=== PATIENT | female | born 1975 | race Caucasian/White ===

== ENCOUNTER 2020-11-28 21:12 | Emergency (ER) | payer OTHER, SELFPAY ==
[2020-11-28] VITALS (15 sets, daily range): BP systolic 123–143; BP diastolic 71–78; PULSE 60–75; RESP 18; TEMP 36.5; O2SAT 100
--- NOTE | 2020-11-28 21:23 | W.ED.GENAD ---
Discharge Plan Disposition Patient Disposition: [facility] Condition: Stable Discharge Details Clinical Impression: Headache, Blurred vision Primary Care Provider: Elvi Marie ED Provider: Radha Gibbons Home Meds and New Rx's Prescriptions: No Action levothyroxine [Synthroid] 137 MCG tablet 100 mcg PO DAILY RF: 0 epinephrine 0.3 MG/SYR auto-injector 0.3 mg IJ PRN PRN (Reason: Allergy Symptoms) Qty: 1 RF: 0 Medical Decision Making Patient is a pleasant 45-year-old female presenting today with chief complaint of headache. She reports that she received a [employer] Covid vaccination 8 days ago. States immediately after receiving this she began dry cough, body ache and general malaise. Reports nausea but no vomiting. No weight loss. However, today she began noticing a headache. She reports that she does often get headaches but that this is different than her typical headache as it is a defined unilateral along the right side. States that her right eye is also blurry. She denies any visual field loss. She does not notice any weakness. No shortness of breath or difficulty breathing. Patient is status post hysterectomy. She is not a smoker. She is not on any estrogen supplementation On exam, patient appears nontoxic. Neurologic exam is without abnormality or focal. Her lungs are clear, normal cardiac exam. No lower extremity swelling or posterior calf tenderness. Abdominal exam is benign Past medical history significant for thyroid cancer. Vital signs are stable. Visual acuity completed by nursing staff. 20/50 right side, 20/20 left, 20/20 with both eyes Differential at this time includes URI, reaction to vaccine, migraine versus. However, I am also concerned for potential cerebral venous thrombosis based on the recent data coming out about the [employer] vaccine. Discussed concern with the patient. 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 She does describe a true anaphylactic reaction when she last had this with a CT scan with contrast. Patient I did discuss pretreatment of this with steroids and Benadryl. However, patient declines any medications. She reports she often has reactions and does not want to take any medications while here. She is aware of my concerns. Plan to move forward with a noncontrast CT and discuss concerns with neurology. I do not see any evidence to suggest septicemia, dissection, [employer] infection. Patient declines any medications for symptomatic management. Chart review here reveals that patient had a mild reaction after receiving CT contrast in 2014. At that time patient had mild reaction to IV contrast consisting of mild chest pressure and flushing. Patient received 25 mg Benadryl and symptoms resolved. However, patient does receive imaging at outside facilities. Reviewed [facility] record and patient has anaphylaxis to gadolinium-containing media, anaphylaxis to iodinated contrast media. Much of the imaging has been pushed from other hospitals and unable to see their previous reports. Need to assume the patient did have true anaphylaxis at this time. Labs reviewed. No thrombocytopenia. Platelet count 319. Coags normal. ESR slightly elevated at 30. CRP is normal at 0.26. Labs otherwise without significant Consulted with Dr. Lam with neurology at [facility]. He advised that plt normal this is less likely. He advise MRI/MRV that can be completed without contrast. Contrast would be more appropriate but this is not possible. They are unable to preform the MRI tonight. If worsening symptoms could image tonight. Dr. Felton with the ED. He advised that they would need to touch base with imaging to see if the MR could be completed tonight. However, they accept patient in transfer to their ED for further evaluation and imaging with concern for cerebral venous thrombosis. Imaging reviewed by radiology: FINDINGS: Brain: Unremarkable. No intracranial hemorrhage. Unremarkable white matter. No mass effect. Cerebral ventricles: No ventriculomegaly. Bones/joints: Unremarkable. Paranasal sinuses: Visualized sinuses are unremarkable. No fluid levels. Mastoid air cells: Visualized mastoid air cells are well aerated. Soft tissues: Air in the soft tissues of the right face and right lateral forehead of uncertain origin. Free air at the base of the skull near the right side of C1 vertebral body. 1. Air in the soft tissues of the right face, right forehead, and base of the right skull near the C1 articulation. 2. No acute intracranial abnormality FINDINGS: Lungs: Unremarkable. No consolidation. Pleural spaces: Unremarkable. No pleural effusion. No pneumothorax. Heart/Mediastinum: Unremarkable. No cardiomegaly. Bones/joints: Unremarkable for patient's age. IMPRESSION: No acute cardiopulmonary findings. HPI General Mode of arrival: ambulatory. Date/Time Provider Initiated Documentation: 11/28/20 21:12. Limitations to Documentation: no limitations. Information obtained by: patient, RN notes reviewed and old records reviewed. History of Present Illness 45 year old F presents to the emergency department with the chief complaint of right sided BARRERA, nausea, dry cough, described as severe and similar to prior episodes (has hx of BARRERA), with intensity rated at 8. Quality is described as aching, and is localized to the head. Patient reports no radiation. Patient started experiencing this hour(s) and it has been constant (progressively worsened). No relieving factors improve symptom(s), No exacerbating factors reported . Patient notes cough, headaches and nausea/vomiting (nausea, no vomiting); denies confusion, chest pain, fever/chills, loss of appetite, rash, shortness of breath, syncope and weakness. Patient did receive the following treatments prior to arrival, none Related Data Home Medications Medication Instructions Recorded Confirmed levothyroxine [Synthroid] 100 mcg PO DAILY 04/09/13 11/28/20 epinephrine 0.3 mg IJ PRN PRN #1 kit 03/27/15 11/28/20 Previous Rx's Medication Instructions Recorded epinephrine 0.3 mg IJ PRN PRN #1 kit 03/27/15 Allergies Allergy/AdvReac Type Severity Reaction Status Date / Time Penicillins Allergy Severe Anaphylaxsi Unverified 11/28/20 21:24 s Sulfa (Sulfonamide Allergy Severe Anaphylaxsi Unverified 11/28/20 21:24 Antibiotics) s venom-honey bee Allergy Severe Anaphylaxsi Unverified 11/28/20 21:24 [bee venom (honey bee)] s citalopram Allergy Mild Hives Unverified 11/28/20 21:24 ofloxacin [From Floxin] Allergy Mild Skin Rash Unverified 11/28/20 21:24 azithromycin [From Zithromax] AdvReac Severe Anaphylaxsi Unverified 11/28/20 21:24 s Iodinated Contrast Media AdvReac Severe Anaphylaxsi Unverified 11/28/20 21:24 [Iodinated Contrast Media - s IV Dye] ketorolac tromethamine AdvReac Severe Anaphylaxsi Unverified 11/28/20 21:24 [From Toradol] s iodine AdvReac Intermediate Anaphylaxsi Unverified 11/28/20 21:24 s lorazepam [From Ativan] AdvReac Intermediate Dizziness/L Unverified 11/28/20 21:24 ightheade horse flies Allergy Severe Anaphylaxsi Uncoded 11/28/20 21:24 s General Stated Complaint: Headache CLARI: 3 Review of Systems Constitutional Constitutional: Reports as per HPI, Denies chills, Denies fever(s), Denies frequent falls, Reports headache(s) and Denies weakness Eyes Eyes: Reports as per HPI, Denies blurry vision, Reports change in vision and Reports photophobia ENT Ears, Nose, Mouth, and Throat: Denies vertigo, Reports headache(s) and Denies neck pain Cardiovascular Cardiovascular: Reports as per HPI, Denies chest pain, Denies lightheadedness, Denies radiating jaw, neck or arm pain, Denies dyspnea and Denies dyspnea on exertion Respiratory Respiratory: Reports as per HPI, Denies chest congestion, Reports cough, Denies hemoptysis, Denies dyspnea, Denies dyspnea on exertion, Denies stridor and Denies wheezing Gastrointestinal Gastrointestinal: Reports as per HPI, Denies abdominal pain, Denies change in bowel habits, Reports nausea and Denies vomiting Musculoskeletal Musculoskeletal: Reports as per HPI, Denies back pain, Reports myalgias, Denies muscle cramps, Denies neck pain and Denies numbness Integumentary/Breasts Skin/Breast: Reports as per HPI and Denies rash Neurologic Neurologic: Reports as per HPI, Denies abnormal movements, Denies abnormal speech, Denies behavioral changes, Denies confusion, Denies vertigo, Denies frequent falls, Reports headache(s), Denies localized weakness, Denies numbness, Denies sensory deficit and Denies weakness Psychiatric Psychiatric: Denies behavioral changes and Denies confusion Allergic/Immunologic Allergic/Immunologic: Denies wheezing [facility] Social History Smoking/Tobacco Use Status: Never Smoking risk assessment performed?: Yes Alcohol Intake: never Drug use: Never Do you feel safe at home: Yes Do you feel safe in your relationship?: Yes Exam Const General: cooperative, healthy appearing, comfortable, no acute distress, well developed, well groomed and anxious Nutritional Appearance: average body habitus and well nourished Orientation: alert, awake and oriented x3 HENMT Head: normal to inspection, no palpable skull fracture, normocephalic and atraumatic Ears: hearing grossly normal bilaterally, external ears normal and TM's normal bilaterally General nose exam: external nose normal Mouth: oral mucosae normal and moist mucous membranes Throat: posterior oropharynx normal Eyes General: appearance normal, both eyes and all related structures Visual Leggett: normal visual leggett by confrontation Alignment and Position: alignment normal Periorbital: periorbital findings normal Eyelids: eyelids normal Sclera: sclerae normal Cornea: corneas normal Pupils: PERRL EOM: EOM intact bilaterally Neck Neck: normal visual inspection, full ROM, no lymphadenopathy and no meningeal signs Resp Effort & Inspection: normal respiratory effort, able to speak in complete sentences and no respiratory distress Auscultation: clear to auscultation bilaterally, no rales, no rhonchi and no wheezes Cardio Rate: regular rate Rhythm: regular rhythm Heart Sounds: S1 normal and S2 normal GI Inspection: normal to inspection and non-distended Palpation: soft, no hepatosplenomegaly, not firm, no guarding, not rigid and nontender Percussion: normal to percussion Auscultation: normal bowel sounds Back/Spine/Pelvis Cervical Spine: normal cervical lordosis and cervical ROM normal Skin General skin exam: no rashes or lesions noted Neuro General: patient alert, patient awake and patient oriented x3 Cranial Nerves: CN's II-XI intact bilaterally Cognition: normal cognition Speech: speech normal Gait: normal gait Motor: muscle tone normal throughout, strength 5/5 throughout, no pronator drift, no movement abnormalities noted and no fasciculations Sensory Exam: no sensory deficits noted Coordination: bleevw-wc-uvol test normal, ghxd-rw-qmsg test normal, Romberg test normal, Does not sway with eyes open and rapid alternating movement UE normal Extrem General: normal to inspection, capillary refill normal, no pedal edema and no calf tenderness Psych Appearance: grossly normal and well kempt Mental Status: mental status grossly normal Speech and Movement: speech and movement normal Course Vital Signs Vital signs: Vital Signs Temperature 36.5 C 11/28/20 21:16 Pulse 75 11/28/20 21:16 Respiratory Rate 18 11/28/20 21:16 Blood Pressure 143/77 H 11/28/20 21:16 Pulse Oximetry 100 11/28/20 21:16 Temperature 36.5 C 11/28/20 21:16 Temperature Source Skin 11/28/20 21:16 Pulse 75 11/28/20 21:16 Respiratory Rate 18 04/16/21 21:16 Respiratory Effort Non-Labored 11/28/20 21:22 Blood Pressure 143/77 H 11/28/20 21:16 Blood Pressure Position Sitting 11/28/20 21:16 Pulse Oximetry 100 11/28/20 21:16 Oxygen Delivery Method Room Air 11/28/20 21:16 Oxygen Flow Rate 0 11/28/20 21:16 Pain Level 8 11/28/20 21:16
--- NOTE | 2020-11-28 21:30 | DI.CT_ITS ---
EXAM: CT HEAD WO CLINICAL HISTORY: right sided BARRERA with blurred vision. TECHNIQUE: Imaging Protocol: Axial computed tomography images with coronal and sagittal reformatted images were created and reviewed COMPARISON: No exams were available for comparison FINDINGS: Note is made of multiple foci of soft tissue gas in the cervical facial region, please correlate clin ically. The ventricular system is normal in appearance. No evidence of acute intracranial hemorrhage, mass effect, or midline shift. The orbital structures are unremarkable. The temporal bone structures appear intact. Calvarium: Normal. Visualized Paranasal sinuses/Mastoids: Clear. IMPRESSION: Normal cranial CT. Incidental multiple foci of soft tissue gas, facial and cervical, please correlat e clinically. RADIATION DOSE DELIVERED: 664.42mGy.cm Total DLP 664.42mGy.cm Total DLP DATA REPOSITORY: All CT scans at this facility are submitted to the National Radiology Data Registry (NRDR) Dose Index Registry (DIR) with the [employer] ([employer]). RADIATION OPTIMIZATION: All CT scans at this facility use at least one of these dose optimization te chniques: automated exposure control; mA and/or kV adjustment per patient size (includes targeted exa ms where dose is matched to clinical indication); or iterative reconstruction.
[2020-11-28] MEDS: Normal Saline 1,000 ML 1000 ML IV (22:08)
[2020-11-28 22:12] LABS: Abs Immature Grans 0.04 10^3/uL (0.0-0.06); Absolute Basophil Count 0.06 10^3/uL (0.0-0.2); Absolute Lymphocyte Count 3.87 10^3/uL (1.2-3.4); Absolute Monocyte Count 0.62 10^3/uL (0.1-0.8); Basophils % 0.5; Eosinophils % 2.3; HCT 36.9 % (36.0-46.0); HGB 12.3 g/dL (11.2-15.7); Immature Grans % 0.4; Lymphocytes % 34.9; MCH 30.4 pg (27.0-33.0); MCHC 33.3 % (32.0-36.0); MCV 91.1 fL (80-95); MPV 9.7 fL (8.0-11.0); Monocytes % 5.6; Neutrophils % 56.3; Nucleated RBC 0 %; Platelet Count 319 10^3/uL (130-400); RBC 4.05 10^6/uL (3.93-5.22); RDW 12.7 % (11.7-14.6); RDW-SD 42.2 fL; WBC 11.08 10^3/uL (4.4-10.8)
[2020-11-28 22:13] LABS: Absolute Eosinophil Count 0.25 10^3/uL (0.0-0.7); Absolute Neutrophil Count 6.24 10^3/uL (1.2-6.7)
[2020-11-28 22:15] LABS: ESR 30 mm//hr (0-20)
[2020-11-28 22:22] LABS: C-Reactive Protein 0.26 mg/dL (0.0-0.3)
--- NOTE | 2020-11-28 22:26 | DI.RAD_ITS ---
EXAM: XR CHEST 2V PA LATERAL CLINICAL HISTORY: dry cough TECHNIQUE: 2D digital imaging was performed. COMPARISON: CR CHEST 2 VIEWS PA,LAT from 07/10/2017 FINDINGS: The heart is not enlarged. The lungs are clear and well expanded. No pleural effusion seen. Mediastin al contours appear intact. IMPRESSION: Normal chest. RADIATION DOSE DELIVERED: Total DLP
[2020-11-28 22:35] LABS: PTT Activated 24.6 sec (21.0-27.5)
[2020-11-28 22:36] LABS: ALT 19 U/L (14-59); AST 14 U/L (15-37); Albumin 4.2 g/dL (3.4-5.0); Alkaline Phosphatase 88 U/L (46-116); Anion Gap 10.1 mmol/L (3-11); BUN 15 mg/dL (7-18); Bilirubin, Total 0.2 mg/dL (0.2-1.0); CO2 26.9 mmol/L (21.0-32.0); CREATININE 0.9 mg/dL (0.55-1.02); Calcium 9.4 mg/dL (8.5-10.1); Chloride 104 mmol/L (98-107); Glucose 100 mg/dL (74-106); Sodium 141 mmol/L (136-145); Total Protein 8.3 g/dL (6.4-8.2)
--- NOTE | 2020-11-28 22:51 | DI.VRAD_ITS ---
PROCEDURE INFORMATION: Exam: XR Chest Exam date and time: 11/28/2020 10:24 PM Age: 45 years old Clinical indication: Patient HX: Dry cough TECHNIQUE: Imaging protocol: XR of the chest. Views: 2 views. COMPARISON: CR CHEST 2 VIEWS PA,LAT 10/07/2017 18:24 FINDINGS: Lungs: Unremarkable. No consolidation. Pleural spaces: Unremarkable. No pleural effusion. No pneumothorax. Heart/Mediastinum: Unremarkable. No cardiomegaly. Bones/joints: Unremarkable for patient's age. IMPRESSION: No acute cardiopulmonary findings. Dictated and Authenticated by: Luz Bennett MD. Ordering:BENJI Garcia MD
--- NOTE | 2020-11-28 22:51 | DI.VRAD_ITS ---
Addendum created by Luz Bennett MD on 11/28/2020 10:53:45 PM EDT: The findings were verbally communicated via telephone conference with Dr. Rubio at 10:53 PM EDT on 11/28/2020. The findings were acknowledged and understood. Initial report created on 11/28/2020 10:50:57 PM EDT: PROCEDURE INFORMATION: Exam: CT Head Without Contrast Exam date and time: 11/28/2020 10:19 PM Age: 45 years old Clinical indication: Pain; Headache not specified; Patient HX: Received j\T\j 8 days ago TECHNIQUE: Imaging protocol: Computed tomography of the head without contrast. Radiation optimization: All CT scans at this facility use at least one of these dose optimization techniques: automated exposure control; mA and/or kV adjustment per patient size (includes targeted exams where dose is matched to clinical indication); or iterative reconstruction. COMPARISON: No relevant prior studies available. FINDINGS: Brain: Unremarkable. No intracranial hemorrhage. Unremarkable white matter. No mass effect. Cerebral ventricles: No ventriculomegaly. Bones/joints: Unremarkable. Paranasal sinuses: Visualized sinuses are unremarkable. No fluid levels. Mastoid air cells: Visualized mastoid air cells are well aerated. Soft tissues: Air in the soft tissues of the right face and right lateral forehead of uncertain origin. Free air at the base of the skull near the right side of C1 vertebral body. IMPRESSION: 1. Air in the soft tissues of the right face, right forehead, and base of the right skull near the C1 articulation. 2. No acute intracranial abnormality. Dictated and Authenticated by: Luz Bennett MD. Ordering:BENJI Garcia MD
[2020-11-28 22:56] LABS: Prothrombin Time 9.9 sec (9.3-11.0)
[2020-11-29] VITALS (12 sets, daily range): BP systolic 115–136; BP diastolic 68–77; PULSE 64–75; O2SAT 98–100
== END 2020-11-29 01:30 | disposition short-term general hospital (02) ==
PROVIDERS: Emergency Provider Physician Assistant; PCP Family Medicine
DX: R51.9 Headache, unspecified (principal); H53.8 Other visual disturbances
CPT/HCPCS: 80053; 85652; 96360; 99285; 70450; 71046; 85025; 85610; 85730; 86140; 99284

== ENCOUNTER 2020-12-10 17:44 | Outpatient (REF) | payer OTHER, SELFPAY ==
[2020-12-10 14:22] LABS: HCT 40.1 % (36.0-46.0); HGB 13.1 g/dL (11.2-15.7); MCHC 32.7 % (32.0-36.0); MCV 91.8 fL (80-95); MPV 10.7 fL (8.0-11.0); Platelet Count 341 10^3/uL (130-400); RBC 4.37 10^6/uL (3.93-5.22); RDW 12.7 % (11.7-14.6); RDW-SD 42.9 fL; WBC 6.81 10^3/uL (4.4-10.8)
[2020-12-10 14:59] LABS: ALT 18 U/L (14-59); AST 12 U/L (15-37); Alkaline Phosphatase 94 U/L (46-116); Anion Gap 7.9 mmol/L (3-11); BUN 17 mg/dL (7-18); Bilirubin, Total 0.3 mg/dL (0.2-1.0); CO2 28.1 mmol/L (21.0-32.0); Calcium 9.5 mg/dL (8.5-10.1); Chloride 103 mmol/L (98-107); Estimated GFR 59.43 (mL/min/1.73m2); FREE T4 1.18 ng/dL (0.76-1.46); Glucose 86 mg/dL (74-106); Potassium 4.4 mmol/L (3.5-5.1); Sodium 139 mmol/L (136-145); TSH 0.65 uIU/mL (0.36-3.74); Total Protein 7.6 g/dL (6.4-8.2)
[2020-12-10 21:26] LABS: T3, Total 133 ng/dL (97-169)
== END 2020-12-10 17:45 | disposition home or self-care (01) ==
LOC: NCHCN 17:44
PROVIDERS: PCP Family Medicine; Visit Provider Family Medicine
DX: E03.9 Hypothyroidism, unspecified (principal); R53.83 Other fatigue
CPT/HCPCS: 80053; 85027; 84432; 84439; 84443; 84480; 86800

== ENCOUNTER 2020-12-11 21:07 | Emergency (ER) | payer OTHER, SELFPAY ==
[2020-12-11 21:15] VITALS: BP 116/78; PULSE 72; RESP 18; TEMP 36.5; O2SAT 98
[2020-12-11 21:21] VITALS: RESP 18
--- NOTE | 2020-12-11 21:45 | RT.EKG_ITS ---
APPROVED REPORT Exam: Resting ECG Patient Location: E HR:68 bpm ECG Measurements Heart Rate 68 AXIS IL 158 P 68 QRSd 86 QRS 67 QT 410 T 56 QTc 437 Conclusion Sinus rhythm...normal P axis, V-rate 60- 99
[2020-12-11 22:03] LABS: Abs Immature Grans 0.03 10^3/uL (0.0-0.06); Absolute Basophil Count 0.06 10^3/uL (0.0-0.2); Absolute Eosinophil Count 0.18 10^3/uL (0.0-0.7); Absolute Monocyte Count 0.45 10^3/uL (0.1-0.8); Absolute Neutrophil Count 5.72 10^3/uL (1.2-6.7); Basophils % 0.6; Eosinophils % 1.9; HCT 35.3 % (36.0-46.0); HGB 11.6 g/dL (11.2-15.7); Immature Grans % 0.3; Lymphocytes % 32.5; MCH 29.8 pg (27.0-33.0); MCHC 32.9 % (32.0-36.0); MCV 90.7 fL (80-95); MPV 10.2 fL (8.0-11.0); Monocytes % 4.7; Nucleated RBC 0 %; Platelet Count 320 10^3/uL (130-400); RBC 3.89 10^6/uL (3.93-5.22); RDW 12.7 % (11.7-14.6); RDW-SD 41.6 fL; WBC 9.54 10^3/uL (4.4-10.8)
[2020-12-11 22:18] LABS: ALT 20 U/L (14-59); AST 13 U/L (15-37); Albumin 3.7 g/dL (3.4-5.0); Alkaline Phosphatase 83 U/L (46-116); Anion Gap 11.6 mmol/L (3-11); BUN 14 mg/dL (7-18); Bilirubin, Total 0.2 mg/dL (0.2-1.0); CO2 25.4 mmol/L (21.0-32.0); CREATININE 0.9 mg/dL (0.55-1.02); Calcium 9.2 mg/dL (8.5-10.1); Chloride 104 mmol/L (98-107); Glucose 114 mg/dL (74-106); Magnesium 1.8 mg/dL (1.8-2.4); PTT Activated 24.5 sec (21.0-27.5); Potassium 3.6 mmol/L (3.5-5.1); Prothrombin Time 9.9 sec (9.3-11.0); Sodium 141 mmol/L (136-145); Total Protein 7.5 g/dL (6.4-8.2)
--- NOTE | 2020-12-11 22:20 | DI.RAD_ITS ---
Exam(s) XR CHEST 2V PA LATERAL EXAM: XR CHEST 2V PA LATERAL CLINICAL HISTORY: near syncope TECHNIQUE: 2D digital imaging was performed. COMPARISON: CR,XR XR CHEST 2V PA LATERAL from 11/28/2020 FINDINGS: MEDIASTINUM: Normal. HEART: Normal. PULMONARY VASCULATURE: Normal. LUNGS: Clear. PLEURAL SPACE: No pleural effusion or pneumothorax. BONE:Within normal limits for the patient's age. OTHER FINDINGS:Normal. IMPRESSION: No acute pulmonary findings. DATA REPOSITORY: RADIATION DOSE DELIVERED:
[2020-12-11 22:21] LABS: Troponin I < 0.05 ng/mL (<0.06)
[2020-12-11] MEDS: Normal Saline 250 ML IV (22:26)
--- NOTE | 2020-12-11 22:39 | DI.VRAD_ITS ---
PROCEDURE INFORMATION: Exam: XR Chest Exam date and time: 12/11/2020 10:20 PM Age: 45 years old Clinical indication: Other: Near syncope TECHNIQUE: Imaging protocol: XR of the chest. Views: 2 views. COMPARISON: CR XR CHEST 2V PA LATERAL 11/28/2020 10:21 PM FINDINGS: Lungs: Unremarkable. No consolidation. Pleural spaces: Unremarkable. No pleural effusion. No pneumothorax. Heart/Mediastinum: Unremarkable. No cardiomegaly. Bones/joints: Unremarkable. IMPRESSION: No acute findings. Dictated and Authenticated by: Zachary Lenz MD. Ordering:EMILY Lee MD
--- NOTE | 2020-12-11 23:03 | ED.GENADUL_ITS ---
Discharge Plan Disposition Patient Disposition: HOME Condition: Stable Discharge Details Clinical Impression: Chest pain, Near syncope Primary Care Provider: Leonora Syed ED Provider: Jesus Delvalle Home Meds and New Rx's Prescriptions: Continued levothyroxine [Synthroid] 137 MCG tablet 100 mcg PO DAILY RF: 0 epinephrine 0.3 MG/SYR auto-injector 0.3 mg IJ PRN PRN (Reason: Allergy Symptoms) Qty: 1 RF: 0 Discharge Instructions Instructions: Chest Pain (ED), Near Syncope (ED) Additional Instructions: Work-up here in the ER does not reveal any obvious emergent process. Please watch for new or worsening symptoms and return to the ER for any concerns. Otherwise I would like you to contact your primary care provider tomorrow to discuss outpatient reevaluation and your ongoing symptoms Medical Decision Making This is a 45-year-old female who presents today specifically because she had a sensation of near syncope but overall has been feeling ill since her [employer] vaccine on 11-19-20 she was seen in our ER on the and subsequently transferred to [facility] where she had a negative MRV and a neurology consultation. I was able to review this record. Given her near syncopal episode this evening I will perform a cardiac evaluation, discussed with her a repeat troponin and EKG in 3 hours. She is agreeable to this work-up. She does appear anxious but she appears well, nontoxic and neurologically intact. She declines any aspirin. She states that she would rather not have any medications she can avoid it. Later she was requesting IV fluid although she tells me that she has been eating and drinking well, no concern for dehydration. Patient given 1 L IV fluid Patient remains neurologically intact. She is resting comfortably. Discussed her initial work-up which has been benign. She is specifically asking that we obtain a D-dimer. D-dimer is obtained. Patient had a single episode of diarrhea, is anxious and tearful. She reports mild nausea. She declines any Zofran. Upon reevaluation patient is using her phone without difficulty. She is no longer anxious or tearful. She is hopeful that her fully vaccinated father will be able to come visit her in the ER while she is awaiting the repeat troponin and EKG. We discussed her normal D-dimer test. At time of signout to Dr. Ibanez, awaiting repeat troponin and EKG at 0035 Medical Records Medical records reviewed: Yes I reviewed the patient's medical records. Imaging Data Radiologic Study: Attestation: I personally reviewed and interpreted this imaging study as follows: Imaging: X-Ray Radiologist's impression: Chest x-ray negative per radiology Lab Data Lab results reviewed: Yes I reviewed the patient's lab results. Labs: Laboratory Tests Range/Units 12/11/20 12/11/20 12/11/20 21:35 21:35 21:35 WBC (4.4-10.8) 10^3/uL 9.54 RBC (3.93-5.22) 10^6/uL 3.89 L Hgb (11.2-15.7) g/dL 11.6 Hct (36.0-46.0) % 35.3 L MCV (80-95) fL 90.7 MCH (27.0-33.0) pg 29.8 MCHC (32.0-36.0) % 32.9 RDW (11.7-14.6) % 12.7 Plt Count (130-400) 10^3/uL 320 MPV (8.0-11.0) fL 10.2 Immature Gran % 0.3 Neutrophils % 60.0 Lymphocytes % 32.5 Monocytes % 4.7 Eosinophils % 1.9 Basophils % 0.6 Nucleated RBC % % 0 Absolute Neutrophils (1.2-6.7) 10^3/uL 5.72 Absolute Lymphocytes (1.2-3.4) 10^3/uL 3.10 Absolute Monocytes (0.1-0.8) 10^3/uL 0.45 Absolute Eosinophils (0.0-0.7) 10^3/uL 0.18 Absolute Basophils (0.0-0.2) 10^3/uL 0.06 PT (9.3-11.0) sec 9.9 INR (0.9-1.1) 1.0 APTT (21.0-27.5) sec 24.5 Sodium (136-145) mmol/L 141 Potassium (3.5-5.1) mmol/L 3.6 Chloride (98-107) mmol/L 104 Carbon Dioxide (21.0-32.0) mmol/L 25.4 Anion Gap (3-11) mmol/L 11.6 H BUN (7-18) mg/dL 14 Creatinine (0.55-1.02) mg/dL 0.9 Estimated GFR/1.73 m2 (mL/min/1.73m2) >= 60.00 Glucose (74-106) mg/dL 114 H Calcium (8.5-10.1) mg/dL 9.2 Magnesium (1.8-2.4) mg/dL 1.8 Total Bilirubin (0.2-1.0) mg/dL 0.2 AST (15-37) U/L 13 L ALT (14-59) U/L 20 Alkaline Phosphatase (46-116) U/L 83 Troponin I (<0.06) ng/mL < 0.05 Total Protein (6.4-8.2) g/dL 7.5 Albumin (3.4-5.0) g/dL 3.7 ECG Data Attestation: I personally reviewed and interpreted this ECG (s) as follows: Interpretation: Please see official report by Dr. Fernandez. Sinus rhythm, ventricular of 68. No STEMI HPI General Mode of arrival: EMS . Date/Time Provider Initiated Documentation: 12/11/20 21:09 . Limitations to Documentation: no limitations . Information obtained by: patient and EMS . HPI Narrative: This is a 45-year-old female who reports past medical history of thyroid cancer, thyroidectomy, who takes levothyroxine. She received the Covid vaccine [employer] on 11-19-20. Subsequently she was seen in our ER on 11-28 for headache, concern for cerebral venous thrombosis, had a Noncon CT of her head here in the ER given her contrast allergy after she developed a headache and blurry vision. She was subsequently transferred to [facility] in the ER, had a neurology evaluation, MRV which was negative and subsequently discharged home. Patient states that after discharge overall she felt like she was going in the right direction however over the past 4 days has had intermittent chest squeezing, nothing makes it worse or better, does not radiate anywhere. Patient reports that her headache and blurry vision has not gone away completely since it began on the . She was seen by her primary care provider yesterday and had what she describes as reassuring blood work. She states today around 8 PM she was bending over to pick something up and had the chest squeezing sensation, had a head oliveros feeling like she could pass out, and bilateral leg weakness. She did not pass out. She denies recent illness or trauma. Patient reports that all of the symptoms are brand-new ever since the [employer] vaccine. She denies neck pain, fever, chest pain, shortness of breath. She does admit to a mild dry cough after getting the vaccine. Reports occasional abdominal pain, nausea but no vomiting. Reports occasional diarrhea, denies dysuria, numbness or weakness. Related Data Home Medications Medication Instructions Recorded Confirmed levothyroxine [Synthroid] 100 mcg PO DAILY 04/09/13 11/28/20 epinephrine 0.3 mg IJ PRN PRN #1 kit 03/27/15 11/28/20 Previous Rx's Medication Instructions Recorded epinephrine 0.3 mg IJ PRN PRN #1 kit 03/27/15 Allergies Allergy/AdvReac Type Severity Reaction Status Date / Time Penicillins Allergy Severe Anaphylaxsi Unverified 11/28/20 21:24 s Sulfa (Sulfonamide Allergy Severe Anaphylaxsi Unverified 11/28/20 21:24 Antibiotics) s venom-honey bee Allergy Severe Anaphylaxsi Unverified 11/28/20 21:24 [bee venom (honey bee)] s citalopram Allergy Mild Hives Unverified 11/28/20 21:24 ofloxacin [From Floxin] Allergy Mild Skin Rash Unverified 11/28/20 21:24 azithromycin [From Zithromax] AdvReac Severe Anaphylaxsi Unverified 11/28/20 21:24 s Iodinated Contrast Media AdvReac Severe Anaphylaxsi Unverified 11/28/20 21:24 [Iodinated Contrast Media - s IV Dye] ketorolac tromethamine AdvReac Severe Anaphylaxsi Unverified 11/28/20 21:24 [From Toradol] s iodine AdvReac Intermediate Anaphylaxsi Unverified 11/28/20 21:24 s lorazepam [From Ativan] AdvReac Intermediate Dizziness/L Unverified 11/28/20 21:24 ightheade horse flies Allergy Severe Anaphylaxsi Uncoded 11/28/20 21:24 s General Stated Complaint: Dizzy/Sync CLARI: 3 Review of Systems Constitutional Constitutional: Denies fatigue, Denies fever(s), Reports headache(s) and Denies weakness Eyes Eyes: Reports blurry vision ENT Ears, Nose, Mouth, and Throat: Reports headache(s) and Denies neck pain Cardiovascular Cardiovascular: Reports chest pain and Denies dyspnea Respiratory Respiratory: Reports cough and Denies dyspnea Gastrointestinal Gastrointestinal: Reports abdominal pain, Reports nausea and Denies vomiting Genitourinary Genitourinary: Denies dysuria Musculoskeletal Musculoskeletal: Denies back pain, Denies neck pain, Denies numbness and Denies tingling Integumentary/Breasts Skin/Breast: Denies rash Neurologic Neurologic: Reports headache(s), Denies numbness, Denies tingling and Denies weakness Endocrine Endocrine: Denies fatigue Hematologic/Lymphatic Hematologic/Lymphatic: Denies easy bleeding and Denies easy bruising [facility] Social History Smoking/Tobacco Use Status: Never Smoking risk assessment performed?: Yes Alcohol Intake: never Drug use: Never Do you feel safe at home: Yes Do you feel safe in your relationship?: Yes Exam Const General: cooperative, healthy appearing, comfortable, no acute distress and anxious Orientation: alert, awake and oriented x3 HENMT Head: normal to inspection, normocephalic and atraumatic General nose exam: external nose normal Face and sinus: normal facial exam Mouth: moist mucous membranes Eyes General: appearance normal, both eyes and all related structures Periorbital: periorbital findings normal Eyelids: eyelids normal Conjunctivae: conjunctivae normal Sclera: sclerae normal Cornea: corneas normal Neck Neck: normal visual inspection, full ROM, no lymphadenopathy, no meningeal signs, trachea midline, supple and nontender Resp Effort & Inspection: normal respiratory effort and able to speak in complete sentences Auscultation: clear to auscultation bilaterally Cardio Rate: regular rate Rhythm: regular rhythm GI Palpation: soft, not firm, no guarding and nontender Auscultation: normal bowel sounds Back/Spine/Pelvis Back: No back tenderness Skin General skin exam: no rashes or lesions noted Neuro General: patient alert, patient awake, patient oriented x3, moves all extremities and no focal motor deficits Cranial Nerves: CN's II-XI intact bilaterally Cognition: normal cognition Speech: speech normal Gait: normal gait Motor: muscle tone normal throughout, strength 5/5 throughout, no movement abnormalities noted and no fasciculations Sensory Exam: no sensory deficits noted Coordination: Does not sway with eyes open Extrem General: normal to inspection, full ROM, capillary refill normal, no pedal edema, no calf tenderness and normal gait Psych Appearance: grossly normal Mental Status: mental status grossly normal Course Vital Signs Vital signs: Vital Signs Temperature 36.5 C 12/11/20 21:15 Pulse 72 12/11/20 21:15 Respiratory Rate 18 12/11/20 21:15 Blood Pressure 116/78 12/11/20 21:15 Pulse Oximetry 98 12/11/20 21:15 Temperature 36.5 C 12/11/20 21:15 Temperature Source Temporal Artery Scan 12/11/20 21:15 Pulse 72 12/11/20 21:15 Respiratory Rate 18 12/11/20 21:21 Respiratory Effort Non-Labored 12/11/20 21:21 Respiratory Depth Normal 12/11/20 21:21 Respiratory Pattern Normal 12/11/20 21:21 Blood Pressure 116/78 12/11/20 21:15 Blood Pressure Position Supine 12/11/20 21:15 Pulse Oximetry 98 12/11/20 21:15 Oxygen Delivery Method Room Air 12/11/20 21:15 Oxygen Flow Rate 0 12/11/20 21:15 Pain Level 0 12/11/20 21:15 Lab/Test Results Lab/Test Results: Laboratory Tests Range/Units 12/11/20 12/11/20 12/11/20 21:35 21:35 21:35 WBC (4.4-10.8) 10^3/uL 9.54 RBC (3.93-5.22) 10^6/uL 3.89 L Hgb (11.2-15.7) g/dL 11.6 Hct (36.0-46.0) % 35.3 L MCV (80-95) fL 90.7 MCH (27.0-33.0) pg 29.8 MCHC (32.0-36.0) % 32.9 RDW (11.7-14.6) % 12.7 Plt Count (130-400) 10^3/uL 320 MPV (8.0-11.0) fL 10.2 Immature Gran % 0.3 Neutrophils % 60.0 Lymphocytes % 32.5 Monocytes % 4.7 Eosinophils % 1.9 Basophils % 0.6 Nucleated RBC % % 0 Absolute Neutrophils (1.2-6.7) 10^3/uL 5.72 Absolute Lymphocytes (1.2-3.4) 10^3/uL 3.10 Absolute Monocytes (0.1-0.8) 10^3/uL 0.45 Absolute Eosinophils (0.0-0.7) 10^3/uL 0.18 Absolute Basophils (0.0-0.2) 10^3/uL 0.06 PT (9.3-11.0) sec 9.9 INR (0.9-1.1) 1.0 APTT (21.0-27.5) sec 24.5 Sodium (136-145) mmol/L 141 Potassium (3.5-5.1) mmol/L 3.6 Chloride (98-107) mmol/L 104 Carbon Dioxide (21.0-32.0) mmol/L 25.4 Anion Gap (3-11) mmol/L 11.6 H BUN (7-18) mg/dL 14 Creatinine (0.55-1.02) mg/dL 0.9 Estimated GFR/1.73 m2 (mL/min/1.73m2) >= 60.00 Glucose (74-106) mg/dL 114 H Calcium (8.5-10.1) mg/dL 9.2 Magnesium (1.8-2.4) mg/dL 1.8 Total Bilirubin (0.2-1.0) mg/dL 0.2 AST (15-37) U/L 13 L ALT (14-59) U/L 20 Alkaline Phosphatase (46-116) U/L 83 Troponin I (<0.06) ng/mL < 0.05 Total Protein (6.4-8.2) g/dL 7.5 Albumin (3.4-5.0) g/dL 3.7
[2020-12-11 23:32] LABS: D-Dimer 416 ng/mlFEU (<500)
--- NOTE | 2020-12-12 00:45 | RT.EKG_ITS ---
APPROVED REPORT Exam: Resting ECG Patient Location: E HR:72 bpm ECG Measurements Heart Rate 72 AXIS DC 159 P 64 QRSd 84 QRS 64 QT 403 T 54 QTc 441 Conclusion Sinus rhythm...normal P axis, V-rate 60- 99 Consider anterior infarct...Q >30mS in V2-V5 -- no infarct There are no significant changes compared to prior EKG performed on 12/11/2020 at 22:07. Normal Electrocardiogram
[2020-12-12 01:28] LABS: Troponin I < 0.05 ng/mL (<0.06)
[2020-12-12 02:00] VITALS: BP 135/92; PULSE 76; RESP 16; O2SAT 96
== END 2020-12-12 01:59 | disposition home or self-care (01) ==
PROVIDERS: Emergency Provider Physician Assistant; PCP Family Medicine
DX: R55 Syncope and collapse (principal); R07.89 Other chest pain; R11.0 Nausea
CPT/HCPCS: 36415; 80053; 93005; 96360; 99284; 71046; 83735; 84484; 85025; 85379; 85610; 85730; 93010

== ENCOUNTER 2020-12-15 04:01 | Emergency (ER) | payer OTHER, SELFPAY ==
[2020-12-15] VITALS (91 sets, daily range): BP systolic 105–133; BP diastolic 62–97; PULSE 56–89; RESP 9–22; TEMP 36.5; O2SAT 94–100
--- NOTE | 2020-12-15 04:00 | RT.EKG_ITS ---
APPROVED REPORT Exam: Resting ECG Patient Location: E HR:63 bpm ECG Measurements Heart Rate 63 AXIS LA 166 P 69 QRSd 85 QRS 58 QT 420 T 52 QTc 431 Conclusion Sinus rhythm...normal P axis, V-rate 60- 99
--- NOTE | 2020-12-15 04:15 | DI.RAD_ITS ---
Exam(s) XR CHEST 2V PA LATERAL EXAM: XR CHEST 2V PA LATERAL CLINICAL HISTORY: L chest pain TECHNIQUE: 2D digital imaging was performed. COMPARISON: CR,XR XR CHEST 2V PA LATERAL from 12/11/2020 FINDINGS: MEDIASTINUM: Normal. HEART: Normal. PULMONARY VASCULATURE: Normal. LUNGS: Clear. PLEURAL SPACE: No pleural effusion or pneumothorax. BONE:Within normal limits for the patient's age. OTHER FINDINGS:Normal. IMPRESSION: No acute pulmonary findings. DATA REPOSITORY: RADIATION DOSE DELIVERED:
--- NOTE | 2020-12-15 04:29 | ED.GENADUL_ITS ---
Discharge Plan Disposition Patient Disposition: HOME Condition: Stable Discharge Details Clinical Impression: Atypical chest pain Primary Care Provider: Leonora Syed ED Provider: Chrissy Fernandez Home Meds and New Rx's Prescriptions: Continued levothyroxine [Synthroid] 137 MCG tablet 100 mcg PO DAILY RF: 0 epinephrine 0.3 MG/SYR auto-injector 0.3 mg IJ PRN PRN (Reason: Allergy Symptoms) Qty: 1 RF: 0 No Action levothyroxine 88 mcg capsule 88 mcg PO DAILY RF: 0 Discharge Instructions Instructions: Chest Pain (ED) Additional Instructions: Please wear Holter monitor and return to respiratory therapy as discussed with them. Please follow-up with neurology and cardiology as ordered by [facility]. Please return immediately to the emergency department if you develop any new or worsening symptoms, if your condition does not improve as expected, or if you become otherwise concerned. It is extremely important that you call soon as possible to make an appointment to be seen in follow-up for this visit by your primary care doctor, and also that you undergo a stress test as we discussed. Your stress test has been scheduled for this , 12/18/2020, at 9 AM. Referrals: Leonora Syed [Primary Care Provider] - Discharge Data Discharge Date/Time-TO BE ENTERED AT DEPARTURE: 12/15/20 09:50 Medical Decision Making <Deo Mondragon MD - Last Filed: 12/15/20 07:20> This is a 45-year-old female who presents approximately 4 in the morning complaining of intermittent episodes of electric-like left chest pain that radiates to her left arm over the past 4 days. She states it lasts approximately 1 minute and dissipates on its own. She attributes some of the symptoms to beginning after receiving the [employer] single dose COVID-19 vaccine in early November. She developed a headache for which she was evaluated at [facility] including an MRV that was negative. She was also recently seen in the emergency department where she had a negative D-dimer and negative troponin. She was seen this past Tuesday in outpatient clinic at which point she states she was trialed on an anxiolytic medicine and referred to both cardiology and neurology. This morning she states she had intermittent episodes of left anterior chest pain rating to left arm that kept her awake and for which she now seeks evaluation. She arrives to the ER with unremarkable vital signs, initial EKG that is without evidence of ischemic changes. She is placed on a clinical research monitor, IV access obtained, referred for chest x-ray and repeat laboratories. Patient's chest x-ray is unremarkable, CBC within normal limits, chemistries reassuring with a troponin that is negative. Patient observed on the clinical research monitor without significant event. Repeat troponin obtained and pending. I will order her an outpatient Holter monitor. Case will be signed out to Dr. Fernandez pending the patient's repeat troponin. If negative anticipate she will discharge to home and follow-up with neurology and cardiology as planned by her primary care physician. <Chrissy Fernandez MD - Last Filed: 12/22/20 08:43> Raquel Valencia is a 45 y.o woman who presented to emergency department with chest pain, please see Dr. Mondragon's note for H&P. Patient signed out to me with repeat troponin pending. Repeat troponin resulted as negative. Patient reports feeling well and ready to go, no current pain. Patient is low risk by HEART score, okay for outpatient follow-up. Exam/history/diagnostic results not consistent with acute coronary syndrome, pulmonary embolism, acute aortic pathology, other acute emergent medical condition. Outpatient stress test ordered by me. Holter monitor placed by respiratory therapy. I had a lengthy discussion with Patient regarding return to emergency department precautions, home care, and importance of outpatient follow-up. Pt verbalizes understanding of the plan and is amenable. Patient discharged to home with clear plan for outpatient follow-up with neurology, cardiology, and her PCP. All questions were answered. Disposition decision was made weighing the risks and benefits of hospitalization versus outpatient treatment, the risk for further decompensation, and the patient's wishes. Medical Records Medical records reviewed: Yes I reviewed the patient's medical records. Lab Data Lab results reviewed: Yes I reviewed the patient's lab results. Labs: Laboratory Tests Range/Units 12/15/20 12/15/20 12/15/20 04:40 04:40 07:09 WBC (4.4-10.8) 10^3/uL 8.91 RBC (3.93-5.22) 10^6/uL 4.00 Hgb (11.2-15.7) g/dL 11.9 Hct (36.0-46.0) % 36.5 MCV (80-95) fL 91.3 MCH (27.0-33.0) pg 29.8 MCHC (32.0-36.0) % 32.6 RDW (11.7-14.6) % 12.7 Plt Count (130-400) 10^3/uL 303 MPV (8.0-11.0) fL 9.4 Immature Gran % 0.4 Neutrophils % 56.9 Lymphocytes % 34.3 Monocytes % 5.7 Eosinophils % 2.0 Basophils % 0.7 Nucleated RBC % % 0 Absolute Neutrophils (1.2-6.7) 10^3/uL 5.06 Absolute Lymphocytes (1.2-3.4) 10^3/uL 3.06 Absolute Monocytes (0.1-0.8) 10^3/uL 0.51 Absolute Eosinophils (0.0-0.7) 10^3/uL 0.18 Absolute Basophils (0.0-0.2) 10^3/uL 0.06 Sodium (136-145) mmol/L 142 Potassium (3.5-5.1) mmol/L 3.7 Chloride (98-107) mmol/L 106 Carbon Dioxide (21.0-32.0) mmol/L 25.5 Anion Gap (3-11) mmol/L 10.5 BUN (7-18) mg/dL 14 Creatinine (0.55-1.02) mg/dL 1.0 Estimated GFR/1.73 m2 (mL/min/1.73m2) 59.43 Glucose (74-106) mg/dL 87 Calcium (8.5-10.1) mg/dL 8.9 Magnesium (1.8-2.4) mg/dL 1.8 Total Bilirubin (0.2-1.0) mg/dL 0.3 AST (15-37) U/L 11 L ALT (14-59) U/L 16 Alkaline Phosphatase (46-116) U/L 74 Troponin I (<0.06) ng/mL < 0.05 < 0.05 Total Protein (6.4-8.2) g/dL 7.3 Albumin (3.4-5.0) g/dL 3.6 SARS-CoV-2 (PCR) (Negative) Nasopharyn COVID-19 PCR Ref Test Perform Site Range/Units 12/15/20 09:47 WBC (4.4-10.8) 10^3/uL RBC (3.93-5.22) 10^6/uL Hgb (11.2-15.7) g/dL Hct (36.0-46.0) % MCV (80-95) fL MCH (27.0-33.0) pg MCHC (32.0-36.0) % RDW (11.7-14.6) % Plt Count (130-400) 10^3/uL MPV (8.0-11.0) fL Immature Gran % Neutrophils % Lymphocytes % Monocytes % Eosinophils % Basophils % Nucleated RBC % % Absolute Neutrophils (1.2-6.7) 10^3/uL Absolute Lymphocytes (1.2-3.4) 10^3/uL Absolute Monocytes (0.1-0.8) 10^3/uL Absolute Eosinophils (0.0-0.7) 10^3/uL Absolute Basophils (0.0-0.2) 10^3/uL Sodium (136-145) mmol/L Potassium (3.5-5.1) mmol/L Chloride (98-107) mmol/L Carbon Dioxide (21.0-32.0) mmol/L Anion Gap (3-11) mmol/L BUN (7-18) mg/dL Creatinine (0.55-1.02) mg/dL Estimated GFR/1.73 m2 (mL/min/1.73m2) Glucose (74-106) mg/dL Calcium (8.5-10.1) mg/dL Magnesium (1.8-2.4) mg/dL Total Bilirubin (0.2-1.0) mg/dL AST (15-37) U/L ALT (14-59) U/L Alkaline Phosphatase (46-116) U/L Troponin I (<0.06) ng/mL Total Protein (6.4-8.2) g/dL Albumin (3.4-5.0) g/dL SARS-CoV-2 (PCR) (Negative) Negative Nasopharyn COVID-19 PCR Not Applicable Ref Test Perform Site [id number] lab HPI <Deo Mondragon MD - Last Filed: 12/15/20 07:20> General Mode of arrival: ambulatory . Date/Time Provider Initiated Documentation: 12/15/20 04:02 . Limitations to Documentation: no limitations . Information obtained by: patient . History of Present Illness 45 year old F presents to the emergency department with the chief complaint of Left chest pain intermittently for 4 days, described as moderate, Quality is described as other (Electric), and is localized to the chest and left. Patient extremity. Patient started experiencing this day(s) and it has been intermittent. No relieving factors improve symptom(s), No exacerbating factors reported . Patient notes denies cough, fever/chills, loss of appetite and nausea/vomiting. Patient did receive the following treatments prior to arrival, none Related Data Home Medications Medication Instructions Recorded Confirmed levothyroxine [Synthroid] 100 mcg PO DAILY 04/09/13 12/15/20 epinephrine 0.3 mg IJ PRN PRN #1 kit 03/27/15 12/15/20 levothyroxine 88 mcg capsule 88 mcg PO DAILY 12/17/20 Previous Rx's Medication Instructions Recorded epinephrine 0.3 mg IJ PRN PRN #1 kit 03/27/15 Allergies Allergy/AdvReac Type Severity Reaction Status Date / Time Penicillins Allergy Severe Anaphylaxsi Unverified 12/15/20 04:23 s Sulfa (Sulfonamide Allergy Severe Anaphylaxsi Unverified 12/15/20 04:23 Antibiotics) s venom-honey bee Allergy Severe Anaphylaxsi Unverified 12/15/20 04:23 [bee venom (honey bee)] s citalopram Allergy Mild Hives Unverified 12/15/20 04:23 ofloxacin [From Floxin] Allergy Mild Skin Rash Unverified 12/15/20 04:23 naproxen [From Aleve] Allergy Verified 12/17/20 16:09 azithromycin [From Zithromax] AdvReac Severe Anaphylaxsi Unverified 12/15/20 04:23 s Iodinated Contrast Media AdvReac Severe Anaphylaxsi Unverified 12/15/20 04:23 [Iodinated Contrast Media - s IV Dye] ketorolac tromethamine AdvReac Severe Anaphylaxsi Unverified 12/15/20 04:23 [From Toradol] s iodine AdvReac Intermediate Anaphylaxsi Unverified 12/15/20 04:23 s lorazepam [From Ativan] AdvReac Intermediate Dizziness/L Unverified 12/15/20 04:23 ightheade horse flies Allergy Severe Anaphylaxsi Uncoded 11/28/20 21:24 s General Stated Complaint: Chest Pain CLARI: 2 Review of Systems <Deo Mondragon MD - Last Filed: 12/15/20 07:20> Narrative: 6 systems reviewed and otherwise negative PFSH <Deo Mondragon MD - Last Filed: 12/15/20 07:20> Medical History (Updated 12/17/20 @ 16:12 by Rubi Wing RN) Anxiety Fatigue Fatigue Hypothyroidism Social History Smoking/Tobacco Use Status: Never Smoking risk assessment performed?: Yes Alcohol Intake: never Drug use: Never Substance use type: does not use Do you feel safe at home: Yes Do you feel safe in your relationship?: Yes Additional Social history: Has had both her COVID Vaccines since November Exam <Deo Mondragon MD - Last Filed: 12/15/20 07:20> Narrative Exam Narrative: GEN: awake, alert, oriented 3. Pleasant, well groomed, interactive. HEAD: Normocephalic, atraumatic ENT: Mucous membranes moist, External ear exam unremarkable EYES: PERRL, EOMI NECK: Full ROM, no JOEL, no menigismus CHEST/RESP: Nontender, clear to auscultation bilateral, no wheeze/rhonchi/rales CARDIOVASCULAR: RRR, no murmur, rub taylor. 2+ Rad pulse bilateral ABDOMEN: Soft, nontender, no mass. +Bowel sounds EXT: Full ROM, no edema, no rash Neuro: Grossly normal neurologic exam, conversant, interactive. Psych: Speech fluent, thoughts congruent, affect normal Course <Deo Mondragon MD - Last Filed: 12/15/20 07:20> Vital Signs Vital signs: Vital Signs Temperature 36.5 C 12/15/20 04:05 Pulse 72 12/15/20 04:05 Respiratory Rate 16 12/15/20 04:05 Blood Pressure 127/87 12/15/20 04:05 Temperature 36.5 C 12/15/20 04:05 Temperature Source Skin 12/15/20 04:05 Pulse 64 12/15/20 04:20 Pulse 78 12/15/20 04:21 Respiratory Rate 14 12/15/20 04:21 Respiratory Effort Non-Labored 05/03/21 04:19 Respiratory Depth Normal 12/15/20 04:19 Respiratory Pattern Normal 12/15/20 04:19 Blood Pressure 131/81 12/15/20 04:20 Blood Pressure Mean 92 12/15/20 04:20 Blood Pressure Position Supine 12/15/20 04:05 Pulse Oximetry 98 12/15/20 04:21 Oxygen Delivery Method Room Air 12/15/20 04:05 Oxygen Flow Rate 0 12/15/20 04:05 Sign Out <Deo Mondragon MD - Last Filed: 12/15/20 07:20> Sign Out Data: Sign Out Comment: pending repeat troponin Last updated by Deo Mondragon MD at 12/15/20 07:24
[2020-12-15 04:43] LABS: Abs Immature Grans 0.04 10^3/uL (0.0-0.06); Absolute Basophil Count 0.06 10^3/uL (0.0-0.2); Absolute Eosinophil Count 0.18 10^3/uL (0.0-0.7); Absolute Lymphocyte Count 3.06 10^3/uL (1.2-3.4); Absolute Monocyte Count 0.51 10^3/uL (0.1-0.8); Absolute Neutrophil Count 5.06 10^3/uL (1.2-6.7); Basophils % 0.7; HCT 36.5 % (36.0-46.0); HGB 11.9 g/dL (11.2-15.7); Immature Grans % 0.4; Lymphocytes % 34.3; MCH 29.8 pg (27.0-33.0); MCHC 32.6 % (32.0-36.0); MCV 91.3 fL (80-95); MPV 9.4 fL (8.0-11.0); Monocytes % 5.7; Neutrophils % 56.9; Nucleated RBC 0 %; Platelet Count 303 10^3/uL (130-400); RDW 12.7 % (11.7-14.6); RDW-SD 42.4 fL; WBC 8.91 10^3/uL (4.4-10.8)
[2020-12-15 05:03] LABS: ALT 16 U/L (14-59); AST 11 U/L (15-37); Albumin 3.6 g/dL (3.4-5.0); Alkaline Phosphatase 74 U/L (46-116); Anion Gap 10.5 mmol/L (3-11); BUN 14 mg/dL (7-18); Bilirubin, Total 0.3 mg/dL (0.2-1.0); CO2 25.5 mmol/L (21.0-32.0); Calcium 8.9 mg/dL (8.5-10.1); Chloride 106 mmol/L (98-107); Estimated GFR 59.43 (mL/min/1.73m2); Glucose 87 mg/dL (74-106); Magnesium 1.8 mg/dL (1.8-2.4); Potassium 3.7 mmol/L (3.5-5.1); Sodium 142 mmol/L (136-145); Total Protein 7.3 g/dL (6.4-8.2)
[2020-12-15 05:04] LABS: Troponin I < 0.05 ng/mL (<0.06)
--- NOTE | 2020-12-15 05:44 | DI.VRAD_ITS ---
PROCEDURE INFORMATION: Exam: XR Chest Exam date and time: 12/15/2020 4:29 AM Age: 45 years old Clinical indication: Left-sided chest pain; Patient HX: Left sided chest pain since 12/11 TECHNIQUE: Imaging protocol: XR of the chest. Views: 2 views. COMPARISON: CR XR CHEST 2V PA LATERAL 12/11/2020 11:33 PM FINDINGS: Lungs: Unremarkable. No consolidation. Pleural spaces: Unremarkable. No pleural effusion. No pneumothorax. Heart/Mediastinum: Unremarkable. No cardiomegaly. Bones/joints: Unremarkable. IMPRESSION: No acute findings. Dictated and Authenticated by: Drew Marmolejo MD. Ordering:TEETEE Desouza MD
--- NOTE | 2020-12-15 07:00 | RT.EKG_ITS ---
APPROVED REPORT Exam: Resting ECG Patient Location: E HR:65 bpm ECG Measurements Heart Rate 65 AXIS AK 161 P -6 QRSd 85 QRS 48 QT 435 T 32 QTc 454 Conclusion Sinus rhythm...normal P axis, V-rate 60- 99
--- NOTE | 2020-12-15 07:15 | HOLTER_ITS ---
APPROVED REPORT This 48-hour Holter monitor was performed for chest pain and palpitations Rhythm throughout was sinus. Average heart rate was 71, minimum was 55, maximum 135 1 isolated PVC was seen A total of 5 atrial premature beat were noted There was no atrial fibrillation, no high-grade AV block, no pauses greater than 3 seconds
[2020-12-15 07:36] LABS: Troponin I < 0.05 ng/mL (<0.06)
[2020-12-16 11:17] LABS: COVID-19 RT-PCR UVMMC Result Negative (Negative)
--- NOTE | 2020-12-17 17:42 | NUR.NOTE ---
spoke to pt-advised that her covid test was negative.Nursing Note:
== END 2020-12-15 09:50 | disposition home or self-care (01) ==
PROVIDERS: Emergency Medicine; Emergency Provider Student in an Organized Health Care Education/Training Program; PCP Family Medicine
DX: R07.89 Other chest pain (principal); Z03.818 Encounter for observation for suspected exposure to other biological agents ruled out
CPT/HCPCS: 36415; 80053; 93005; 99285; U0003; 71046; 83735; 84484; 85025; 93010; 93225; 99284

== ENCOUNTER 2020-12-18 01:33 | Outpatient (CLI) | payer OTHER, SELFPAY ==
--- NOTE | 2020-12-18 09:00 | ETT_ITS ---
APPROVED REPORT Exam: Exercise Treadmill Patient Location: Out-Patient Room/Bed: Stress Nurse: Tara Ruby RN Ordering Provider:JOSE PARTIDA, Contact Number: [phone] BMI: 24.95 Baseline Rhythm: Sinus Rhythm Indications: ATYPICAL CHEST PAIN. Medical History Medical History: Hyperlipidemia Cardiac Medications: None Allergies: Penicillins, Sulfonamide antibiotics, Venom-honey bee, Citalopram, Ofloxacin, Azithromycin , Iodinated Contrast Media, Ketorolac tromethamine, Iodine, Lorazepam, Horse flies Cardiac Risk Factors: Hyperlipidemia Previous Cardiac Procedures: None Pretest Chest Pain Characteristics: No chest pain Exercise History: Sedentary Physical Disabilities: None Lung Sounds: Clear to auscultation Heart Sounds: Regular Stress Test Details Test: Exercise stress testing was performed using a Harlan protocol. Rest Stress HR Resting HR Supine: 78 bpm Max Heart Rate (APMHR): 173 bpm Resting HR Standin bpm Target HR (85% APMHR): 147 bpm Max HR Achieved: 171 bpm % of APMHR: 98 Recovery HR: 98 bpm HR response to stress: Normal HR response to stress BP Resting BP Supine: 118/82 mmHg Resting BP Standin/76 mmHg Max BP: 152/76 mmHg Recovery BP: 128/82 mmHg BP response to stress: Normal blood pressure response to stress. ECG Resting ECG: Sinus Rhythm Ectopy: None Stress ECG: Sinus Tachycardia ST Change: No significant ST segment changes noted Arrhythmia: rare PAC Recovery ECG: Sinus Rhythm Recovery ST Change: No significant ST segment changes noted, Recovery Arrhythmia: None Clinical Reason for Termination: Fatigue Stress Symptoms: General Fatigue Exercise duration: 12 min05 sec Highest Stage Reached: Stage 5: 5.0 mph at 18% grade. Exercise capacity: 13.53 METs Jacobson Treadmill Score: 11 Rate Pressure Product: [id number] Stress ECG Conclusion 1. The resting electrocardiogram was normal 2. The patient exercised on the Harlan protocol and completed a workload of 13.53 METS, limited by fat igue 3. Normal heart rate and blood pressure response to exercise. The patient achieved 98% of predicted heart rate for age 4. There was no electrocardiographic evidence of myocardial ischemia with exercise 5. There were no significant dysrhythmias Jacobson Treadmill Score is 11 which is Low risk. Stress Test Summary STAGE Time (mins) Speed (mph) Grade (%) HR BP SYMPTOMS METS Supine 78 118/82 Standing 79 120/76 1 3 1.7 10 103 122/82 4.6 2 6 2.5 12 115 136/78 7 3 9 3.4 14 140 152/76 10.2 4 12 4.2 16 171 12.9 1 min recovery 148 150/80 Dizziness, resolved with lying down 3 min recovery 109 142/80 6 min recovery 98 128/82
== END 2020-12-18 01:53 ==
PROVIDERS: PCP Family Medicine; Visit Provider Student in an Organized Health Care Education/Training Program
DX: R07.89 Other chest pain (principal); E78.5 Hyperlipidemia, unspecified
CPT/HCPCS: 93017; 93226

== ENCOUNTER 2021-01-02 19:01 | Emergency (ER) | payer OTHER, SELFPAY ==
--- NOTE | 2021-01-02 19:00 | RT.EKG_ITS ---
APPROVED REPORT Exam: Resting ECG Reason for Exam: chest pain Patient Location: E HR:69 bpm ECG Measurements Heart Rate 69 AXIS NV 148 P 44 QRSd 83 QRS 62 QT 393 T 17 QTc 422 Conclusion Sinus rhythm...normal P axis, V-rate 60- 99
[2021-01-02 19:06] VITALS: BP 144/96; PULSE 84; RESP 14; TEMP 37.2; O2SAT 97
[2021-01-02 19:13] VITALS: RESP 27
--- NOTE | 2021-01-02 19:30 | W.ED.GENAD ---
Discharge Plan Disposition Patient Disposition: HOME Condition: Stable Discharge Details Clinical Impression: Chest pain, Anxiety Primary Care Provider: Leonora Syed ED Provider: Belkis Santos Home Meds and New Rx's Prescriptions: No Action levothyroxine 88 mcg capsule 88 mcg PO DAILY RF: 0 levothyroxine [Synthroid] 137 MCG tablet 100 mcg PO DAILY RF: 0 epinephrine 0.3 MG/SYR auto-injector 0.3 mg IJ PRN PRN (Reason: Allergy Symptoms) Qty: 1 RF: 0 Discharge Instructions Instructions: Chest Pain (ED), Anxiety (ED) Additional Instructions: Follow up with primary care provider in 3-5 days. Return to ED sooner if any worsening or concerns. Increase oral fluids. Please take Tylenol or Ibuprofen with food every 4-6 hours as needed for pain and swelling. at this time the cardiac work-up has been within normal limits. CT chest abdomen pelvis results discussed. Please follow-up with your primary care provider regarding the calcified nodule in your left lower lobe. I do not think at this time that this has anything to do with the pain that you are having. Return to the ED for any change in the nature of your pain, if you have any pressure, nausea, sweatiness if the pain radiates into your jaw or your arm. Referrals: Leonora Syed [Primary Care Provider] - Discharge Data Discharge Date/Time-TO BE ENTERED AT DEPARTURE: 01/02/21 22:31 Medical Decision Making 45-year-old female presents to the ER with chief complaint of midsternal chest pain which radiates into the right side of her back which began approximately 1 to 2 hours prior to arrival. She reports over the last 1 to 2weeks is having increased nausea diarrhea which began watery decreased appetite and just overall feeling poorly. She was seen here on December 15 for chest pain was sent home with a negative work-up and a Holter monitor. She also had a exercise stress test on December 18 which was within normal limits. She was seen yesterday at [facility] with some right-sided neck pain and headache which seems to has resolved since then. She denies any fever chills. Denies any problems urinating or burning with urination. Denies any anterior abdominal pain. Spoke with patient extensively regarding need for considering chest CT to rule out PE and/or aortic aneurysm. Other differential diagnosis includes cholecystitis or gallstones which would be causing her pain nausea and diarrhea also included in my differential is anxiety. Discussed at length the premedication procedure and policy for CT patient this time is deciding not to forego with the IV contrast or premedication. I did discuss at length that I cannot rule out a pulmonary embolism patient verbalizes understanding. I also did discuss using oral contrast for the abdominal CT which patient would like to forego as well. EKG is within normal limits. At this time I do not feel that this is cardiac related in nature due to the recent cardiac work-up and normal stress test. IV attempt by staff nurse anesthetist and myself unsuccessful x3. Patient is requesting as to not attempt IV start again. 2001: Patient refusing IV at this time. Is agreeable to allow lab to draw her blood. FINDINGS: Lungs: No pulmonary consolidation or mass. Within the posterior left lower lobe there is 0.9 cm subpleural nodule with central calcification, most consistent with calcifying granuloma given calcified left infrahilar lymph node. Pleural spaces: Unremarkable. No pneumothorax. No pleural effusion. Heart: No cardiomegaly. No pericardial effusion. Aorta: No aortic aneurysm. Lymph nodes: Calcified left infrahilar lymph node compatible with old granulomatous disease. No pathologically enlarged mediastinal or hilar lymph nodes. Bones/joints: Unremarkable. No acute fracture. Soft tissues: Unremarkable. IMPRESSION: 1. No acute CT finding of the thorax. 2. Subpleural 0.9 cm posterior left lower lobe nodule with central calcification. Favor calcifying granuloma. FINDINGS: Liver: Unremarkable. No mass. Gallbladder and bile ducts: Unremarkable. No calcified stones. No ductal dilation. No pericholecystic fat stranding. Pancreas: Unremarkable. No ductal dilation. Spleen: Unremarkable. No splenomegaly. Adrenal glands: Normal. No mass. Kidneys and ureters: Unremarkable. No hydronephrosis. No renal calcifications. Ureters are normal in course and caliber. Stomach and bowel: Unremarkable. No obstruction. No mucosal thickening or focal mesenteric stranding. Appendix: Within normal limits. Intraperitoneal space: There is trace free fluid within the dependent pelvis, favor physiologic. No significant fluid collection within the abdomen. No free air. Vasculature: Within normal limits. No abdominal aortic aneurysm. Lymph nodes: No pathologically enlarged lymph nodes. Urinary bladder: Unremarkable as visualized. Reproductive: Uterus is absent. Bones/joints: Unremarkable. No acute fracture. Soft tissues: Trace/small fat containing umbilical/periumbilical hernia. IMPRESSION: No acute CT finding of the abdomen or pelvis. Discussed at length with patient her CT result and risks and benefits. Discussed lab results including negative D-dimer which is reassuring that patient is at low risk for a possible PE. However without IV contrast we cannot definitively rule this out. Patient continues to be chest pain-free during stay. Discussed strict return instructions and instructed to follow-up with PCP in 3 to 5 days. Patient verbalized understanding. Patient remained hemodynamically stable throughout stay, this text was generated using [email or web address] system, please disregard any oddities of phrase or misspellings. HPI General Mode of arrival: ambulatory. Date/Time Provider Initiated Documentation: 01/02/21 19:03. Limitations to Documentation: no limitations. Information obtained by: patient. HPI Narrative: 45-year-old female presents to the ER with chief complaint of midsternal chest pain which radiates into the right side of her back which began approximately 1 to 2 hours prior to arrival. She reports over the last 1 to 2weeks is having increased nausea diarrhea which began watery decreased appetite and just overall feeling poorly. She was seen here on December 15 for chest pain was sent home with a negative work-up and a Holter monitor. She also had a exercise stress test on December 18 which was within normal limits. She was seen yesterday at [facility] with some right-sided neck pain and headache which seems to has resolved since then. She denies any fever chills. Denies any problems urinating or burning with urination. Denies any anterior abdominal pain. Related Data Home Medications Medication Instructions Recorded Confirmed levothyroxine [Synthroid] 100 mcg PO DAILY 04/09/13 01/01/21 epinephrine 0.3 mg IJ PRN PRN #1 kit 03/27/15 01/01/21 levothyroxine 88 mcg capsule 88 mcg PO DAILY 12/17/20 01/01/21 Previous Rx's Medication Instructions Recorded epinephrine 0.3 mg IJ PRN PRN #1 kit 03/27/15 Allergies Allergy/AdvReac Type Severity Reaction Status Date / Time Penicillins Allergy Severe Anaphylaxsi Verified 01/01/21 19:14 s Sulfa (Sulfonamide Allergy Severe Anaphylaxsi Verified 01/01/21 19:14 Antibiotics) s venom-honey bee Allergy Severe Anaphylaxsi Verified 01/01/21 19:14 [bee venom (honey bee)] s citalopram Allergy Mild Hives Verified 01/01/21 19:14 ofloxacin [From Floxin] Allergy Mild Skin Rash Verified 01/01/21 19:14 naproxen [From Aleve] Allergy Verified 01/01/21 19:14 azithromycin [From Zithromax] AdvReac Severe Anaphylaxsi Verified 01/01/21 19:14 s Iodinated Contrast Media AdvReac Severe Anaphylaxsi Verified 01/01/21 19:14 [Iodinated Contrast Media - s IV Dye] ketorolac tromethamine AdvReac Severe Anaphylaxsi Verified 01/01/21 19:14 [From Toradol] s iodine AdvReac Intermediate Anaphylaxsi Verified 01/01/21 19:14 s lorazepam [From Ativan] AdvReac Intermediate Dizziness/L Verified 01/01/21 19:14 ightheade horse flies Allergy Severe Anaphylaxsi Uncoded 01/01/21 19:14 s General Stated Complaint: Chest Pain CLARI: 2 Review of Systems Narrative: Constitutional: Negative for weight loss, alert and oriented, well groomed, normal body habitus, appears anxious. HEENT: Denies trauma, headaches, blurry vision, nasal discharge, sore throat, trouble swallowing. Chest: Denies , palpitations, irregular rhythm, reports sharp shooting chest pain that radiates into her back none currently. Respiratory: Denies Shortness of breath, cough, hemoptysis. GI: Denies abdominal pain, vomiting, constipation. Positive nausea and diarrhea. : Denies dysuria, hematuria, flank pain, rectal bleeding. Neuro: Denies weakness, syncope, or facial numbness. Hematologic: Denies easy bruising, intolerance to heat or cold, hair loss. [facility] Medical History (Updated 01/02/21 @ 22:13 by Belkis Santos) Anxiety Fatigue Fatigue Hypothyroidism Social History Smoking/Tobacco Use Status: Never Smoking risk assessment performed?: Yes Alcohol Intake: never Drug use: Never Substance use type: does not use Do you feel safe at home: Yes Do you feel safe in your relationship?: Yes Additional Social history: Has had both her COVID Vaccines since Mariann 8,2021 Exam Narrative Exam Narrative: Constitutional: Alert and oriented x3. Appears stated age. Normal body habitus. Appears anxious Head: Normocephalic, no trauma. Eyes: Pupils PERRLA, Red reflex noted, EOM's intact. Eyelids symmetrical without lesions, discharge, or swelling. ENT: Bilateral TM's WNL, External ear normal to inspection. Chest: RRR, Normal S1, S2, distal pulses intact. Chest is nontender to palpation nonreproducible. Resp: Lungs clear to auscultation bilaterally, no wheezes, rales, or rhonchi. Musculoskeletal: Normal gait, 5/5 strength to all four extremities. Skin: No suspicious rashes or lesions. Capillary refill less than 2 sec. Neurologic: Cranial nerves II-XII intact. Alert and oriented x 3. DTR's intact. Hematologic/Lymphatic: No ecchymosis, no lymphadenopathy. Course Vital Signs Vital signs: Vital Signs Temperature 37.2 C 01/02/21 19:06 Pulse 84 01/02/21 19:06 Respiratory Rate 14 01/02/21 19:06 Blood Pressure 144/96 H 01/02/21 19:06 Pulse Oximetry 97 01/02/21 19:06 Temperature 37.2 C 01/02/21 19:06 Temperature Source Temporal Artery Scan 01/02/21 19:06 Pulse 84 01/02/21 19:06 Respiratory Rate 27 H 01/02/21 19:13 Respiratory Effort 01/02/21 19:13 Blood Pressure 144/96 H 01/02/21 19:06 Blood Pressure Position Supine 01/02/21 19:06 Pulse Oximetry 97 01/02/21 19:06 Oxygen Delivery Method Room Air 01/02/21 19:06 Oxygen Flow Rate 0 01/02/21 19:06
--- NOTE | 2021-01-02 20:18 | DI.CT_ITS ---
Exam(s) CT CHEST/ABD/PEL WO EXAM: CT CHEST/ABD/PEL WO TECHNIQUE: CT examination of the chest, abdomen, and pelvis was performed without contrast administr ation. COMPARISON: CT ABD PELVIS WO CONTRAST from 05/07/2016 FINDINGS: There is no evidence of a thoracic vascular injury by noncontrast criteria.. The lungs are clear. N o pneumothorax or pleural effusion. No mediastinal hematoma. No adenopathy in the chest. Tracheobronc hial tree appears intact. The liver, spleen, and pancreas appear normal. Gallbladder and bile ducts are normal. Adrenals and kidneys are unremarkable. No evidence of urinary tract injury or obstruction. Abdominal aorta is of normal diameter.. No abdominal or pelvic adenopathy. No significant abdominal wall hernia or hematoma. No evidence of bowel obstruction or other pathology. Appendix is normal. N o evidence of diverticulitis. Space Controller structures not well visualized, question prior hysterectomy. No free fluid identified in the pel vis. No significant bony abnormality seen. IMPRESSION: No evidence of acute injury of the chest, abdomen, or pelvis. RADIATION DOSE DELIVERED: 902.57mGy.cm Total DLP 902.57mGy.cm Total DLP 902.57mGy.cm Total DLP DATA REPOSITORY: All CT scans at this facility are submitted to the National Radiology Data Registry (NRDR) Dose Index Registry (DIR) with the [employer] (A[employer]). RADIATION OPTIMIZATION: All CT scans at this facility use at least one of these dose optimization te chniques: automated exposure control; mA and/or kV adjustment per patient size (includes targeted exa ms where dose is matched to clinical indication); or iterative reconstruction.
[2021-01-02 20:55] LABS: Abs Immature Grans 0.02 10^3/uL (0.0-0.06); Absolute Basophil Count 0.08 10^3/uL (0.0-0.2); Absolute Eosinophil Count 0.12 10^3/uL (0.0-0.7); Absolute Lymphocyte Count 2.83 10^3/uL (1.2-3.4); Absolute Monocyte Count 0.54 10^3/uL (0.1-0.8); Absolute Neutrophil Count 5.66 10^3/uL (1.2-6.7); Basophils % 0.9; Eosinophils % 1.3; HCT 36.8 % (36.0-46.0); HGB 12.5 g/dL (11.2-15.7); Immature Grans % 0.2; Lymphocytes % 30.6; MCH 29.8 pg (27.0-33.0); MCV 87.8 fL (80-95); MPV 9.6 fL (8.0-11.0); Monocytes % 5.8; Neutrophils % 61.2; Nucleated RBC 0 %; Platelet Count 345 10^3/uL (130-400); RBC 4.19 10^6/uL (3.93-5.22); RDW 12.4 % (11.7-14.6); RDW-SD 39.9 fL; WBC 9.25 10^3/uL (4.4-10.8)
--- NOTE | 2021-01-02 21:09 | DI.VRAD_ITS ---
PROCEDURE INFORMATION: Exam: CT Chest Without Contrast; Diagnostic Exam date and time: 01/02/2021 7:53 PM Age: 45 years old Clinical indication: Abdominal pain; Colic; On breathing; Patient HX: Chest pain, nausea, diarhea. ; Additional info: Allergy to iv contrast TECHNIQUE: Imaging protocol: Diagnostic computed tomography of the chest without contrast. COMPARISON: CR XR CHEST 2V PA LATERAL 12/15/2020 6:27 AM FINDINGS: Lungs: No pulmonary consolidation or mass. Within the posterior left lower lobe there is 0.9 cm subpleural nodule with central calcification, most consistent with calcifying granuloma given calcified left infrahilar lymph node. Pleural spaces: Unremarkable. No pneumothorax. No pleural effusion. Heart: No cardiomegaly. No pericardial effusion. Aorta: No aortic aneurysm. Lymph nodes: Calcified left infrahilar lymph node compatible with old granulomatous disease. No pathologically enlarged mediastinal or hilar lymph nodes. Bones/joints: Unremarkable. No acute fracture. Soft tissues: Unremarkable. IMPRESSION: 1. No acute CT finding of the thorax. 2. Subpleural 0.9 cm posterior left lower lobe nodule with central calcification. Favor calcifying granuloma. PROCEDURE INFORMATION: Exam: CT Abdomen And Pelvis Without Contrast Exam date and time: 01/02/2021 7:53 PM Age: 45 years old Clinical indication: Abdominal pain; Colic; On breathing; Patient HX: Chest pain, nausea, diarhea. ; Additional info: Allergy to iv contrast TECHNIQUE: Imaging protocol: Computed tomography of the abdomen and pelvis without contrast. Radiation optimization: All CT scans at this facility use at least one of these dose optimization techniques: automated exposure control; mA and/or kV adjustment per patient size (includes targeted exams where dose is matched to clinical indication); or iterative reconstruction. COMPARISON: CR XR CHEST 2V PA LATERAL 12/15/2020 6:27 AM FINDINGS: Liver: Unremarkable. No mass. Gallbladder and bile ducts: Unremarkable. No calcified stones. No ductal dilation. No pericholecystic fat stranding. Pancreas: Unremarkable. No ductal dilation. Spleen: Unremarkable. No splenomegaly. Adrenal glands: Normal. No mass. Kidneys and ureters: Unremarkable. No hydronephrosis. No renal calcifications. Ureters are normal in course and caliber. Stomach and bowel: Unremarkable. No obstruction. No mucosal thickening or focal mesenteric stranding. Appendix: Within normal limits. Intraperitoneal space: There is trace free fluid within the dependent pelvis, favor physiologic. No significant fluid collection within the abdomen. No free air. Vasculature: Within normal limits. No abdominal aortic aneurysm. Lymph nodes: No pathologically enlarged lymph nodes. Urinary bladder: Unremarkable as visualized. Reproductive: Uterus is absent. Bones/joints: Unremarkable. No acute fracture. Soft tissues: Trace/small fat containing umbilical/periumbilical hernia. IMPRESSION: No acute CT finding of the abdomen or pelvis. Dictated and Authenticated by: Jonathan Nieto MD. Ordering:STEF Tamayo MD
[2021-01-02 21:10] LABS: ALT 17 U/L (14-59); AST 12 U/L (15-37); Albumin 4.5 g/dL (3.4-5.0); Alkaline Phosphatase 83 U/L (46-116); Anion Gap 11.6 mmol/L (3-11); BUN 10 mg/dL (7-18); Bilirubin, Total 0.4 mg/dL (0.2-1.0); CO2 23.4 mmol/L (21.0-32.0); CREATININE 0.9 mg/dL (0.55-1.02); Calcium 9.5 mg/dL (8.5-10.1); Chloride 104 mmol/L (98-107); Glucose 100 mg/dL (74-106); Magnesium 2.1 mg/dL (1.8-2.4); Potassium 3.7 mmol/L (3.5-5.1); Sodium 139 mmol/L (136-145); Total Protein 8.4 g/dL (6.4-8.2)
[2021-01-02 21:12] LABS: Troponin I < 0.05 ng/mL (<0.06)
[2021-01-02 21:26] LABS: D-Dimer 325 ng/mlFEU (<500)
[2021-01-02 22:24] VITALS: BP 144/96; PULSE 84; RESP 27; TEMP 37.2; O2SAT 97
--- NOTE | 2021-01-03 00:46 | NUR.NOTE ---
Nursing Note:Pt c/o chest pain in the L side of chest with radiation down to R back. EKG obtained. Upon IV attempt, pt did not tolerate insertion x2. Discussed CT scan and oral contrast. Pt declined the oral contrast, CT w/o contrast completed. Nurse offered to attempt IV access once again to obtain labs, also given pt option to do a straight stick. Pt agreed to straight stick to be performed by lab. Pt declined medication for nausea and medication to aid with IV access.
== END 2021-01-02 22:31 | disposition home or self-care (01) ==
PROVIDERS: Emergency Provider Registered Nurse Emergency; PCP Family Medicine
DX: R07.9 Chest pain, unspecified (principal); F41.9 Anxiety disorder, unspecified
CPT/HCPCS: 71250; 80053; 93005; 99284; 74176; 83735; 84484; 85025; 85379; 93010; 99283

== ENCOUNTER 2021-01-13 08:43 | Emergency (ER) | payer OTHER, SELFPAY ==
[2021-01-13] VITALS (27 sets, daily range): BP systolic 122–128; BP diastolic 68–78; PULSE 61–89; RESP 12–23; TEMP 36.6–36.7; O2SAT 98–100
--- NOTE | 2021-01-13 08:30 | RT.EKG_ITS ---
APPROVED REPORT Exam: Resting ECG Reason for Exam: chest pain Patient Location: E HR:69 bpm ECG Measurements Heart Rate 69 AXIS ID 121 P 37 QRSd 84 QRS 69 QT 404 T 53 QTc 434 Conclusion Sinus rhythm...normal P axis, V-rate 60- 99
--- NOTE | 2021-01-13 08:55 | W.ED.GENAD ---
Discharge Plan Disposition Patient Disposition: HOME Condition: Stable Discharge Details Clinical Impression: Atypical chest pain, Breast lump on left side at 3 o'clock position Primary Care Provider: Leonora Syed ED Provider: Belkis Santos Home Meds and New Rx's Prescriptions: No Action levothyroxine 88 mcg capsule 88 mcg PO DAILY RF: 0 levothyroxine [Synthroid] 137 MCG tablet 100 mcg PO DAILY RF: 0 epinephrine 0.3 MG/SYR auto-injector 0.3 mg IJ PRN PRN (Reason: Allergy Symptoms) Qty: 1 RF: 0 Discharge Instructions Instructions: Chest Pain (ED) Additional Instructions: Follow up with primary care provider in 3-5 days. Return to ED sooner if any worsening or concerns. Increase oral fluids. Please take Tylenol or Ibuprofen with food every 4-6 hours as needed for pain and swelling. Follow-up with PCP regarding possible breast lump on the left side. To schedule mammogram. Referrals: Leonora Syed [Primary Care Provider] - Discharge Data Discharge Date/Time-TO BE ENTERED AT DEPARTURE: 01/13/21 13:17 Medical Decision Making <Belkis Santos - Last Filed: 01/13/21 13:23> 45-year-old female presents to the ER with chief complaint of left sided chest pressure and pain which woke her up out of sleep approximately 2 AM. She has none upon arrival. Associated with nausea no vomiting no diarrhea. She has had 2 recent cardiac work-up in the last month which have all begun negative. She is concerned because she had a Adeel & Adeel vaccine and now has some optic neuritis scheduled for an MRI of her brain and eye on January 21. She is refusing medications or IV start upon initial presentation. She denies any shortness of breath she does have a mild cough no runny nose no fever no chills. She is denying any abdominal pain. EKG was reviewed by Sánchez Fernandez DO ER attending, no ST elevation, please see his official report old EKG was available for review. Patient has had multiple cardiac work-ups in the last couple months. Including a recent stress test as an outpatient and a Holter monitor. Patient reports that she has seen her primary care provider since last ER visit approximate 11 days ago. She is scheduled for an MRI and neurology follow-up for her headaches and visual disturbances. Informed by staff development coordinator rn patient is refusing IV, does agree to blood draw. Patient refusing any medications. Does agree to chest x-ray. Initial work-up was within normal limits, negative serial troponins, CBC largely within normal limits, CMP within normal limits TSH also within normal limits. Chest x-ray is read as no cardiopulmonary abnormality. Refer to patient primary care provider for further evaluation and work-up. Patient verbalizes understanding <Sánchez Fernandez MD - Last Filed: 01/13/21 15:29> 1015 -- Patient seen, examined, and discussed with KALPANA Santos. EKG nondiagnostic. Initial troponin negative. Plan for delta troponin. D-dimer pending. --delta trop neg. ddimer neg. patient reassessed and has remained stable. I agree with treatment plan as discussed/documented. HPI <Belkis Santos - Last Filed: 01/13/21 13:23> General Mode of arrival: ambulatory. Date/Time Provider Initiated Documentation: 01/13/21 08:48. Limitations to Documentation: no limitations. Information obtained by: patient. HPI Narrative: 45-year-old female presents to the ER with chief complaint of left sided chest pressure and pain which woke her up out of sleep approximately 2 AM. She has none upon arrival. Associated with nausea no vomiting no diarrhea. She has had 2 recent cardiac work-up in the last month which have all begun negative. She is concerned because she had a Adeel & Adeel vaccine and now has some optic neuritis scheduled for an MRI of her brain and eye on January 21. She is refusing medications or IV start upon initial presentation. She denies any shortness of breath she does have a mild cough no runny nose no fever no chills. She is denying any abdominal pain. Related Data Home Medications Medication Instructions Recorded Confirmed levothyroxine [Synthroid] 100 mcg PO DAILY 04/09/13 01/13/21 epinephrine 0.3 mg IJ PRN PRN #1 kit 03/27/15 01/13/21 levothyroxine 88 mcg capsule 88 mcg PO DAILY 12/17/20 01/13/21 Previous Rx's Medication Instructions Recorded epinephrine 0.3 mg IJ PRN PRN #1 kit 03/27/15 Allergies Allergy/AdvReac Type Severity Reaction Status Date / Time Penicillins Allergy Severe Anaphylaxsi Verified 01/13/21 08:49 s Sulfa (Sulfonamide Allergy Severe Anaphylaxsi Verified 01/13/21 08:49 Antibiotics) s venom-honey bee Allergy Severe Anaphylaxsi Verified 01/13/21 08:49 [bee venom (honey bee)] s citalopram Allergy Mild Hives Verified 01/13/21 08:49 ofloxacin [From Floxin] Allergy Mild Skin Rash Verified 01/13/21 08:49 naproxen [From Aleve] Allergy Verified 01/13/21 08:49 azithromycin [From Zithromax] AdvReac Severe Anaphylaxsi Verified 01/13/21 08:49 s Iodinated Contrast Media AdvReac Severe Anaphylaxsi Verified 01/13/21 08:49 [Iodinated Contrast Media - s IV Dye] ketorolac tromethamine AdvReac Severe Anaphylaxsi Verified 01/13/21 08:49 [From Toradol] s iodine AdvReac Intermediate Anaphylaxsi Verified 01/13/21 08:49 s lorazepam [From Ativan] AdvReac Intermediate Dizziness/L Verified 01/13/21 08:49 ightheade horse flies Allergy Severe Anaphylaxsi Uncoded 01/13/21 08:49 s General Stated Complaint: Chest Pain CLARI: 2 Review of Systems <Belkis Santos - Last Filed: 01/13/21 13:23> Narrative: Constitutional: Negative for weight loss, alert and oriented, well groomed, normal body habitus, appears anxious HEENT: Denies trauma, nasal discharge, sore throat, trouble swallowing. Positive headache, visual disturbances which has been ongoing for the last couple months. Chest: Denies left-sided chest pressure, burning, palpitations, irregular rhythm, hypertension. Respiratory: Denies Shortness of breath,, hemoptysis. GI: Denies abdominal pain, vomiting, diarrhea, constipation. Positive nausea. : Denies dysuria, hematuria, flank pain, rectal bleeding. Neuro: Denies dizziness, weakness, syncope, headache or facial numbness. Hematologic: Denies easy bruising, intolerance to heat or cold, hair loss. PFSH <Belkis Santos - Last Filed: 01/13/21 13:23> Medical History Anxiety Fatigue Fatigue Hypothyroidism Social History Smoking/Tobacco Use Status: Never Smoking risk assessment performed?: Yes Alcohol Intake: never Drug use: Never Substance use type: does not use Do you feel safe at home: Yes Do you feel safe in your relationship?: Yes Exam <Belkis Santos - Last Filed: 01/13/21 13:23> Narrative Exam Narrative: Constitutional: Alert and oriented x3. Appears stated age. Normal body habitus. Appears anxious, slightly diaphoretic during blood draw. Head: Normocephalic, no trauma. Eyes: Pupils PERRLA, Red reflex noted, EOM's intact. Eyelids symmetrical without lesions, discharge, or swelling. ENT: Bilateral TM's WNL, External ear normal to inspection, no mastoid TTP, swelling, or erythema, Nasal turbinates WNL, no nasal discharge. Normal dentition, Posterior pharynx WNL, no exudate. Chest: RRR, Normal S1, S2, distal pulses intact. Resp: Lungs clear to auscultation bilaterally, no wheezes, rales, or rhonchi. Musculoskeletal: Normal gait, 5/5 strength to all four extremities. Skin: No suspicious rashes or lesions. Capillary refill less than 2 sec. Neurologic: Cranial nerves II-XII intact. Alert and oriented x 3. DTR's intact. Hematologic/Lymphatic: No ecchymosis, no lymphadenopathy. Course <Belkis Santos - Last Filed: 01/13/21 13:23> Vital Signs Vital signs: Vital Signs Temperature 36.6 C 01/13/21 08:47 Pulse 78 01/13/21 08:47 Respiratory Rate 18 01/13/21 08:47 Blood Pressure 123/78 01/13/21 08:47 Pulse Oximetry 100 01/13/21 08:47 Temperature 36.6 C 01/13/21 08:47 Temperature Source Skin 01/13/21 08:47 Pulse 67 01/13/21 08:50 Pulse 84 01/13/21 08:50 Respiratory Rate 19 01/13/21 08:50 Respiratory Effort Non-Labored 01/13/21 08:51 Blood Pressure 123/78 01/13/21 08:50 Blood Pressure Mean 90 01/13/21 08:50 Blood Pressure Position Sitting 01/13/21 08:47 Pulse Oximetry 100 01/13/21 08:50 Oxygen Delivery Method Room Air 01/13/21 08:47 Oxygen Flow Rate 0 01/13/21 08:47 Pain Level 8 01/13/21 08:47
--- NOTE | 2021-01-13 09:00 | DI.RAD_ITS ---
Exam(s) XR CHEST 2V PA LATERAL EXAM: XR CHEST 2V PA LATERAL CLINICAL HISTORY: Left sided chest pain TECHNIQUE: 2D digital imaging was performed. COMPARISON: CR,XR XR CHEST 2V PA LATERAL from 12/15/2020 FINDINGS: The heart is not enlarged. The lungs are clear and well expanded. No pleural effusion seen. Mediastin al contours appear intact. IMPRESSION: Normal chest. RADIATION DOSE DELIVERED: Total DLP
[2021-01-13 09:26] LABS: Abs Immature Grans 0.01 10^3/uL (0.0-0.06); Absolute Basophil Count 0.06 10^3/uL (0.0-0.2); Absolute Eosinophil Count 0.12 10^3/uL (0.0-0.7); Absolute Lymphocyte Count 2.19 10^3/uL (1.2-3.4); Absolute Monocyte Count 0.44 10^3/uL (0.1-0.8); Basophils % 0.9; Eosinophils % 1.8; HCT 39.2 % (36.0-46.0); HGB 13.4 g/dL (11.2-15.7); Immature Grans % 0.1; Lymphocytes % 32.1; MCH 29.9 pg (27.0-33.0); MCHC 34.2 % (32.0-36.0); MCV 87.5 fL (80-95); MPV 10.5 fL (8.0-11.0); Monocytes % 6.5; Neutrophils % 58.6; Nucleated RBC 0 %; Platelet Count 294 10^3/uL (130-400); RBC 4.48 10^6/uL (3.93-5.22); RDW 12.6 % (11.7-14.6); RDW-SD 40.7 fL; WBC 6.82 10^3/uL (4.4-10.8)
[2021-01-13 09:46] LABS: ALT 18 U/L (14-59); AST 12 U/L (15-37); Albumin 4.5 g/dL (3.4-5.0); Alkaline Phosphatase 85 U/L (46-116); Anion Gap 11.2 mmol/L (3-11); BUN 10 mg/dL (7-18); Bilirubin, Total 0.5 mg/dL (0.2-1.0); CO2 24.8 mmol/L (21.0-32.0); CREATININE 0.9 mg/dL (0.55-1.02); Calcium 9.8 mg/dL (8.5-10.1); Chloride 104 mmol/L (98-107); Glucose 100 mg/dL (74-106); Magnesium 2.2 mg/dL (1.8-2.4); Potassium 4.1 mmol/L (3.5-5.1); Sodium 140 mmol/L (136-145); TSH (W/Ref FT4) 1.73 uIU/mL (0.36-3.74); Total Protein 8.4 g/dL (6.4-8.2)
[2021-01-13 09:52] LABS: Troponin I < 0.05 ng/mL (<0.06)
[2021-01-13 10:37] LABS: D-Dimer 372 ng/mlFEU (<500)
--- NOTE | 2021-01-13 12:00 | RT.EKG_ITS ---
APPROVED REPORT Exam: Resting ECG Reason for Exam: chest pain Patient Location: E HR:69 bpm ECG Measurements Heart Rate 69 AXIS ME 125 P 54 QRSd 84 QRS 61 QT 414 T 51 QTc 443 Conclusion Sinus rhythm...normal P axis, V-rate 60- 99
[2021-01-13 12:37] LABS: Troponin I < 0.05 ng/mL (<0.06)
== END 2021-01-13 13:17 | disposition home or self-care (01) ==
PROVIDERS: Emergency Provider Registered Nurse Emergency; PCP Family Medicine
DX: R07.89 Other chest pain (principal); N63.25 Unspecified lump in the left breast, overlapping quadrants; E03.9 Hypothyroidism, unspecified
CPT/HCPCS: 36415; 80053; 93005; 99284; 71046; 83735; 84443; 84484; 85025; 85379; 93010; 99283

== ENCOUNTER 2021-01-13 21:37 | Emergency (ER) | payer OTHER, SELFPAY ==
--- NOTE | 2021-01-13 21:30 | RT.EKG_ITS ---
APPROVED REPORT Exam: Resting ECG Reason for Exam: chest pain Patient Location: E HR:68 bpm ECG Measurements Heart Rate 68 AXIS TX 130 P 50 QRSd 90 QRS 67 QT 421 T 45 QTc 448 Conclusion Sinus rhythm...normal P axis, V-rate 60- 99
[2021-01-13 21:39] VITALS: BP 173/90; PULSE 70; RESP 19; TEMP 36.6; O2SAT 100
[2021-01-13 21:50] VITALS: RESP 18
--- NOTE | 2021-01-13 21:51 | W.ED.GENAD ---
Discharge Plan Disposition Patient Disposition: HOME Condition: Stable Discharge Details Clinical Impression: Weakness Primary Care Provider: Leonora Syed ED Provider: Jesus Delvalle Home Meds and New Rx's Prescriptions: Continued levothyroxine 88 mcg capsule 88 mcg PO QTUTHSA RF: 0 levothyroxine [Synthroid] 137 MCG tablet 100 mcg PO QMWFSU RF: 0 epinephrine 0.3 MG/SYR auto-injector 0.3 mg IJ PRN PRN (Reason: Allergy Symptoms) Qty: 1 RF: 0 Discharge Instructions Instructions: Weakness (ED) Additional Instructions: At this time IV access, laboratory values, imaging, medications have all been declined. Unfortunately I am unable to further evaluate your current situation because you do not want anything else done here in the ER. As we discussed, please watch for new or worsening symptoms and return to the ER for any concerns. I would like you to have your outpatient MRI on January 21 as already scheduled. Please contact your primary care provider tomorrow to discuss your ongoing symptoms and importance for outpatient reevaluation. Discharge Data Discharge Date/Time-TO BE ENTERED AT DEPARTURE: 01/13/21 23:03 Medical Decision Making 45-year-old female presenting to the ER now for generalized weakness and feeling lethargic. She has multiple other chronic complaints but she is not here for those things now. She does report chronic nausea but does not want Zofran. Clinically she is awake, alert, oriented x3, there is no focal neurologic deficit, is moving all extremities, cranial nerves are intact, she is able to ambulate slowly but steadily. She is minimally hypertensive but her vital signs are otherwise unremarkable, afebrile, O2 sats 100% on room air, pulse of 70. I was able to have a very transparent conversation of both with the patient and her exam room and with her significant other in the waiting room. They are both very frustrated that she continues to be symptomatic, the MRI has not taken place yet, and they simply do not know what to do next. I explained to them both that I do not have the capability of obtaining a stat MRI at my facility after hours and we do not have 07/03 in-house neurology coverage. They state that they actually went to [facility] on Tuesday evening because they knew that both neurology was in-house and MRI was an option however they did not have the MRI, it was recommended that they still do this as an outpatient. Patient is currently declining IV access, straight blood draw, any medications or images. She is now requesting discharge. She does understand that she has been offered a medical screening examination, no obvious emergent process is identified, and then I would like to pursue further evaluation of her symptoms now. She states that she already had a work-up earlier today and it showed nothing, she would like an MRI and I cannot meet those expectations at this time. Patient was visualized ambulating slowly but steadily here in the ER. She was discharged into the care of her significant other. Medical Records Medical records reviewed: Yes I reviewed the patient's medical records. ECG Data Attestation: I personally reviewed and interpreted this ECG (s) as follows: Interpretation: Please see official report by Dr. Mondragon. Sinus rhythm, ventricular to 68. No STEMI. HPI General Mode of arrival: EMS. Date/Time Provider Initiated Documentation: 01/13/21 21:50. Limitations to Documentation: no limitations. Information obtained by: patient and EMS. HPI Narrative: This is a 45-year-old female who has a past medical history that includes anxiety, thyroid CA resulting in hypothyroidism. She reports that she was relatively healthy until she received the [employer] Covid vaccine, since that time she has had multiple symptoms including work-up in multiple ERs and is scheduled for an MRI at [facility] next week. Patient states that she was here in the ER earlier today for evaluation of acute on chronic chest pain that feels different than her baseline. Work-up was completed and she was subsequently discharged. Patient reports that around 7 PM she felt lethargic and had generalized weakness. Denies any focal weakness. She denies any new or different chest pain at this time. EMS called and they report the patient was able to ambulate to the ambulance. Patient denies recent illness or trauma. She has multiple chronic symptoms such as headaches, feeling like she may pass out, visual changes, and a sensation like her throat is swollen, chronic chest pain, nausea. She states that she has been worked up for all of these things, does not want to be on any medication because she is very sensitive to them, but came in this evening because of her weakness and feeling lethargic. She states that because she was here earlier today she does not want to have an IV placed, for that matter does not want to have any straight sticks or blood work performed. She does not want any imaging nor does she want any medications. I explained to the patient that she is having new what she describes as lethargy and weakness and I believe the work-up is appropriate, she declines. She states that she is simply tired feeling the way she feels, wants to be evaluated by neurology and wants to have her MRI faster. Unfortunately we do not have 07/03 in-house neurology here at our facility and we do not have the capabilities of obtaining a stat MRI after hours. Related Data Home Medications Medication Instructions Recorded Confirmed levothyroxine [Synthroid] 100 mcg PO QMWFSU 04/09/13 01/14/21 epinephrine 0.3 mg IJ PRN PRN #1 kit 03/27/15 01/14/21 levothyroxine 88 mcg capsule 88 mcg PO QTUTHSA 12/17/20 01/14/21 Previous Rx's Medication Instructions Recorded epinephrine 0.3 mg IJ PRN PRN #1 kit 03/27/15 Allergies Allergy/AdvReac Type Severity Reaction Status Date / Time Penicillins Allergy Severe Anaphylaxsi Verified 01/14/21 14:47 s Sulfa (Sulfonamide Allergy Severe Anaphylaxsi Verified 01/14/21 14:47 Antibiotics) s venom-honey bee Allergy Severe Anaphylaxsi Verified 01/14/21 14:47 [bee venom (honey bee)] s citalopram Allergy Mild Hives Verified 01/14/21 14:47 ofloxacin [From Floxin] Allergy Mild Skin Rash Verified 01/14/21 14:47 naproxen [From Aleve] Allergy Verified 01/14/21 14:47 azithromycin [From Zithromax] AdvReac Severe Anaphylaxsi Verified 01/14/21 14:47 s Iodinated Contrast Media AdvReac Severe Anaphylaxsi Verified 01/14/21 14:47 [Iodinated Contrast Media - s IV Dye] ketorolac tromethamine AdvReac Severe Anaphylaxsi Verified 01/14/21 14:47 [From Toradol] s iodine AdvReac Intermediate Anaphylaxsi Verified 01/14/21 14:47 s lorazepam [From Ativan] AdvReac Intermediate Dizziness/L Verified 01/14/21 14:47 ightheade horse flies Allergy Severe Anaphylaxsi Uncoded 01/14/21 14:47 s General Stated Complaint: GenMedical CLARI: 3 Review of Systems Constitutional Constitutional: Reports fatigue, Denies fever(s) and Reports headache(s) Eyes Eyes: Reports blurry vision ENT Ears, Nose, Mouth, and Throat: Reports headache(s) and Denies neck pain Cardiovascular Cardiovascular: Reports chest pain and Denies dyspnea Respiratory Respiratory: Denies cough and Denies dyspnea Gastrointestinal Gastrointestinal: Denies abdominal pain, Reports nausea and Denies vomiting Genitourinary Genitourinary: Denies dysuria Musculoskeletal Musculoskeletal: Denies neck pain, Denies numbness and Reports tingling Integumentary/Breasts Skin/Breast: Denies rash Neurologic Neurologic: Reports headache(s), Denies numbness, Reports tingling and Reports weakness (Generalized) Psychiatric Psychiatric: Reports anxiety Endocrine Endocrine: Reports fatigue PFSH Medical History Anxiety Fatigue Hypothyroidism Secondary to thyroidectomy due to cancer Thyroid cancer Papillary Surgical History H/O hand surgery History of hysterectomy History of thyroidectomy Social History Smoking/Tobacco Use Status: Never Smoking risk assessment performed?: Yes Alcohol Intake: never Drug use: Never Substance use type: does not use Do you feel safe at home: Yes Do you feel safe in your relationship?: Yes Exam Const General: cooperative, healthy appearing, comfortable and anxious Orientation: alert, awake and oriented x3 HENMT Head: normal to inspection, normocephalic and atraumatic Face and sinus: normal facial exam Mouth: moist mucous membranes Throat: posterior oropharynx normal Eyes General: appearance normal, both eyes and all related structures Alignment and Position: alignment normal Periorbital: periorbital findings normal Eyelids: eyelids normal Conjunctivae: conjunctivae normal Sclera: sclerae normal Cornea: corneas normal Pupils: PERRL EOM: EOM intact bilaterally Direct ophthalmoscopy: normal light reflex Neck Neck: normal visual inspection, full ROM, no meningeal signs, trachea midline, supple and nontender Resp Effort & Inspection: normal respiratory effort and able to speak in complete sentences Auscultation: clear to auscultation bilaterally Cardio Rate: regular rate Rhythm: regular rhythm GI Palpation: soft and nontender Back/Spine/Pelvis Back: No back tenderness Skin General skin exam: no rashes or lesions noted Neuro General: patient alert, patient awake, patient oriented x3, moves all extremities and no focal motor deficits Cranial Nerves: CN's II-XI intact bilaterally Cognition: normal cognition Speech: speech normal Gait: other (Patient able to ambulate slowly but steadily.) Motor: muscle tone normal throughout, no movement abnormalities noted and no fasciculations Sensory Exam: no sensory deficits noted Extrem General: normal to inspection, full ROM and capillary refill normal Psych Appearance: grossly normal Mental Status: mental status grossly normal Course Vital Signs Vital signs: Vital Signs Temperature 36.6 C 01/13/21 21:39 Pulse 70 01/13/21 21:39 Respiratory Rate 19 01/13/21 21:39 Blood Pressure 173/90 H 01/13/21 21:39 Pulse Oximetry 100 01/13/21 21:39 Temperature 36.6 C 01/13/21 21:39 Temperature Source Skin 01/13/21 21:39 Pulse 70 01/13/21 21:39 Respiratory Rate 19 01/13/21 21:39 Respiratory Effort Non-Labored 01/13/21 21:47 Blood Pressure 173/90 H 01/13/21 21:39 Blood Pressure Position Supine 01/13/21 21:39 Pulse Oximetry 100 01/13/21 21:39 Oxygen Delivery Method Room Air 01/13/21 21:39 Oxygen Flow Rate 0 01/13/21 21:39 Pain Level 0 01/13/21 21:39 Comment 01/13/21 21:39
--- NOTE | 2021-01-13 22:00 | NUR.NOTE ---
Nursing Note: Pt refuses IV during initial assessment.
== END 2021-01-13 23:03 | disposition home or self-care (01) ==
PROVIDERS: Emergency Provider Physician Assistant; PCP Family Medicine
DX: R53.1 Weakness (principal); R53.83 Other fatigue; Z53.29 Procedure and treatment not carried out because of patient's decision for other reasons
CPT/HCPCS: 93005; 99283; 93010

== ENCOUNTER 2021-01-14 14:26 | Inpatient (IN) | payer OTHER, SELFPAY ==
[2021-01-14] VITALS (59 sets, daily range): BP systolic 114–160; BP diastolic 69–94; PULSE 60–81; RESP 10–20; TEMP 36.8–37.2; O2SAT 97–100
--- NOTE | 2021-01-14 15:03 | W.ED.GENAD ---
Discharge Plan Disposition Patient Disposition: [facility] INPATIENT Condition: Stable Discharge Details Clinical Impression: Bilateral arm weakness, Bilateral leg weakness, Difficulty with speech Admit Date/Time: 01/14/21 20:15 Admit Provider: Jesus Carrillo Attending Provider: Jesus Carrillo Primary Care Provider: Leonora Syed ED Provider: Gillian Reilly Discharge Data Discharge Date/Time-TO BE ENTERED AT DEPARTURE: 01/14/21 22:01 Medical Decision Making 45-year-old female with a history of thyroid cancer treated with thyroidectomy resulting in hypothyroidism, anxiety and hysterectomy presents for difficulty moving her arms and legs and talking since last night. She needed assistance out of the car into the wheelchair on arrival to the ED. She was able to get out of bed and walk with some assistance morning. This is patient's seventh visit to the emergency department in the last 6 weeks. She has also had 2 visits to [facility] ED and 2 visits to [facility] ED for these various complaints. She has also been seen by [facility] neurology as well as [facility]. Her vitals are within normal limits. Patient appears tearful at times and asks me to stop questioning as she feels that she is going to pass out and cannot talk. During these episodes, vitals remained within normal limits. She is able to lift her arms and legs but with 3/5 muscle strength in her legs and 4/5 muscle strength in her arms with a tremor in her left upper extremity. Cranial nerves generally appear intact. Screening labs obtained on arrival. We will add an ESR and CRP. Discussed with MRI and able to obtain an MRI brain after 4:00. Will give a bolus IV fluids and IV Tylenol. TSH and free T4 checked yesterday and within normal limits. 1800 --labs and imaging reviewed. Normal white blood cell count at 8. ESR minimally elevated at 28. Normal coagulation studies. CRP normal at 0.15. MRI brain notes IMPRESSION: 1. No acute infarct or intracerebral bleed. 2. A few small patchy foci of periventricular leukomalacia are present in both cerebral hemispheres, consistent most likely with chronic underlying small vessel ischemic disease. In view of the relatively young age of this patient I would recommend correlation for either underlying hypertensive disease-related microangiopathy or diabetes. If the patient has no history of these diseases, the differential diagnoses would include deep white matter injury, prior trauma, migraine-related deep white matter disease, demyelinating disease (including MS and ADEM), inflammatory infectious conditions such as Lyme disease and vasculitis (connective tissue disease or drug use-related). MRA neck notes IMPRESSION: 1. No large vessel occlusion in the arteries of the brain. 2. There is a tiny, less than 3 mm short segment of apparent high-grade, greater than 70% diameter stenosis of the proximal to mid-basilar artery. This could however be an MR artifact, caused by the bilateral anterior inferior cerebellar artery takeoffs/origins, seen on image 19 of series [id number]. An artifact may be more likely because the cranial segment of the basilar artery above this signal abnormality appears completely normal. MRA head negative. MRI cervical spine IMPRESSION: 1. No major acute abnormality identified in the cervical spine. 2. Mild chronic degenerative disc desiccation is present in the intervertebral discs of C5/C6 and C6/C7. 3. Mild left-sided bony neuroforaminal stenosis is present at C6/C7, secondary to uncal joint and posterior facet joint arthropathy. Recommend clinical correlation for a left C7 radiculopathy. She has no clinical signs of Left C7 radiculopathy on exam. Imaging reviewed with [facility] neurology -- states that diagnosis of MS cannot be made based on these findings and recommend an outpatient LP for oligoclonal bands and will follow up with patient for reevaluation. If compared to bands in serum, a diagnosis of MS would see more bands in the CSF. Recommend follow-up with neurology outpatient. Question possibility of conversion disorder? Patient required assistance getting to the commode and she does not feel comfortable going home. Will admit for PT and lumbar puncture to rule out oligoclonal bands. Case discussed with hospitalist who accepts patient for admission. Medical Records Medical records reviewed: Yes I reviewed the patient's medical records. Imaging Data Radiologic Study: Radiologist's impression: MR Head Without Contrast Exam date and time: 01/14/2021 5:09 PM Age: 45 years old Clinical indication: Other: Difficulty walking and talking, neck pain TECHNIQUE: Imaging protocol: MR of the head without contrast. COMPARISON: CT HEAD WO 11/28/2020 10:22 PM FINDINGS: Brain: No acute infarct or intracerebral bleed. A few small patchy foci of periventricular leukomalacia are present in both cerebral hemispheres, consistent most likely with chronic underlying small vessel ischemic disease. In view of the relatively young age of this patient I would recommend correlation for either underlying hypertensive disease-related microangiopathy or diabetes. If the patient has no history of these diseases, the differential diagnoses would include deep white matter injury, prior trauma, migraine-related deep white matter disease, demyelinating disease (including MS and ADEM), inflammatory infectious conditions such as Lyme disease and vasculitis (connective tissue disease or drug use-related). The position, size and shape of the cerebellar tonsils are normal. The vestibulocochlear complexes bilaterally are normal. Normal base of skull vasculature flow voids. The mesial temporal lobes and hippocampal regions are normal. Cerebral ventricles: Normal. No ventriculomegaly. Bones/joints: Unremarkable. Paranasal sinuses: Normal as visualized. No acute sinusitis. Mastoid air cells: Normal as visualized. No mastoid effusion. Orbital cavity: Unremarkable. Soft tissues: Unremarkable. IMPRESSION: 1. No acute infarct or intracerebral bleed. 2. A few small patchy foci of periventricular leukomalacia are present in both cerebral hemispheres, consistent most likely with chronic underlying small vessel ischemic disease. In view of the relatively young age of this patient I would recommend correlation for either underlying hypertensive disease-related microangiopathy or diabetes. If the patient has no history of these diseases, the differential diagnoses would include deep white matter injury, prior trauma, migraine-related deep white matter disease, demyelinating disease (including MS and ADEM), inflammatory infectious conditions such as Lyme disease and vasculitis (connective tissue disease or drug use-related). MRA Neck Without Contrast Exam date and time: 01/14/2021 4:51 PM Age: 45 years old Clinical indication: Other: Difficulty walking and talking, neck pain TECHNIQUE: Imaging protocol: Magnetic resonance angiography of the neck without contrast. COMPARISON: No relevant prior studies available. FINDINGS: Right common carotid artery: No stenosis. No dissection or occlusion. Right internal carotid artery: No stenosis of the extracranial segment. No dissection or occlusion. Right external carotid artery: No stenosis. No dissection or occlusion of the origin. Right vertebral artery: No stenosis. No dissection or occlusion. Left common carotid artery: No stenosis. No dissection or occlusion. Left internal carotid artery: No stenosis of the extracranial segment. No dissection or occlusion. Left external carotid artery: No stenosis. No dissection or occlusion of the origin. Left vertebral artery: No stenosis. No dissection or occlusion. IMPRESSION: No stenosis or occlusion in the carotid and vertebral arteries of the neck. MRA Head Without Contrast; Arteriography Exam date and time: 01/14/2021 5:23 PM Age: 45 years old Clinical indication: Other: Difficulty walking and talking, neck pain TECHNIQUE: Imaging protocol: Magnetic resonance angiography head without contrast. Exam focused on the arteries. COMPARISON: MR BRAIN WO 01/14/2021 4:48 PM FINDINGS: ANTERIOR CIRCULATION: Right internal carotid artery: Intracranial segment is patent with no significant stenosis. No aneurysm. Right middle cerebral artery: No occlusion or significant stenosis. No aneurysm. Right anterior cerebral artery: No occlusion or significant stenosis. No aneurysm. Left internal carotid artery: Intracranial segment is patent with no significant stenosis. No aneurysm. Left middle cerebral artery: No occlusion or significant stenosis. No aneurysm. Left anterior cerebral artery: No occlusion or significant stenosis. No aneurysm. POSTERIOR CIRCULATION: Right vertebral artery: No occlusion or significant stenosis. No aneurysm. Left vertebral artery: No occlusion or significant stenosis. No aneurysm. Basilar artery: No significant aneurysm in the artery. There is a tiny, less than 3 mm short segment of apparent high-grade greater than 70% diameter stenosis of the proximal to mid-basilar artery. This could be an MR artifact caused by the bilateral anterior inferior cerebellar artery takeoffs/origins, seen on image 19 of series [id number]. Right posterior cerebral artery: No occlusion or significant stenosis. No aneurysm. Left posterior cerebral artery: No occlusion or significant stenosis. No aneurysm. IMPRESSION: 1. No large vessel occlusion in the arteries of the brain. 2. There is a tiny, less than 3 mm short segment of apparent high-grade, greater than 70% diameter stenosis of the proximal to mid-basilar artery. This could however be an MR artifact, caused by the bilateral anterior inferior cerebellar artery takeoffs/origins, seen on image 19 of series [id number]. An artifact may be more likely because the cranial segment of the basilar artery above this signal abnormality appears completely normal. MR Cervical Spine Without Contrast Exam date and time: 01/14/2021 5:30 PM Age: 45 years old Clinical indication: Other: Difficulty walking and talking, neck pain TECHNIQUE: Imaging protocol: Multiplanar magnetic resonance images of the cervical spine without contrast. COMPARISON: MR ANGIO NECK WO 01/14/2021 4:34 PM FINDINGS: Vertebrae: Unremarkable. No acute fractures seen in the cervical spine. The cervical spine alignment is normal. Spinal cord: Normal signal. No cord compression. C2-C3: No significant disc disease. No significant spinal stenosis. C3-C4: No significant disc disease. No significant spinal stenosis. C4-C5: No significant disc disease. No significant spinal stenosis. C5-C6: Mild chronic degenerative disc desiccation with loss of normal T2 and STIR signal in the disc. No significant spinal stenosis. C6-C7: Mild chronic degenerative disc desiccation. No significant spinal stenosis. Mild left-sided bony neuroforaminal stenosis secondary to uncal joint and posterior facet joint arthropathy. C7-T1: No significant disc disease. No significant spinal stenosis. Soft tissues: Unremarkable prevertebral and posterior paraspinal soft tissues. Vertebral arteries: The expected flow voids in the vertebral arteries are present. IMPRESSION: 1. No major acute abnormality identified in the cervical spine. 2. Mild chronic degenerative disc desiccation is present in the intervertebral discs of C5/C6 and C6/C7. 3. Mild left-sided bony neuroforaminal stenosis is present at C6/C7, secondary to uncal joint and posterior facet joint arthropathy. Recommend clinical correlation for a left C7 radiculopathy. Lab Data Lab results reviewed: Yes I reviewed the patient's lab results. HPI General Mode of arrival: wheelchair. Date/Time Provider Initiated Documentation: 01/14/21 14:27. Limitations to Documentation: no limitations. Information obtained by: patient. HPI Narrative: Patient is a 45-year-old female with a history of thyroid cancer treated with thyroidectomy resulting in hypothyroidism, anxiety and hysterectomy presents for generalized weakness with difficulty walking since last night. Patient has been seen in the ER here 7 times in the past 6 weeks. She states all of her various symptoms started in mid November 8 days after the [employer] Covid vaccine. She states her first symptoms were right eye blurry vision and headache. She states the headache has improved at times but the right eye blurry vision is constant. She states since then she has had intermittent chest pain, tingling initially in her upper body mall her entire body, and episodes of passing out with bending over. She states she has had multiple cardiac work-ups including a stress test and Holter monitor which were negative. She has also seen neurology Dr. Rodriguez at [facility] and diagnosed with possible optic neuritis and possible vestibular neuritis and referred for MRI brain which is ordered for January 21. She states she was referred for physical therapy for her issues with balance since the symptoms started which she last had yesterday and was advised by the physical therapist that she needs urgent evaluation because she cannot do any of the movements. Patient followed up at [facility] today for these complaints and was advised to come to the ER as she was noted to be floppy . Patient states since last night she has not been able to walk. She states she did last walk yesterday morning. Upon further questioning, she was able to get herself out of bed this morning and into a chair. She states she feels she is having difficulty talking. She denies any chest pain at present. She denies any known fever. Related Data Home Medications Medication Instructions Recorded Confirmed levothyroxine [Synthroid] 100 mcg PO [id number] 04/09/13 01/14/21 epinephrine 0.3 mg IJ PRN PRN #1 kit 03/27/15 01/14/21 levothyroxine 88 mcg capsule 88 mcg PO QTUTHSA 12/17/20 01/14/21 Previous Rx's Medication Instructions Recorded epinephrine 0.3 mg IJ PRN PRN #1 kit 03/27/15 Allergies Allergy/AdvReac Type Severity Reaction Status Date / Time Gadolinium-Containing Allergy Severe Anaphylaxis Verified 01/15/21 09:02 Contrast Medi PER DM 2011 Penicillins Allergy Severe Anaphylaxsi Verified 01/14/21 14:47 s Sulfa (Sulfonamide Allergy Severe Anaphylaxsi Verified 01/14/21 14:47 Antibiotics) s venom-honey bee Allergy Severe Anaphylaxsi Verified 01/14/21 14:47 [bee venom (honey bee)] s citalopram Allergy Mild Hives Verified 01/14/21 14:47 ofloxacin [From Floxin] Allergy Mild Skin Rash Verified 01/14/21 14:47 naproxen [From Aleve] Allergy Verified 01/14/21 14:47 azithromycin [From Zithromax] AdvReac Severe Anaphylaxsi Verified 01/14/21 14:47 s Iodinated Contrast Media AdvReac Severe Anaphylaxsi Verified 01/14/21 14:47 [Iodinated Contrast Media - s IV Dye] ketorolac tromethamine AdvReac Severe Anaphylaxsi Verified 01/14/21 14:47 [From Toradol] s iodine AdvReac Intermediate Anaphylaxsi Verified 01/14/21 14:47 s lorazepam [From Ativan] AdvReac Intermediate Dizziness/L Verified 01/14/21 14:47 ightheade horse flies Allergy Severe Anaphylaxsi Uncoded 01/14/21 14:47 s General Stated Complaint: GenMedical CLARI: 2 Review of Systems All systems reviewed & are unremarkable except as noted in HPI and below Constitutional Constitutional: Reports as per HPI, Denies chills, Denies fever(s), Reports headache(s) and Reports weakness Eyes Eyes: Denies blurry vision and Reports loss of vision (chronic loss of vision R eye x 1 month) ENT Ears, Nose, Mouth, and Throat: Denies dizziness, Reports headache(s), Reports disequilibrium, Denies sore throat and Denies throat swelling Cardiovascular Cardiovascular: Denies chest pain and Denies dyspnea Respiratory Respiratory: Denies cough and Denies dyspnea Gastrointestinal Gastrointestinal: Denies abdominal pain, Denies diarrhea and Denies vomiting Genitourinary Genitourinary: Denies hematuria and Denies dysuria Musculoskeletal Musculoskeletal: Denies back pain and Denies numbness Integumentary/Breasts Skin/Breast: Denies lesions and Denies rash Neurologic Neurologic: Denies dizziness, Reports headache(s), Denies localized weakness, Reports loss of vision (chronic loss of vision R eye x 1 month), Denies numbness, Reports disequilibrium and Reports weakness Allergic/Immunologic Allergic/Immunologic: Denies throat swelling PFSH Medical History Anxiety Fatigue Hypothyroidism Secondary to thyroidectomy due to cancer Thyroid cancer Papillary Surgical History H/O hand surgery History of hysterectomy History of thyroidectomy Social History (Updated 01/15/21 @ 10:31 by Jesus Carrillo) Smoking/Tobacco Use Status: Never Smoking risk assessment performed?: Yes Alcohol Intake: never Drug use: Never Substance use type: does not use Household members: spouse and children Number of Children: 2 What is your relationship status?: living with partner Panel score (0-1 are the most socially isolated patients): 1 Do you feel safe at home: Yes Do you feel safe in your relationship?: Yes History History 3 Para 2 Hx # Term Pregnancies 2 Multiple births Hx # Pregnancies 1 Ectopic pregnancies AB induced Hx Number of Living Children 2 AB spontaneous 1 Exam Const General: cooperative, healthy appearing and no acute distress [facility] Head: normal to inspection Face and sinus: normal facial exam Eyes General: appearance normal, both eyes and all related structures Pupils: PERRL EOM: EOM intact bilaterally Neck Neck: normal visual inspection and No submandibular swelling Lymphatic: no lymphadenopathy noted Chest Chest: normal inspection of the chest and no tenderness Resp Effort & Inspection: normal respiratory effort and able to speak in complete sentences Auscultation: clear to auscultation bilaterally Cardio Rate: regular rate Rhythm: regular rhythm GI Inspection: normal to inspection Palpation: soft, not firm, not rigid and nontender Auscultation: normal bowel sounds Skin General skin exam: no rashes or lesions noted Neuro General: patient alert, patient awake, patient oriented x3, moves all extremities and no meningeal signs Cranial Nerves: CN's II-XI intact bilaterally Cognition: normal cognition Speech: speech normal Motor: muscle tone normal throughout Sensory Exam: no sensory deficits noted Other: Able to plantar and dorsiflex but with 3/5 muscle strength. Handgrip strength 4/5 bilaterally. Able to lift both arms but with tremor to left upper extremity. Extrem General: normal to inspection, full ROM, capillary refill normal, no calf tenderness bilaterally and no edema Psych Appearance: grossly normal Mental Status: mental status grossly normal Speech and Movement: speech and movement normal Affect: normal affect Course Vital Signs Vital signs: Vital Signs Temperature 99.0 F 01/14/21 14:41 Pulse 79 01/14/21 14:41 Respiratory Rate 17 01/14/21 14:41 Blood Pressure 156/87 H 01/14/21 14:41 Pulse Oximetry 98 01/14/21 14:41 Temperature 99.0 F 01/14/21 14:41 Temperature Source Temporal Artery Scan 01/14/21 14:41 Pulse 79 01/14/21 14:41 Respiratory Rate 17 01/14/21 14:41 Respiratory Effort Non-Labored 01/14/21 14:47 Blood Pressure 156/87 H 01/14/21 14:41 Blood Pressure Position Supine 01/14/21 14:41 Pulse Oximetry 98 01/14/21 14:41 Oxygen Delivery Method Room Air 01/14/21 14:41 Oxygen Flow Rate 0 01/14/21 14:41 Pain Level 8 01/14/21 14:41
[2021-01-14 15:05] LABS: Abs Immature Grans 0.02 10^3/uL (0.0-0.06); Absolute Basophil Count 0.05 10^3/uL (0.0-0.2); Absolute Eosinophil Count 0.04 10^3/uL (0.0-0.7); Absolute Lymphocyte Count 1.92 10^3/uL (1.2-3.4); Absolute Monocyte Count 0.43 10^3/uL (0.1-0.8); Absolute Neutrophil Count 5.75 10^3/uL (1.2-6.7); Basophils % 0.6; Eosinophils % 0.5; HCT 39.7 % (36.0-46.0); HGB 13.5 g/dL (11.2-15.7); Immature Grans % 0.2; Lymphocytes % 23.4; MCH 29.9 pg (27.0-33.0); MPV 9.9 fL (8.0-11.0); Monocytes % 5.2; Neutrophils % 70.1; Nucleated RBC 0 %; Platelet Count 372 10^3/uL (130-400); RBC 4.51 10^6/uL (3.93-5.22); RDW 12.4 % (11.7-14.6); RDW-SD 40.1 fL; WBC 8.21 10^3/uL (4.4-10.8)
--- NOTE | 2021-01-14 15:15 | DI.MRI_ITS ---
Exam(s) MR ANGIO NECK WO EXAM: MR ANGIO NECK WO CLINICAL HISTORY: diff talking, walking, R eye blurry vision. TECHNIQUE: Multiplanar multisequence MRA of the Neck was performed. COMPARISON: No exams were available for comparison FINDINGS: Common Carotid: Right: No dissection, occlusion or significant stenosis. Left: No dissection, occlusion or significant stenosis. External Carotid: Right: No evidence of occlusion or significant stenosis. Left: No evidence of occlusion or significant stenosis. Internal Carotid: Right: No dissection, occlusion or significant stenosis. Left: No dissection, occlusion or significant stenosis. Vertebral Artery: Right: No dissection, occlusion or significant stenosis. Left: No dissection, occlusion or significant stenosis. The visualized paraspinal soft tissues are unremarkable. IMPRESSION: No evidence of dissection, occlusion or significant stenosis. DATA REPOSITORY:
[2021-01-14 15:19] LABS: ALT 18 U/L (14-59); AST 11 U/L (15-37); Albumin 4.7 g/dL (3.4-5.0); Alkaline Phosphatase 87 U/L (46-116); Anion Gap 12.1 mmol/L (3-11); BUN 9 mg/dL (7-18); Bilirubin, Total 0.4 mg/dL (0.2-1.0); CO2 25.9 mmol/L (21.0-32.0); CREATININE 0.9 mg/dL (0.55-1.02); Calcium 10.2 mg/dL (8.5-10.1); Chloride 102 mmol/L (98-107); Glucose 126 mg/dL (74-106); Potassium 3.7 mmol/L (3.5-5.1); Sodium 140 mmol/L (136-145); Total Protein 8.8 g/dL (6.4-8.2)
[2021-01-14] MEDS: Normal Saline Flush 10 ML SYR IVP (15:27)
--- NOTE | 2021-01-14 15:29 | DI.MRI_ITS ---
Exam(s) MR ANGIO BRAIN WO CLINICAL HISTORY: diff talking, walking, R eye blurry vision. TECHNIQUE: Multiplanar multisequence MRA of the brain was performed. COMPARISON: None. FINDINGS: Carotid Arteries: No aneurysm, occlusion or significant stenosis. Anterior Cerebral Arteries: Right: No aneurysm, occlusion or significant stenosis. Left: No aneurysm, occlusion or significant stenosis. Middle Cerebral Arteries: Right: No aneurysm, occlusion or significant stenosis. Left: No aneurysm, occlusion or significant stenosis. Posterior Cerebral Arteries: Right: No aneurysm, occlusion or significant stenosis. Left: No aneurysm, occlusion or significant stenosis. Vertebral Arteries: Right: No aneurysm, occlusion or significant stenosis. Left: No aneurysm, occlusion or significant stenosis. Basilar Artery: No aneurysm or occlusion. There is a short segment (less than 3 mm) of narrowing gr eater than 70 percent in the proximal to mid basilar artery. This may be artifact as the basilar art harley proximally and distally are unremarkable. IMPRESSION: 1. No large vessel occlusion in the arteries of the brain. 2. Tiny less than 3 mm short segment of apparent high-grade (70 percent diameter) stenosis in the pro ximal to mid basilar artery. This could be MR artifact caused by the origins of the anterior inferio r cerebellar arteries as the basilar artery proximal and distal to this segment are normal. DATA REPOSITORY:
--- NOTE | 2021-01-14 15:29 | DI.MRI_ITS ---
Exam(s) MR BRAIN WO EXAM: MR BRAIN WO CLINICAL HISTORY: diff talking, walking, R eye blurry vision TECHNIQUE: Multiplanar multisequence MRI of the brain was performed. COMPARISON: No exams were available for comparison FINDINGS: VENTRICLES AND EXTRA AXIAL SPACES: Normal in size and morphology for the patient's age. MIDLINE SHIFT: None. CEREBRAL PARENCHYMA: There are few small foci of hyperintense signal in the white matter on the T2 an d FLAIR images. No space-occupying lesion identified. No evidence of an acute infarct. HEMORRHAGE: None. BRAINSTEM/CEREBELLUM: Normal. CALVARIUM: Normal. VISUALIZED PARANASAL SINUSES/MASTOIDS:Clear. MCGRATH OF ZEPEDA: Normal flow void. PITUITARY GLAND: Unremarkable. OTHER FINDINGS: None. IMPRESSION: A few small scattered foci of hyperintense signal in the white matter on the FLAIR and T2 weighted im ages. Differential considerations include chronic small vessel ischemic disease, hypertensive relate d microangiopathy or diabetes, demyelinating process including MS, infectious or inflammatory conditi ons, vasculitis, prior trauma or migraine related white matter disease. DATA REPOSITORY:
[2021-01-14 15:55] LABS: ESR 28 mm/hr (0-20)
[2021-01-14 15:58] LABS: PTT Activated 23.5 sec (21.0-27.5); Prothrombin Time 10.4 sec (9.3-11.0)
--- NOTE | 2021-01-14 16:15 | DI.MRI_ITS ---
Exam(s) MR CERVICAL SPINE WO EXAM: MR CERVICAL SPINE WO CLINICAL HISTORY: neck pain, tingling in chest, difficulty moving TECHNIQUE: Multiplanar multisequence MRI of the cervical spine was performed without intravenous con trast. COMPARISON: No exams were available for comparison FINDINGS: BONES: Vertebral body heights are maintained. Intervertebral disc spaces are normal. Alignment is nor mal. Bone marrow signal intensity is within normal limits. CERVICAL CORD: Craniovertebral junction is unremarkable. The cervical cord is normal size and signal intensity. SOFT TISSUES: Unremarkable. C2-3: No disc herniation or bulge is identified. No significant central spinal canal or neural forami nal stenosis. C3-4: No disc herniation or bulge is identified. No significant central spinal canal or neural forami nal stenosis C4-5: No disc herniation or bulge is identified. No significant central spinal canal or neural forami nal stenosis C5-6: Mild degenerative disc desiccation. No disc herniation or bulge is identified. No significant central spinal canal or neural foraminal stenosis C6-7: Mild hypertrophic changes are seen of the left uncovertebral joint. There is also mild left fa cet joint arthropathy. These all contribute to cause mild narrowing of the left neural foramen. No significant central spinal canal stenosis. There is disc desiccation present. C7-T1: No disc herniation or bulge is identified. No significant central spinal canal or neural eddie inal stenosis IMPRESSION: 1. No abnormal signal in the spinal cord. 2. Degenerative changes on the left at C6-C7 causing mild left neural foraminal stenosis. 3. Degenerative disc disease at C5-6 and C6-C7. DATA REPOSITORY:
[2021-01-14 16:20] LABS: C-Reactive Protein 0.15 mg/dL (0.0-0.3)
--- NOTE | 2021-01-14 17:14 | DI.VRAD_ITS ---
PROCEDURE INFORMATION: Exam: MRA Neck Without Contrast Exam date and time: 01/14/2021 4:51 PM Age: 45 years old Clinical indication: Other: Difficulty walking and talking, neck pain TECHNIQUE: Imaging protocol: Magnetic resonance angiography of the neck without contrast. COMPARISON: No relevant prior studies available. FINDINGS: Right common carotid artery: No stenosis. No dissection or occlusion. Right internal carotid artery: No stenosis of the extracranial segment. No dissection or occlusion. Right external carotid artery: No stenosis. No dissection or occlusion of the origin. Right vertebral artery: No stenosis. No dissection or occlusion. Left common carotid artery: No stenosis. No dissection or occlusion. Left internal carotid artery: No stenosis of the extracranial segment. No dissection or occlusion. Left external carotid artery: No stenosis. No dissection or occlusion of the origin. Left vertebral artery: No stenosis. No dissection or occlusion. IMPRESSION: No stenosis or occlusion in the carotid and vertebral arteries of the neck. REFERENCE: NASCET CRITERIA. The degree of internal carotid artery stenosis is based on NASCET criteria. Normal is no stenosis. Mild is less than 50% stenosis. Moderate is 50-69% stenosis. Severe is 70% to 99% stenosis. Total occlusion is no detectable patent lumen. Dictated and Authenticated by: Naren Pierre MD. Ordering:SHANNON French MD
--- NOTE | 2021-01-14 17:25 | DI.VRAD_ITS ---
PROCEDURE INFORMATION: Exam: MR Head Without Contrast Exam date and time: 01/14/2021 5:09 PM Age: 45 years old Clinical indication: Other: Difficulty walking and talking, neck pain TECHNIQUE: Imaging protocol: MR of the head without contrast. COMPARISON: CT HEAD WO 11/28/2020 10:22 PM FINDINGS: Brain: No acute infarct or intracerebral bleed. A few small patchy foci of periventricular leukomalacia are present in both cerebral hemispheres, consistent most likely with chronic underlying small vessel ischemic disease. In view of the relatively young age of this patient I would recommend correlation for either underlying hypertensive disease-related microangiopathy or diabetes. If the patient has no history of these diseases, the differential diagnoses would include deep white matter injury, prior trauma, migraine-related deep white matter disease, demyelinating disease (including MS and ADEM), inflammatory infectious conditions such as Lyme disease and vasculitis (connective tissue disease or drug use-related). The position, size and shape of the cerebellar tonsils are normal. The vestibulocochlear complexes bilaterally are normal. Normal base of skull vasculature flow voids. The mesial temporal lobes and hippocampal regions are normal. Cerebral ventricles: Normal. No ventriculomegaly. Bones/joints: Unremarkable. Paranasal sinuses: Normal as visualized. No acute sinusitis. Mastoid air cells: Normal as visualized. No mastoid effusion. Orbital cavity: Unremarkable. Soft tissues: Unremarkable. IMPRESSION: 1. No acute infarct or intracerebral bleed. 2. A few small patchy foci of periventricular leukomalacia are present in both cerebral hemispheres, consistent most likely with chronic underlying small vessel ischemic disease. In view of the relatively young age of this patient I would recommend correlation for either underlying hypertensive disease-related microangiopathy or diabetes. If the patient has no history of these diseases, the differential diagnoses would include deep white matter injury, prior trauma, migraine-related deep white matter disease, demyelinating disease (including MS and ADEM), inflammatory infectious conditions such as Lyme disease and vasculitis (connective tissue disease or drug use-related). Dictated and Authenticated by: Naren Pierre MD. Ordering:SHANNON French MD
--- NOTE | 2021-01-14 17:41 | DI.VRAD_ITS ---
PROCEDURE INFORMATION: Exam: MRA Head Without Contrast; Arteriography Exam date and time: 01/14/2021 5:23 PM Age: 45 years old Clinical indication: Other: Difficulty walking and talking, neck pain TECHNIQUE: Imaging protocol: Magnetic resonance angiography head without contrast. Exam focused on the arteries. COMPARISON: MR BRAIN WO 01/14/2021 4:48 PM FINDINGS: ANTERIOR CIRCULATION: Right internal carotid artery: Intracranial segment is patent with no significant stenosis. No aneurysm. Right middle cerebral artery: No occlusion or significant stenosis. No aneurysm. Right anterior cerebral artery: No occlusion or significant stenosis. No aneurysm. Left internal carotid artery: Intracranial segment is patent with no significant stenosis. No aneurysm. Left middle cerebral artery: No occlusion or significant stenosis. No aneurysm. Left anterior cerebral artery: No occlusion or significant stenosis. No aneurysm. POSTERIOR CIRCULATION: Right vertebral artery: No occlusion or significant stenosis. No aneurysm. Left vertebral artery: No occlusion or significant stenosis. No aneurysm. Basilar artery: No significant aneurysm in the artery. There is a tiny, less than 3 mm short segment of apparent high-grade greater than 70% diameter stenosis of the proximal to mid-basilar artery. This could be an MR artifact caused by the bilateral anterior inferior cerebellar artery takeoffs/origins, seen on image 19 of series [id number]. Right posterior cerebral artery: No occlusion or significant stenosis. No aneurysm. Left posterior cerebral artery: No occlusion or significant stenosis. No aneurysm. IMPRESSION: 1. No large vessel occlusion in the arteries of the brain. 2. There is a tiny, less than 3 mm short segment of apparent high-grade, greater than 70% diameter stenosis of the proximal to mid-basilar artery. This could however be an MR artifact, caused by the bilateral anterior inferior cerebellar artery takeoffs/origins, seen on image 19 of series [id number]. An artifact may be more likely because the cranial segment of the basilar artery above this signal abnormality appears completely normal. Dictated and Authenticated by: Naren Pierre MD. Ordering:SHANNON French MD
--- NOTE | 2021-01-14 18:13 | DI.VRAD_ITS ---
PROCEDURE INFORMATION: Exam: MR Cervical Spine Without Contrast Exam date and time: 01/14/2021 5:30 PM Age: 45 years old Clinical indication: Other: Difficulty walking and talking, neck pain TECHNIQUE: Imaging protocol: Multiplanar magnetic resonance images of the cervical spine without contrast. COMPARISON: MR ANGIO NECK WO 01/14/2021 4:34 PM FINDINGS: Vertebrae: Unremarkable. No acute fractures seen in the cervical spine. The cervical spine alignment is normal. Spinal cord: Normal signal. No cord compression. C2-C3: No significant disc disease. No significant spinal stenosis. C3-C4: No significant disc disease. No significant spinal stenosis. C4-C5: No significant disc disease. No significant spinal stenosis. C5-C6: Mild chronic degenerative disc desiccation with loss of normal T2 and STIR signal in the disc. No significant spinal stenosis. C6-C7: Mild chronic degenerative disc desiccation. No significant spinal stenosis. Mild left-sided bony neuroforaminal stenosis secondary to uncal joint and posterior facet joint arthropathy. C7-T1: No significant disc disease. No significant spinal stenosis. Soft tissues: Unremarkable prevertebral and posterior paraspinal soft tissues. Vertebral arteries: The expected flow voids in the vertebral arteries are present. IMPRESSION: 1. No major acute abnormality identified in the cervical spine. 2. Mild chronic degenerative disc desiccation is present in the intervertebral discs of C5/C6 and C6/C7. 3. Mild left-sided bony neuroforaminal stenosis is present at C6/C7, secondary to uncal joint and posterior facet joint arthropathy. Recommend clinical correlation for a left C7 radiculopathy. Dictated and Authenticated by: Naren Pierre MD. Ordering:SHANNON French MD
[2021-01-14] MEDS: Normal Saline 1,000 ML 1000 ML IV (18:15)
[2021-01-14] MEDS: ACETAMINOPHEN 1,000 MG/100 ML BTL 400 MG IVPB (18:15)
[2021-01-14 21:05] LABS: Source Nasal/Nares
[2021-01-14 22:35] LABS: COVID-19 PCR Negative (Negative)
--- NOTE | 2021-01-15 00:29 | HPE_ITS ---
Date of service: 01/15/21 Time of Service: 00:29 Assessment and Plan Assessment and plan (1) Weakness: Status: Acute Assessment and plan: subjective complaints of bilateral arm and leg weakness and difficulty walking. not exhibiting overt weakness w/ manual muscle testing however with her complaints of right eye blurred vision and optometry concerns for optic neuritis and recurrent complaints of chest tightness and her sensory complaints and now complaints of urinary hesitancy and abnormal Mri of brain, the concern is for possible M.S. Because she has allergy to gadolinium, and enhanced MRI could not be done, it has been recommended that she have an LP looking for oligoclonal bands. (2) Blurred vision: Status: Acute Assessment and plan: suspected optic neuritis however, I did not see any pallor or vascular changes. Patient is scheduled for neuro-opthalmology next week. (3) Urinary hesitancy: Status: Acute Assessment and plan: check urinary bladder retention w/ post void residuals. History of Present Illness History of Present Illness Chief Complaint: referred by [facility] d/t inability to walk, bilat. leg weakness Narrative: 45 yr old white female w/ PMH of thyroid cancer (papillary s/p thyroidectomy in 2008 w/ subsequent ablative iodine followed by endocrine at [facility], Dr. Martha Charles),who presents to [facility] from [facility]. Patient relates her current symptoms as going back to November 20 when she had the [employer] Covid-19 vaccine and subsequently developed acute flu like symptoms including myalgias and headaches and 8 days later she presented to [facility] w/ complaints of monocular right eye blurred vision and severe headache. 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 She had neurology follow up w/ Dr. Tez Mills on 01/05. He notes that the patient saw her order runner ([facility]) who suspected optic neuritis and referred her to Dr. Elizalde at [facility]. Dr. Mills's impression from her visit on 01/05 is that her dizziness and black out symptoms are cervicogenic and/or vestibular in nature and he recommended amitriptyline and flexeril and neuro-opthalmology follow up. Since her ER visit to [facility] on 11/28 she has had further symptoms of chest tightness, dizziness, near syncope which has resulted in multiple ER visits both here and at [facility] and [facility] and led to cardiac workup including holter monitor and GXT stress testing (all which have been completed here at [facility] and were normal). She was sent from [facility] after seen for follow up and concern was raised because she complained of inabilty to walk d/t leg weakness. Dr. Reilly proceeded w/ workup including routine labs, and MRI of head and MRA of head and MRI of neck (all without contrast d/t patient's reported anaphylaxis reaction to gadolinium on prior MRI's). MRI of brain demonstrated no acute CVA but a few small patchy bilateral periventricular foci of leukomalacia. Her MRA of neck showed no stenosis, and MRA of brain demonstrated 3 mm segment of apparent high grade stenosis of 70% in the proximal to mid basilar artery but this was felt to be artifact caused by takeoff of her anterior inferior crebellar arteries because the cranial segment of the basilar artery above that level was completely normal. She is now admitted for further workup to rule out M.S. or other demyelinating disorder. Based on Dr. Relily's conversation w/ [facility] neurology an LP to evaluate for oligoclonal bands was recommended given her reported gadolinium contrast allergy. Review of Systems Genitourinary Genitourinary: Reports urinary hesitancy (she feels that she can not tell when she needs to void) Neurologic Neurologic: Reports as per [facility] Medical History Anxiety Fatigue Hypothyroidism Secondary to thyroidectomy due to cancer Thyroid cancer Papillary Surgical History H/O hand surgery History of hysterectomy History of thyroidectomy Social History (Updated 01/15/21 @ 10:31 by Jesus Carrillo) Smoking/Tobacco Use Status: Never Smoking risk assessment performed?: Yes Alcohol Intake: never Drug use: Never Substance use type: does not use Household members: spouse and children Number of Children: 2 What is your relationship status?: living with partner Panel score (0-1 are the most socially isolated patients): 1 Do you feel safe at home: Yes Do you feel safe in your relationship?: Yes History History 3 Para 2 Hx # Term Pregnancies 2 Multiple births Hx # Pregnancies 1 Ectopic pregnancies AB induced Hx Number of Living Children 2 AB spontaneous 1 Meds Allergies and Home Medications Allergies Allergy/AdvReac Type Severity Reaction Status Date / Time Gadolinium-Containing Allergy Severe Anaphylaxis Verified 01/15/21 09:02 Contrast Medi PER [facility] 2011 Penicillins Allergy Severe Anaphylaxsi Verified 01/14/21 14:47 s Sulfa (Sulfonamide Allergy Severe Anaphylaxsi Verified 01/14/21 14:47 Antibiotics) s venom-honey bee Allergy Severe Anaphylaxsi Verified 01/14/21 14:47 [bee venom (honey bee)] s citalopram Allergy Mild Hives Verified 01/14/21 14:47 ofloxacin [From Floxin] Allergy Mild Skin Rash Verified 01/14/21 14:47 naproxen [From Aleve] Allergy Verified 01/14/21 14:47 azithromycin [From Zithromax] AdvReac Severe Anaphylaxsi Verified 01/14/21 14:47 s Iodinated Contrast Media AdvReac Severe Anaphylaxsi Verified 01/14/21 14:47 [Iodinated Contrast Media - s IV Dye] ketorolac tromethamine AdvReac Severe Anaphylaxsi Verified 01/14/21 14:47 [From Toradol] s iodine AdvReac Intermediate Anaphylaxsi Verified 01/14/21 14:47 s lorazepam [From Ativan] AdvReac Intermediate Dizziness/L Verified 01/14/21 14:47 ightheade horse flies Allergy Severe Anaphylaxsi Uncoded 01/14/21 14:47 s Home Medications Medication Instructions Recorded Confirmed Type levothyroxine [Synthroid] 100 mcg PO [id number] 04/09/13 01/14/21 History epinephrine 0.3 mg IJ PRN PRN #1 kit 03/27/15 01/14/21 Rx levothyroxine 88 mcg capsule 88 mcg PO QTUTHSA 12/17/20 01/14/21 History Exam Narrative Exam Narrative: Middle age white female tearful but alert and oriented HEENT: PERRLA/EOMI, fundi unremarkable, gross VF w/ some blurred vision in right eye but able to read large to medium print, no facial asymmetry, normal facial mimetic muscle use, sensation intact to light touch and noxious stimulation over her face Neck supple, normal carotid pulses, no bruits, no adenopathy; no palpable thyroid Lungs clear Heart: RRR, no murmur Abdomen: soft, nontender Neuro: VF, facial exam as noted above; motor: RUE 4/5 able to give me resistance to abduction/adduction and flexion and extension; some voluntary give away weakness; LUE normal strength and ROM. LLE normal ROM and strength; RLE normal abduction/adduction at hips, normal flexion/extension at knee, some weakness w/ dorsiflexion and extension at foot/ankle but suspect effort related; absent Babinskin bilaterally; sensory exam grossly normal to noxious stimulation over face and arms and legs but diminished sensation to light touch over right side of face and right arm Results Labs Result diagrams: 01/14/21 14:40 01/14/21 14:40 Labs: Laboratory Results - last 24 hr 01/14/21 01/14/21 01/14/21 14:40 14:40 14:40 WBC 8.21 RBC 4.51 Hgb 13.5 Hct 39.7 MCV 88.0 MCH 29.9 MCHC 34.0 RDW 12.4 Plt Count 372 MPV 9.9 Immature Gran % 0.2 Neutrophils % 70.1 Lymphocytes % 23.4 Monocytes % 5.2 Eosinophils % 0.5 Basophils % 0.6 Nucleated RBC % 0 Absolute Neutrophils 5.75 Absolute Lymphocytes 1.92 Absolute Monocytes 0.43 Absolute Eosinophils 0.04 Absolute Basophils 0.05 ESR PT INR APTT Sodium 140 Potassium 3.7 Chloride 102 Carbon Dioxide 25.9 Anion Gap 12.1 H BUN 9 Creatinine 0.9 Estimated GFR/1.73 m2 >= 60.00 Glucose 126 H Calcium 10.2 H Total Bilirubin 0.4 AST 11 L ALT 18 Alkaline Phosphatase 87 C-Reactive Protein 0.15 Total Protein 8.8 H Albumin 4.7 COVID-19 Source SARS-CoV-2 (PCR) 01/14/21 01/14/21 01/14/21 14:40 14:40 21:00 WBC RBC Hgb Hct MCV MCH MCHC RDW Plt Count MPV Immature Gran % Neutrophils % Lymphocytes % Monocytes % Eosinophils % Basophils % Nucleated RBC % Absolute Neutrophils Absolute Lymphocytes Absolute Monocytes Absolute Eosinophils Absolute Basophils ESR 28 H PT 10.4 INR 1.0 APTT 23.5 Sodium Potassium Chloride Carbon Dioxide Anion Gap BUN Creatinine Estimated GFR/1.73 m2 Glucose Calcium Total Bilirubin AST ALT Alkaline Phosphatase C-Reactive Protein Total Protein Albumin COVID-19 Source Nasal/nares SARS-CoV-2 (PCR) Negative Last Vital Signs Temp 36.8 C 01/14/21 23:40 Pulse 69 01/14/21 23:40 Resp 18 01/14/21 23:40 BP 148/74 H 01/14/21 23:40 Pulse Ox 97 01/14/21 23:40 COVID-19 Screening Have you, or household traveled for leisure in last 14 days?: No Had IN PERSON contact w/suspected or confirmed C-19 person: No
[2021-01-15] MEDS: Acetaminophen 325 MG TAB PO ×3 (00:30→20:06)
[2021-01-15] MEDS: Normal Saline Flush 10 ML SYR IVP ×2 (00:30→20:07)
[2021-01-15 01:01] VITALS: O2SAT 98
[2021-01-15] MEDS: Levothyroxine 88 MCG TAB PO (05:32)
[2021-01-15 07:41] LABS: Vitamin B12 306 pg/mL (193-986)
--- NOTE | 2021-01-15 08:00 | DI.MRI_ITS ---
Exam(s) MR LUMBAR SPINE WO EXAM: MR LUMBAR SPINE WO CLINICAL HISTORY: general weakness, blurred vision; r/o M.S.. TECHNIQUE: Multiplanar multisequence MRI of the Lumbar spine was performed. COMPARISON: No exams were available for comparison FINDINGS: Bones: The last intervertebral disc space is designated the L5/S1 level for the numbering purpose of this examination. The vertebral body heights are well maintained. Alignment is satisfactory. Mild d egenerative endplate signal changes are seen at L3-L4 and L4-L5. Cord: The conus tip ends at the L1 level. It is of normal size and signal intensity. T12-L1: No disc herniations or bulges are present. No central spinal canal or neural foraminal stenos is. L1-2: No disc herniations or bulges are present. No central spinal canal or neural foraminal stenosis . L2-3: No disc herniations or bulges are present. No central spinal canal or neural foraminal stenosis . L3-4: No disc herniations or bulges are present. No central spinal canal or neural foraminal stenosis . L4-5: There is a mild diffuse disc bulge. No central spinal canal or neural foraminal stenosis.Degen erative changes of the facets are present. L5-S1: No disc herniations or bulges are present. No central spinal canal or neural foraminal stenosi s.Degenerative changes of the facets are present. Soft tissues: The visualized SI joints and sacrum are well maintained. The paraspinal soft tissues ar e unremarkable. IMPRESSION: 1. Multilevel degenerative changes in the lumbar spine. No focal disc herniation central spinal dwayne l or neural foraminal stenosis. 2. Normal signal in the spinal cord. DATA REPOSITORY:
--- NOTE | 2021-01-15 08:00 | DI.MRI_ITS ---
Exam(s) MR THORACIC SPINE WO EXAM: MR THORACIC SPINE WO CLINICAL HISTORY: weakness r/o MS. TECHNIQUE: Multiplanar multisequence MRI of the Thoracic spine was performed. COMPARISON: No exams were available for comparison FINDINGS: Bones: The vertebral body heights are well maintained. Alignment is satisfactory. The signal characte ristics are unremarkable. Cord: The thoracic cord is normal size and signal intensity. No intrinsic cord lesion is present. Discs: No disc herniation or bulge is present. No central spinal canal or neural foraminal stenosis. Soft tissues: Normal. IMPRESSION: 1. Normal MRI examination of the thoracic spine. 2. No spinal cord lesions. DATA REPOSITORY:
[2021-01-15 08:15] VITALS: BP 124/80; PULSE 67; RESP 18; TEMP 37.3; O2SAT 99
--- NOTE | 2021-01-15 09:26 | PT.INIE ---
Date of service: 01/15/21 Time of Service: 09:26 PT Notes Visit Reasons: General Weakness Physical Therapy Inpatient Initial Evaluation Date: 01/15/2021 Referring Doctor: Jesus Fuller MD PT Orders: PT CONSULT: Safety consult for DC Precautions: Fall. Standard. Activity as tolerated. Patient Profile/Admitting Diagnosis: Patricia is a 45-year-old female who presented to the ED with difficulty moving arms and legs, difficulty talking, and tremors in the left UE that started the previous night. Previously the patient has had multiple ED visits at different hospitals related to same symptoms. Patient working diagnoses include weakness, blurred vision, and urinary hesitancy. Lumbar puncture scheduled later today to rule out oligoclonal bands per hospitalist. PMHX: Medical History Anxiety Fatigue Hypothyroidism Secondary to thyroidectomy due to cancer Thyroid cancer Papillary Surgical History H/O hand surgery History of hysterectomy History of thyroidectomy Social History/Home Situation: Lives with significant other in a private home with 2 steps but without rails. 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 Equipment Owned/DME: None Subjective: Agreeable to PT consult. States that she has not worked for the past 7 weeks due to persistent issues that she has had as above. Was teary-eyed after manual muscle testing of upper extremities stating that she is tired and she is hurting all over at 8/10. Nurse Harriett was updated about patient complaint and administered Tylenol that pacified patient and allowed her to participate with mobility assessment. Reports pressure on the right side of her head and neck. Verbalized tingling and burning in her head, trunk and upper extremities. Expressed that she has been constantly dizzy at rest and with movement for the past 7 weeks. Objective: General Observation: Appears timid and anxious. Minimal eye contact. Mental Status: Alert and oriented as to person, place, time, and purpose. Able to pay attention and to resond to questions but has limited focus. Pain: 8/10 in B UE/LE after manula muscle testing Vital Signs: WNL for HR and oxygen saturation throughout ROM: Manual muscle testing was challenging as I did not feel patient volitionally participate in going against my manual resistance despite repetition of instructions given to her. I felt her muscles contract but for some reason she intentionally releases the tension abruptly due perhaps to her complaint of increased tingling/burning sensation or to her anxiety level, or both. Right Upper Extremity: Shoulder Flexion allows up to 160 degrees. Shoulder abduction allows up to 140 degrees. Elbow flexion WFL. Forearm pronation/supination WFL. Wrist flexion WFL. Opening and closing of hand slow and shaky but WFL. Left Upper Extremity: Shoulder Flexion WFL. Shoulder abduction WFL. Elbow flexion WFL. Forearm pronation/supination WFL. Wrist flexion WFL. Opening and closing of hand WFL. Right Lower Extremity: Hip flexion allows about 20 degrees above 90 while seated on chair. Hip abduction allows about 20 degrees, gravity eliminated, while seated on chair. Knee flexion 30 degrees to 90 degrees. Knee extension -30 degrees. Ankle dorsiflexion/eversion to neutral only. Ankle plantarflexion/inversion about 20 degrees from neutral. Left Lower Extremity: Hip flexion allows about 20 degrees above 90 while seated on chair. Hip abduction allows about 20 degrees, gravity eliminated, while seated on chair. Knee flexion 30 degrees to 90 degrees. Knee extension -30 degrees. Ankle dorsiflexion/eversion to neutral only. Ankle plantarflexion/inversion about 20 degrees from neutral. Strength: Right Upper Extremity: Shoulder flexors 3-/5. Shoulder abductors 3-/5. Elbow flexors 3-/5. Elbow extensors 3-/5. Reinforcing Steel Worker weak but functional. Left Upper Extremity: Shoulder flexors 4-/5. Shoulder abductors 4-/5. Elbow flexors 4-/5. Elbow extensors 4-/5. Reinforcing Steel Worker strong. Right Lower Extremity: Hip flexors 3-/5. Hip abductors 2-/5. Knee flexors 3-/5. Knee extensors 3-/5. Ankle dorsiflexors/evertors 3-/5. Ankle plantarflexors/invertors 4-/5. Left Lower Extremity: Hip flexors 3-/5. Hip abductors 2-/5. Knee flexors 3-/5. Knee extensors 3-/5. Ankle dorsiflexors/evertors 3-/5. Ankle plantarflexors/invertors 4-/5. Bed Mobility/Transfers: Sit to stand moderate assist Stand to sit minimal assist Bed to chair moderate assist of 2 Gait: Distance of 2 steps requiring moderate assist to maximal verbal cueing for safety and walker management. Patient demonstrated body tremors, increased shaking, and wobbling of bilateral lower extremities. Patient reported increased tingling and burning through her trunk and arms and increased pain in her head at 8/10. Deferred further ambulation assessment due to increase symptom provocation and risk for falls. Balance: Static Sitting: Good Dynamic Sitting: Fair Static Standing: Poor Dynamic Standing: Poor Special Tests: Mobility Limitations Standardized Measure [facility] AM-PAC 6 clicks Basic Mobility Inpatient Short Form: Raw Score: 11 CMS Score: 73% deficit Informed Consent/Education: Patient was instructed in purpose of PT consult and plan of care. Agreeable to proceed with established PT POC to achieve personal goals. Assessment: Participation level today was limited by subjective complaints of increased pain as well as tingling and burning sensation throughout her head, upper extremities, and trunk. I am unable to actually gauge severity of weakness and functional limitations at this time due to lack of full participation compounded by her level of anxiety and her dizziness. I am recommending assistance of 2 people at all times for all transfer task performance to ensure safety using the front wheeled walker. Ambulation with physical therapy staff only. Patricia demonstrates functional mobility decline requiring the assistance of 2 people for all mobility task performance, impairment in balance, decreased activity tolerance, sensory changes in head arms and trunk affecting mobility performance, and increased risk for falls. Will continue to assess mobility changes. Patient presents with clinical signs and symptoms consistent with current/admitting diagnoses that have resulted to mobility limitations, gait instability, generalized weakness, and impairment of motor control as demonstrated by the following impairment level findings: 1. Decreased strength to B UE/LE major muscle groups 2. Impaired sitting/standing balance 3. Impaired activity tolerance 4. Limitation of joint range of motion in BUE/LE 5. Dizziness 6. Anxiety Impairments are contributing to the following functional limitations: 1. Dependent bed mobility skills 2. Increased dependence with transfers 3. Inability to safely ambulate without assistive device and physical assistance 4. Increase completion time for mobility ADL performance 5. Increased fall risk 6. Inability to negotiate steps alone safely 7. Inability to return to prior living environment at this time Patient is assessed as a 87810 moderate complexity based on the following: History: 45-year-old female with past medical history as indicated above Examination: Demonstrable impairment in strength, balance, and mobility level with underlying impairments and functional limitations as exhibited above as well as deficit score of 73% utilizing the [facility] Mobility Inpatient Short Form Presentation: Evolving Decision Makin moderate complexity Goals: Goals X1 week 1. Supine-Sit independent 2. Sit-Supine independent 3. Sit-Stand contact-guard assist 4. Stand-Sit contact-guard assist 5. Bed-Chair contact-guard assist 6. Chair-Bed contact-guard assist 7. Contact-guard assist gait on level surface with use of front wheeled walker for at least 300 feet without report of pain nor dyspnea 8. Contact-guard assist stair negotiation while holding onto B rails for at least 3 steps without report of pain nor dyspnea 9. Independent with home exercise program 10. Fair static and dynamic standing balance/tolerance Plan of Care/Treatment Plan: 1-2x/day, 7 days/week x 1 week. Plan of care has been reviewed with the ELECTRONIC TYPESETTING MACHINE OPERATOR providing the service under Physical Therapy direction. Initiate Physical Therapy intervention for pain management as needed, strengthening, bed mobility, transfers, gait, stairs, balance training, and use of assistive device. DISCHARGE RECOMMENDATIONS: Patient will benefit from group home facility placement for continued skilled physical therapy services in order to progress mobility level, strength, and balance in preparation for a safe discharge to home. TREATMENT CODE/TIME: 9716 2 x 20 minutes, 9753 0 x 19 minutes beginning at 9:26 AM. Thank you for the opportunity to participate in the care of this patient. Kirsten Amezcua PT, DPT, CLT [facility] [place], [place]
--- NOTE | 2021-01-15 10:53 | INITIAL_ITS ---
- If Service Date Differs Date of service: 01/15/21 Time of Service: 10:53 Care Management Initial Assess REASON FOR HOSPITALIZATION:: Weakness PAST MEDICAL HISTORY/PAST SURGICAL HISTORY:: Medical History . Anxiety. Fatigue. Hypothyroidism. Secondary to thyroidectomy due to cancer. Thyroid cancer. Papillary. Surgical History . H/O hand surgery. History of hysterectomy. History of thyroidectomy PREVIOUS FUNCTIONAL STATUS/SOCIAL/FAMILY SUPPORTS:: Raquel lives on a farm in [place], [place] with her Salvador and their 5 year old daughter. 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 She was very active and independent prior to the onset of her current symptoms and receives no community services. CURRENT FUNCTIONAL STATUS:: Raquel was sitting up in a chair quietly weeping when CM met with her. She shared that she is upset by what she perceives to be a change in the plan of care as well as some disturbing findings on her MRI. She verbalized that she has had anaphylactic reactions to medication in the past and is now reluctant to add new medications to her regimen. She is complaining of pain and a headache but will not take any medication for it at this time. Raquel acknowledged that she may have misunderstood one of the providers who spoke with her today and asked if CM could be with her for future visits with providers. CM agreed to do so if available. ADVANCE DIRECTIVES:: none on file and is not interested Has patient been provided with info about the portal/API?: Yes Did the patient sign up for the portal?: Yes (previously) CODE STATUS:: Full Code INSURANCE COVERAGE / FINANCIAL ISSUES:: [facility] CURRENT HOME/COMMUNITY SERVICES/EQUIPMENT:: none PRIMARY CARE PHYSICIAN:: Leonora Syed POTENTIAL DISCHARGE NEEDS:: Follow up with PCP, Neurology and plan of care PATIENT/FAMILY EDUCATION NEEDS:: Review of discharge instructions, medications, follow up plan, Ask Me Three TRANSPORTATION:: via private vehicle with family PLAN:: Raquel will likely be discharged home, possibly with new home health services, depending on the course of her illness. She will transport with family and follow up with her community providers. CM will continue to support patient and family and assess for discharge planning needs.
[2021-01-15 11:13] LABS: Lyme Ab w Rflx to Lyme Confirm Negative (Negative)
--- NOTE | 2021-01-15 12:34 | NCONE_ITS ---
Date of service: 01/15/21 Time of Service: 12:35 Assessment and Plan Assessment and plan (1) Blurred vision: Status: Acute (2) Headache: Status: Acute (3) Weakness: Status: Acute (4) Anxiety: Status: Chronic Assessment and plan: Ms. Valencia is a 45 year-old, right-handed woman who presents with the following: #1. Right eye blurred and double vision with question of demyelinating disease. She was given diagnosis of possible optic neuritis by local optometry. Her symptoms are atypical and findings on their exam were minimal. She will consult with ophthalmology at [facility] next week. MRI brain today read by radiology as possibly demyelinating. Per my review, patient MRI appears normal and would be atypical of demyelination. However, given prior diagnosis by optometry, demyelination cannot be excluded. We discussed reasoning and rationale behind LP to look for inflammation which would support diagnosis of demyelination. She declines LP at this time. Of interest, she consulted with neurologist Dr. Cavanaugh at [facility] in March 2020 and underwent brain MRI there for ?MS. I have requested those images for comparison. The report indicated a normal study. #2. ? basilar stenosis on MRA head. Real vs artifact? Patient declines contrasted studies (MR and CT) due to prior allergic reactions and declines medication treatment for her allergy (prednisone, Benadryl). Thus, stuck in a difficult position. She is not symptomatic of this finding and I don't think this is finding is contributing to any of her other symptoms. She does not have vascular risk factors and no significant atherosclerosis in any of her other arteries. Thus, I am inclined to think this is flow artifact. However, given risks it would be reasonable to start coated aspirin 81mg daily (she notes LE swelling with naproxen; notes gastric burning with ibuprofen) which may also be helpful for her headaches. #3. Chronic daily headache x 6 weeks. I recommend aspirin 81mg daily as above for ppx and treatment. She has declined previous medication recommendations. Magnesium 400mg HS would be next option in addition to ASA if no response to ASA. #4. Tremor, weakness, pain, speech changes, paraesthesias. Her tremor is clearly a functional tremor. I suspect the weakness is too. This raises the possibility that some if not all of her other symptoms are functional as well, however, needs further testing as above. 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 We discussed that this can improve with PT and OT, which I am recommending. We also discussed getting treatment of her anxiety which has become a significant problem in the last few months. She should consider counseling +/- psychiatry. I don't know what her buy-in is in this. It seems low right now. She is still vested in a non-functional etiology complicated by her inability to undergo complete testing to rule out all non-functional etiologies...Additionally, I think her inability to complete testing is and will inhibit/prevent her ability to recover from her functional symptoms. She needs to continue to follow with neurology, either here or at [facility] which is already scheduled. Please call with any further questions/concerns. History of Present Illness History of Present Illness Chief Complaint: weakness, pain, headaches, blurred vision Narrative: Handedness: right. HPI: Ms. Valencia is a 45 year-old woman with prior thyroid cancer now on thyroid supplement, HENNA not on CPAP, and anxiety. Ms. Valencia was admitted with 1 day history of generalized weakness, left arm tremors, and slowed/slurred speech. She has a complicated recent history with many many [facility] ER and urgent Care visits in the last 2 months s/p J&J vaccine on 11/19/20. See timeline below. She has also apparently been seen at [facility] ER and [facility] x2 each, however, I have not been able to review those records. Of interest, she apparently met with [facility] neurologist Dr. Cavanaugh in March for various symptoms for which she underwent brain MRI for concern for MS. Ms. Valencia does not recall her symptoms at that time. Per report, it was normal exam. Ms. Valencia recalls she was told she had white spots on her brain after a remote MRI at [facility]. She was also recently diagnosed with HENNA and recommended CPAP by the [facility]. She has a CPAP at home but has not been using it. Of note, she has had allergic reactions to both CT and MR contrast. She has repeatedly declined prednisone/benadryl treatment in order to obtain contrasted studies. She notes remote history of depression and anxiety for which an SSRI was Rx'd to which she notes a severe allergic reaction. She notes allergies to most anything that she has tried including OTC agents and thus is reluctant to try any new medications. She notes worsening anxiety recently which she attributes to her various medical problems. She notes baseline right hemicranial headaches occurring ~1x/month without associated symptoms. Attributes these to stress/tension. She treats these with sleep. She notes a constant low grade pressure in her head since her J&J vaccine. She also notes intermitttent numbness and tingling occurring all over her body. She notes intermittent burning inside her mouth, on her lips, her chest and elsewhere. She attended outpatient PT x 2 last week and notes all PT activity caused her significant pain and worsening paraesthesias all over. She is reluctant to participate further in PT. Timeline: -11/28/20 [facility] ER: presents with different headache along with new R monocular alternating blurred and double vision. Plt 319, ESR 30, CRP 0.26. CTH normal. Transferred to [facility] where she underwent MRV brain which showed no CVT. Seen briefly by neurology. -12/11/20 [facility] ER: Presented with 4 days chest squeezing along with ongoing BARRERA and R blurred vision. Also had bent/leaned over then felt head oliveros, like she was going to pass out, bilateral leg weakness. No LESLIE. Appeared anxious in ER. Normal CBC, CMP, trop, EKG, D-dimer. -12/15/20 [facility] ER: Presented with 4 days of electric left chest pain radiating into the arm, lasting 1 minute at a time. Recently Rx'd anxiety medication by PCP, but she did not start. CBC, CMP, CXR, EKG, and troponin all normal. D/c with Holter [id number] with no significant findings. Normal cardiat stress test on 12/18/20. -12/30/20 [facility] eye care: seen by optometry for R monocular blurred vision. No APD. ?possible right temporal pallor. No significant color desaturation. Denied any eye pain at that time and at any time. ?optic neuritis. Referred to [facility] ophthalmology for further evaluation. OCT not performed. -01/01/21 Urgent Care: presented with 1 day of R neck and ear pressure radiating to her scapula. Also noting intermittent bilateral UE numbness and tingling. Rec'd continue outpatient follow-up. -01/02/21 [facility] ER: presented with chest pain radiating to her right back x 1-2 hours. Also notes 1-2 weeks of nausea, diarrhea, and reduced appetite. EKG ok. CT C/A/P w/o with no acute findings. D-dimer ok. Pain resolved in ER. -01/05/21 Consult with [facility] Neurologist Dr. Goodwin: Rec'd MRI brain and orbits regarding symptoms. Also rec'd amitriptyline and Flexeril. She did not try either. Became tearful noting that the pharmacist told her there is an interaction between levothyroxine and amitriptyline. I have never heard of an interaction/contraindication with these... -01/07/21 Urgent Care: Burning pain in right neck and throat along with throat tightness, difficulty swallowing. Normal exam. -01/08/21 ???: per [facility] Eye care notes, she called stating she had right eye pain. Told to go to the ER. Unclear if she did. Was not seen at [facility] or [facility] on this date. -01/11/21 [facility] ER: Presents with bilateral UE numbness/tingling along with right neck fullness and difficulty swallowing. CT neck was normal. -01/13/21 [facility] ER: awoke from sleep ~2am with left chest pressure. CBC, CMP, TSH, trop, and CXR all ok. -01/13/21 [facility] ER: presents after hours with generalized weakness and lethargy. Left when told no MRI availability after hours. -01/14/21 [facility] ER: presents with generalized weakness since night prior along with new speech changes - slow and slurred - and new left arm tremors. Noted to be an xious and tearful. Extensive MRI imaging performed as below including MRI brain, MRI c-spine, MRA head/neck. [facility] Neuro rec'd outpatient LP. Patient admitted due to difficulty walking and for LP. Summary of studies performed including current work-up: -CTH w/o (11/28/20 at [facility]): no acute or chronic findings. -MRV brain (11/28/20 at [facility]): no CVT. -Holter x48 hours (December 2020 at [facility]): no significant arrhythmias. -Stress test (12/18/20 at [facility]): normal. -CT C/A/P w/o (01/02/21 at [facility]): no acute processes. -MRI brain w/o (01/14/21 at [facility]): no acute findings. 2-3 scattered small white matter lesions. Non-specific. Atypical for MS in my opinion. Overall normal in my opinion. I reviewed these images personally and this is my personal interpretation. -MRA head/neck w/o (01/14/21 at [facility]): single slice suggesting ?focal basilar a stenosis with no other areas of significant stenosis. ?artifact. I reviewed these images personally and this is my personal interpretation. -MRI c-spine w/o (01/14/21 at [facility]): no cord signal changes. No significant central or NF narrowing. I reviewed these images personally and this is my personal interpretation. -MRI t-spine (01/15/21 at [facility]): unremarkable. I reviewed these images personally and this is my personal interpretation. -MRI l-spine (01/15/21 at [facility]): no significant central or NF narrowing. I rev iewed these images personally and this is my personal interpretation. Consults Requesting physician: Jesus Carrillo [facility] Medical History Anxiety Fatigue Hypothyroidism Secondary to thyroidectomy due to cancer Thyroid cancer Papillary Surgical History H/O hand surgery History of hysterectomy History of thyroidectomy Social History (Updated 01/15/21 @ 10:31 by Jesus Carrillo) Smoking/Tobacco Use Status: Never Smoking risk assessment performed?: Yes Alcohol Intake: never Drug use: Never Substance use type: does not use Household members: spouse and children Number of Children: 2 What is your relationship status?: living with partner Panel score (0-1 are the most socially isolated patients): 1 Do you feel safe at home: Yes Do you feel safe in your relationship?: Yes History History 3 Para 2 Hx # Term Pregnancies 2 Multiple births Hx # Pregnancies 1 Ectopic pregnancies AB induced Hx Number of Living Children 2 AB spontaneous 1 Visit Medication and Allergies Active Medications Generic Name Dose Route Start Last Admin Trade Name Freq PRN Reason Stop Dose Admin Acetaminophen 0 mg 01/14/21 22:06 01/15/21 09:43 Acetaminophen 325 Mg Tab PO 650 mg Q4H PRN PRN Administration Cyanocobalamin 1,000 mcg 01/16/21 08:30 Cyanocobalamin 500 Mcg Tab PO DAILY [facility] Diazepam 5 mg 01/15/21 08:00 Diazepam 5 Mg Tab PO ONCE 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 Dimethicone/Zinc Oxide 0 gm 01/14/21 22:06 Lv Protect Cream 142 Gm Tube TP PRN PRN Docusate Sodium 100 mg 01/14/21 22:06 Docusate Sodium 100 Mg Cap PO TID PRN PRN Sodium Chloride 500 mls @ 0 mls/hr 01/14/21 14:47 Saline 500ml Bag IV PRN PRN As Directed IV Miscellaneous Supplies 1 each 01/14/21 15:00 Iv Access IV DIRECTED [facility] Levothyroxine Sodium 88 mcg 01/15/21 06:00 01/15/21 05:32 Levothyroxine 88 Mcg Tab PO 88 mcg [id number]@0600 LUCI Administration Levothyroxine Sodium 100 mcg 01/16/21 06:00 Levothyroxine 137 Mcg Tab PO [email or web address]@0600 [facility] Magnesium Hydroxide 30 ml 01/14/21 22:06 Milk Of Magnesia 30 Ml Cup PO DAILY PRN PRN Polyethylene Glycol 17 gm 01/14/21 22:06 Polyethylene Glycol 3350 17 Gm Packet PO DAILY PRN PRN Constipation Sodium Chloride 0 ml 01/14/21 14:47 01/15/21 00:30 Normal Saline Flush 10 Ml Syr IVP 10 ml PRN PRN Administration Allergies Gadolinium-Containing Contrast Medi Allergy (Severe, Verified 01/15/21 09:02) Anaphylaxis PER DM 2011 Penicillins Allergy (Severe, Verified 01/14/21 14:47) Anaphylaxsis Sulfa (Sulfonamide Antibiotics) Allergy (Severe, Verified 01/14/21 14:47) Anaphylaxsis venom-honey bee [bee venom (honey bee)] Allergy (Severe, Verified 01/14/21 14: 47) Anaphylaxsis citalopram Allergy (Mild, Verified 01/14/21 14:47) Hives ofloxacin [From Floxin] Allergy (Mild, Verified 01/14/21 14:47) Skin Rash naproxen [From Aleve] Allergy (Verified 01/14/21 14:47) azithromycin [From Zithromax] Adverse Reaction (Severe, Verified 01/14/21 14:47) Anaphylaxsis Iodinated Contrast Media [Iodinated Contrast Media - IV Dye] Adverse Reaction (Severe, Verified 01/14/21 14:47) Anaphylaxsis ketorolac tromethamine [From Toradol] Adverse Reaction (Severe, Verified 01/14/21 14:47) Anaphylaxsis iodine Adverse Reaction (Intermediate, Verified 01/14/21 14:47) Anaphylaxsis lorazepam [From Ativan] Adverse Reaction (Intermediate, Verified 01/14/21 14:47) Dizziness/Lightheade horse flies Allergy (Severe, Uncoded 01/14/21 14:47) Anaphylaxsis Exam Narrative Exam Narrative: Physical Exam: Gen: Patient of apparent stated age, tearful and crying at times; anxious at times Head and face: no facial or cranial abnormalities Neck: Supple, no meningismus, no occipital tenderness CV: + S1, S2, RRR, no murmur Resp: CTA B/L Abd: soft, nontender, nondistended Ext: No edema. No clubbing or cyanosis. No bony deformity. Neuro Exam: Language: fluency, naming, repetition, and comprehension intact; Mental Status: AAOx3, current events intact, fund of knowledge intact; Speech: no dysarthria Cranial nerves: Funduscopy: not performed CN II: visual leggett intact CN III, IV, : extraocular movements intact, no nystagmus, pupils symmetric and reactive to light; no APD CN V: face sensation intact to LT and PP CN VII: no facial asymmetry noted CN VIII: hearing intact bilaterally CN IX, X: palate rises symmetrically CN XI: trapezius/SCM 5/5 bilaterally CN XII: protrudes tongue symmetrically Sensory: intact to LT, PP, vibration, and joint position in all extremities - initially noted that she couldn't feel any sensation at all, but then was able to Motor: bulk and tone intact. Fine motor movements intact bilaterally. No pronator drift. Give way weakness with all testing, complicated by poor effort. +Hoovers. Very functional wild flapping LUE tremor, intermittent and dist ractable. No resting or postural tremor. Reflexes: 2+ at the biceps, triceps, brachioradialis, patella, and achilles tendons bilaterally; toes down going bilaterally; Coordination: FTN intact bilaterally Gait: unable to assess at present Results Last Vital Signs Temp 37.3 C 01/15/21 08:15 Pulse 67 01/15/21 08:15 Resp 18 01/15/21 08:15 BP 124/80 01/15/21 08:15 Pulse Ox 99 01/15/21 08:15 Labs Result diagrams: 01/14/21 14:40 01/14/21 14:40 Labs: Laboratory Results - last 24 hr 01/14/21 01/14/21 01/14/21 14:40 14:40 14:40 WBC 8.21 RBC 4.51 Hgb 13.5 Hct 39.7 MCV 88.0 MCH 29.9 MCHC 34.0 RDW 12.4 Plt Count 372 MPV 9.9 Immature Gran % 0.2 Neutrophils % 70.1 Lymphocytes % 23.4 Monocytes % 5.2 Eosinophils % 0.5 Basophils % 0.6 Nucleated RBC % 0 Absolute Neutrophils 5.75 Absolute Lymphocytes 1.92 Absolute Monocytes 0.43 Absolute Eosinophils 0.04 Absolute Basophils 0.05 ESR PT INR APTT Sodium 140 Potassium 3.7 Chloride 102 Carbon Dioxide 25.9 Anion Gap 12.1 H BUN 9 Creatinine 0.9 Estimated GFR/1.73 m2 >= 60.00 Glucose 126 H Calcium 10.2 H Total Bilirubin 0.4 AST 11 L ALT 18 Alkaline Phosphatase 87 C-Reactive Protein Total Protein 8.8 H Albumin 4.7 Vitamin B12 Lyme Disease Antibody Negative COVID-19 Source SARS-CoV-2 (PCR) 01/14/21 01/14/21 01/14/21 14:40 14:40 14:40 WBC RBC Hgb Hct MCV MCH MCHC RDW Plt Count MPV Immature Gran % Neutrophils % Lymphocytes % Monocytes % Eosinophils % Basophils % Nucleated RBC % Absolute Neutrophils Absolute Lymphocytes Absolute Monocytes Absolute Eosinophils Absolute Basophils ESR 28 H PT 10.4 INR 1.0 APTT 23.5 Sodium Potassium Chloride Carbon Dioxide Anion Gap BUN Creatinine Estimated GFR/1.73 m2 Glucose Calcium Total Bilirubin AST ALT Alkaline Phosphatase C-Reactive Protein 0.15 Total Protein Albumin Vitamin B12 Lyme Disease Antibody COVID-19 Source SARS-CoV-2 (PCR) 01/14/21 01/15/21 21:00 06:23 WBC RBC Hgb Hct MCV MCH MCHC RDW Plt Count MPV Immature Gran % Neutrophils % Lymphocytes % Monocytes % Eosinophils % Basophils % Nucleated RBC % Absolute Neutrophils Absolute Lymphocytes Absolute Monocytes Absolute Eosinophils Absolute Basophils ESR PT INR APTT Sodium Potassium Chloride Carbon Dioxide Anion Gap BUN Creatinine Estimated GFR/1.73 m2 Glucose Calcium Total Bilirubin AST ALT Alkaline Phosphatase C-Reactive Protein Total Protein Albumin Vitamin B12 306 Lyme Disease Antibody COVID-19 Source Nasal/nares SARS-CoV-2 (PCR) Negative
[2021-01-15 15:01] VITALS: BP 136/89; PULSE 70; RESP 18; TEMP 36.6; O2SAT 99
--- NOTE | 2021-01-15 16:47 | PT.INTREAT ---
Date of service: 01/15/21 Time of Service: 16:00 PT Notes Visit Reasons: Generalized Weakness Inpatient Physical Therapy Treatment Note [facility] Date: 01/15/2021 PRECAUTIONS: Fall, activity as tolerated SUBJECTIVE: Raquel is pleasant and agreeable to participating in PT. She states that she has continuous pain in the right side of her neck, she also indicates that she is having pain R arm at IV site, which is making it difficult to move her R arm. OBJECTIVE: Patient is observed guarding R UE with [id number] transfer and while seated at EOB, in the chair, and initiating grasping the FWW for gait training. PAIN: Patient c/o R-sided neck pain, with R-sided cranial pressure increasing with [id number] transfer and gait training. She also c/o B UE pins and needles with all UE exercises. BED MOBILITY/TRANSFERS Sit-supine: SBA with HOB at 50 degrees Sit-stand: CGA x2 Stand-sit: Min A x2 GAIT Assistive Device: FWW Weight bearing: Full Assist: CGA x2 - Max x2 Distance: 6' + 5' Deviation: Rolling of the L ankle, patient was observed holding herself up by B UE on FWW without feet touching the floor. THEREX: Patient was instructed in ankle pump, LAQ, and hip flexion exercises, during which she demonstrates difficultly that is inconsistent with her complaints. ASSESSMENT: Patient appears weak, globally, although demonstrates inconsistencies with verbal complaints of R>L sided weakness, and R UE pain and weakness. She demonstrates a dragging of bilateral feet with gait training, requiring Max A x2 to get back to the chair, although she was able to hold herself up with B UE on FWW. PLAN: Continue with global strengthening and gait training, as tolerated. TREATMENT CODE/TIME: 30 minutes; 06238, [id number] (16:00)
--- NOTE | 2021-01-15 17:06 | W.PM.PROGNOT ---
Date of Service Date of service: 01/15/21 Time of Service: 17:06 Subjective Subjective Interval history since last seen: The patient declined LP today. She has anaphylaxis to aileen. Minus this, it's hard to know whether she has an underlying demyelinating problem. When I came to speak with her she was able to hold herself up with her arms when using a walker but was letting physical therapy stevan her to the chair - her feet were not touching the floor. Per PT, patient's description of symptoms is not c/w her actual movement patterns - specifically, the patient reports R-sided weakness but is dragging her left foot. The patient is tearful when I ask her why she refused her LP. She stated she didn't think that's what the plan was. I explained to her otherwise. She will think about it tonight and decide tomorrow. Objective Last Vital Signs Temp 36.6 C 01/15/21 15:01 Pulse 70 01/15/21 15:01 Resp 18 01/15/21 15:01 BP 136/89 01/15/21 15:01 Pulse Ox 99 01/15/21 15:01 Laboratory Results - last 24 hr 01/14/21 01/14/21 01/15/21 14:40 21:00 06:23 Vitamin B12 306 Lyme Disease Antibody Negative COVID-19 Source Nasal/nares SARS-CoV-2 (PCR) Negative
[2021-01-15 20:01] VITALS: BP 147/85; PULSE 68; RESP 18; TEMP 36.9; O2SAT 98
[2021-01-16] VITALS (7 sets, daily range): BP systolic 131–138; BP diastolic 83–88; PULSE 63–91; RESP 16–19; TEMP 35.7–37.3; O2SAT 97–100
--- NOTE | 2021-01-16 07:50 | OTIE_ITS ---
Occupational Therapy Notes Inpatient Occupational Therapy Evaluation Date: 01/16/21 Referring Doctor:Misty Gonzalez MD OT Orders: Non Urgent Precautions: Fall, standard, full PATIENT PROFILE/ADMITTING DIAGNOSIS: Pt is a 45 year old female who was admitted through the ED for the following dx of weakness, anxiety, fatigue, headache, chest pain, blurred vision, near syncope, atypical chest pain. Past Medical History: Medical History Anxiety Fatigue Hypothyroidism Secondary to thyroidectomy due to cancer Thyroid cancer Papillary Surgical History H/O hand surgery History of hysterectomy History of thyroidectomy Social History/Home Situation: Pt lives with her spouse and 5 year old son in [place], she reports that she is (I) All ADL/IADLs and notes that she has a tub shower with no issues noted prior to admission. Equipment owned/DME: None SUBJECTIVE: Pt as sitting in bed when OT arrived and was agreeable to OT session. Pt reports that her symptoms are from her J&J covid vaccination and started after she received her vaccination. She notes that she has never had this happen to her before and this is all new to her. OBJECTIVE: General Observation: Pleasant and agreeable, emotional at times Mental Status: A&Ox3 Pain: no c/o pain ROM: RUE AROM WFL L UE AROM WFL STRENGTH: *Strength measurements are not accurate or consistent with findings from examination. Pt dropped (B) UE before OT made contact with them to test strength and not providing a valid strength measurement. OT will continue to assess. FUNCTIONAL MOBILITY/ADLS: Transfers Pt was able to re-position herself (I) without (A) BATHING sitting in bed with max (A) Set up/clean up Bathing UE (I) with ideal use of her (B) UE no issues or fatigue noted Bathing LE (I) except (B) feet DRESSING sitting in bed Dressing UE Min (A) Dressing LE Max (A) GROOMING Mod (A) With brushing hair TOILETING NT EATING able to (I) bring cup to mouth and drink her coffee without issues utilizing the (L) UE and (R) UE for support BALANCE: NT SPECIAL TESTS: Daily Activity Limitations Standardized Measure [facility] AM -PAC ?6 clicks? Daily Activity Inpatient Short Form: Raw score: 18 INFORMED CONSENT/EDUCATION: Pt instructed in purpose of OT Consult and plan of care. ASSESSMENT: Patient is a 45-year-old female referred to occupational therapy services with diagnosis of weakness, anxiety, fatigue, headache, chest pain, blurred vision, near syncope, atypical chest pain. Patient presents with clinical signs and symptoms consistent with dx, as demonstrated by the following impairment level findings/ functional limitations: Decreased functional activity tolerance, decreased standing ADLs due to balance deficits, possible psychological decline, inability to perform LE dressing and bathing. Patient is assessed as a Moderate 52994 complexity based on the following: History: see above Examination: see functional limitations as noted above Presentation: evolving Decision Making: Moderate complexity GOALS Goals x1 week 1. Transfers (I) 2. Dressing sitting in chair (I) 3. Bathing standing at sink (I) 4. Toileting on toilet (I) 5. Eating (I) PLAN OF CARE/TREATMENT PLAN: 1x/day, 5 days/ week x 1week Initiate Occupational Therapy Services for bathing, dressing, grooming, toileting, eating, transfer training. DISCHARGE RECOMMENDATIONS Based on pts current level of function, OT feels that if pt does not show improvements in her functional activity tolerance and ability to perform her standing ADLS that pt would benefit from SNF vs. Home. TREATMENT TIME/MINUTES/CODES 00180, [id number], 25 minutes [facility]
--- NOTE | 2021-01-16 08:13 | PDOC.CMPRO ---
- If Service Date Differs Date of service: 01/16/21 Time of Service: 08:13 Care Management Progress Note S/O: Raquel was sitting up in a chair when CM came to see her. Dr. Gonzalez was in attendance and was able to answer Patricia's questions and help her to understand some of the test results that she has been given. Patricia had asked to postpone the decision to have an LP yesterday, but agreed to have the procedure today. Raquel has been told that Multiple Sclerosis is in the differential diagnoses for the constellation of symptoms she has been experiencing. She had been concerned and anxious that she might have a basilar artery occlusion which could lead to a stroke, but Dr. Gonzalez reassure her that this is highly unlikely. This appeared to make Patricia less anxious. Dr. Gonzalez also learned that Raquel has been seeing a therapist and has an appointment with a psychiatrist in a couple of weeks. CM discussed the possibility of going to rehab before returning home. While not excited about the prospect, Raquel agreed that it might be helpful, even necessary. CM provided her with a list of [place] facilities and will discuss again on Tuesday. A: Raquel is a 45 year old woman admitted on 01/14/21 with generalized weakness P:Raquel will likely be discharged to a assisted facility before returning home. Transportation will be determined by disposition. She will transport with family and follow up with her community providers. CM will continue to support patient and family and assess for discharge planning needs.
[2021-01-16] MEDS: Cyanocobalamin 500 MCG TAB 1000 MCG PO (09:51)
[2021-01-16] MEDS: Aspirin E.C. 81 MG TABEC PO (09:51)
[2021-01-16 10:14] LABS: HIV-1/2 Ag & Ab Screen Negative (Negative)
--- NOTE | 2021-01-16 10:35 | PTTR_ITS ---
Date of service: 01/16/21 Time of Service: 10:35 PT Notes Visit Reasons: Generalized Weakness Inpatient Physical Therapy Treatment Note [facility] Date: 01/16/2021 PRECAUTIONS: Activity as tolerated. High risk for falls. SUBJECTIVE: Finally agreed to having lumbar puncture done for today. Complained of discomfort in the right neck area and requested for PT to assess and address pain. Complained of increased tingling and pain in the right shoulder and right upper neck with soft tissue manipulation of upper trapezius. Deferred further manual therapy by this PT. Reported fatigue with ambulation activity requiring intermittent rests. 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 She indicates that she graduated valedictorian of her high school class and got accepted to the [employer] in [place] where she alos had her master's Degree. 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 She has goats, sheeps, and lost of chickens that she and her partner tske care of. She was thankful for ROSEMARIE Felix for being so nice. She expresses that it helps to have nice people helping out when one's world seems to fall apart. OBJECTIVE: Raquel initially appeared less stressed this morning and had several instances of giving out smiles when she was asked about her educational background and work experiences. IV access remains intact in the R UE. Continuous pulse oximetry on R index finger. Intentional tremor observed with transfers and ambulation activities. PAIN: Continues to complain of R-side neck pain and head pain BED MOBILITY/TRANSFERS Sit-stand: Minimal assist Stand-sit: Contact-guard assist GAIT Assistive Device: FWW Weight bearing: Full Assist: Contact-guard assist x2 Distance: 8 steps +6 steps + 6 steps +12 steps Deviation: Increase body tremors with activity. Patient is unable to fully extend at the hip and knees with each mid stance and tends to drag foot forward. Weakness of bilateral quads causes patient to hyperextend trunk bends each limb. THEREX: Initiated standing level exercises consisting of heel raises x 10 and mini squats x10 with increase tremors towards the end of activity. Also tolerated 3 push-ups before she complained of fatigue. ASSESSMENT: Lumbar puncture test results to rule out multiple sclerosis pending. Caution against working patient to the point of fatigue. Ensure that she is pre-medicated for pain. Demonstrated increased number of steps and distance covered with ambulation today. Activity tolerance seems to be improving. Continues to require training and education with correct and safe gait pattern, B UE/LE strengthening, balance retraining, and functional mobility retraining. Patient will benefit from having to work with consistent caregiver in order to facilitate poor and trusting relationship to achieve goals. PLAN: Continue with PT POC as initially established. Coordinate with nurse for pre-medication for pain. Requires assistance of a second person for ambulation training. TREATMENT CODE/TIME: 56949 x 25 minutes, 78847 x 15 minutes beginning at 10:35 AM.
--- NOTE | 2021-01-16 14:02 | PGE_ITS ---
Date of Service Date of service: 01/16/21 Time of Service: 14:02 Assessment and Plan Assessment and plan (1) Weakness: Status: Acute Assessment and plan: subjective and, per PT, the patient's deficits do not match the symptoms she describes. However, the possible findiing of optic neuritis in addition to reports of various neurologic symptoms are concerning for a demyelinating illness. The patient is now in agreement with an LP which is happening shortly. Dr Fontaine did introduce the idea of a functional disorder. For now, continue workign with PT with plans for SNF at time of discharge. (2) Blurred vision: Status: Acute Assessment and plan: Optic neuritis diagnosed by optometry. At this time, I still have not seen those records, but this does make MS higher on differential. For LP. Consider steroids. (3) Urinary hesitancy: Status: Acute Assessment and plan: Bladder scan of 0 cc this am. Lumbar spine MRI negative for cord impingement or anything to explain symptoms. UA negative. Consider neurogenic component due to dysautonomia. Continue to monitor bladder scans. (4) Difficulty with speech: Status: Acute Assessment and plan: Speech tx consulted. (5) Anxiety: Status: Chronic Assessment and plan: The patient states her [facility] neurologist told her not to start any SSRIs at this time. In addition to this, the patient describes what sounds like an anaphylactic reaction to citalopram. She should follow up with outpatient psychiatry as scheduled and continue to work with her therapist. (6) DVT prophylaxis: Status: Acute Assessment and plan: Will start chemical DVT ppx when ok with anesthesia (if patient permits) (7) Discharge planning issues: Status: Acute Assessment and plan: Full code Admit to inpatient status. will need SNF on d/c. Subjective Subjective Interval history since last seen: Ms Valencia did a little bit better today with PT as far as walking, but is still felt to benefit from being discharged to SNF. She has thought about the LP and is now agreeable to having it. She continues to endorse R-sided weakness and burning in her R arm. She has a presure in her posterior neck wrapping around the neck into upper chest, making it feel like she has a hard time swallowing. She states her voice does not sound her normal today. We discussed that her swallowing issues have been present since at least 2019, and she agreed that this is not new, but it is worse now. She is very concerned she might be having a basilar stroke. I discussed with her how I spoke with the radiologist (Dr Aviles) who felt that that appearance of the basilar artery on the MRA was due to a branch of a blood vessel starting there and that she did not have a basilar stroke. We also discussed that no non- contrast MRI can rule out MS and that getting an LP would be very helpful. She agrees. She endorses a lot of anxiety and states she has two therapists and a referral to a psychiatrist, whom she is seeing in mid-January. She had a session with her therapist on the phone yesterday. She states she has an anaphylactic reaction to citalopram (she states she was swollen all over). Nursing notes that the patient developed chest pain when her father walked in also complaining of dizziness. Reports eyelid twitching on the R. We discussed how that's usually due to eye strain or stress. She was anxious. Exam Narrative Exam Narrative: General: Anxious middle-aged female who has fluent speech which changed several times with me in the room into what appears to be stuttering or overpronunciation, A&Ox3, able to move all 4 extremities HEENT: EOMI, MMM. Neck w/o TTP but subjective numbness reported when I palpate the neck. Heart: RRR, no m/r/g Lungs: CTAB Abdomen: soft, nontender, nondistended Extremities: no edema, 2+ pedal pulses, able to move BLE's against gravity while sitting in a chair Objective Last Vital Signs Temp 35.7 C L 01/16/21 07:20 Pulse 64 01/16/21 07:20 Resp 18 01/16/21 07:20 BP 132/84 01/16/21 07:20 Pulse Ox 98 01/16/21 07:20 Laboratory Results - last 24 hr 01/15/21 01/15/21 01/15/21 06:23 10:54 10:55 Albumin Cancelled CSF Albumin Cancelled CSF IgG Cancelled CSF IgG/Albumin Cancelled CSF IgG Index Cancelled Ser Oligoclonal Bands Cancelled CSF Oligoclonal Bands Cancelled Oligoclonal Band Interp Cancelled CSF VDRL Cancelled CSF West Nile RNA Cancelled IgG Cancelled IgG Synthesis Rate Cancelled West Nile Virus Source Cancelled HIV 1&2 Ag/Ab, 4th Gen Negative
--- NOTE | 2021-01-16 14:54 | W.ANESPROC ---
Lumbar Puncture Procedure performed by: Dorita Coronado Informed consent given: Yes Time out checklist: patient, procedure, site marked/identified, positioning of patient, supplies available, allergies confirmed and team agrees on procedure Time out staff in room: Yes Time out procedure done: Yes Time out date: 01/16/21 Time out time: 14:30 Position: sitting Preparation: betadine Anesthesia: 1% lidocaine Sedation: No Needle size: other (25 ga) Needle length: 3.5 Interspace: L3-4 Number of attempts: 2 Opening pressure: No Fluid collected: Yes Amount collected (mLs): 4 Appearance: clear Laboratory evaluation: culture and sensitivity, protein and glucose, cell count and other Patient tolerated procedure: other (Patient had x1 vagal episode x20 seconds, spontaneously resolved w/o complications. Hospitalist informed. ) Complications: No
[2021-01-16] MEDS: Acetaminophen 325 MG TAB PO ×2 (15:05→20:13)
--- NOTE | 2021-01-16 15:42 | CHAPLAIN ---
Raquel was sitting in her chair when I stopped in. She was quiet, and timid, responded to questions briefly and did not seem interested in further conversation. I will try again another time.
[2021-01-16 15:58] LABS: Clarity Clear; RBC 1 /mm3 (0-5); Tube # 4; WBC 2 /uL (0-5); Xanthochromia Absent
[2021-01-16 16:15] LABS: Glucose (CSF) 66 mg/dL (40-70); Total Protein (CSF) 28 mg/dL (15-45)
--- NOTE | 2021-01-16 16:29 | PHACLINREV_ITS ---
Pharmacy Admission Review - Admission Clinical Review (Last Reviewed 01/15/21 @ 10:29 by Jesus Carrillo) Discharge planning issues (Acute) DVT prophylaxis (Acute) Difficulty with speech (Acute) Urinary hesitancy (Acute) Bilateral arm weakness (Acute) Bilateral leg weakness (Acute) Difficulty with speech (Acute) Weakness (Acute) Headache (Acute) Blurred vision (Acute) Gadolinium-Containing Contrast Medi Allergy (Severe, Verified 01/15/21 09:02) Anaphylaxis PER [facility] 2011 Penicillins Allergy (Severe, Verified 01/14/21 14:47) Anaphylaxsis Sulfa (Sulfonamide Antibiotics) Allergy (Severe, Verified 01/14/21 14:47) Anaphylaxsis venom-honey bee [bee venom (honey bee)] Allergy (Severe, Verified 01/14/21 14:47) Anaphylaxsis citalopram Allergy (Mild, Verified 01/14/21 14:47) Hives ofloxacin [From Floxin] Allergy (Mild, Verified 01/14/21 14:47) Skin Rash naproxen [From Aleve] Allergy (Verified 01/14/21 14:47) azithromycin [From Zithromax] Adverse Reaction (Severe, Verified 01/14/21 14:47) Anaphylaxsis Iodinated Contrast Media [Iodinated Contrast Media - IV Dye] Adverse Reaction (Severe, Verified 01/14/21 14:47) Anaphylaxsis ketorolac tromethamine [From Toradol] Adverse Reaction (Severe, Verified 01/14/21 14:47) Anaphylaxsis iodine Adverse Reaction (Intermediate, Verified 01/14/21 14:47) Anaphylaxsis lorazepam [From Ativan] Adverse Reaction (Intermediate, Verified 01/14/21 14:47) Dizziness/Lightheade horse flies Allergy (Severe, Uncoded 01/14/21 14:47) Anaphylaxsis Resuscitation Status Full Code Height 5 ft 5.5 in Weight 66 kg - Renal Dosing Renal Dosing: BUN 9 mg/dL (7-18) 01/14/21 14:40 Creatinine 0.9 mg/dL (0.55-1.02) 01/14/21 14:40 Medications needing adjustments: Reviewed (Crcl ~69.53 mL/min current meds okay) - Anticoagulation Anticoagulation: Hgb 13.5 g/dL (11.2-15.7) 01/14/21 14:40 Hct 39.7 % (36.0-46.0) 01/14/21 14:40 Plt Count 372 10^3/uL (130-400) 01/14/21 14:40 INR 1.0 (0.9-1.1) 01/14/21 14:40 Creatinine 0.9 mg/dL (0.55-1.02) 01/14/21 14:40 DVT Prohphylaxis: N/A (pt had LP today, SCDs ordered) - Opiate Usage Evaluate Pain Scale/Pains Meds: N/A - Relevant Labs ESR 28 mm/hr (0-20) H 01/14/21 14:40 Sodium 140 mmol/L (136-145) 01/14/21 14:40 Potassium 3.7 mmol/L (3.5-5.1) 01/14/21 14:40 Chloride 102 mmol/L (98-107) 01/14/21 14:40 C-Reactive Protein 0.15 mg/dL (0.0-0.3) 01/14/21 14:40 Electrolytes, C-Reactive P, ESR: Reviewed - DM Control DM Control: Glucose 126 mg/dL (74-106) H 01/14/21 14:40 Insulin Dosing: N/A - Heart Failure/MT EF%, GRACIA's, B-Blockers, Diuretics: N/A - BP Control BP Control: Blood Pressure 131/83 Blood Pressure 132/84 If elevated: Reviewed (BP within normal limits today, was elevated earlier this admission) - Qtc Review If Elevated: N/A - IV to PO Switch IV Medications: Reviewed - Home Meds Home Med List reviewed: Reviewed (Some meds on external meds history but not ho ri med list. Some of these rx's were for short term and have likely finished, others looks like the patient did not try (such as amitriptyline and fluoxetine per [facility] consult).) - Current meds Current Medication Order Review: Intervened (one of the levothyroxine ordered was entered as 100 mcg using a 137 mcg tab. I changed the dosage form to a 100 mcg tab.) - Comments Comments/Follow Ups: Watch BP, labs and for med chagnes (possible anticoagulation for DVT prophylaxis).
--- NOTE | 2021-01-16 18:40 | NUR.NOTE ---
1430: This RN stood with patient during lumbar puncture procedure. Pt appeared to have a brief syncopal episode lasting less than 20 seconds while anesthesia staff were performing the procedure. This episode was also witnessed by Chuy Beatty CRNA, Dr Gonzalez was updated. Pt has been placed on telemetry monitoring.
[2021-01-16 19:24] LABS: Anaplasma phagocytophilum Negative (Negative); B. miyamotoi PCR Negative (Negative); Babesia divergens/MO-1 Negative (Negative); Babesia duncani Negative (Negative); Babesia microti Negative (Negative); Ehrlichia chaffeensis Negative (Negative); Ehrlichia ewingii/canis Negative (Negative); Ehrlichia muris eauclairensis Negative (Negative)
[2021-01-17] VITALS (10 sets, daily range): BP systolic 113–143; BP diastolic 75–85; PULSE 58–79; RESP 16–20; TEMP 35.7–36.7; O2SAT 97–99
[2021-01-17] MEDS: Levothyroxine 88 MCG TAB PO (06:39)
[2021-01-17] MEDS: Aspirin E.C. 81 MG TABEC PO (08:27)
[2021-01-17] MEDS: Cyanocobalamin 500 MCG TAB 1000 MCG PO (08:27)
--- NOTE | 2021-01-17 09:13 | PDOC.CMPRO ---
Care Management Progress Note S/O: Raquel has been told that Multiple Sclerosis is in the differential diagnoses for the constellation of symptoms she has been experiencing; LP completed yesterday. Raquel has been seeing a therapist and has an appointment with a psychiatrist in a couple of weeks. CM discussed the possibility of going to rehab before returning home. While not excited about the prospect, Raquel agreed that it might be helpful, even necessary. CM provided her with a list of [place] facilities and will revisit discussion. A: Raquel is a 45 year old woman admitted on 01/14/21 with generalized weakness P: Raquel will likely be discharged to a care home facility before returning home. Transportation will be determined by disposition. CM will continue to support patient and family and assess for discharge planning needs.
--- NOTE | 2021-01-17 12:11 | PT.INTREAT ---
PT Notes Visit Reasons: Generalized Weakness Inpatient Physical Therapy Treatment Note [facility] Date: 01/17/21 SUBJECTIVE: Raquel reports that her low back is very sore this am from her lumbar puncture. She is sitting in recliner with ice pack on her back. OBJECTIVE: [] PAIN: low back BED MOBILITY/TRANSFERS Sit-stand: CGA Stand-sit: CGA GAIT Assistive Device: FWW Weight bearing: full Assist: CGA Distance: marched in place x 2 min THEREX: performed seated and standing LE strength and stabilization ex, as well as incorporating balance work see flowsheet. Required cues and occasional assistance with LAQ ASSESSMENT: tolerated session fairly well. C/o increased LBP with prolonged standing, improved with sitting. Required cues and occasional assistance with LAQ and eccentric lowering PLAN: will continue to progress her functional mobility. Ambulate tomorrow TREATMENT CODE/TIME: 25 min [id number], [id number].
[2021-01-17] MEDS: Acetaminophen 325 MG TAB PO (12:42)
--- NOTE | 2021-01-17 17:16 | PGE_ITS ---
Date of Service Date of service: 01/17/21 Time of Service: 17:16 Assessment and Plan Assessment and plan (1) Weakness: Start date: 01/17/21 Start time: 17:33 Status: Acute Assessment and plan: subjective and, per PT, the patient's deficits do not match the symptoms she describes. However, the possible findiing of optic neuritis in addition to reports of various neurologic symptoms are concerning for a demyelinating illness, yet MRI does not reveal this per neurology. The patient is now in agreement with an LP which is happening shortly. Dr Fontaine did introduce the idea of a functional disorder. For now, continue working with PT with plans for SNF at time of discharge. Neuro exam normal (2) Blurred vision: Start date: 01/17/21 Start time: 17:34 Status: Acute Assessment and plan: Optic neuritis diagnosed by optometry.Seen by Dr. Connor [place] [facility] [place] recommended MRI Brain w/wo unfortunately this could not be done with, also amitriptyline, patient refusing to take, flexeril and 2 mth follow up. MRI done without: A few small scattered foci of hyperintense signal in the white matter on the FLAIR and T2 weighted images. Differential considerations include chronic small vessel ischemic disease, hypertensive related microangiopathy or diabetes, demyelinating process including MS, infectious or inflammatory conditions, vasculitis, prior trauma or migraine related white matter disease. LP pending, Atypical migraine also high on differential (3) Difficulty with speech: Start date: 01/17/21 Start time: 17:42 Status: Acute Assessment and plan: Speech tx consulted. (4) Anxiety: Start date: 01/17/21 Start time: 17:42 Status: Chronic Assessment and plan: The patient states her [facility] [place] neurologist told her not to start any SSRIs at this time. In addition to this, the patient describes what sounds like an anaphylactic reaction to citalopram. She should follow up with outpatient psychiatry as scheduled and continue to work with her therapist. (5) DVT prophylaxis: Start date: 01/17/21 Start time: 17:42 Status: Acute Assessment and plan: Will start chemical DVT ppx when ok with anesthesia (if patient permits) (6) Discharge planning issues: Start date: 01/17/21 Start time: 17:43 Status: Acute Assessment and plan: Full code Admit to inpatient status. will need SNF on d/c. discussed with Dr. Carrillo Subjective Subjective Patient reports: other Interval history since last seen: c/o pressure to left neck, ear, eye, lower back, multiple complaints. She does have some fluid behind her ear drum. When doing neuro exam purposeful drift down, but able to move all extremities freely when rubbing neck and pushing down for pain. No weakness except when being assessed. She is agreeable to try zyrtec and flexiril for muscle pain. She states pain to right neck. When assessing her neck pain is trapezus to mastoid, muscular in nature. While in conversation she changed what type of pain she was having 3 times from muscle to nerve to pressure, and asked if everything comes back normal then what would I do for my nerve pain. She was reassured that would be an outpatient visit for a rheumatology workup for fibromyalgia. Exam Narrative Exam Narrative: General: Anxious middle-aged female who has fluent speech which changed several times with me in the room into what appears to be stuttering or overpronunciation, A&Ox3, able to move all 4 extremities, but when assessing she drifted her right arm down. HEENT: EOMI, MMM. Neck with pain on the right side she could pinpoint the area but when I tried to pinpoint it I could not pinpoint the area she was having pain and then she stated it would radiate up her neck and down her jaw. She was very irregular in her symptoms with my palpation Heart: RRR, no m/r/g Lungs: CTAB Abdomen: soft, nontender, nondistended Extremities: no edema, 2+ pedal pulses, able to move BLE's against gravity while sitting in a chair, all DTR's equal and intact Objective Last Vital Signs Temp 36.3 C L 01/17/21 15:27 Pulse 70 01/17/21 15:27 Resp 17 01/17/21 15:27 BP 123/82 01/17/21 15:27 Pulse Ox 99 01/17/21 15:27 Laboratory Results - last 24 hr 01/14/21 14:40 A.phagocytophil DNA PCR Negative B. divergens/MO-1 PCR Negative Babesia duncani (PCR) Negative Babesia microti DNA PCR Negative Borrelia (PCR) Negative E.chaffeensis DNA (PCR) Negative E.ewingii/canis DNA PCR Negative E. muris-like DNA (PCR) Negative
--- NOTE | 2021-01-18 00:14 | NUR.NOTE ---
Nursing Note: 206 would like her hair washed in the morning, she wanted to shower but shes on tele. I gave her wash cloths and soap to wash up before bed. she claims she has washed up in the three days shes been here. i gave her some time to wash up.
[2021-01-18 02:59] VITALS: BP 117/78; PULSE 70; RESP 20; TEMP 36.8; O2SAT 99
[2021-01-18] MEDS: Levothyroxine 100 MCG TAB PO (05:43)
[2021-01-18 07:16] VITALS: BP 117/73; PULSE 67; RESP 16; TEMP 36.6; O2SAT 100
[2021-01-18] MEDS: Cyanocobalamin 500 MCG TAB 1000 MCG PO (08:35)
[2021-01-18] MEDS: Aspirin E.C. 81 MG TABEC PO (08:35)
--- NOTE | 2021-01-18 08:40 | CMPROGNOTE_ITS ---
- If Service Date Differs Date of service: 01/18/21 Time of Service: 08:40 Care Management Progress Note S/O: Raquel was sitting up on the side of her bed, eating breakfast when CM met with her. She was pleasant in interaction and forthcoming with information; sharing fears and weeping when discussion negative interactions. Raquel discussed some tough moments over the weekend, including decision-making central to starting new medications last evening and wanting to do so with her cousin vance Lemus visiting. She reported this would be re-attempted today. She verbalized understanding of her treatment and discharge plan and requested this typewriters functional tester fax referrals to [facility], [facility], [facility] and [facility]. CM completed task and continues to follow. A: Raquel is a 45 year old woman admitted on 01/14/21 with generalized weakness P: Raquel will likely be discharged to a senior living facility before returning home. Pending referrals at [facility], [facility], [facility] and [facility]. Transportation will be determined by disposition. CM will continue to support patient and family and assess for discharge planning needs.
[2021-01-18 10:21] VITALS: BP 114/79; PULSE 79; RESP 18; TEMP 36.5; O2SAT 99
--- NOTE | 2021-01-18 10:34 | PT.INTREAT ---
PT Notes Visit Reasons: Generalized Weakness Inpatient Physical Therapy Treatment Note [facility] Date: 01/18/21 SUBJECTIVE: Patricia reports that she is feeling ok. OBJECTIVE: [] BED MOBILITY/TRANSFERS Sit-stand: CGA Stand-sit: CGA GAIT Assistive Device: FWW Weight bearing: full Assist: min A/CGA Distance: 30' THEREX:per flowsheet. Global LE strengthening in both seated and supine position. Balance work incorporated ASSESSMENT: tolerated session fair. C/o dizziness post balance work, this dissipated some with deep breathing techniques. Mvmt pattern difficult to explain, toe walk with excessive upper body tremor like mvmt pattern. Buckling of her knees, however she was able to catch herself and prevent falls. Cues for proper stride length and encouraged her to put foot flat on floor vs toes. Also required cues to reach back onto recliner to slow her decent vs falling into chair. PLAN: will continue to progress her strength and stability to tolerance. TREATMENT CODE/TIME: 25 min beginning at 0940. [id number], [id number]
--- NOTE | 2021-01-18 13:30 | W.PM.PROGNOT ---
Date of Service Date of service: 01/18/21 Time of Service: 13:30 Assessment and Plan Assessment and plan (1) Weakness: Start date: 01/18/21 Start time: 13:38 Status: Acute Assessment and plan: subjective and, per PT, the patient's deficits do not match the symptoms she describes. However, the possible finding of optic neuritis in addition to reports of various neurologic symptoms are concerning for a demyelinating illness, yet MRI does not reveal this per neurology. . Dr Fontaine did introduce the idea of a functional disorder. Awaiting LP results For now, continue working with PT with plans for SNF at time of discharge. Neuro exam normal (2) Blurred vision: Start date: 01/18/21 Start time: 13:39 Status: Acute Assessment and plan: Optic neuritis diagnosed by optometry.[place] [facility] Brain w/wo unfortunately this could not be done with, also amitriptyline, patient refusing to take, flexeril and 2 mth follow up. MRI done without: A few small scattered foci of hyperintense signal in the white matter on the FLAIR and T2 weighted images. Differential considerations include chronic small vessel ischemic disease, hypertensive related microangiopathy or diabetes, demyelinating process including MS, infectious or inflammatory conditions, vasculitis, prior trauma or migraine related white matter disease. LP pending, Atypical migraine also high on differential Refused to take flexeril last night agreed to take with spouse presence today (3) Difficulty with speech: Start date: 01/18/21 Start time: 13:41 Status: Acute Assessment and plan: This appears to happen only when someone is around. When patient is in BR and does not realize someone is near speech is clear and loud (4) Anxiety: Start date: 01/18/21 Start time: 13:42 Status: Chronic Assessment and plan: The patient states her [facility] neurolog[place] told her not to start any SSRIs at this time. In addition to this, the patient describes what sounds like an anaphylactic reaction to citalopram. She should follow up with outpatient psychiatry as scheduled and continue to work with her therapist. (5) DVT prophylaxis: Start date: 01/18/21 Start time: 13:42 Status: Acute Assessment and plan: Will start chemical DVT ppx when ok with anesthesia (if patient permits) (6) Discharge planning issues: Start date: 01/18/21 Start time: 13:42 Status: Acute Assessment and plan: Full code Admit to inpatient status. will need SNF on d/c. discussed with Dr. Carrillo Subjective Subjective Patient reports: other Interval history since last seen: Patient refused to take medication last night because her cousin could not stay with her. She is agreeable today when her spouse gets here. She states around 1030/11 last night her heart spiked way up she looked at her monitor, her jaw was stuck and she kept pushing for the nurses button, she states an electrical sensation and asks what that was. I said I am not sure I would check with ICU and see what her HR was on telemetry but otherwise we are still waiting for the results of the spinal fluid. HR last night was no higher than 88 at any time on telemetry per ICU. Exam Narrative Exam Narrative: General: Anxious middle-aged female who has fluent speech which changed several times with me in the room into what appears to be stuttering or overpronunciation, A&Ox3, able to move all 4 extremities, but when assessing she drifted her right arm down. HEENT: EOMI, MMM. Neck with pain on the right side she could pinpoint the area but when I tried to pinpoint it I could not pinpoint the area she was having pain and then she stated it would radiate up her neck and down her jaw. She was very irregular in her symptoms with my palpation Heart: RRR, no m/r/g Lungs: CTAB Abdomen: soft, nontender, nondistended Extremities: no edema, 2+ pedal pulses, able to move BLE's against gravity while sitting in a chair, all DTR's equal and intact Objective Last Vital Signs Temp 36.5 C 01/18/21 10:21 Pulse 79 01/18/21 10:21 Resp 18 01/18/21 10:21 BP 114/79 01/18/21 10:21 Pulse Ox 99 01/18/21 10:21 Laboratory Results - last 24 hr 01/14/21 14:40 A.phagocytophil DNA PCR Negative B. divergens/MO-1 PCR Negative Babesia duncani (PCR) Negative Babesia microti DNA PCR Negative Borrelia (PCR) Negative E.chaffeensis DNA (PCR) Negative E.ewingii/canis DNA PCR Negative E. muris-like DNA (PCR) Negative
[2021-01-18 15:25] VITALS: BP 119/85; PULSE 77; RESP 17; TEMP 36.8; O2SAT 100
--- NOTE | 2021-01-18 22:19 | NUR.NOTE ---
Nursing Note: PT needs to be a 2 asst, when moving to point a to point b. she is trying to convince staff that shes a one assist and doesn't need 2 people. Nurse and myself had a hard time getting her into the bathroom, coming out we used a gait belt, walker and two assist max.
[2021-01-18 23:50] VITALS: BP 119/78; PULSE 71; RESP 20; TEMP 36.7; O2SAT 98
[2021-01-19] MEDS: Levothyroxine 100 MCG TAB PO (06:28)
[2021-01-19 07:23] VITALS: BP 113/79; PULSE 70; RESP 18; TEMP 36.6; O2SAT 99
[2021-01-19] MEDS: Aspirin E.C. 81 MG TABEC PO (08:16)
[2021-01-19] MEDS: Cyanocobalamin 500 MCG TAB 1000 MCG PO (08:16)
--- NOTE | 2021-01-19 09:38 | SPP_ITS ---
Date of Service January 19, 2021 Subjective Non Treatment Note DRESS FITTER spoke with M/S staff this AM re: previous DRESS FITTER consult order on 01/16; consult addressed by covering DRESS FITTER on 01/16 and previous records from fall were faxed for review. DRESS FITTER consult order has since been cancelled. Please reconsult PRN. Monica Mclean MA CCC-DRESS FITTER Speech-Language Pathologist [place]#[phone] Coding
--- NOTE | 2021-01-19 09:38 | AMB.SPSTP ---
Date of Service January 19, 2021 Subjective Non Treatment Note WORKERS COMPENSATION ADMINISTRATOR spoke with M/S staff this AM re: previous WORKERS COMPENSATION ADMINISTRATOR consult order on 01/16; consult addressed by covering WORKERS COMPENSATION ADMINISTRATOR on 01/16 and previous records from fall were faxed for review. WORKERS COMPENSATION ADMINISTRATOR consult order has since been cancelled. Please reconsult PRN. Monica Mclean MA CCC-WORKERS COMPENSATION ADMINISTRATOR Speech-Language Pathologist [place]#[phone] Coding
--- NOTE | 2021-01-19 10:47 | W.NUTRFU ---
Date of service: 01/19/21 Time of Service: 10:47 Nutritional Follow up NOTE: Raquel is following regular meal plan with adequate intake, weight has been stable> 1 year, BMI wnl. Not considered at nutritional risk. Will continue to follow. Time Spent in Nutritional Counseling and Treatment: 0
--- NOTE | 2021-01-19 10:54 | PDOC.CMPRO ---
- If Service Date Differs Date of service: 01/19/21 Time of Service: 10:54 Care Management Progress Note S/O: Raquel was sitting up in a chair when CM met with her. She appeared more alert and engaged than last week and her voce was stronger. Raquel did share that she had a poor night because she developed a burning sensation throughout her body which was very painful. She also verbalized that she had a really good afternoon yesterday and had been hopeful that she would have a good night. CM informed Patricia that [facility] has made a tentative bed offer pending approval from her insurance. Patricia has accepted the offer and will hopefully be transferred when medically cleared. There is still no definitive diagnosis and Raquel feels that not everyone is taking her concerns seriously. She stated that some of her caregivers do not seem to appreciate the level of her anxiety and instead keep telling her that her vital signs are stable. CM will continue to follow. A: Raquel is a 45 year old woman admitted on 01/14/21 with generalized weakness P: Raquel will likely be discharged to a long term facility before returning home. Referrals have been sent to [facility], [facility], [facility] and [facility]. A tentative bed offer was received from [facility] this morning pending insurance approval. Transportation will be determined by disposition. CM will continue to support patient and family and assess for discharge planning needs.
[2021-01-19 11:24] LABS: Albumin, CSF 13.1 mg/dL (<=25.1); Albumin, S 4.6 g/dL (3.4-4.9); IgG Index, CSF 0.57 Index (<=0.84); IgG, CSF 1.86 mg/dL (<=5.00); IgG/Albumin, CSF 0.14 Ratio (<=0.24); Synthesis Rate, CSF <0.01 mg/24hrs (<=8.00)
--- NOTE | 2021-01-19 14:08 | W.PM.PROGNOT ---
Date of Service Date of service: 01/19/21 Time of Service: 13:30 Assessment and Plan Assessment and plan (1) Blurred vision: Status: Acute (2) Headache: Status: Acute (3) Weakness: Status: Acute (4) Anxiety: Status: Chronic Assessment and plan: Ms. Valencia is a 45 year-old, right-handed woman who was admitted with the following: #1. Right eye blurred and double vision with question of demyelinating disease. She was given diagnosis of possible optic neuritis by local optometry. Her symptoms are atypical and findings on their exam were minimal. She will consult with ophthalmology at [facility] next week. MRI brain here read by radiology as possibly demyelinating. Per my review, patient MRI appears normal and would be atypical of demyelination. However, given prior diagnosis by optometry, demyelination cannot be excluded. LP performed and thus far normal with no evidence of inflammation. OCBs is last pending test. If negative, would indicate no evidence of demyelination. #2. ? basilar stenosis on MRA head. Real vs artifact? Reviewed by me, in house radiology, and [facility] neurology and all felt to be artifact. She declines contrasted studies (MR and CT) due to prior allergic reactions and declines medication treatment for her allergy (prednisone, Benadryl). She does not have vascular risk factors and no significant atherosclerosis in any of her other arteries. Thus, all agreeing that this is flow artifact. I think continuing aspirin 81mg daily is prudent currently to help reduce further anxiety. #3. Chronic daily headache x 6 weeks, ?tension component. No improvement with daily aspirin. She is starting Flexeril 5mg. Would dose this HS only. Discussed ADRs with her. Next options would be Magnesium 400mg HS +/- devices given her sensitivity and hesitancy to oral medications. #4. Tremor, weakness, pain, speech changes, paraesthesias. Her tremor and weakness consistent with Functional Neurological Disorder. Pending ST evaluation, but speech appears also to be part of FND. Unclear if paraesthesias are part of FND as well or a part of a more peripheral etiology such as fibromyalgia. Discussed checking SANTOSH/RF with hospital team. Raquel was agreeable to trial of Emla cream q4hrs prn pain. ADRs discussed. We again discussed FND, diagnosis of exclusion with normal testing, along with treatments including physical and cognitive therapies. #5. Pre-syncope and syncope. Notes several episodes of darkening vision and feeling she is going to black out after bending over. Also syncopal episode during LP. Likely vasovagal +/- orthostatic. Could be FND. Will have bedside orthostatics performed. I will continue to follow while inpatient. She should follow-up in the [facility] after discharge. Subjective Subjective Interval history since last seen: Underwent LP on 01/16/21 complicated by syncope. IGG index/synthesis normal OCBs pending. W2, R1, G66, P28. Gram stain and cx negative. Started aspirin 81mg daily. No ADRs. No change in her headaches. Will be starting Flexeril today. [facility] thought there might have been some fluid in R ear. Overnight, woke up with a jolt and then had burning pain throughout her body. Couldn't go back to sleep. Disappointed as she felt yesterday was a good day. The night before had similar jolt. Noted her HR went up quickly and then went down quickly. Couldn't speak at all. Pressed nurse call button. speech was still slurred cottony. Eventually resolved. Planning to transfer to rehab for further care following admission. We spent much time reviewing her imaging. Exam Narrative Exam Narrative: Physical Exam: Constitutional: Patient of apparent stated age, well nourished, well developed, no acute distress Neuro: MS/Language/Speech: Alert, oriented, clear language (fluency and comprehension), no dysarthria CN: EOMI, no facial asymmetry, hearing intact Motor: No tremors seen. Resting after PT. Objective Last Vital Signs Temp 36.6 C 01/19/21 07:23 Pulse 70 01/19/21 07:23 Resp 18 01/19/21 07:23 BP 113/79 01/19/21 07:23 Pulse Ox 99 01/19/21 07:23 Laboratory Results - last 24 hr 01/16/21 14:40 Albumin 4.6 CSF Albumin 13.1 CSF IgG 1.86 CSF IgG/Albumin 0.14 CSF IgG Index 0.57 IgG Synthesis Rate <0.01
--- NOTE | 2021-01-19 14:12 | PT.INTREAT ---
Date of service: 01/19/21 Time of Service: 09:05 PT Notes Visit Reasons: Generalized Weakness Inpatient Physical Therapy Treatment Note [facility] Date: 01/19/2021 PRECAUTIONS: Fall, activity as tolerated SUBJECTIVE: Raquel is pleasant and agreeable to participating in PT. She states that she is feeling a little better, she states that she has been practicing the LE exercises that she was shown. She reports that she worries about getting dizzy, as she was dizzy for 3-4 hours after yesterday's PT session. She also reports that she doesn't know the results of her LP. OBJECTIVE: PAIN: No c/o pain BED MOBILITY/TRANSFERS Sit-supine: SBA with HOB at 30 degrees with use of leg extension service specialist and verbal cueing Sit-stand: CGA-SBA in a.m.; SBA in p.m. Stand-sit: CGA in a.m.; SBA in p.m. Chair-bed: SBA GAIT Assistive Device: FWW Weight bearing: Full Assist: CGA Distance: 15' x2 in a.m.; 45' + 35' + 5' in p.m. Deviation: Patient demonstrates trunk wobbling and swaying and occasional knee buckling, she requires cueing for purposeful steps, appropriate step length, appropriated SREEDHAR, and heel-toe gait mechanics. Trunk and LE deviations cease when patient is engaged in conversation. THEREX: Patient was instructed in a core strengthening and stabilization program, as per flow sheet. She completes bridging with PPT, hook-lying alternating march, and hook-lying bent-knee fallout exercises. She requires extra time to complete exercises, with significant cueing to stay within controlled range. ASSESSMENT: Patient continues to demonstrate significant deviations with gait training, which remain inconsistent with verbal complaints. She demonstrates increased strength in B UE, holding herself up on her FWW with gait training. She requires significant cueing for gait mechanics for safety, and gait deviations appear to cease when patient is engaged in conversation. PLAN: Continue with global strengthening and gait training, as tolerated. TREATMENT CODE/TIME: Session 1: 30 minutes; 57634, [id number] (09:05) Session 2: 30 minutes; 63530 x2 (13:30)
[2021-01-19] MEDS: Cyclobenzaprine 10 MG TAB 5 MG PO (15:00)
[2021-01-19 15:36] VITALS: BP 146/88; PULSE 75; RESP 18; TEMP 37; O2SAT 98
[2021-01-19 17:50] LABS: Adenovirus PCR Negative (Negative); Specimen Source CSF
--- NOTE | 2021-01-19 20:15 | PGE_ITS ---
Date of Service Date of service: 01/19/21 Time of Service: 16:30 Assessment and Plan Assessment and plan (1) Weakness: Start date: 01/19/21 Start time: 16:30 Status: Acute Assessment and plan: Deficits do not match patient symptoms. She is having improvement in strength, materials scheduler stronger, equal Will r/o francisca, rheumo factor MS thus far negative. EMLA cream for body pain with flexeril being followed by Dr. Momin (2) Blurred vision: Start date: 01/19/21 Start time: 16:30 Status: Acute Assessment and plan: Question of optic neuritis by [facility], will order orbit MRI as this was going to be done by opthamalogist anyways. Possible transfer to [facility] tomorrow (3) Difficulty with speech: Start date: 01/19/21 Start time: 16:30 Status: Acute Assessment and plan: Speech was clear without difficultly today, no stuttering, no difficulty swallowing food (4) Anxiety: Start date: 01/19/21 Start time: 16:30 Status: Chronic Assessment and plan: The patient states her [facility] neurologist told her not to start any SSRIs at this time. In addition to this, the patient describes what sounds like an anaphylactic reaction to citalopram. She should follow up with outpatient psychiatry as scheduled and continue to work with her therapist. (5) DVT prophylaxis: Start date: 01/19/21 Start time: 16:30 Status: Acute Assessment and plan: Teds and scds as patient is hesitant to start anything agreeable to asa (6) Discharge planning issues: Start date: 01/19/21 Start time: 16:30 Status: Acute Assessment and plan: Full code Admit to inpatient status. will need SNF on d/c. discussed with Dr. Carrillo Subjective Subjective Interval history since last seen: No different complaints. She is agreeable to taking the flexeril. Spoke with Dr. Momin and she recommend EMLA for her body pain. She did do well with the flexeril no reaction. EMLA will be ordered BID with BID prn for body pain. Will also order orbit MRI as she was suppose to have this done as an outpatient for optic neuritis. Ordered for tomorrow. At this time labs are revealing no ms still awaiting banding cells. CRP normal ESR slightly elevated, will order FRANCISCA and rheum panel, she denies CP, SOB, n/v/d Exam Narrative Exam Narrative: General: Anxious middle-aged female who has fluent speech that was normal the entire time, was present and she never changed her speech pattern, A&Ox3, able to move all 4 extremities, no right arm drift and strength improved from yesterday HEENT: EOMI, MMM. Neck with pain on the right side, she continued to rub her neck but pain appeared less. she did take a flexeril. Heart: RRR, no m/r/g Lungs: CTAB Abdomen: soft, nontender, nondistended Extremities: no edema, 2+ pedal pulses, able to move BLE's against gravity while laying in bed., all DTR's equal and intact Objective Last Vital Signs Temp 37 C 01/19/21 15:36 Pulse 75 01/19/21 15:36 Resp 18 01/19/21 15:36 BP 146/88 H 01/19/21 15:36 Pulse Ox 98 01/19/21 15:36 Laboratory Results - last 24 hr 01/16/21 14:40 Albumin 4.6 CSF Albumin 13.1 CSF IgG 1.86 CSF IgG/Albumin 0.14 CSF IgG Index 0.57 IgG Synthesis Rate <0.01
[2021-01-19] MEDS: Normal Saline Flush 10 ML SYR IVP (21:10)
[2021-01-19 21:27] LABS: EBV DNA Detect/Quant, P Undetected IU/mL (Undetected)
[2021-01-19 23:59] VITALS: BP 123/83; PULSE 66; RESP 20; TEMP 36.2; O2SAT 99
--- NOTE | 2021-01-20 | DI.MRI_ITS ---
Exam(s) MR ORBIT FACIAL NECK WO EXAM: MR ORBIT FACIAL NECK WO CLINICAL HISTORY: r/o optic neuritis,blurred vision TECHNIQUE: Multiplanar multisequence MRI was performed. COMPARISON: MR MR ANGIO BRAIN WO from 01/14/2021 FINDINGS: ORBITS: The anterior and posterior chambers of the globes are intact. The retrobulbar fat is unremark able. Extraocular muscles are unremarkable. OPTIC NERVES: The intracranial and extracranial portions of the optic nerves are within normal limits . Optic chiasm is within normal limits. No MRI evidence of optic neuritis identified. SOFT TISSUES: The superior opthalmic veins are unremarkable. Remaining soft tissues are unremarkable. OTHER FINDINGS: None. IMPRESSION: No evidence of optic neuritis. DATA REPOSITORY:
--- NOTE | 2021-01-20 | DI.US_ITS ---
Exam(s) US SOFT TISSUE EXTREMITY EXAM: US SOFT TISSUE EXTREMITY CLINICAL HISTORY: swelling, above left ac space, not fluctuant no ra. TECHNIQUE: Ultrasound was performed using standard protocol. COMPARISON: No exams were available for comparison FINDINGS: Sonographic assessment utilizing grayscale and color Doppler imaging was performed and targeted to th e area of clinical concern. No sonographic evidence of a cystic or solid mass is seen in the antecubital fossa. The left brachia l, basilic, median cubital, cephalic, radial and ulnar veins show normal compression and blood flow. No evidence of a thrombus is identified in these veins. IMPRESSION: No evidence of a soft tissue mass or fluid collection in the left antecubital fossa. DATA REPOSITORY:
[2021-01-20 00:44] LABS: Cytomegalovirus PCR Negative (Negative); Specimen Source CSF
[2021-01-20] MEDS: Levothyroxine 88 MCG TAB PO (06:24)
[2021-01-20 07:17] VITALS: BP 105/60; PULSE 76; RESP 18; TEMP 36.6; O2SAT 99
--- NOTE | 2021-01-20 08:37 | OT.INTREAT ---
Date of service: 01/20/21 Time of Service: 07:25 Occupational Therapy Notes Occupational Therapy Inpatient Treatment Note Date: 01/20/21 PRECAUTIONS: Fall, standard, Full SUBJECTIVE: Pt was sitting in bed when OT arrived, she states that she thinks she is doing better and may be going home today. She also reports that her symptoms seem to be improving. OBJECTIVE: PAIN:no c/o pain BATHING: sitting in bed with max (A) set up/clean up Upper Body: (I) Lower Body: pt denied DRESSING: sitting in bed Upper Extremity: (I) [facility] Lower Extremity: Pt denied ASSESSMENT/PLAN: Pt is able to use her arms for bathing and is demonstrating increased functional (I). She does require set up (A) but otherwise she is demonstrating increased tolerance to ADLs. TREATMENT CODES/TIME: 97355, 10 minutes (07:25) Alda Adair, OTR/L [facility]
[2021-01-20] MEDS: Aspirin E.C. 81 MG TABEC PO (08:49)
[2021-01-20] MEDS: Cyanocobalamin 500 MCG TAB 1000 MCG PO (08:49)
[2021-01-20 16:00] LABS: CSF Bands 0 bands; CSF Olig Bands Interpretation 0 bands (<2); Serum Bands 0 bands
[2021-01-20 16:01] VITALS: BP 116/70; PULSE 72; RESP 16; TEMP 36.7; O2SAT 97
--- NOTE | 2021-01-20 16:34 | PGE_ITS ---
Date of Service Date of service: 01/20/21 Time of Service: 16:34 Assessment and Plan Assessment and plan (1) Blurred vision: Status: Acute (2) Headache: Status: Acute (3) Weakness: Status: Acute (4) Anxiety: Status: Chronic Assessment and plan: Ms. Valencia is a 45 year-old, right-handed woman who was admitted with the following: #1. Right eye blurred and double vision with question of demyelinating disease. She was given diagnosis of possible optic neuritis by local optometry. Her symptoms are atypical and findings on their exam were minimal. She will consult with ophthalmology at [facility] next week. MRI brain here read by radiology as possibly demyelinating (MRI orbits w/o was normal). Per my review, patient MRI appears normal and would be atypical of demyelination. However, given prior diagnosis by optometry, demyelination cannot be excluded. LP performed and thus far normal with no evidence of inflammation. OCBs is last pending test. If negative, would indicate no evidence of demyelination. #2. ? basilar stenosis on MRA head. Real vs artifact? Reviewed by me, in house radiology, and [facility] neurology and all felt to be artifact. She declines contrasted studies (MR and CT) due to prior allergic reactions and declines medication treatment for her allergy (prednisone, Benadryl). She does not have vascular risk factors and no significant atherosclerosis in any of her other arteries. Thus, all agreeing that this is flow artifact. I think continuing aspirin 81mg daily is prudent currently to help reduce further anxiety, but no indication for rat exterminator aspirin. #3. Chronic daily headache x 6 weeks, ?tension component. No improvement with daily aspirin. She has tolerated Flexeril 5mg. Would continue this HS prn neck pain/headache. Next options would be Magnesium 400mg HS +/- devices given her sensitivity and hesitancy to oral medications. I gave her a handout on migraine. #4. Tremor, weakness, pain, speech changes, paraesthesias. I am now convinced all of these symptoms are due to Functional Neurological Disorder though fibromyalgia remains in differential in regards to the pain. She has Emla cream q4hrs prn pain. She will continue with PT/OT, but also needs to re-establish with her therpaists and psychiatry. #5. Pre-syncope and syncope. Notes several episodes of darkening vision and feeling she is going to black out after bending over. Also syncopal episode during LP. Likely vasovagal +/- orthostatic. Could be FND. No further recurrence. Would perform bedside orthostatics if there is a recurrence. I will continue to follow while inpatient. She should follow-up in the [facility] after discharge. Subjective Subjective Interval history since last seen: OCBs still pending. Underwent MRI orbits w/o and normal per mine and rad review. Took Flexeril 5mg yesterday. No ADrs unclear if helped with neck pain but no burning pain in last 24 hours. Still working with PT. She has noticed she can talk longer and longer without speech fatigue. Awaiting placement at rehab. Exam Narrative Exam Narrative: Physical Exam: Constitutional: Patient of apparent stated age, well nourished, well developed, no acute distress Neuro: MS/Language/Speech: Alert, oriented, clear language (fluency and comprehension), no dysarthria Motor: Normal bulk and tone. FMM intact, no pronator drift. 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 Coordination: Finger to nose performed without dysmetria Objective Last Vital Signs Temp 36.6 C 01/20/21 07:17 Pulse 76 01/20/21 07:17 Resp 18 01/20/21 07:17 BP 105/60 01/20/21 07:17 Pulse Ox 99 01/20/21 07:17 Laboratory Results - last 24 hr 01/15/21 01/16/21 01/16/21 11:10 14:40 14:40 Ser Oligoclonal Bands CSF Oligoclonal Bands Oligoclonal Band Interp CSF CMV Specimen Source Csf Adenovirus Source Csf Adenovirus (PCR) Negative CMV DNA Qual PCR Negative EBV DNA, Quant Undetected 01/16/21 14:40 Ser Oligoclonal Bands 0 CSF Oligoclonal Bands 0 Oligoclonal Band Interp 0 CSF CMV Specimen Source Adenovirus Source Adenovirus (PCR) CMV DNA Qual PCR EBV DNA, Quant
--- NOTE | 2021-01-20 16:51 | W.PM.PROGNOT ---
Date of Service Date of service: 01/20/21 Time of Service: 16:52 Assessment and Plan Assessment and plan (1) Weakness: Status: Acute Assessment and plan: Deficits do not match patient symptoms. 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 EMLA cream for body pain with flexeril being followed by Dr. Fontaine (2) Blurred vision: Status: Acute Assessment and plan: Question of optic neuritis by [facility], orbit MRI negative. follow up outpatient with [facility] ophthalmology (3) Difficulty with speech: Status: Acute Assessment and plan: Speech was clear without difficultly today, no stuttering, no difficulty swallowing food (4) Anxiety: Status: Chronic Assessment and plan: The patient states her [facility] neurologist told her not to start any SSRIs at this time. In addition to this, the patient describes what sounds like an anaphylactic reaction to citalopram. She should follow up with outpatient psychiatry as scheduled and continue to work with her therapist. (5) DVT prophylaxis: Status: Acute Assessment and plan: Teds and scds as patient is hesitant to start anything agreeable to asa (6) Discharge planning issues: Status: Acute Assessment and plan: Full code Admit to inpatient status. will need SNF on d/c. case management following, planned discharge to [facility] tomorrow. discussed with Dr. Carrillo Subjective Subjective Patient reports: no new complaints, tolerating liquids well and tolerating a regular diet Interval history since last seen: using heating pad to right shoulder, area above left ac unremarkable but patient insisting a lump and was told I was getting an ultrasound. discussed I didn't think necessary but she is persistent that was plan. perseverates on lab results and this being d/t J&J vaccine. Exam Narrative Exam Narrative: General: Anxious middle-aged female who has fluent speech that was normal the entire time, A&Ox3, able to move all 4 extremities, no tremor or abnormal movements noted. HEENT: EOMI, MMM. Neck with pain on the right side but no rash lesions, no swelling and wtih full range of motion, she continued to press side of her neck stating it hurts when she presses on it (I advised her to stop pressing if that hurt it). she did take a flexeril 5 mg and reported no relief. Heart: RRR, no murmurs Lungs: respirations even and unlabored Abdomen: soft, nontender, nondistended Extremities: no edema, able to move BLE's Objective Last Vital Signs Temp 36.6 C 01/20/21 07:17 Pulse 76 01/20/21 07:17 Resp 18 01/20/21 07:17 BP 105/60 01/20/21 07:17 Pulse Ox 99 01/20/21 07:17 Laboratory Results - last 24 hr 01/15/21 01/16/21 01/16/21 11:10 14:40 14:40 Ser Oligoclonal Bands CSF Oligoclonal Bands Oligoclonal Band Interp CSF CMV Specimen Source Csf Adenovirus Source Csf Adenovirus (PCR) Negative CMV DNA Qual PCR Negative EBV DNA, Quant Undetected 01/16/21 14:40 Ser Oligoclonal Bands 0 CSF Oligoclonal Bands 0 Oligoclonal Band Interp 0 CSF CMV Specimen Source Adenovirus Source Adenovirus (PCR) CMV DNA Qual PCR EBV DNA, Quant
--- NOTE | 2021-01-20 18:39 | PDOC.CMPRO ---
- If Service Date Differs Date of service: 01/20/21 Time of Service: 18:39 Care Management Progress Note S/O: Raquel was sitting up in a chair when CM met with her. She appeared to be in good spirits and admitted that some things seem to be getting better. She slept last night and did not experience the burning sensation like the night before. [facility] anticipates a final decision on the prior authorization from Raquel's insurance in the morning and tentatively plan to admit her tomorrow. Transportation will likely be [facility] W/C van. Raquel has an appointment at [facility] on with their opthalmology department which is very important. CM will discuss this with [facility] staff prior to transfer. A: Raquel is a 45 year old woman admitted on 01/14/21 with generalized weakness P: Raquel will likely be discharged to a usp facility before returning home. Referrals have been sent to [facility], [facility], [facility] and [facility]. A tentative bed offer was received from [facility] pending insurance approval. Transportation will be determined by disposition. CM will continue to support patient and family and assess for discharge planning needs.
[2021-01-20] MEDS: Normal Saline Flush 10 ML SYR IVP (20:12)
[2021-01-20 20:14] VITALS: BP 109/78; PULSE 87; RESP 18; TEMP 36.6; O2SAT 96
[2021-01-21 03:36] VITALS: BP 110/64; PULSE 84; RESP 18; TEMP 36.3; O2SAT 97
[2021-01-21] MEDS: Levothyroxine 100 MCG TAB PO (05:50)
[2021-01-21 07:46] VITALS: BP 112/78; PULSE 62; RESP 16; TEMP 36.3; O2SAT 99
[2021-01-21] MEDS: Cyanocobalamin 500 MCG TAB 1000 MCG PO (08:47)
[2021-01-21] MEDS: Aspirin E.C. 81 MG TABEC PO (08:48)
--- NOTE | 2021-01-21 09:54 | PTTR_ITS ---
Date of service: 01/20/21 Time of Service: 10:00 PT Notes Visit Reasons: Generalized Weakness Inpatient Physical Therapy Treatment Note [facility] Date: 01/20/2021 PRECAUTIONS: Fall, activity as tolerated SUBJECTIVE: Raquel is pleasant and agreeable to participating in PT. She states that she is feeling a little better, she states that she has continued practicing the LE exercises that she was shown. She states that she feels she needs to go to rehab for continued strengthening. She also reports that she would like to know the results of her LP. OBJECTIVE: PAIN: No c/o pain BED MOBILITY/TRANSFERS Supine-sit: I with HOB at 40 degrees Sit-supine: S with HOB flat with use of leg business liaison manager Sit-stand: SBA in a.m.; CGA in p.m. Stand-sit: SBA GAIT Assistive Device: FWW Weight bearing: Full Assist: CGA Distance: 80' in a.m.; 50' in p.m. Deviation: Standing rest x3 in both a.m. and p.m. Patient demonstrates trunk wobbling and swaying, foot dragging, and occasional knee buckling, she requires cueing for purposeful steps, appropriate step length, appropriated SREEDHAR, and heel-toe gait mechanics. Trunk and LE deviations cease when patient is engaged in conversation. THEREX: Patient was instructed in a LE strengthening and core strengthening and stabilization program, as per flow sheet. She completes bridging with PPT, hook-lying alternating march, and hook-lying bent-knee fallout exercises. She requires extra time to complete exercises, with significant cueing to stay within controlled range. ASSESSMENT: Patient continues to demonstrate significant deviations with gait training, which remain inconsistent with verbal complaints. She demonstrates increased strength in B UE, holding herself up on her FWW with gait training. She requires significant cueing for gait mechanics for safety, and gait deviations appear to cease when patient is engaged in conversation. PLAN: Continue with global strengthening and gait training, as tolerated. TREATMENT CODE/TIME: Session 1: 40 minutes; 73442 x2, [id number] (10:00) Session 2: 25 minutes; [id number], [id number] (15:15)
[2021-01-21 15:30] VITALS: BP 116/80; PULSE 76; RESP 18; TEMP 36.6; O2SAT 97
--- NOTE | 2021-01-21 15:50 | W.PM.PROGNOT ---
Date of Service Date of service: 01/21/21 Time of Service: 15:50 Assessment and Plan Assessment and plan (1) Weakness: Status: Acute Assessment and plan: Deficits do not match patient symptoms. She is having improvement in strength, preparer stronger, equal Will r/o francisca, rheumo factor MS thus far negative. EMLA cream for body pain with flexeril being followed by Dr. Fontaine (2) Blurred vision: Status: Acute Assessment and plan: Question of optic neur[facility] by [facility], orbit MRI negative. follow up outpatient with [facility] ophthalmology with appointment tomorrow (3) Difficulty with speech: Status: Acute Assessment and plan: Speech was clear without difficultly, no stuttering, no difficulty swallowing food (4) Anxiety: Status: Chronic Assessment and plan: The patient states her [facility] neurologist told her not to start any SSRIs at this time. In addition to this, the patient describes what sounds like an anaphylactic reaction to citalopram. She should follow up with outpatient psychiatry as scheduled and continue to work with her therapist. (5) DVT prophylaxis: Status: Acute Assessment and plan: Teds and scds as patient is hesitant to start anything agreeable to asa (6) Discharge planning issues: Status: Acute Assessment and plan: Full code insurance decline rehab stay, plan to discharge to home with home health services tomorrow. PT/OT to provide childcare attendant instruction case management following, discussed with Dr. Carrillo Subjective Subjective Patient reports: no new complaints, feels better, tolerating liquids well and tolerating a regular diet Interval history since last seen: continues to work with physical therapy Exam Narrative Exam Narrative: General: Anxious middle-aged female who has fluent speech that was normal the entire time, A&Ox3, able to move all 4 extremities, no tremor or abnormal movements noted. HEENT: EOMI, MMM. Neck with pain on the right side but no rash lesions, no swelling and wtih full range of motion, she continued to press side of her neck stating it hurts when she presses on it (I advised her to stop pressing if that hurt it). she did take a flexeril 5 mg and reported no relief. Heart: RRR, no murmurs Lungs: respirations even and unlabored Abdomen: soft, nontender, nondistended Extremities: no edema, able to move BLE's Objective Last Vital Signs Temp 36.3 C L 01/21/21 07:46 Pulse 62 01/21/21 07:46 Resp 16 01/21/21 07:46 BP 112/78 01/21/21 07:46 Pulse Ox 99 01/21/21 07:46 Laboratory Results - last 24 hr 01/16/21 01/20/21 01/20/21 14:40 05:35 08:30 Silica Clot Time Scrn Cancelled Dil Salvador Viper Venom Cancelled Lupus Anticoag Interp Cancelled Ser Oligoclonal Bands 0 CSF Oligoclonal Bands 0 Oligoclonal Band Interp 0 Immunoglobulin A IgG Ab Cancelled Rheumatoid Factor Cancelled FRANCISCA Titer Cancelled FRANCISCA Titer 2 Cancelled FRANCISCA Titer 3 Cancelled FRANCISCA Interpretation Cancelled
[2021-01-21 16:08] VITALS: BP 128/85; PULSE 81; RESP 16; TEMP 36.8; O2SAT 100
--- NOTE | 2021-01-21 16:22 | PTTR_ITS ---
Date of service: 01/21/21 Time of Service: 16:22 PT Notes Visit Reasons: Generalized Weakness Inpatient Physical Therapy Treatment Note [facility] Date: 01/21/2021 PRECAUTIONS: Fall. Activity as tolerated. SUBJECTIVE: Morning session-More conversant and more confident to execute session activities in the morning. Did verbalize increased strain in B shoulders with increased activity level in terms of distnce covered with ambulation and room exercise performance. Stated that she has an appointment at [facility] opthalmology to know more about her symptoms of blurry vision. She recalls that an eye clinic doctor diagnosed her of optic neuritis but MRI of her orbital area while on admission negates said diagnosis. She is hoping that she can get more medical advice regarding this issue with tomorrow's appointment. She continues to report tingling all over her head, neck, arms and trunk with increased exertion. She complained of being dizzy a few times durinf the morning session with exertion. Afternoon session- Patient, spouse, and friend (who are all in patient's room when this PT came in for a second visit) appeared very stressed out and overwhelmed regarding the sudden twist of events surrounding patient's discharge destination. They feel that transport to and from [facility] as well as getting inside patient's home will require extensive training and adequate equipment considering patient's current mobility status. Salvador, the spouse states that she has back and shoulder issues (untreated at this time) that may prevent her from sustaining the potential demand of care that patient may need at home. Salvador expressed that she needs time with caregiver training and wants to know how much equipment coverage the insurance provider will be able to give at home to reduce fall risk at home. They have three steps to enter without a railing and patient has not been trained with stairs yet. - FEROZ Lindo who was covering for CM Violette on this case today, came in to the room and clarified that home transport may be done by a chair lift. She also instructed them to call [facility] for assistance with transport into and out of hospital. She further ensured that HH PT will be coming the following day on Tuesday to continue with balance, ambulation, and functional mobility training. OBJECTIVE: PAIN: Some discomfort in R neck with increased exertion that subsided with rest BED MOBILITY/TRANSFERS Supine-sit: Independent with HOB flat Supine to sidelying: Independent Sit-supine: Independent with HOB flat with use of leg policy director Sit-stand: Stand by assist with use of B UE for support Stand-sit: Stand by assist with use of B UE for support, continues to require verbal cueing for controlled descent GAIT Assistive Device: FWW Weight bearing: Full Assist: Contact guard assist Distance: 50 feet + 30 feet + 10 feet Deviation: Required three rests due to report of increased dizziness, strain in B shoulders and increased tingling in head and and arms. Patient continues to demonstrate slow trunk and shoulder involuntary, choreiform-like movements that come and go throughout today's walk. With fatigue onset, her trunk and shoulders seem to wobble/sway and her feet drag. No knee buckling seen today. THEREX: With 2 pound akle weights, patient was instructed on performing standing level resistance exercises while holding onto two stair rails to increase hip/knee/ankle muscle strength and to facilitate safer gait patter while facilitating standing balance/tolerance skills improvement. Patient reports fatigue accompanied by dizziness that subsided with rest. Patient was also instructed on slowly performing head, neck, and shoulder range of motion exercises incorporating deep breathing techniques to relax tired muscles and assist with overall stress. CAREGIVER EDUCATION: In light of insurance provider's pre-authorization denial for SNF placement, caregiver training with patient and spouse was initiated today for bed mobility and transfer guarding strategies using the front-wheeled walker. Leg policy director is needed for sit to supine to maximize patient independence. Spouse Salvador demonstrates good mastery of said techniques. ASSESSMENT: Previous treatment sessions focused on mobility ADL progression and core strengthening with progression limited by patient's overall response to exertion which mostly cause increased tingling, increase in involuntary/choreiform-like movements in trunk and shoulders, and complaints of dizziness. From a mobility and safety standpoint as of today, patient requires the presence of a caregiver and the use of a front wheeled walker to safely perform all transfers and short distance ambulation related to diagnosis of functional neurological disorder. Tingling in head, arms, and trunk are bilateral and does not follow sensory nerve distribution. Overall symptom exacerbation seems to be related to level of exertion, fatigue, and stress. Patient will be home-bound and will benefit from home health PT/OT/SW services. PLAN: Will cover caregiver training for car transfers prior to tomorrow's discharge. D/C RECOMMENDATIONS: 1. Patient will benefit from home health PT services as soon as practicable in order to progress mobility level using front-wheeled walker, assess home safety, identify additional equipment needs, and establish a functional maintenance program that will increase ability of patient to thrive at home 2. Will require front?wheeled walker to increase independence and reduce fall risk at home 3. Will require assistance of caregiver for all transfers and ambulation task performance 4. Will need ambulatory gait belt for safety TREATMENT CODE/TIME: Session 1--56062 x 30 minutes, 86394 x 19 minutes beginning at 11:26 AM. Session 2--[id number] x 48 minutes beginning at 16:22 PM.
[2021-01-21 17:09] VITALS: BP 128/85; PULSE 72; RESP 20; TEMP 36.4; O2SAT 99
[2021-01-21 23:20] VITALS: BP 122/81; PULSE 78; RESP 18; TEMP 36.6; O2SAT 98
--- NOTE | 2021-01-22 05:34 | PT.INTREAT ---
Date of service: 01/21/21 Time of Service: 16:22 PT Notes Visit Reasons: Generalized Weakness
[2021-01-22] MEDS: Levothyroxine 88 MCG TAB PO (05:40)
[2021-01-22 08:16] VITALS: BP 114/81; PULSE 81; RESP 18; TEMP 36.8; O2SAT 96
[2021-01-22] MEDS: Aspirin E.C. 81 MG TABEC PO (08:34)
[2021-01-22] MEDS: Cyanocobalamin 500 MCG TAB 1000 MCG PO (08:34)
--- NOTE | 2021-01-22 08:47 | W.PM.DS.N ---
Date of service: 01/22/21 Time of Service: 08:47 DS: Diagnosis Discharge Diagnosis (1) Weakness: Status: Acute Asessment and Plan: and gait abnormalities. continue PT/OT (2) Blurred vision: Status: Acute Asessment and Plan: MRI negative for optic neuritis discharged to [facility] [place] appointment today (3) Difficulty with speech: Status: Acute Asessment and Plan: resolved (4) Anxiety: Status: Chronic Asessment and Plan: continue outpatient therapy Discharge Plan Disposition Patient Disposition: HOME W/HOME HEALTH SERVICE Condition: Stable Discharge Details Reason For Visit: Generalized Weakness Admit Date/Time: 01/16/21 08:50 Admit Provider: Jesus Larson Attending Provider: Jesus Larson Primary Care Provider: Leonora Syed Hospital Course Hospital Course: This is a 45 yr old white female history of thyroid cancer (papillary s/p thyroidectomy in 2008 w/ subsequent ablative iodine followed by endocrine at [facility], Dr. Martha Charles),who presented to [facility] ED from [facility] for ambulatory dysfunction and a vast list of symptoms including tremor, weakness, pain, speech changes, parraesthesias. ED work up included MRI of head and neck, all w/o contrast d/t allergy. was unrevealing and she admitted for further workup to rule out M.S. or other demyelinating disorder including an LP for oligoclonal bands given her reported gadolinium contrast allergy. She was evaluated here by Dr Alisson Fontaine. MRI of head and MRA of head and MRI of neck (all without contrast d/t patient's reported anaphylaxis reaction to gadolinium on prior MRI's). MRI of brain demonstrated no acute CVA but a few small patchy bilateral periventricular foci of leukomalacia. 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 because she is not symptomatic of this finding, does not have vascular risk factors or significant atherosclerosis in any other arteries, Dr Fontaine believes it is flow artifact. she does feel it is reasonable to start coated asa 81 mg daily. after multiple evaluations by neurology and advanced labs and imaging it is Dr Parekh assessment that the patient has functional tremors and weakness and recommends ongoing PT/OT. She was working with them as inpatient and making gradual progress. she was a stand by assist and insurance declines prior authorization for ongoing inpatient rehabilitation so she will be discharged to home with ongoing PT/OT and medical case manager. Of note, patient relates her current symptoms as going back to November 20 when she had the [employer] Covid-19 vaccine (further review of her medical record while hospitalized revealed that she indeed had similar complaints with evaluations long before her vaccination) and subsequently developed acute flu like symptoms including myalgias and headaches and so presented to [facility] ED w/ complaints of monocular right eye blurred vision and severe headache. 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 She had neurology follow up w/ Dr. Tez Mills on 01/05. He notes that the patient saw her it service continuity supervisor ([facility]) who suspected optic neuritis and referred her to Dr. Elizalde at [facility]. [place]. Mills's impression from her visit on 01/05 is that her dizziness and black out symptoms are cervicogenic and/or vestibular in nature and he recommended amitriptyline and flexeril and neuro-ophthalmology follow up. She subsequently had an MRI of orbit while hospitalized here that showed no evidence of optic neuritis. she is being discharged from here to her ophthalmology appointment at [facility] for further evaluation. She continues to c/o vision loss in the right eye. she is being discharged to home with home health services including PT/OT and SNOW MAKER. she will f/u outpatient with pcp, neurology and ophthalmology. discharge discussed with Dr Larson. . Home Meds and New Rx's Prescriptions: New cyclobenzaprine 10 mg Tablet 5 mg PO TID PRN PRNQty: 30 RF: 0 aspirin 81 mg Tablet,Delayed Release (Dr/Ec) 81 mg PO DAILY Qty: 0 RF: 0 levothyroxine 100 mcg Tablet 100 mcg PO SuMoWeFr@0600 Qty: 0 RF: 0 cyanocobalamin (vitamin B-12) [Vitamin B-12] 500 mcg Tablet 1,000 mcg PO DAILY Qty: 60 RF: 0 acetaminophen [Tylenol] 325 mg Tablet 650 mg PO Q4H PRN PRNQty: 0 RF: 0 lidocaine-prilocaine 2.5-2.5 % Cream 0 g topical BID Qty: 60 RF: 0 Continued levothyroxine 88 mcg capsule 88 mcg PO QTUTHSA RF: 0 epinephrine 0.3 MG/SYR auto-injector 0.3 mg IJ PRN PRN (Reason: Allergy Symptoms) Qty: 1 RF: 0 Discontinued levothyroxine 100 mcg tablet 100 mcg PO QMWFSU RF: 0 Discharge Instructions Instructions: Weakness (DC) Stand Alone Forms: Nursing Discharge Form Referrals: Leonora Syed [Primary Care Provider] - 02/02/21 7:45 am Alisson Fontaine MD [ [facility] STAFF PHYSICIAN] - 03/18/21 1:45 pm Activity:: Activity as Tolerated Equipment/Supplies:: No Equipment Needed Diet:: As Tolerated Discharge Orders Discharge Orders: Discharge Order (Routine); Ordered 01/22/21 Ordered By: Sarah Hedrick Discharge Data Discharge Date/Time-TO BE ENTERED AT DEPARTURE: 01/22/21 10:03 DS: Summary Time Spent with Patient providing and/or coordinating discharge services: Greater than 30 minutes Status at Discharge Functional status at discharge: uses cane/walker Overall status at discharge: patient is not back to baseline Mental Status: mental status grossly normal Speech and Movement: other (speech normal, has movement disorder thought functional ) Mood: anxious mood Affect: anxious affect Exam Narrative Exam Narrative: General: Anxious middle-aged female who has fluent speech that was normal the entire time, A&Ox3, able to move all 4 extremities, no tremor or abnormal movements noted. HEENT: EOMI, MMM. Neck with pain on the right side but no rash lesions, no swelling and wtih full range of motion, she continued to press side of her neck stating it hurts when she presses on it (I advised her to stop pressing if that hurt it). she did take a flexeril 5 mg and reported no relief. Heart: RRR, no murmurs Lungs: respirations even and unlabored Abdomen: soft, nontender, nondistended Extremities: no edema, able to move BLE's Psych Mental Status: mental status grossly normal Speech and Movement: other (speech normal, has movement disorder thought functional ) Mood: anxious mood Affect: anxious affect DS: Data Vitals/I&O Vitals and I&O: Vital Signs Temperature 36.8 C 01/22/21 08:16 Temperature Source Tympanic 01/22/21 08:16 Pulse 81 01/22/21 08:16 Pulse Rhythm Regular 01/22/21 02:25 Pulse 65 01/14/21 21:50 Respiratory Rate 18 01/22/21 08:16 Respiratory Effort Non-Labored 01/22/21 02:25 Respiratory Depth Normal 01/22/21 02:25 Respiratory Pattern Normal 01/22/21 02:25 Blood Pressure 114/81 01/22/21 08:16 Blood Pressure Mean 95 01/14/21 21:45 Blood Pressure Position Supine 01/14/21 14:41 Pulse Oximetry 96 01/22/21 08:16 Oxygen Delivery Method Room Air 01/22/21 08:16 Oxygen Flow Rate 0 01/22/21 08:16 Pain Level 6 01/22/21 08:16 Comment 01/21/21 17:09 Intake & Output 01/21/21 01/21/21 01/22/21 11:59 23:59 11:59 Intake Total 130 / 610 480 / 610 Balance 130 / 610 480 / 610 Weight 64.4 kg Intake: IV Oral 120 / 600 480 / 600 Other: Urine Color Yellow Yellow Yellow Urine Appearance Clear Clear Clear Voiding Methods Toilet Toilet Toilet Data Completed and Pending Labs on day of discharge: Labs from last 24 hours 01/20/21 01/20/21 08:30 05:35 Silica Clot Time Scrn Cancelled Dil Salvador Viper Venom Cancelled Lupus Anticoag Interp Cancelled Immunoglobulin A IgG Ab Cancelled Rheumatoid Factor Cancelled SANTOSH Titer Cancelled SANTOSH Titer 2 Cancelled SANTOSH Titer 3 Cancelled SANTOSH Interpretation Cancelled PFSH Medical History Anxiety Fatigue Hypothyroidism Secondary to thyroidectomy due to cancer Thyroid cancer Papillary Surgical History H/O hand surgery History of hysterectomy History of thyroidectomy Social History (Updated 01/15/21 @ 10:31 by Jesus Larson) Smoking/Tobacco Use Status: Never Smoking risk assessment performed?: Yes Alcohol Intake: never Drug use: Never Substance use type: does not use Household members: spouse and children Number of Children: 2 What is your relationship status?: living with partner Panel score (0-1 are the most socially isolated patients): 1 Do you feel safe at home: Yes Do you feel safe in your relationship?: Yes History History 3 Para 2 Hx # Term Pregnancies 2 Multiple births Hx # Pregnancies 1 Ectopic pregnancies AB induced Hx Number of Living Children 2 AB spontaneous 1
--- NOTE | 2021-01-22 09:26 | PDOC.HHF2F ---
Home Health Certification Home Health Certification: 1. Encounter Date and Reason I certify that Raquel Valencia was seen by Sarah Hedrick on 01/22/21 and that I had a [id number] encounter with this patient that meets the physician face to face encounter requirements. 2. Clinical Findings Supporting Skilled Need and Homebound Status I certify that home health services are medically necessary, include either intermittent half-way and/or physical/speech therapy, and that this patient is homebound in that absences from the home require considerable and taxing effort and are infrequent or of short duration, or are attributable to the need to receive medical care. [X] (a) Attached documentation from encounter provides clinical findings supporting skilled need and homebound status (including what assistance patient requires to leave the home). The encounter with the patient was in whole, or in part, for the following medical condition, which is the primary reason for home health care: Generalized Weakness Physical and Occupational Therapy: routine evaluation and treatment HAT FINISHING MATERIALS PREPARER: routine management Homebound: patient is unable to safely leave the house unattended d/t ambulatory dysfunction and generalized weakness 3. Certification and Authentication I certify that I composed the above information based on my clinical judgment relating to this patient's medical condition and, if applicable, clinical findings communicated to me by the NPP or inpatient physician who performed the Home Health Referral. All further orders will be obtained through Dr Leonora Syed - PCP
--- NOTE | 2021-01-22 12:00 | CMDISCH_ITS ---
- If Service Date Differs Date of service: 01/22/21 Time of Service: 12:00 LACE Index Scoring Tool - Questions: Length of Stay (in days): 4 - 6 Acuity (Admit via E.D.?): Yes Comorbidities: Any Tumor E.D. Visits: 7 - Answers: Total Score: 13 Risk of Readmission: High Risk Care Management Discharge Reason for Hospitalization: Weakness Discharge Plan: Raquel's discharge plan changed yesterday, as her insurance declined her request for short term rehab. Per PT, she has been making improvements during this inpatient admission, and is contact guard assist. PT completed caregiver training with her spouse yesterday as well as this morning to prepare to return home with new PT, OT, SMART ENERGY SPECIALIST. CM sent referral to [facility] to start services tomorrow. Raquel has an Opthomology appt at [facility] this afternoon. She was discharged into the care of her spouse. CM will call for a lift assist once they are returning home from [facility], if indicated. She will follow up with her PCP and discharge plan of care. Patient/Family Education Needs: Review discharge instructions regarding activity levels and medications, discussion of self care needs inlcluding ask me three. Services Needed at Discharge: Home Health Care Services (HH PT, OT, SMART ENERGY SPECIALIST)
--- NOTE | 2021-01-22 12:46 | OTDS_ITS ---
Date of service: 01/22/21 Time of Service: 12:46 Occupational Therapy Notes Occupational Therapy Inpatient Discharge Summary Date: 01/22/21 Dates of Service: 01/16/21-01/22/21 Referring Doctor:Misty Gonzalez MD OT Orders: Non Urgent Precautions: Fall, standard, full PATIENT PROFILE/ADMITTING DIAGNOSIS: Pt is a 45 year old female who was admitted through the ED for the following dx of weakness, anxiety, fatigue, headache, chest pain, blurred vision, near syncope, atypical chest pain. Past Medical History: Medical History Anxiety Fatigue Hypothyroidism Secondary to thyroidectomy due to cancer Thyroid cancer Papillary Surgical History H/O hand surgery History of hysterectomy History of thyroidectomy Social History/Home Situation: Pt lives with her spouse and 5 year old son in [place], she reports that she is (I) All ADL/IADLs and notes that she has a tub shower with no issues noted prior to admission. Equipment owned/DME: None SUBJECTIVE:NT OBJECTIVE: ROM: RUE AROM WFL L UE AROM WFL STRENGTH: *Strength measurements are not accurate or consistent with findings from examination. Pt dropped (B) UE before OT made contact with them to test strength and not providing a valid strength measurement. OT will continue to assess. FUNCTIONAL MOBILITY/ADLS: Transfers Pt was able to re-position herself (I) without (A) BATHING: sitting in bed with max (A) set up/clean up Upper Body: (I) Lower Body: pt denied DRESSING: sitting in bed Upper Extremity: (I) [facility] Lower Extremity: Pt denied ASSESSMENT: Patient is a 45-year-old female referred to occupational therapy services with diagnosis of weakness, anxiety, fatigue, headache, chest pain, blurred vision, near syncope, atypical chest pain. Pts reportings and her performance are not consistent as pt is able to demonstrate (I). She performs her ADLs sitting and did not attempt standing position. Functionally she is able to (I) perform her UE dressing and bathing, she denies LE although was able to perform 1 session without (A). Pt is being discharged today and medically cleared per . GOALS 1. Transfers (I)- not met 2. Dressing sitting in chair (I)- sitting in bed met 3. Bathing standing at sink (I)- not met 4. Toileting on toilet (I)- not met 5. Eating (I)= met PLAN OF CARE/TREATMENT PLAN: Discharge OT services. DISCHARGE RECOMMENDATIONS Based on pts current level of function, OT feels that if pt does not show improvements in her functional activity tolerance and ability to perform her standing ADLS that pt would benefit from SNF vs. Home. TREATMENT TIME/MINUTES/CODES N/A Alda Adair OTR/L [facility]
--- NOTE | 2021-01-22 18:48 | PDOC.CMPRO ---
- If Service Date Differs Date of service: 01/21/21 Time of Service: 11:30 Care Management Progress Note S/O: Raquel was sitting up in a chair when CM met with her. She appeared to be in good spirits and stated that she was anxiously awaiting approval from her insurance company to go to a SNF for short term rehab. She verbalized that now that the plan has been made she is anxious to move on to the next step in her recovery process. CM spoke with administrative staff from [facility] several times today and provided clinical updates for Raquel's insurance. Raquel continues to gain in strength and endurance and, if not approved for SNF, will discharge home with home health support and services including PT, OT and PHONE TRIAGE SPECIALIST. A: Raquel is a 45 year old woman admitted on 01/14/21 with generalized weakness P: Raquel will likely be discharged to a [facility] facility before returning home. She has been accepted at [facility] and will transfer there if/when insurance authorization is received. If declined, she will discharge home with new services for PT, OT and PHONE TRIAGE SPECIALIST. Transportation will be determined by disposition. CM will continue to support patient and family and assess for discharge planning needs.
--- NOTE | 2021-01-23 09:53 | INDS_ITS ---
Date of service: 01/23/21 PT Notes Visit Reasons: Generalized Weakness Physical Therapy Inpatient Discharge Summary Date: 01/23/2021 Dates of service: 01/15/2021 3 01/22/2021 Referring Doctor: Jesus Fuller MD PT Orders: PT CONSULT: Safety consult for DC Precautions: Fall. Standard. Activity as tolerated. Patient Profile/Admitting Diagnosis: Patricia is a 45-year-old female who presented to the ED with difficulty moving arms and legs, difficulty talking, and tremors in the left UE that started the previous night. Previously the patient has had multiple ED visits at different hospitals related to same symptoms. Patient working diagnoses include weakness, blurred vision, and urinary hesitancy. Lumbar puncture scheduled later today to rule out oligoclonal bands per hospitalist. PMHX: Medical History Anxiety Fatigue Hypothyroidism Secondary to thyroidectomy due to cancer Thyroid cancer Papillary Surgical History H/O hand surgery History of hysterectomy History of thyroidectomy Social History/Home Situation: Lives with significant other in a private home with 2 steps but without rails. 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 Equipment Owned/DME: None Subjective: Patricia and her spouse are all ready to go home today. They are thankful for all the care she has gotten here and is agreeable to receiving home health PT to continue regaining her prior level of function. Objective: General Observation: Seated on chair. Mental Status: Alert and oriented as to person, place, time, and purpose. Able to pay attention and to resond to questions but has limited focus. Pain: 1-2/10 in B UE/LE after manula muscle testing Vital Signs: WNL for HR and oxygen saturation throughout ROM: Right Upper Extremity: Shoulder Flexion WFL. Shoulder abduction WFL. Elbow flexion WFL. Wrist flexion WFL. Functional opening and closing of hand WFL. Left Upper Extremity: Shoulder Flexion WFL. Shoulder abduction WFL. Elbow flexion WFL. Wrist flexion WFL. Functional opening and closing of hand WFL. Right Lower Extremity: Hip flexion WFL. Hip abduction WFL. Knee flexion WFL. Ankle dorsiflexion WFL. Ankle plantarflexion WFL. Left Lower Extremity: Hip flexion WFL. Hip abduction WFL. Knee flexion WFL. Ankle dorsiflexion WFL. Ankle plantarflexion WFL. Strength: Right Upper Extremity: Shoulder flexors 4/5. Shoulder abductors 4/5. Elbow flexors 4/5. Elbow extensors 4/5. Supervisor Aircraft Maintenance strong. Left Upper Extremity: Shoulder flexors 4/5. Shoulder abductors 4/5. Elbow flexors 4/5. Elbow extensors 4/5. Supervisor Aircraft Maintenance strong. Right Lower Extremity: Hip flexors 4/5. Hip abductors 4/5. Knee flexors 4/5. Knee extensors 4/5. Ankle dorsiflexors/evertors 4/5. Ankle plantarflexors/invertors 4/5. Left Lower Extremity: Hip flexors 4/5. Hip abductors 4/5. Knee flexors 4/5. Knee extensors 4/5. Ankle dorsiflexors/evertors 4/5. Ankle plantarflexors/invertors 4/5. Bed Mobility/Transfers: Rolling independent Supine to sit independent using her BUE for support Sit to supine modified independent using her leg auto collision repair instructor Sit to stand standby assist using her front wheeled walker Stand to sit standby assist using her front wheeled walker Bed to chair standby assist using her front wheel walker Gait: Up to 50 feet + 30 feet + 10 feet using the FWW with CGA with cues provided for heel-toe gait pattern, increased step height, and increased awareness of increasing choreiform movement in the trunk. Balance: Static Sitting: Good Dynamic Sitting: Fair Static Standing: Fair Dynamic Standing: Fair ASSESSMENT: Patient has demonstrated significant gains during this episode of care in terms of B UE/LE strength, activity tolerance, transfer skills, and ambulation task performance. Caregiver education and training was provided extensively for bed mobility, transfers, and short distance ambulation. P revious treatment sessions focused on mobility ADL progression and core strengthening with progression limited by patient's overall response to exertion which mostly cause increased tingling, increase in involuntary/choreiform-like movements in trunk and shoulders, and complaints of dizziness. From a mobility and safety standpoint as of today, patient requires the presence of a caregiver and the use of a front wheeled walker to safely perform all transfers and short distance ambulation related to diagnosis of functional neurological disorder. Tingling in head, arms, and trunk are bilateral and does not follow sensory nerve distribution. Overall symptom exacerbation seems to be related to level of exertion, fatigue, and stress. Patient will be home-bound will benefit from home health PT services in order to progress mobility level using front wheeled walker, perform stair negotiation training, assess home safety, identify additional equipment needs, and establish a functional maintenance program that will increase ability of patient to thrive at home. Patient continues to present with clinical signs and symptoms consistent with current/admitting diagnoses that have resulted to mobility limitations, gait instability, generalized weakness, and impairment of motor control as demonstrated by the following impairment level findings: 1. Incoordination 2. Impaired standing balance 3. Impaired activity tolerance 4. Dizziness 5. Anxiety Impairments are continuing to contribute to the following functional limitations: 1. Inability to safely ambulate without assistive device 2. Increase completion time for mobility ADL performance 3. Increased fall risk 4. Inability to negotiate steps alone safely CAREGIVER EDUCATION: Caregiver education and training continued with patient and spouse for car transfers. Patient required contact-guard assist throughout transfer to their big truck using a footstool and running board. Goals: Goals X1 week 1. Supine-Sit independent MET 2. Sit-Supine independent MET 3. Sit-Stand contact-guard assist MET 4. Stand-Sit contact-guard assist MET 5. Bed-Chair contact-guard assist MET 6. Chair-Bed contact-guard assist MET 7. Contact-guard assist gait on level surface with use of front wheeled walker for at least 300 feet without report of pain nor dyspnea NOT MET 8. Contact-guard assist stair negotiation while holding onto B rails for at least 3 steps without report of pain nor dyspnea NOT MET 9. Independent with home exercise program MET 10. Fair static and dynamic standing balance/tolerance MET DISCHARGE RECOMMENDATIONS: 1. Patient will benefit from home health PT services as soon as practicable in order to progress mobility level using front-wheeled walker, assess home safety, identify additional equipment needs, and establish a functional maintenance program that will increase ability of patient to thrive at home 2. Will require front?wheeled walker to increase independence and reduce fall risk at home 3. Will require assistance of caregiver for all transfers and ambulation task performance 4. Will need ambulatory gait belt for safety TREATMENT CODE/TIME: 43677 x 17 minutes beginning at 9:53 AM. Thank you know your 44 for the opportunity to participate in the care of this patient. Kirsten Amezcua PT, DPT, CLT [facility] [place], [place]
[2021-01-27 14:49] LABS: IgG, S 1142 mg/dL (610-1,616)
== END 2021-01-22 10:03 | disposition home health service (06) | DRG 948 ==
LOC: ER 20:49 → MS 22:02
PROVIDERS: Psychiatry & Neurology Neurology; Registered Nurse Emergency; Admitting Provider Internal Medicine; Emergency Provider Physician Assistant; PCP Family Medicine; Visit Provider Internal Medicine
DX: R53.1 Weakness (principal); R47.81 Slurred speech; R26.2 Difficulty in walking, not elsewhere classified; H53.8 Other visual disturbances; R39.11 Hesitancy of micturition; R29.818 Other symptoms and signs involving the nervous system; Z85.850 Personal history of malignant neoplasm of thyroid; E89.0 Postprocedural hypothyroidism; F41.9 Anxiety disorder, unspecified; R51.9 Headache, unspecified; G25.2 Other specified forms of tremor; G47.33 Obstructive sleep apnea (adult) (pediatric); Z20.822 Contact with and (suspected) exposure to COVID-19; R55 Syncope and collapse; H54.62 Unqualified visual loss, left eye, normal vision right eye
CPT/HCPCS: 36415; 70544; 70547; 76881; 80053; 82945; 83520; 85652; 87116; 87206; 87389; 87635; 87798; 87799; 89050; 89051; 94200; 96361; 96365; 97110; 97162; 97166; 97530; 97535; 99285; 70540; 70551; 72141; 72146; 72148; 82040; 82042; 82607; 82784; 83916; 84157; 85025; 85610; 85730; 86038; 86140; 86431; 86592; 86618; 87070; 87205; 87496; 99220; 99232; 99233; 99239; G0378; J0131

== ENCOUNTER 2021-02-05 19:31 | Observation (INO) | payer OTHER, SELFPAY ==
[2021-02-05 19:48] VITALS: BP 141/91; PULSE 102; RESP 18; TEMP 36.5; O2SAT 99
--- NOTE | 2021-02-05 19:52 | W.ED.GENAD ---
Discharge Plan Disposition Patient Disposition: [facility] INPATIENT Condition: Fair Discharge Details Clinical Impression: Anxiety Primary Care Provider: Leonora Syed ED Provider: Zachary Bridges Home Meds and New Rx's Prescriptions: No Action levothyroxine 88 mcg capsule 88 mcg PO QTUTHSA RF: 0 epinephrine 0.3 MG/SYR auto-injector 0.3 mg IJ PRN PRN (Reason: Allergy Symptoms) Qty: 1 RF: 0 cyclobenzaprine 10 mg Tablet 5 mg PO TID PRN PRNQty: 30 RF: 0 aspirin 81 mg Tablet,Delayed Release (Dr/Ec) 81 mg PO DAILY Qty: 0 RF: 0 levothyroxine 100 mcg Tablet 100 mcg PO SuMoWeFr@0600 Qty: 0 RF: 0 cyanocobalamin (vitamin B-12) [Vitamin B-12] 500 mcg Tablet 1,000 mcg PO DAILY Qty: 60 RF: 0 acetaminophen [Tylenol] 325 mg Tablet 650 mg PO Q4H PRN PRNQty: 0 RF: 0 lidocaine-prilocaine 2.5-2.5 % Cream 0 g topical BID Qty: 60 RF: 0 venlafaxine [Effexor XR] 37.5 mg Capsule,Extended Release 24hr 37.5 mg PO DAILY RF: 0 Medical Decision Making <Sarah Hedrick NP - Last Filed: 02/06/21 15:23> this is a a45 year old female well known to [facility], with recent hospitalization and extensive work up, ultimately diagnosed with functional neurological disorder. she denies any new medical issue or c/o. her gait and mobility is drastically improved/normalized since date of discharge from inpatient on 01/22/21. physical exam unremarkable. routine psychiatric screening labs ordered and reviewed. she is medically cleared for voluntary inpatient psychiatric care for medication management and oversight. she denies suicidal or homicidal ideation. she is not requiring CPSO and is cooperative with no behavioral issues. Bed requests have been placed by mental health provider and it appears there will be no bed available tonight. she is agreeable to stay here until on becomes available. patient is stable and medically cleared. she will be signed off to Dr Ibanez at shift change pending bed acceptance. Medical Records Medical records reviewed: Yes I reviewed the patient's medical records. <Pranav Ibanez MD - Last Filed: 02/06/21 07:10> Patient is voluntary for psychiatric admission. She has no SI or HI and no CPSO is required. There were no issues overnight. She will be signed over to oncoming physician, awaiting placement by mental health. Lab Data Lab results reviewed: Yes I reviewed the patient's lab results. <Deo Mondragon MD - Last Filed: 02/06/21 12:01> Received signout on the patient for the morning of February 06. She remained stable and interactive with staff. We performed a huddle with care management and [facility] human services. Patient continues to await inpatient placement, she does not require CPSO given lack of suicidality or homicidality and no aggressive features. See care management note. Given the apparently new onset of some of her complaints, differential diagnosis brought in to include the unlikely but possible etiology of an organic brain disorder. Would note, review of records, notes neurology consultation on January 15 and note of previous MRI. Unlikely acute change, but given the initial presentation of the patient now to the ER, screening CT scan of the head was obtained. Patient's neurologic exam is within normal limits. On my exam she is ambulatory without focal neurologic deficit, tearful but interactive and appropriate with staff. CT: TECHNIQUE: Imaging Protocol: Axial computed tomography images with coronal and sagittal reformatted images were created and reviewed COMPARISON: CT CT HEAD WO from 11/28/2020 FINDINGS: Ventricles and Extra axial spaces: Normal in size and morphology for the patient's age. Hemorrhage: None. Cerebral parenchyma: Normal. Midline shift: None. Brainstem/Cerebellum: Normal. Calvarium: Normal. Visualized Paranasal sinuses/Mastoids: Clear. Soft Tissues: Unremarkable. IMPRESSION: No acute intracranial process. <Zachary Bridges MD - Last Filed: 02/06/21 18:16> pt remains stable, calm in the room awaiting placement. Records reviewed from [facility] saw optho after d/c as inpatient here earlier this month and had normal eye exam and they reviewed imaging and did not feel there was evidence of optic neuritis. Awaiting voluntary psych placement per nurse marketing sales supervisor we do have beds available upstairs and as she is voluntary will talk with hospitalist about admission until psych placement is found HPI <Sarah Hedrick NP - Last Filed: 02/06/21 15:23> General Mode of arrival: ambulatory. Date/Time Provider Initiated Documentation: 02/05/21 19:37. Limitations to Documentation: no limitations. Information obtained by: patient. HPI Narrative: Patient presents to the emergency department for evaluation as referred by mental health. She reports she has not been taking her medications that she does not feel well emotionally. She denies any fever chills or recent illness. She states she just really needs help because mentally she is not in a good place. She states since discharge from here she has not been able to function. Related Data Home Medications Medication Instructions Recorded Confirmed epinephrine 0.3 mg IJ PRN PRN #1 kit 03/27/15 02/05/21 levothyroxine 88 mcg capsule 88 mcg PO QTUTHSA 12/17/20 02/05/21 acetaminophen [Tylenol] 650 mg PO Q4H PRN PRN #0 tab 01/22/21 02/05/21 aspirin 81 mg PO DAILY #0 tab 01/22/21 02/05/21 cyanocobalamin (vitamin B-12) 1,000 mcg PO DAILY #60 tab 01/22/21 02/05/21 [Vitamin B-12] cyclobenzaprine 5 mg PO TID PRN PRN #30 tab 01/22/21 02/05/21 levothyroxine 100 mcg PO SuMoWeFr@0600 #0 tab 01/22/21 02/05/21 lidocaine-prilocaine 0 g TOPICAL BID #60 g 01/22/21 venlafaxine [Effexor XR] 37.5 mg PO DAILY 02/06/21 02/06/21 Previous Rx's Medication Instructions Recorded epinephrine 0.3 mg IJ PRN PRN #1 kit 03/27/15 acetaminophen [Tylenol] 650 mg PO Q4H PRN PRN #0 tab 01/22/21 aspirin 81 mg PO DAILY #0 tab 01/22/21 cyanocobalamin (vitamin B-12) 1,000 mcg PO DAILY #60 tab 01/22/21 [Vitamin B-12] cyclobenzaprine 5 mg PO TID PRN PRN #30 tab 01/22/21 levothyroxine 100 mcg PO SuMoWeFr@0600 #0 tab 01/22/21 lidocaine-prilocaine 0 g TOPICAL BID #60 g 01/22/21 Allergies Allergy/AdvReac Type Severity Reaction Status Date / Time Gadolinium-Containing Allergy Severe Anaphylaxis Verified 02/05/21 19:55 Contrast Medi PER DM 2011 Penicillins Allergy Severe Anaphylaxsi Verified 02/05/21 19:55 s Sulfa (Sulfonamide Allergy Severe Anaphylaxsi Verified 02/05/21 19:55 Antibiotics) s venom-honey bee Allergy Severe Anaphylaxsi Verified 02/05/21 19:55 [bee venom (honey bee)] s citalopram Allergy Mild Hives Verified 02/05/21 19:55 ofloxacin [From Floxin] Allergy Mild Skin Rash Verified 02/05/21 19:55 naproxen [From Aleve] Allergy Verified 02/05/21 19:55 azithromycin [From Zithromax] AdvReac Severe Anaphylaxsi Verified 02/05/21 19:55 s Iodinated Contrast Media AdvReac Severe Anaphylaxsi Verified 02/05/21 19:55 [Iodinated Contrast Media - s IV Dye] ketorolac tromethamine AdvReac Severe Anaphylaxsi Verified 02/05/21 19:55 [From Toradol] s iodine AdvReac Intermediate Anaphylaxsi Verified 02/05/21 19:55 s lorazepam [From Ativan] AdvReac Intermediate Dizziness/L Verified 02/05/21 19:55 ightheade horse flies Allergy Severe Anaphylaxsi Uncoded 02/05/21 19:55 s General CLARI: 2 Review of Systems <Sarah Hedrick NP - Last Filed: 02/06/21 15:23> All systems reviewed & are unremarkable except as noted in HPI and below Constitutional Constitutional: Denies fever(s) ENT Ears, Nose, Mouth, and Throat: Denies vertigo and Denies dizziness Cardiovascular Cardiovascular: Denies chest pain and Denies dyspnea Respiratory Respiratory: Denies cough and Denies dyspnea Gastrointestinal Gastrointestinal: Denies abdominal pain Neurologic Neurologic: Denies vertigo and Denies dizziness Psychiatric Psychiatric: Reports anxiety, Reports paranoia, Denies homicidal ideation and Denies suicidal ideation PFS <Sarah Hedrick NP - Last Filed: 02/06/21 15:23> Medical History Anxiety Fatigue Hypothyroidism Secondary to thyroidectomy due to cancer Thyroid cancer Papillary Surgical History H/O hand surgery History of hysterectomy History of thyroidectomy Social History (Updated 01/15/21 @ 10:31 by Jesus Carrillo) Smoking/Tobacco Use Status: Never Smoking risk assessment performed?: Yes Alcohol Intake: never Drug use: Never Substance use type: does not use Household members: spouse and children Number of Children: 2 What is your relationship status?: living with partner Panel score (0-1 are the most socially isolated patients): 1 Do you feel safe at home: Yes Do you feel safe in your relationship?: Yes History History 3 Para 2 Hx # Term Pregnancies 2 Multiple births Hx # Pregnancies 1 Ectopic pregnancies AB induced Hx Number of Living Children 2 AB spontaneous 1 Exam <Sarah Hedrick NP - Last Filed: 02/06/21 15:23> Const General: cooperative and anxious Nutritional Appearance: thin Orientation: alert, awake and oriented x3 HENMT Head: normal to inspection, normocephalic and atraumatic Resp Effort & Inspection: normal respiratory effort Auscultation: clear to auscultation bilaterally Cardio Rate: regular rate Rhythm: regular rhythm GI Inspection: normal to inspection Palpation: soft and nontender Skin General skin exam: no rashes or lesions noted Neuro General: patient alert, patient awake and patient oriented x3 Cognition: abnormal cognition Gait: normal gait Motor: muscle tone normal throughout and strength 5/5 throughout Extrem General: normal to inspection, full ROM and no pedal edema Psych Appearance: grossly normal Mental Status: mental status grossly normal Speech and Movement: speech and movement normal Mood: anxious mood Affect: blunted Attitude: cooperative Thought Process: perseverating Thought Content: delusions, obsessions and phobias Insight: poor Judgment: poor Sign Out <Sarah Hedrick NP - Last Filed: 02/06/21 15:23> Sign Out Data: Sign Out Comment: pending placement Last updated by Pranav Ibanez MD at 02/06/21 07:10 Sign Out Comment: Remains calm, had negative head CT, await Last updated by Deo Mondragon MD at 02/06/21 15:15
--- NOTE | 2021-02-05 19:56 | PDOC.MHCN_ITS ---
Date of service: 02/05/21 Time of Service: 17:35 Mental Health Crisis Note Presenting Issue How did you arrive at the ED and why did you come: Client arrived via self to ED. Client was assessed by this clinician at [facility] today per request from Phoebe Ware (PCP). Client reported having thought that she is going to as well as fleeting SI with no intent of plan. Client reported that she took the [employer] COVID vaccine on 11/20 and that since then she has been having severe panic attack that had led her to the emergency room 11 times as well as dizziness, heightened anxiety and a horrible fear of dying. Client also reported that she experiences pharmacophobia and that she had been unable to take any of the medication that could actually help her feel better as prescribed. Client described this as having immediate physiological reaction such as tiredness, dizziness, nausea, pains in her chest and heart and overwhelming fear of dying anytime she take any medication. Precipitating Factors Client endorsed fleeting SI but no HI. Client denied any intent as well as plan of harm to self or others at this time. Disposition BEHAVIOR: Client presented as hopeless, overwhelmed and highly anxious. Client also presented as very tearful and had instances where she was unable to catch her breath due to feeling anxious as well as panic EYE CONTACT: Client maintained appropriate eye contact MOOD: Client presented as depressed, scared, fatigued and confused in regards to why she is feeling the way she feels. AFFECT: Client presented with full affect APPETITE: Client reported poor appetite SLEEP(trouble falling/staying asleep: Client reported trouble falling and staying asleep due to fear of dying, anxiety and panic. Plan Client is currently on voluntary status and expressed a strong willingness to get treatment at an in-patient facility. Client will also need to be reassessed by [facility] if and when she decides to discharge before placement. Client will be assessed daily by [facility] till she is placed. Signature Clinician's Name/Title: Juana Bailon / Emergency Services Clinician.
[2021-02-05 20:18] LABS: Abs Immature Grans 0.04 10^3/uL (0.0-0.06); Absolute Basophil Count 0.06 10^3/uL (0.0-0.2); Absolute Eosinophil Count 0.17 10^3/uL (0.0-0.7); Absolute Lymphocyte Count 2.55 10^3/uL (1.2-3.4); Absolute Monocyte Count 0.57 10^3/uL (0.1-0.8); Absolute Neutrophil Count 6.95 10^3/uL (1.2-6.7); Basophils % 0.6; Eosinophils % 1.6; HCT 38.1 % (36.0-46.0); HGB 12.7 g/dL (11.2-15.7); Immature Grans % 0.4; Lymphocytes % 24.7; MCHC 33.3 % (32.0-36.0); MCV 89.9 fL (80-95); MPV 9.8 fL (8.0-11.0); Monocytes % 5.5; Neutrophils % 67.2; Nucleated RBC 0 %; Platelet Count 386 10^3/uL (130-400); RBC 4.24 10^6/uL (3.93-5.22); RDW 12.6 % (11.7-14.6); RDW-SD 40.8 fL; WBC 10.34 10^3/uL (4.4-10.8)
[2021-02-05 20:43] LABS: *AMPHETAMINES SCREEN URINE Negative (Negative); *BARBITURATES SCREEN URINE Negative (Negative); *BENZODIAZEPINES SCREEN URINE Negative (Negative); Cannabinoids THC Negative (Negative); Cocaine Screen,Urine Negative (Negative); METHADONE URINE SCREEN Negative (Negative); OPIATES URINE SCREEN Negative (Negative)
[2021-02-05 20:44] LABS: Tricyclic Antidepressants Negative (Negative)
[2021-02-05 20:47] LABS: Bilirubin Negative (Negative); Blood Trace-intact (Negative); Clarity Clear (Clear); Glucose Negative (Negative); Ketones Negative (Negative); Leukocyte Esterase Negative (Negative); Nitrite Negative (Negative); Urobilinogen 0.2 EU/dL (Up TO 0.2)
[2021-02-05 21:14] LABS: ALT 22 U/L (14-59); AST 12 U/L (15-37); Albumin 4.4 g/dL (3.4-5.0); Alkaline Phosphatase 82 U/L (46-116); Anion Gap 12.5 mmol/L (3-11); BUN 13 mg/dL (7-18); Bilirubin, Total 0.2 mg/dL (0.2-1.0); CO2 24.5 mmol/L (21.0-32.0); CREATININE 0.9 mg/dL (0.55-1.02); Calcium 9.7 mg/dL (8.5-10.1); Chloride 105 mmol/L (98-107); Glucose 113 mg/dL (74-106); Potassium 3.7 mmol/L (3.5-5.1); Sodium 142 mmol/L (136-145); TSH 1.03 uIU/mL (0.36-3.74); Total Protein 8.4 g/dL (6.4-8.2)
[2021-02-05 21:21] LABS: Bacteria Negative HPF (Negative); C & S Indicated? No; Casts Negative LPF (Negative); Crystals Negative HPF (Negative); Epithelial Cells Rare HPF (Negative); Mucus Negative (Negative); Other Cells Negative (Negative); RBC 0-2 HPF (0-2); WBC Negative HPF (0-5)
[2021-02-05 21:49] LABS: Source Nasal/Nares
[2021-02-05 22:55] LABS: COVID-19 PCR Negative (Negative)
[2021-02-06] MEDS: Levothyroxine 88 MCG TAB PO (07:39)
--- NOTE | 2021-02-06 08:27 | NUR.NOTE ---
patient offered and given breakfast with a beverage
[2021-02-06 08:32] VITALS: BP 122/81; PULSE 71; RESP 20; TEMP 36.7; O2SAT 99
--- NOTE | 2021-02-06 09:01 | PDOC.MHCN_ITS ---
Date of service: 02/06/21 Time of Service: 09:02 Mental Health Crisis Note Presenting Issue How did you arrive at the ED and why did you come: Pt arrived via herself on 02.05.2021 after she was assessed at [facility] by QAMAR Bailon. She is seeking voluntary admission for treatment. Precipitating Factors Pt denied current SI stating I just can't keep living like this. Pt denied HI. Disposition BEHAVIOR: Pt is cooperative and engaged. She is thoughtful about her answers to ensure she is relaying her thoughts and feelings accurately. She is anxious and tearful and depressed. She has had no behavioral issues since arriving. EYE CONTACT: Eye contact is good. MOOD: Mood is depressed and anxious. AFFECT: Affect is tearful and anxious. APPETITE: Pt reported she does not have an appetite however, she forces herself to eat. SLEEP(trouble falling/staying asleep: Pt reported she has not been sleeping well however, because she was at [facility] last night she noted it was the best sleep she has had in awhile as she knew that if something happened to her medically she was in the hospital. Plan This clinician discussed other possible options for treatment with the Pt however she was very adamant that she does not feel she would take medications outside of a hospital for fear of the possible side effects therefore, she is only interested in a hospital setting. Pt will be assessed daily by [facility] and placement sought. Until such time as placement is found Pt will remain at [facility]. Calls were made to [facility] - nikhil Loving, [facility] - Jayshree, none available, [facility] - Giuliana, will know more after 10am, [facility] - Inder, only in house today, [facility] - Sridevi, Nikhil and no discharges today, [facility] - Stephanie, no out of state referrals being accepted, [facility] - Michelle, left a voicemail. A huddle was had with Dr. Mondragon and Quality Measurement Specialist, Violette and Violette will check with Shanta Rosado regarding the need for a CPSO or not. At this time the Pt does not have one but this may not be an option based on the reason she is here. All were informed of the bed status as of 9:30am on 02.06.2021. Signature Clinician's Name/Title: Sandee Gomez MS, [facility] Emergency Services Clinician, [facility]
--- NOTE | 2021-02-06 10:49 | DI.CT_ITS ---
Exam(s) CT HEAD WO EXAM: CT HEAD WO CLINICAL HISTORY: new onset mood change. TECHNIQUE: Imaging Protocol: Axial computed tomography images with coronal and sagittal reformatted images were created and reviewed COMPARISON: CT CT HEAD WO from 11/28/2020 FINDINGS: Ventricles and Extra axial spaces: Normal in size and morphology for the patient's age. Hemorrhage: None. Cerebral parenchyma: Normal. Midline shift: None. Brainstem/Cerebellum: Normal. Calvarium: Normal. Visualized Paranasal sinuses/Mastoids: Clear. Soft Tissues: Unremarkable. IMPRESSION: No acute intracranial process. RADIATION DOSE DELIVERED: 680.21mGy.cm Total DLP DATA REPOSITORY: All CT scans at this facility are submitted to the National Radiology Data Registry (NRDR) Dose Index Registry (DIR) with the [employer] (A[employer]). RADIATION OPTIMIZATION: All CT scans at this facility use at least one of these dose optimization te chniques: automated exposure control; mA and/or kV adjustment per patient size (includes targeted exa ms where dose is matched to clinical indication); or iterative reconstruction.
--- NOTE | 2021-02-06 11:55 | PDOC.ERCMPRO ---
- If Service Date Differs Date of service: 02/06/21 Time of Service: 10:30 Care Management Progress Note S/O: Patricia was sitting on the side of her bed when CM met with her. She engaged readily with CM, known to her from her recent admission.Patricia was teary and shared that she has been unable to function at home. She verbalized being afraid to take any medication and yet understands that she needs them. Patricia described a recent experience where she was started on a low dose of Paxil by her PCP and was sick for 4 days before she stopped it. She described feeling drugged, nauseated and shaky. She stated that she wants to go into a hospital for treatment because she knows she will need to be monitored when started on any medications. Patricia also shared that things at home have been stressful. 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 She stated that she has been unable to work since November and this has added financial concerns to the other stresses of her illnesses. Patricia was seen by CRYSTAL Ash form [facility] this morning. A referral was sent to [facility] in [place]. There are no beds at [facility], [facility], [place] or [place]. It is likely Patricia will remain at [facility] through the weekend. A huddle was held with Sandee Wong and FERO[facility] to discuss Patricia's situation. The provider who admitted her in the ED last night as well as Dr. Mondragon have determined that Patricia does not pose a safety risk to herself or others. Sandee from [facility] agrees with this assessment. No CPSO was ordered and no Safety Plan has been created. She will be evaluated daily while at [facility] by FEROZ as well as [facility] crisis screeners. A: Patricia is a 45 year old woman who presented to the ED with acute, debilitating anxiety and fear of dying. P: Patricia is seeking voluntary placement in a psychiatric facility for stabilization.
--- NOTE | 2021-02-06 12:19 | NUR.NOTE ---
patient asked for and given lunch
--- NOTE | 2021-02-06 13:15 | RT.EKG_ITS ---
APPROVED REPORT Exam: Resting ECG Reason for Exam: Chest pain Patient Location: E HR:76 bpm ECG Measurements Heart Rate 76 AXIS [place] 146 P 64 QRSd 83 QRS 61 QT 391 T 33 QTc 442 Conclusion Sinus rhythm...normal P axis, V-rate 60- 99
--- NOTE | 2021-02-06 13:49 | NUR.NOTE ---
patient complaining of lightheadness, and chest discomfort. VS are WNL. EKG done given to Dr. Mondragon. PAtient very scared that she has a medical problem. Patient reassured that all tests are good. No medical problems detected. Patient encouraged to drink some water and listen to relaxing music.
[2021-02-06 16:56] VITALS: BP 134/94; PULSE 74; RESP 18; O2SAT 99
[2021-02-06] MEDS: diphenhydrAMINE Elixir 25 MG/10 ML CUP (19:00)
[2021-02-06 20:24] VITALS: BP 156/90; PULSE 78; RESP 18; TEMP 36; O2SAT 100
--- NOTE | 2021-02-06 21:01 | W.PM.HP.N ---
Date of service: 02/06/21 Time of Service: 21:01 Assessment and Plan Assessment and plan (1) Anxiety: Status: Chronic Assessment and plan: trial of Klonopin 0.25 mg bid. I attempted to get her to try a night time dose tonight but she is fearful of taking a medication at night in that she fears she will have anaphylaxis and no one will be around to monitor her and that she won't wake up. She is willing to try this during the day. for tom she will try benadryl to help her to sleep tonight. She wants inpatient psychiatric help to get on appropriate medications to help her remain calm and focused, but she is fearful of side effects. (2) Depression: Status: Chronic Assessment and plan: as above. She denies any suicidal thoughts or homicidal thoughts. She does express fear of dying. Qualifiers: Depression Type: major depressive disorder Major depression recurrence: unspecified whether recurrent Active/Remission status: currently active Major depression episode severity: moderate Qualified Code(s): F32.1 - Major depressive disorder, single episode, moderate (3) Panic attacks: Status: Acute Assessment and plan: trial of Klonopin as above. Note: she has had low dose valium 2.5 mg w/out adverse effects in the past. History of Present Illness History of Present Illness Chief Complaint: panic attacks, anxiety, depression Narrative: 45 yr old female recently hospitalized @ [facility] and underwent extensive neurologic workup and was diagnosed w/ a functional neurologic disorder after presenting w/ multiple neurologic symptoms including weakness, paresthesias, speech changes and ambulatory dysfunction (see discharge summary 01/22/2021). Extensive workup included CT head, MRI head, MRA head and LP for oligoclonal bands to evaluate for M.S. and other demyelinating process. Her PMH also includes thyroid cancer (papillary s/p thyroidectomy in 2008 w/ subsequent ablative radioiodine). She was discharged home w/ home health services but returned to the ER 02/05/2021 d/t patient feeling depressed and anxious. She was started on Paxil by her PCP but was nauseated for 4 days before she stopped the medicine on her own. She is fearful of dying but denies any suicidal thoughts. she is scared to take any medications for her anxiety and depression out of fear of how she might react. She has a long list of medication allergies/side effects. She is seeking voluntary psychiatric inpatient treatment. Patient was seen by [facility] and CM after being medically cleared by Dr. Mondragon in the ER last night. Referrals have been sent to [facility] hospitals w/ inpatient psychiatric beds including [facility], [facility], [facility] and [facility] in [place]. It was determined that she did not need a CPSO and no safety plan was created after huddle this morning by [facility], ER and CM. She is admitted to [facility] pending transfer to an accepting psychiatric facility. Patient states that she has been in a constant anxious states since being discharged from the hospital. She has frequent (daily and sometimes multiple times per day) of panic attacks in which she feels chest pains, dyspnea, tingling in her arms and hands and lightheadedness. She has tried various maneuvers including breathing techniques and visual imagery w/ little success. She is fearful of dying but she is also fearful of taking medications that she might have an anaphylactic reaction. Review of Systems All systems reviewed & are unremarkable except as noted in HPI and below ENT Ears, Nose, Mouth, and Throat: Reports dizziness and Reports disequilibrium Cardiovascular Cardiovascular: Reports chest pain at rest (during her panic attacks), Reports lightheadedness and Reports dyspnea Respiratory Respiratory: Reports dyspnea Gastrointestinal Gastrointestinal: Reports nausea Genitourinary Genitourinary: Reports system reviewed and no additional complaints, except as documented Musculoskeletal Musculoskeletal: Reports muscle weakness, Reports numbness, Reports radiating pain into limb and Reports tingling Integumentary/Breasts Skin/Breast: Reports system reviewed and no additional complaints, except as documented Neurologic Neurologic: Reports dizziness, Reports numbness, Reports tingling, Reports paresthesias and Reports disequilibrium Psychiatric Psychiatric: Reports abnormal sleep pattern, Reports anxiety, Reports change in appetite (depressed appetite w/ weight loss), Reports depression, Reports difficulty concentrating, Reports irritability, Reports anhedonia, Reports panic attacks, Denies homicidal ideation and Denies suicidal ideation [facility] Medical History (Updated 02/06/21 @ 22:00 by Jesus Carrillo) Anxiety Fatigue Functional neurological symptom disorder with mixed symptoms (~01/15/21) Hypothyroidism Secondary to thyroidectomy due to cancer Thyroid cancer Papillary Surgical History H/O hand surgery History of hysterectomy History of thyroidectomy Social History Smoking/Tobacco Use Status: Never Smoking risk assessment performed?: Yes Alcohol Intake: never Drug use: Never Substance use type: does not use Household members: spouse and children Number of Children: 2 What is your relationship status?: living with partner Panel score (0-1 are the most socially isolated patients): 1 Do you feel safe at home: Yes Do you feel safe in your relationship?: Yes History History 3 Para 2 Hx # Term Pregnancies 2 Multiple births Hx # Pregnancies 1 Ectopic pregnancies AB induced Hx Number of Living Children 2 AB spontaneous 1 Meds Allergies and Home Medications Allergies Allergy/AdvReac Type Severity Reaction Status Date / Time Gadolinium-Containing Allergy Severe Anaphylaxis Verified 02/05/21 19:55 Contrast Medi PER DM 2011 Penicillins Allergy Severe Anaphylaxsi Verified 02/05/21 19:55 s Sulfa (Sulfonamide Allergy Severe Anaphylaxsi Verified 02/05/21 19:55 Antibiotics) s venom-honey bee Allergy Severe Anaphylaxsi Verified 02/05/21 19:55 [bee venom (honey bee)] s citalopram Allergy Mild Hives Verified 02/05/21 19:55 ofloxacin [From Floxin] Allergy Mild Skin Rash Verified 02/05/21 19:55 naproxen [From Aleve] Allergy Verified 02/05/21 19:55 azithromycin [From Zithromax] AdvReac Severe Anaphylaxsi Verified 02/05/21 19:55 s Iodinated Contrast Media AdvReac Severe Anaphylaxsi Verified 02/05/21 19:55 [Iodinated Contrast Media - s IV Dye] ketorolac tromethamine AdvReac Severe Anaphylaxsi Verified 02/05/21 19:55 [From Toradol] s iodine AdvReac Intermediate Anaphylaxsi Verified 02/05/21 19:55 s lorazepam [From Ativan] AdvReac Intermediate Dizziness/L Verified 02/05/21 19:55 ightheade horse flies Allergy Severe Anaphylaxsi Uncoded 02/05/21 19:55 s Home Medications Medication Instructions Recorded Confirmed Type epinephrine 0.3 mg IJ PRN PRN #1 kit 03/27/15 02/05/21 Rx levothyroxine 88 mcg capsule 88 mcg PO QTUTHSA 12/17/20 02/05/21 History acetaminophen [Tylenol] 650 mg PO Q4H PRN PRN #0 tab 01/22/21 02/05/21 Rx aspirin 81 mg PO DAILY #0 tab 01/22/21 02/05/21 Rx cyanocobalamin (vitamin B-12) 1,000 mcg PO DAILY #60 tab 01/22/21 02/05/21 Rx [Vitamin B-12] cyclobenzaprine 5 mg PO TID PRN PRN #30 tab 01/22/21 02/05/21 Rx levothyroxine 100 mcg PO SuMoWeFr@0600 #0 tab 01/22/21 02/05/21 Rx lidocaine-prilocaine 0 g TOPICAL BID #60 g 01/22/21 Rx venlafaxine [Effexor XR] 37.5 mg PO DAILY 02/06/21 02/06/21 History Exam Const General: cooperative, healthy appearing, anxious and well hydrated Nutritional Appearance: average body habitus Orientation: alert, awake and oriented x3 HENMT Head: normal to inspection, no palpable skull fracture, normocephalic and atraumatic Face and sinus: normal facial exam Eyes General: appearance normal, both eyes and all related structures Alignment and Position: alignment normal Periorbital: periorbital findings normal Eyelids: eyelids normal Conjunctivae: conjunctivae normal Sclera: sclerae normal EOM: EOM intact bilaterally Neck Neck: normal visual inspection, full ROM, no lymphadenopathy, no meningeal signs, supple and no JVD Thyroid: other (absent) Carotids: normal carotid upstroke Lymphatic: no lymphadenopathy noted Resp Effort & Inspection: normal respiratory effort and able to speak in complete sentences Auscultation: clear to auscultation bilaterally Cardio Jugular venous pressure: no JVD Palpation: normal PMI Rate: regular rate Rhythm: regular rhythm Heart Sounds: S1 normal, S2 normal and normal, physiologic split S2 GI Inspection: normal to inspection Palpation: soft and no hepatosplenomegaly Percussion: normal to percussion Neuro General: patient alert, patient awake, patient oriented x3 and no focal motor deficits Cranial Nerves: PERRL, accommodation normal, EOM intact bilaterally, no nystagmus, facial strength normal, tongue midline, hearing normal, able to rotate head bilaterally and able to elevate shoulders bilaterally Cognition: normal cognition Speech: speech normal Motor: muscle tone normal throughout and strength 5/5 throughout Sensory Exam: no sensory deficits noted Extrem General: normal to inspection, full ROM and capillary refill normal Psych Appearance: well kempt Mental Status: mental status grossly normal Speech and Movement: speech and movement normal Mood: anxious mood Affect: anxious affect Attitude: cooperative Thought Process: normal Thought Content: normal Insight: insight good Judgment: judgment good Results Labs Result diagrams: 02/05/21 20:05 02/05/21 20:05 Labs: Laboratory Results - last 24 hr 02/05/21 02/05/21 02/05/21 19:40 20:05 21:35 Sodium 142 Potassium 3.7 Chloride 105 Carbon Dioxide 24.5 Anion Gap 12.5 H BUN 13 Creatinine 0.9 Estimated GFR/1.73 m2 >= 60.00 Glucose 113 H Calcium 9.7 Total Bilirubin 0.2 AST 12 L ALT 22 Alkaline Phosphatase 82 Total Protein 8.4 H Albumin 4.4 TSH 1.03 Urine RBC 0-2 Urine WBC Negative Ur Epithelial Cells Rare Urine Crystals Negative Urine Bacteria Negative Urine Casts Negative Urine Mucus Negative Urine Other Negative Ur Culture Indicated? No COVID-19 Source Nasal/Nares SARS-CoV-2 (PCR) Negative Last Vital Signs Temp 36.0 C L 02/06/21 20:24 Pulse 78 02/06/21 20:24 Resp 18 02/06/21 20:24 BP 156/90 H 02/06/21 20:24 Pulse Ox 100 02/06/21 20:24
[2021-02-06 23:24] VITALS: BP 134/82; PULSE 66; RESP 18; TEMP 36.3; O2SAT 100
[2021-02-07] MEDS: Levothyroxine 88 MCG TAB PO (05:31)
[2021-02-07 05:32] LABS: HCT 36.5 % (36.0-46.0); MCH 29.8 pg (27.0-33.0); MCHC 32.9 % (32.0-36.0); MCV 90.6 fL (80-95); MPV 9.7 fL (8.0-11.0); Platelet Count 337 10^3/uL (130-400); RBC 4.03 10^6/uL (3.93-5.22); RDW 12.5 % (11.7-14.6); RDW-SD 41.6 fL; WBC 8.63 10^3/uL (4.4-10.8)
[2021-02-07 08:30] VITALS: BP 112/74; PULSE 70; RESP 16; TEMP 36; O2SAT 99
[2021-02-07] MEDS: Cyanocobalamin 500 MCG TAB 1000 MCG PO (09:22)
--- NOTE | 2021-02-07 12:19 | W.PM.PROGNOT ---
Date of Service Date of service: 02/07/21 Time of Service: 12:00 Assessment and Plan Assessment and plan (1) Anxiety: Status: Chronic Assessment and plan: Severe and debilitating. She has had recent extensive neurological work up, she was diagnosed with functional neurological disorder. She reports that her anxiety became severe after her COVID vaccine. She had her first panic attack on December 12, 2020. She has klonopin 0.25 mg BID PRN ordered, she is reluctant to try it due to an admitted medication phobia. She fears that she will of anaphylaxis if she takes it. She took low dose benadryl last night and tolerated it. Offered hydroxyzine to help more with anxiety, but she reports anaphylaxis in the past and will not take it. She is encouraged to try the klonopin in this controlled setting, but she is very reluctant to. She is looking forward to psychiatric placement. Mental health consulted. (2) Depression: Status: Chronic Assessment and plan: She denies any suicidal thoughts or homicidal thoughts. She does express fear of dying. Qualifiers: Depression Type: major depressive disorder Major depression recurrence: unspecified whether recurrent Active/Remission status: currently active Major depression episode severity: moderate Qualified Code(s): F32.1 - Major depressive disorder, single episode, moderate (3) Panic attacks: Status: Acute Assessment and plan: As above, trial of Klonopin if she agrees. Note: she has had low dose valium 2.5 mg w/out adverse effects in the past. (4) Discharge planning issues: Status: Acute Assessment and plan: Mental health consulted. Continue to seek placement at Psychiatric facility for voluntary placement. Case discussed with Dr. Mariano who is in agreement. Subjective Subjective Interval history since last seen: Raquel reports that her anxiety and panic are severe and debilitating. She reports that the severe anxiety and panic started recently, December 12, after having COVID vaccine. She feels out of control. She thinks she is going to . Also has a severe medication phobia, admits to this. She is afraid she will have anaphylaxis if she takes any medication. work up last night with chest burning and burning and tingling down both arms. Her appetite is poor, she makes herself eat. She recently lost 20 pounds due to not eating and she felt very ill at that time. She feels nauseated. She has HAs. She has SOB at times with anxiety and panic attacks. She took low dose benadryl last night and tolerated, she was able to get some sleep. She is looking forward to admission to a psychiatric facility so she can have some relief. She feels safe at the hospital. She denies feeling like harming herself, but she feels like she is going to . 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 Exam Narrative Exam Narrative: General: appears stated age, sitting at edge of bed, awake and alert, anxious, tearful at times, thankful for her care. HEENT: normocephalic, atraumatic, makes eye contact, mucous membranes moist. Neck: supple no JVD. Respiratory: respirations appear even and unlabored. Extremities: moves all 4 extremities freely. Psychiatric: anxious, tearful at times. Objective Last Vital Signs Temp 36 C L 02/07/21 08:30 Pulse 70 02/07/21 08:30 Resp 16 02/07/21 08:30 BP 112/74 02/07/21 08:30 Pulse Ox 99 02/07/21 08:30 Laboratory Results - last 24 hr 02/07/21 05:26 WBC 8.63 RBC 4.03 Hgb 12.0 Hct 36.5 MCV 90.6 MCH 29.8 MCHC 32.9 RDW 12.5 Plt Count 337 MPV 9.7
--- NOTE | 2021-02-07 15:12 | PDOC.MHCN ---
Date of service: 02/07/21 Time of Service: 13:40 Mental Health Crisis Note Presenting Issue How did you arrive at the ED and why did you come: Patient arrived at the ER after being screened at [facility] for sever panic attacks and anxiety, patient is seeking placement. Precipitating Factors Patient shared that she has been feeling extremely anxious and is struggling being alone when having panic attacks. Patient denied SI/HI. Patient shared that she knows that she should not have a fear of taking medication however she has had anaphylactic issues with many medications in the past and is scared now to try anything. Patient shared that she cant keep living like this and needs something to change. Patient inquired if she would be able to have someone at the hospital sit with her all the time or have family stay the night. this telegraphic typewriter operator spoke with care management and nursing log sorting supervisor and clinical coordinator to inquire about accommodations. We came up with a plan that patient will be checked on every hour and is able to reach staff with the call button in between as needed. Patient will also be able to ask for further support in the evening if needed, as patient shared she struggles more at night. Patient will be able to have visitors from 1-6pm daily to keep her company. Patient can reach out to [facility] crisis as needed for support as well. Patient agreed to this plan. Disposition BEHAVIOR: tearful, distressed EYE CONTACT: okay MOOD: anxious AFFECT: flat APPETITE: poor SLEEP(trouble falling/staying asleep: poor Plan Patient will remain at [facility] awaiting placement. [facility], [facility], cv, [facility] have all been called and referrals sent, no avaiability at this time. Signature Clinician's Name/Title: Yohannes LOPEZ
--- NOTE | 2021-02-07 17:04 | PDOC.CMPRO ---
- If Service Date Differs Date of service: 02/07/21 Time of Service: 17:04 Care Management Progress Note S/O: Patricia is sitting up in bed when CM comes to meet with her. Her spouse is present in the room. Patricia shares that she had a medical event on December 11, 2020, and began having panic attacks the following day. She states she feels anxious all day long but the panic attacks are more likely to occur at nighttime than during daytime hours. She especially struggles when she is alone in a dark room. She sees Aurea Juarez [facility], for therapy and has tried a number of coping skills, such as breathing techniques, meditation, EFT, etc., and has not found any of the techniques helpful so far. CM will continue to follow. A: Patricia is a 45 year old woman who presented to the ED with acute, debilitating anxiety and fear of dying. P: Patricia is seeking voluntary placement in a psychiatric facility for stabilization. [facility]errals are fax[facility] to [facility], [facility], [facility], and [facility] for review. There are no available beds today, so Raquel will remain at [facility] while [facility] continues to seek a voluntary placement for her. - MH Services (Omit if N/A) Current MH Services: Other (Sees Aurea Juarez for outpatient counseling) - Status Status: Voluntary - Reason for Wait Reason for Wait: Inpatient Admission
[2021-02-07 19:41] VITALS: BP 129/81; PULSE 81; RESP 18; TEMP 36.6; O2SAT 99
[2021-02-07 23:52] VITALS: BP 110/71; PULSE 78; RESP 18; TEMP 36.9; O2SAT 97
[2021-02-08] MEDS: Acetaminophen 325 MG TAB PO (05:37)
[2021-02-08] MEDS: Levothyroxine 100 MCG TAB PO (06:30)
[2021-02-08 07:27] VITALS: BP 113/73; PULSE 62; RESP 17; TEMP 36.7; O2SAT 98
[2021-02-08] MEDS: Cyanocobalamin 500 MCG TAB 1000 MCG PO (09:15)
--- NOTE | 2021-02-08 11:24 | CMPROGNOTE_ITS ---
- If Service Date Differs Date of service: 02/08/21 Time of Service: 11:24 Care Management Progress Note S/O: Patricia is sitting up in bed when CM comes to meet with her. She is pleasant and easily engages in conversation. She reports getting approximately 5 hours of uninterrupted sleep last night, which is an improvement for her. She continues to feel highly anxious, though reports fewer panic attacks over the past 24 hours. She is considering trying Klonopin this afternoon when her sp ouse is here to provide support. CM will continue to follow. A: Patricia is a 45 year old woman who presented to the ED with acute, debilitating anxiety and fear of dying. P: Patricia is seeking voluntary placement in a psychiatric facility for stabilization. [facility], [facility], [facility], and [facility] for review. There are no available beds today, so Raquel will remain at [facility] while [facility] continues to seek a voluntary placement for her. - MH Services (Omit if N/A) Current MH Services: Other (Sees Aurea Juarez for outpatient therapy) - Status Status: Voluntary - Reason for Wait Reason for Wait: Inpatient Admission
--- NOTE | 2021-02-08 12:07 | W.PM.PROGNOT ---
Date of Service Date of service: 02/08/21 Time of Service: 12:08 Assessment and Plan Assessment and plan (1) Anxiety: Start date: 02/08/21 Start time: 12:11 Status: Chronic Assessment and plan: Severe and debilitating. She has had recent extensive neurological work up, she was diagnosed with functional neurological disorder. She reports that her anxiety became severe after her COVID vaccine. She had her first panic attack on December 12, 2020. She has klonopin 0.25 mg BID PRN ordered, she has agreed to take this medication today. She took low dose benadryl last night and tolerated it. Offered hydroxyzine to help more with anxiety, but she reports anaphylaxis in the past and will not take it. She is looking forward to psychiatric placement. Mental health consulted. Referrals sent to [facility] (2) Depression: Start date: 02/08/21 Start time: 12:21 Status: Chronic Assessment and plan: She denies any suicidal thoughts or homicidal thoughts. She does express fear of dying. Qualifiers: Depression Type: major depressive disorder Major depression recurrence: unspecified whether recurrent Active/Remission status: currently active Major depression episode severity: moderate Qualified Code(s): F32.1 - Major depressive disorder, single episode, moderate (3) Panic attacks: Start date: 02/08/21 Start time: 12:21 Status: Acute Assessment and plan: As above, trial of Klonopin she has had low dose valium 2.5 mg w/out adverse effects in the past. Will add low dose valium as well for anxiety (4) Discharge planning issues: Start date: 02/08/21 Start time: 12:23 Status: Acute Assessment and plan: Mental health consulted. Continue to seek placement at Psychiatric facility for voluntary placement. Case discussed with Dr. Mariano who is in agreement. Subjective Subjective Patient reports: no new complaints Interval history since last seen: Sitting on side of bed. Does not appear anxious. She is agreeable to taking klonipin. She denies CP, SOB, n/v/d. Awaiting psych bed at this time. Exam Narrative Exam Narrative: General: appears stated age, sitting at edge of bed, awake and alert, anxious, calm and cooperative HEENT: normocephalic, atraumatic, makes eye contact, mucous membranes moist. Neck: supple no JVD. Respiratory: respirations appear even and unlabored. Extremities: moves all 4 extremities freely. Psychiatric: cooperative and calm. Objective Last Vital Signs Temp 36.7 C 02/08/21 07:27 Pulse 62 02/08/21 07:27 Resp 17 02/08/21 07:27 BP 113/73 02/08/21 07:27 Pulse Ox 98 02/08/21 07:27
--- NOTE | 2021-02-08 12:34 | PDOC.MHCN ---
Date of service: 02/08/21 Time of Service: 11:50 Mental Health Crisis Note Presenting Issue How did you arrive at the ED and why did you come: Patient arrived at [facility] after having a screening at [facility] for sever panic attack and anxiety. Patient is looking for hospitalization. Precipitating Factors Patient shared that she is doing okay this morning. Patient shared that having a check board showing each hour that someone will be checking on her has helped her feel at ease. Patient shared that she enjoyed having her visitors yesterday and her partner plans to come today. Patient shared that she spoke with the nurse and is thinking about trying klonopin today when her partner gets here as she will feel more comfortable with someone in the room with her. Patient shared that she [place] to help her feel better. Patient shared that she has tried other distractions but they do not seem to help. Patient described her anxiety as burning sensation in her chest. Patient shared that she utilizes breathing skills she has been learning and sometimes it helps her to regulate but not always. Patient denies current SI/HI. Disposition BEHAVIOR: cooperative EYE CONTACT: good MOOD: calm AFFECT: flat APPETITE: okay, eating some SLEEP(trouble falling/staying asleep: Patient shared that she slept good last night, 1130pm to 430 am waking up with a migrian. Plan Patient will remain at [facility] awaiting hospitalization. Referrals were [facility] to [facility], [facility], [facility], [facility] [facility] called 02/08/21 looking for covid test and test, those labs have been sent and received. Signature Clinician's Name/Title: Yohannes LOPEZ
[2021-02-08] MEDS: clonazePAM 0.5 MG TAB 0.25 MG PO (15:35)
[2021-02-08 20:58] VITALS: BP 121/82; PULSE 71; RESP 18; TEMP 36.3; O2SAT 98
[2021-02-09 00:13] VITALS: BP 116/79; PULSE 73; RESP 18; TEMP 36.4; O2SAT 97
[2021-02-09] MEDS: Levothyroxine 100 MCG TAB PO (06:32)
[2021-02-09 07:23] VITALS: BP 114/75; PULSE 70; RESP 19; TEMP 36.1; O2SAT 100
[2021-02-09] MEDS: Cyanocobalamin 500 MCG TAB 1000 MCG PO (08:59)
[2021-02-09 09:11] VITALS: BP 106/73
--- NOTE | 2021-02-09 10:40 | PDOC.CMPRO ---
- If Service Date Differs Date of service: 02/09/21 Time of Service: 10:40 Care Management Progress Note S/O: Patricia was sitting up on the side of her bed when CM met with her. She stated that she is feeling a little bit better after taking the Klonopin but that it is a different feeling. She seemed to indicate that she has been living with stress and anxiety for so long that it is hard to experience what it is like without it. Yesterday Raquel got her first dose after much deliberation and today she got the second dose. She still admits to anxiety about potential side effects and a possible allergic reaction, but is proceeding anyway. This afternoon Raquel's Salvador came to visit as well as another family member. There are currently no inpatient psychiatric beds available in [place] and [facility] is not accepting out of state referrals at this time. A: Patricia is a 45 year old woman who presented to the ED with acute, debilitating anxiety and fear of dying. P: Patricia is seeking voluntary placement in a psychiatric facility for stabilization. Referrals are faxed to [facility], [facility], [facility], and [facility] for review. There are no available beds today, so Raquel will remain at [facility] while [facility] continues to seek a voluntary placement for her. - Status Status: Voluntary - Guardianship if Applicable Guardianship: Other - Reason for Wait Reason for Wait: Inpatient Admission
[2021-02-09] MEDS: clonazePAM 0.5 MG TAB 0.25 MG PO (12:03)
[2021-02-09 12:04] VITALS: BP 123/89; PULSE 73; RESP 16; O2SAT 100
--- NOTE | 2021-02-09 13:29 | W.PM.PROGNOT ---
Date of Service Date of service: 02/09/21 Time of Service: 13:29 Assessment and Plan Assessment and plan (1) Anxiety: Start date: 02/09/21 Start time: 13:30 Status: Chronic Assessment and plan: Severe and debilitating. She has had recent extensive neurological work up, she was diagnosed with functional neurological disorder. She reports that her anxiety became severe after her COVID vaccine. She had her first panic attack on December 12, 2020. She has klonopin 0.25 mg BID PRN ordered, she has agreed to take medication. She did well with medication. No side effects and she stated she slept well, She is agreeable to continue taking. She is looking forward to psychiatric placement. Mental health consulted. Referrals sent to [facility] [place] (2) Depression: Start date: 02/09/21 Start time: 13:31 Status: Chronic Assessment and plan: She denies any suicidal thoughts or homicidal thoughts. She does express fear of dying. Qualifiers: Depression Type: major depressive disorder Major depression recurrence: unspecified whether recurrent Active/Remission status: currently active Major depression episode severity: moderate Qualified Code(s): F32.1 - Major depressive disorder, single episode, moderate (3) Panic attacks: Start date: 02/09/21 Start time: 13:31 Status: Acute Assessment and plan: As above, trial of Klonopin she has had low dose valium 2.5 mg w/out adverse effects in the past. Will add low dose valium as well for anxiety (4) Discharge planning issues: Start date: 02/09/21 Start time: 13:32 Status: Acute Assessment and plan: Mental health consulted. Continue to seek placement at Psychiatric facility for voluntary placement. Case discussed with Dr. Mariano who is in agreement. Subjective Subjective Patient reports: no new complaints Interval history since last seen: Patient took klonipin and did well with it. She states she slept. She is agreeable to taking it. No reaction. Continue to wait for bed. She appears less anxious today. Exam Narrative Exam Narrative: General: appears stated age, sitting up in chair, awake and alert, anxious, calm and cooperative HEENT: normocephalic, atraumatic, makes eye contact, mucous membranes moist. Neck: supple no JVD. Respiratory: respirations appear even and unlabored. Extremities: moves all 4 extremities freely. Psychiatric: cooperative and calm. Objective Last Vital Signs Temp 36.1 C L 02/09/21 07:23 Pulse 73 02/09/21 12:04 Resp 16 02/09/21 12:04 BP 123/89 02/09/21 12:04 Pulse Ox 100 02/09/21 12:04
[2021-02-09 15:19] VITALS: BP 131/87; PULSE 73; RESP 20; O2SAT 100
--- NOTE | 2021-02-09 15:28 | PDOC.MHCN_ITS ---
Date of service: 02/09/21 Time of Service: 10:20 Mental Health Crisis Note Presenting Issue How did you arrive at the ED and why did you come: Client arrived via self on 02/05/2021 due to heightened anxiety, fear of dying as well as fear of medication and fleeting thoughts of suicide. Precipitating Factors Client denied SI/HI at this time. There were no evidence of delusions present Disposition BEHAVIOR: Client presented as engaging, insightful, cooperative and with fair thought process during this assessment. EYE CONTACT: Client maintained good eye contact during this assessment MOOD: Client presented with a calm and less anxious mood as compared to initial assessment AFFECT: Client presented with full affect APPETITE: Client reported an improvement in her appetite SLEEP(trouble falling/staying asleep: Client reported an improve in her sleep. Client stated she was able to sleep better after taking her Clonazapem and that she noticed her anxiety had reduced as well. Plan Client is current at [facility] and on voluntary status. Client is agreeable to seeking in-patient psychiatric treatment. Referrals have been made to [facility], [facility], [facility], [facility] and and they are all pending review as well as bed availability at this time. Client would be reassessed daily by [facility] till she is placed for in-patient treatment. Client will need to be reassessed if and when she decides to get discharged before placement.
[2021-02-09 21:42] VITALS: BP 110/73; PULSE 73; RESP 18; TEMP 36.3; O2SAT 97
[2021-02-10] MEDS: Levothyroxine 88 MCG TAB PO (06:32)
[2021-02-10 07:14] VITALS: BP 121/76; PULSE 73; RESP 17; TEMP 36.5; O2SAT 98
[2021-02-10] MEDS: Cyclobenzaprine 10 MG TAB 5 MG PO (09:05)
[2021-02-10] MEDS: clonazePAM 0.5 MG TAB 0.25 MG PO (09:05)
[2021-02-10] MEDS: Cyanocobalamin 500 MCG TAB 1000 MCG PO (09:05)
--- NOTE | 2021-02-10 10:46 | W.PM.DS.N ---
Date of service: 02/10/21 Time of Service: 10:46 DS: Diagnosis Discharge Diagnosis (1) Anxiety: Status: Chronic (2) Depression: Status: Chronic (3) Panic attacks: Status: Acute Discharge Plan Disposition Patient Disposition: [facility] Condition: Fair Discharge Details Reason For Visit: Anxiety and Panic Attacks, Depression Admit Date/Time: 02/06/21 18:21 Admit Provider: Jesus Carrillo Attending Provider: Jesus Carrillo Primary Care Provider: Leon[facility] Hospital Course: This is a 45 yr old female recently hospitalized @ [facility] and underwent extensive neurologic workup and was diagnosed with a functional neurologic disorder after presenting w/ multiple neurologic symptoms including weakness, paresthesias, speech changes and ambulatory dysfunction (see discharge summary 01/22/2021). Extensive workup included CT head, MRI head, MRA head and LP for oligoclonal bands to evaluate for M.S. and other demyelinating process. Her past medical history also includes thyroid cancer (papillary s/p thyroidectomy in 2008 w/ subsequent ablative radioiodine). She was discharged home w/ home health services but returned to the ER 02/05/2021 d/t patient feeling depressed and anxious. She was started on Paxil by her PCP but was nauseated for 4 days before she stopped the medicine on her own. She is fearful of dying but denies any suicidal thoughts. she is scared to take any medications for her anxiety and depression out of fear of how she might react. She has a long list of medication allergies/side effects. She is seeking voluntary psychiatric inpatient treatment. Patient was seen by [facility] (mental health) and case management after being medically cleared in the emergency department. Referrals have been sent to [facility] hospitals w/ inpatient psychiatric beds including [facility], [facility], [facility] and [facility] in [place]. It was determined that she did not need a one on one observation and no safety plan was created after team met. She was admitted to [facility] pending transfer to an accepting psychiatric facility. Patient states that she has been in a constant anxious states since being discharged from the hospital. She has frequent (daily and sometimes multiple times per day) of panic attacks in which she feels chest pains, dyspnea, tingling in her arms and hands and lightheadedness. She has tried various maneuvers including breathing techniques and visual imagery w/ little success. She is fearful of dying but she is also fearful of taking medications that she might have an anaphylactic reaction. A bed has been secured at [place] and she is being transported by ground EMS. Discharge discussed with Dr Mariano. Home Meds and New Rx's Prescriptions: Continued levothyroxine 88 mcg capsule 88 mcg PO QTUTHSA RF: 0 epinephrine 0.3 MG/SYR auto-injector 0.3 mg IJ PRN PRN (Reason: Allergy Symptoms) Qty: 1 RF: 0 cyclobenzaprine 10 mg Tablet 5 mg PO TID PRN PRNQty: 30 RF: 0 aspirin 81 mg Tablet,Delayed Release (Dr/Ec) 81 mg PO DAILY Qty: 0 RF: 0 levothyroxine 100 mcg Tablet 100 mcg PO SuMoWeFr@0600 Qty: 0 RF: 0 cyanocobalamin (vitamin B-12) [Vitamin B-12] 500 mcg Tablet 1,000 mcg PO DAILY Qty: 60 RF: 0 acetaminophen [Tylenol] 325 mg Tablet 650 mg PO Q4H PRN PRNQty: 0 RF: 0 lidocaine-prilocaine 2.5-2.5 % Cream 0 g topical BID Qty: 60 RF: 0 venlafaxine [Effexor XR] 37.5 mg Capsule,Extended Release 24hr 37.5 mg PO DAILY RF: 0 Discharge Instructions Instructions: Anxiety (DC) Additional Instructions: inpatient psychiatric stabilization and management Stand Alone Forms: Nursing Discharge Form Activity:: Activity as Tolerated Diet:: As Tolerated DS: Summary Time Spent with Patient providing and/or coordinating discharge services: Less than 30 minutes Status at Discharge Functional status at discharge: independent ambulation Overall status at discharge: patient is not back to baseline Mental Status: mental status grossly normal Speech and Movement: speech and movement normal Mood: anxious mood Affect: blunted Exam Const General: cooperative and anxious Nutritional Appearance: thin Orientation: alert, awake and oriented x3 [facility] Head: normal to inspection, normocephalic and atraumatic Resp Effort & Inspection: normal respiratory effort Auscultation: clear to auscultation bilaterally Cardio Rate: regular rate Rhythm: regular rhythm GI Inspection: normal to inspection Palpation: soft and nontender Skin General skin exam: no rashes or lesions noted Neuro General: patient alert, patient awake and patient oriented x3 Cognition: abnormal cognition Gait: normal gait Motor: muscle tone normal throughout and strength 5/5 throughout Extrem General: normal to inspection, full ROM and no pedal edema Psych Appearance: grossly normal Mental Status: mental status grossly normal Speech and Movement: speech and movement normal Mood: anxious mood Affect: blunted Attitude: cooperative Thought Process: perseverating Thought Content: delusions, obsessions and phobias Insight: poor Judgment: poor DS: Data Vitals/I&O Vitals and I&O: Vital Signs Temperature 36.5 C 02/10/21 07:14 Temperature Source Temporal Artery Scan 02/10/21 07:14 Pulse 73 02/10/21 07:14 Pulse Rhythm Regular 02/10/21 02:44 Respiratory Rate 17 02/10/21 07:14 Respiratory Effort Non-Labored 02/10/21 02:44 Respiratory Depth Normal 02/10/21 02:44 Respiratory Pattern Normal 02/10/21 02:44 Blood Pressure 121/76 02/10/21 07:14 Blood Pressure Position Sitting 02/05/21 19:48 Pulse Oximetry 98 02/10/21 07:14 Oxygen Delivery Method Room Air 02/10/21 07:14 Oxygen Flow Rate 0 02/10/21 07:14 Pain Level 0 02/10/21 07:14 Intake & Output 02/09/21 02/09/21 02/10/21 11:59 23:59 11:59 Intake Total 360 / 600 240 / 600 Balance 360 / 600 240 / 600 Weight 61.3 kg Intake: Oral 360 / 600 240 / 600 Other: Urine Color Yellow Urine Appearance Clear Clear Clear Comment Raquel is indept w/ voiding. N uses toilet independently at this time. She has voiced no concerns. Voiding Methods Toilet Toilet [facility] Medical History (Updated 02/06/21 @ 22:00 by Jesus Carrillo) Anxiety Fatigue Functional neurological symptom disorder with mixed symptoms (~01/15/21) Hypothyroidism Secondary to thyroidectomy due to cancer Thyroid cancer Papillary Surgical History H/O hand surgery History of hysterectomy History of thyroidectomy Social History Smoking/Tobacco Use Status: Never Smoking risk assessment performed?: Yes Alcohol Intake: never Drug use: Never Substance use type: does not use Household members: spouse and children Number of Children: 2 What is your relationship status?: living with partner Panel score (0-1 are the most socially isolated patients): 1 Do you feel safe at home: Yes Do you feel safe in your relationship?: Yes History History 3 Para 2 Hx # Term Pregnancies 2 Multiple births Hx # Pregnancies 1 Ectopic pregnancies AB induced Hx Number of Living Children 2 AB spontaneous 1
--- NOTE | 2021-02-10 14:26 | CMDISCH_ITS ---
- If Service Date Differs Date of service: 02/10/21 Time of Service: 14:26 Care Management Discharge Reason for Hospitalization: Anxiety and depression Discharge Plan: Patricia will be transferred to [facility] for voluntary in patient psychiatric stsbilization. She will transport via [facility] department coordinated by [facility]. - Disposition Disposition: [facility]
== END 2021-02-10 11:07 | disposition short-term general hospital (02) | DRG 880 ==
LOC: ER 02-06 19:56 → MS 02-06 20:48
PROVIDERS: Nurse Practitioner Acute Care; Admitting Provider Internal Medicine; Emergency Provider Emergency Medicine; PCP Family Medicine; Visit Provider Internal Medicine
DX: F41.0 Panic disorder [episodic paroxysmal anxiety] (principal); F32.1 Major depressive disorder, single episode, moderate; E89.0 Postprocedural hypothyroidism; Z85.850 Personal history of malignant neoplasm of thyroid; R53.83 Other fatigue; R29.818 Other symptoms and signs involving the nervous system; F40.232 Fear of other medical care
CPT/HCPCS: 36415; 80053; 80307; 85027; 87635; 93005; 99285; 70450; 81003; 81015; 84443; 85025; 93010; 99231; 99232; 99238; 99284

== ENCOUNTER 2021-04-09 15:50 | Outpatient (REF) | payer OTHER, SELFPAY ==
[2021-04-09 14:28] LABS: Calculated LDL 113 mg/dL (<100); Cholesterol 195 mg/dL (<200); HDL Cholesterol 62 mg/dL (40-60); TSH 0.17 uIU/mL (0.36-3.74); Triglyceride 101 mg/dL (<150)
[2021-04-09 21:21] LABS: T3,Free 3.3 pg/mL (2.8-5.3)
== END 2021-04-09 15:51 | disposition home or self-care (01) ==
LOC: NCHCN 15:50
PROVIDERS: PCP Family Medicine; Visit Provider Family Medicine
DX: E03.8 Other specified hypothyroidism (principal)
CPT/HCPCS: 80061; 84439; 84443; 84481

== ENCOUNTER 2021-05-12 04:39 | Outpatient (CLI) | payer OTHER, SELFPAY ==
[2021-05-13 17:36] LABS: Estradiol 102 pg/mL (See Note)
[2021-05-13 17:55] LABS: FSH 15.3 mIU/mL (See Note)
== END 2021-05-12 04:40 | disposition home or self-care (01) ==
LOC: LBO 04:39
PROVIDERS: PCP Family Medicine; Visit Provider Internal Medicine Endocrinology, Diabetes & Metabolism
DX: E89.0 Postprocedural hypothyroidism (principal)
CPT/HCPCS: 82670; 83001; 83002

== ENCOUNTER 2021-07-10 02:46 | Outpatient (CLI) | payer OTHER, SELFPAY ==
[2021-07-10 14:27] LABS: TSH 0.44 uIU/mL (0.36-3.74); Vitamin B12 306 pg/mL (193-986)
[2021-07-13 02:26] LABS: Vitamin D 25 Total 22.6 ng/mL (30-100)
[2021-07-13 10:12] LABS: Chloride 102 mmol/L (98-107); Glucose 95 mg/dL (74-106); Magnesium 2.1 mg/dL (1.8-2.4); Potassium 4.2 mmol/L (3.5-5.1); Sodium 139 mmol/L (136-145)
== END 2021-07-10 02:47 | disposition home or self-care (01) ==
LOC: LBO 02:46
PROVIDERS: PCP Family Medicine; Visit Provider Nurse Practitioner Family
DX: M62.81 Muscle weakness (generalized) (principal); Z13.1 Encounter for screening for diabetes mellitus; F41.8 Other specified anxiety disorders; F45.9 Somatoform disorder, unspecified; R46.81 Obsessive-compulsive behavior
CPT/HCPCS: 36415; 82306; 82947; 82435; 82607; 83735; 84132; 84295; 84443

== ENCOUNTER 2021-08-15 00:04 | Emergency (ER) | payer OTHER, SELFPAY ==
[2021-08-15 00:15] VITALS: BP 131/75; PULSE 85; RESP 16; TEMP 36; O2SAT 99
[2021-08-15 00:21] LABS: Bilirubin Negative (Negative); Blood Trace-intact (Negative); Clarity Clear (Clear); Glucose Negative (Negative); Ketones Trace mg/dL (Negative); Leukocyte Esterase Negative (Negative); Nitrite Negative (Negative); Specific Gravity 1.025 (1.005-1.025)
--- NOTE | 2021-08-15 00:30 | DI.CT_ITS ---
Exam(s) CT ABDOMEN PELVIS WO EXAM: CT ABDOMEN PELVIS WO INDICATION: abdominal pain. COMPARISON: CT CT CHEST/ABD/PEL WO from 01/02/2021 TECHNIQUE: CT examination was performed without contrast administration. FINDINGS: Images obtained through the lung bases are unremarkable. Visualized portions of the liver and splee n appear intact. Visualized portions of the pancreas are unremarkable. Gallbladder and bile ducts are CT normal. Abdominal aorta is of normal diameter. No significant abdominal wall hernia. No significant abdominal or pelvic adenopathy. Adrenals appear normal bilaterally. The kidneys are normal in size and shape. There is no evidence of a renal mass, hydronephrosis, or n ephrolithiasis. No ureteral dilatation or calcification identified. Urinary bladder is unremarkable in appearance. IMPRESSION: Negative noncontrast abdominal and pelvic CT. No urinary tract calcification or obstruction. RADIATION DOSE DELIVERED: 688.56mGy.cm DLP 688.56mGy.cm Total DLP CTDIvol RADIATION OPTIMIZATION: All CT scans at this facility use at least one of these dose optimization te chniques: automated exposure control; mA and/or kV adjustment per patient size (includes targeted exa ms where dose is matched to clinical indication); or iterative reconstruction.
[2021-08-15 00:31] LABS: Abs Immature Grans 0.06 10^3/uL (0.0-0.06); Absolute Eosinophil Count 0.42 10^3/uL (0.0-0.7); Absolute Lymphocyte Count 2.98 10^3/uL (1.2-3.4); Absolute Monocyte Count 0.69 10^3/uL (0.1-0.8); Absolute Neutrophil Count 9.86 10^3/uL (1.2-6.7); Basophils % 0.7; Immature Grans % 0.4; Lymphocytes % 21.1; MCH 29.4 pg (27.0-33.0); MCHC 32.5 % (32.0-36.0); MCV 90.5 fL (80-95); MPV 9.7 fL (8.0-11.0); Monocytes % 4.9; Neutrophils % 69.9; Nucleated RBC 0 %; Platelet Count 337 10^3/uL (130-400); RBC 4.42 10^6/uL (3.93-5.22); RDW 12.8 % (11.7-14.6); RDW-SD 42.9 fL; WBC 14.11 10^3/uL (4.4-10.8)
[2021-08-15 00:32] LABS: Bacteria Few HPF (Negative); C & S Indicated? No; Casts Negative LPF (Negative); Crystals Negative HPF (Negative); Epithelial Cells Moderate HPF (Negative); Mucus Negative (Negative); WBC 0-2 HPF (0-5)
--- NOTE | 2021-08-15 00:35 | W.ED.GENAD ---
Discharge Plan Disposition Patient Disposition: HOME Condition: Stable Discharge Details Clinical Impression: Abdominal pain, Enteritis Primary Care Provider: Leonora Syed ED Provider: Zachary Bridges Home Meds and New Rx's Prescriptions: Continued albuterol sulfate [Proventil HFA] 90 mcg/actuation HFA aerosol inhaler 2 puff inhalation Q6H PRN (Reason: shortness of breath or wheezing) Qty: 8.5 RF: 0 levothyroxine 100 mcg tablet 100 mcg PO DAILY RF: 0 epinephrine 0.3 MG/SYR auto-injector 0.3 mg IJ PRN PRN (Reason: Allergy Symptoms) Qty: 1 RF: 0 acetaminophen [Tylenol] 325 mg Tablet 650 mg PO Q4H PRN PRNQty: 0 RF: 0 Discharge Instructions Additional Instructions: your cat scan showed enteritis which usually means you may develop symptoms of a stomach bug such as diarrhea. follow up with your primary care provider this week if symptoms continue if you feel more ill, have severe worsening pain or persistent vomit return to the emergency department Medical Decision Making 46 yo female with hx of anxiety and multiple neurological complaints in the past evaluated extensively with LP and MRI and sees neurology as well, comes in with abdominal pain starting suddenly around 7pm. She denies any vomit, no fevers, chills, chest pain, or sob. She is rolling aroud the bed but when distracted speaks clearly and seems to be in less pain. She yells in pain with even the slightest touch of any part of her abdomen and doesn't seem to localize anywhere. Given the acute onset of her pain will obtain ct without contrast as she has contrast allergy to evaluate for cholecystitis, appendicitis and sbo and also obtain lipase to evaluate for pancreatitis. Pt declining any medication at this time labs show wbc of 14, mild increase in alt to 47, ct shows enteritis with reactive mesenteric inflammation. Patient more comfortable now resting in bed with mild mid abdomen tenderness to deep palpation otherwise no guarding no wall's sign. Given reassuring repeat exam and ct findings feel she is stable for d/c. Patient advised to f/u with pcp this week and return precautions given Differential Diagnosis Differential Diagnosis: cholecystitis, pancreatitis, sbo Medical Records Medical records reviewed: Yes I reviewed the patient's medical records. Imaging Data Radiologic Study: Attestation: I personally reviewed and interpreted this imaging study as follows: Imaging: CT Scan Radiologist's impression: IMPRESSION: Findings of enteritis with reactive mesenteric inflammation Lab Data Lab results reviewed: Yes I reviewed the patient's lab results. HPI General Date/Time Provider Initiated Documentation: 08/15/21 00:09. Limitations to Documentation: no limitations. Information obtained by: patient. History of Present Illness 46 year old F presents to the emergency department with the chief complaint of abdominal pain, described as moderate, Quality is described as stabbing and aching, and is localized to the abdomen. Patient started experiencing this hour(s) (5) and it has been constant. No relieving factors improve symptom(s), No exacerbating factors reported . Patient notes no other symptoms.. Patient did receive the following treatments prior to arrival, none Related Data Home Medications Medication Instructions Recorded Confirmed epinephrine 0.3 mg IJ PRN PRN #1 kit 03/27/15 08/15/21 acetaminophen [Tylenol] 650 mg PO Q4H PRN PRN #0 tab 01/22/21 08/15/21 albuterol sulfate 90 mcg/actuation 2 puff INHALATION Q6H PRN #8.5 g 03/13/21 08/15/21 aerosol inhaler levothyroxine 100 mcg tablet 100 mcg PO DAILY tab 03/18/21 08/15/21 Previous Rx's Medication Instructions Recorded epinephrine 0.3 mg IJ PRN PRN #1 kit 03/27/15 acetaminophen [Tylenol] 650 mg PO Q4H PRN PRN #0 tab 01/22/21 albuterol sulfate 90 mcg/actuation 2 puff INHALATION Q6H PRN #8.5 g 03/13/21 aerosol inhaler Allergies Allergy/AdvReac Type Severity Reaction Status Date / Time Gadolinium-Containing Allergy Severe Anaphylaxis Verified 08/15/21 00:40 Contrast Medi PER [facility] 2011 Penicillins Allergy Severe Anaphylaxsi Verified 08/15/21 00:40 s Sulfa (Sulfonamide Allergy Severe Anaphylaxsi Verified 08/15/21 00:40 Antibiotics) s venom-honey bee Allergy Severe Anaphylaxsi Verified 08/15/21 00:40 [bee venom (honey bee)] s citalopram Allergy Mild Hives Verified 08/15/21 00:40 ofloxacin [From Floxin] Allergy Mild Skin Rash Verified 08/15/21 00:40 naproxen [From Aleve] Allergy Verified 08/15/21 00:40 azithromycin [From Zithromax] AdvReac Severe Anaphylaxsi Verified 08/15/21 00:40 s Iodinated Contrast Media AdvReac Severe Anaphylaxsi Verified 08/15/21 00:40 [Iodinated Contrast Media - s IV Dye] ketorolac tromethamine AdvReac Severe Anaphylaxsi Verified 08/15/21 00:40 [From Toradol] s iodine AdvReac Intermediate Anaphylaxsi Verified 06/05/21 17:52 s lorazepam [From Ativan] AdvReac Intermediate Dizziness/L Verified 06/05/21 17:52 ightheade horse flies Allergy Severe Anaphylaxsi Uncoded 06/05/21 17:52 s General Stated Complaint: Abd Prob CLARI: 3 Review of Systems All systems reviewed & are unremarkable except as noted in HPI and below Constitutional Constitutional: Denies chills, Denies fever(s) and Denies weakness Cardiovascular Cardiovascular: Denies chest pain and Denies dyspnea Respiratory Respiratory: Denies cough and Denies dyspnea Gastrointestinal Gastrointestinal: Denies vomiting Musculoskeletal Musculoskeletal: Denies joint swelling Neurologic Neurologic: Denies weakness PFSH All Active Problems (Updated 08/15/21 @ 01:26 by Zachary Bridges MD) Abdominal pain (Acute) Enteritis (Acute) Adverse drug effect (Acute) Thoracic outlet syndrome (Acute) Neck pain (Acute) Panic attacks (Acute) Depression (Chronic) Discharge planning issues (Acute) DVT prophylaxis (Acute) Difficulty with speech (Acute) Bilateral arm weakness (Acute) Bilateral leg weakness (Acute) Difficulty with speech (Acute) Breast lump on left side at 3 o'clock position (Acute) Weakness (Acute) Anxiety (Chronic) Fatigue (Acute) Headache (Acute) Blurred vision (Acute) Chest pain (Acute) Near syncope (Acute) Atypical chest pain (Acute) Medical History Anxiety Fatigue Functional neurological symptom disorder with mixed symptoms (~01/15/21) Hypothyroidism Secondary to thyroidectomy due to cancer Thyroid cancer Papillary Surgical History H/O hand surgery cyst removal History of hysterectomy History of thyroidectomy Family History Mother Hypertension Social History Smoking/Tobacco Use Status: Never Smoking risk assessment performed?: Yes Alcohol Intake: never Drug use: Never Substance use type: does not use Household members: spouse and children Number of Children: 4 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 Do you think of yourself as: lesbian/beltrán/homosexual Current gender identity: female What is your relationship status?: Panel score (0-1 are the most socially isolated patients): 1 Do you feel safe at home: Yes Do you feel safe in your relationship?: Yes History History 3 Para 2 Hx # Term Pregnancies 2 Multiple births Hx # Pregnancies 1 Ectopic pregnancies AB induced Hx Number of Living Children 2 AB spontaneous 1 Exam Const General: no acute distress Orientation: alert HENMT Head: normal to inspection Ears: external ears normal General nose exam: external nose normal Mouth: moist mucous membranes Eyes General: appearance normal, both eyes and all related structures Neck Neck: normal visual inspection Resp Effort & Inspection: normal respiratory effort and able to speak in complete sentences Cardio Rate: regular rate GI Palpation: soft and tender Skin General skin exam: no rashes or lesions noted Neuro General: patient alert and patient oriented x3 Extrem General: normal to inspection Psych Mental Status: mental status grossly normal Course Vital Signs Vital signs: Vital Signs Temperature 36.0 C L 08/15/21 00:15 Pulse 85 08/15/21 00:15 Respiratory Rate 16 08/15/21 00:15 Blood Pressure 131/75 08/15/21 00:15 Pulse Oximetry 99 08/15/21 00:15 Temperature 36.0 C L 08/15/21 00:15 Temperature Source Skin 08/15/21 00:15 Pulse 85 08/15/21 00:15 Respiratory Rate 16 08/15/21 00:15 Blood Pressure 131/75 08/15/21 00:15 Blood Pressure Position Supine 08/15/21 00:15 Pulse Oximetry 99 08/15/21 00:15 Oxygen Delivery Method Room Air 08/15/21 00:15 Oxygen Flow Rate 0 08/15/21 00:15 Pain Level 9 08/15/21 00:15 Lab/Test Results Lab/Test Results: Laboratory Tests Range/Units 08/15/21 08/15/21 00:18 00:25 WBC (4.4-10.8) 10^3/uL 14.11 H RBC (3.93-5.22) 10^6/uL 4.42 Hgb (11.2-15.7) g/dL 13.0 Hct (36.0-46.0) % 40.0 MCV (80-95) fL 90.5 MCH (27.0-33.0) pg 29.4 MCHC (32.0-36.0) % 32.5 RDW (11.7-14.6) % 12.8 Plt Count (130-400) 10^3/uL 337 MPV (8.0-11.0) fL 9.7 Immature Gran % 0.4 Neutrophils % 69.9 Lymphocytes % 21.1 Monocytes % 4.9 Eosinophils % 3.0 Basophils % 0.7 Nucleated RBC % % 0 Absolute Neutrophils (1.2-6.7) 10^3/uL 9.86 H Absolute Lymphocytes (1.2-3.4) 10^3/uL 2.98 Absolute Monocytes (0.1-0.8) 10^3/uL 0.69 Absolute Eosinophils (0.0-0.7) 10^3/uL 0.42 Absolute Basophils (0.0-0.2) 10^3/uL 0.10 Urine Color (Yellow) Yellow Urine Clarity (Clear) Clear Urine pH (5-8) 7.0 Ur Specific [place] (1.005-1.025) 1.025 Urine Protein (Negative) mg/dL 30 H Urine Ketones (Negative) mg/dL Trace H Urine Blood (Negative) Trace-intact H Urine Nitrite (Negative) Negative Urine Bilirubin (Negative) Negative Urine Urobilinogen (Up TO 0.2) EU/dL 1.0 H Ur Leukocyte Esterase (Negative) Negative Urine RBC (0-2) HPF 3-5 H Urine WBC (0-5) HPF 0-2 Ur Epithelial Cells (Negative) HPF Moderate Urine Crystals (Negative) HPF Negative Urine Bacteria (Negative) HPF Few Urine Casts (Negative) LPF Negative Urine Mucus (Negative) Negative Ur Culture Indicated? No Urine Glucose (Negative) mg/dL Negative
[2021-08-15 00:46] LABS: ALT 39 U/L (14-59); AST 47 U/L (15-37); Albumin 4.4 g/dL (3.4-5.0); Alkaline Phosphatase 101 U/L (46-116); Anion Gap 9.7 mmol/L (3-11); BUN 13 mg/dL (7-18); Bilirubin, Direct 0.1 mg/dL (0.0-0.2); Bilirubin, Total 0.3 mg/dL (0.2-1.0); CO2 27.3 mmol/L (21.0-32.0); CREATININE 0.9 mg/dL (0.55-1.02); Calcium 9.4 mg/dL (8.5-10.1); Chloride 105 mmol/L (98-107); Glucose 106 mg/dL (74-106); Potassium 3.7 mmol/L (3.5-5.1); Sodium 142 mmol/L (136-145); Total Protein 8.4 g/dL (6.4-8.2)
[2021-08-15 00:56] LABS: Lipase 133 U/L (73-393); Magnesium 2.4 mg/dL (1.8-2.4); TSH (W/Ref FT4) 1.94 uIU/mL (0.36-3.74)
--- NOTE | 2021-08-15 01:10 | DI.VRAD_ITS ---
Addendum created by Zachary Hansen MD on 08/15/2021 1:58:43 AM EST: Sagittal and coronal reformations are now available. There is no significant change to the earlier report. There is no evidence of compression fracture, and exam is negative for anterior or posterior translation of vertebral bodies. The urinary bladder is collapsed and unremarkable. There are no stones observed in the bladder. Pelvic floor is unremarkable. Initial report created on 08/15/2021 1:09:24 AM EST: PROCEDURE INFORMATION: Exam: CT Abdomen And Pelvis Without Contrast Exam date and time: 08/15/2021 12:35 AM Age: 46 years old Clinical indication: Other: Pain TECHNIQUE: Imaging protocol: Computed tomography of the abdomen and pelvis without contrast. COMPARISON: CT CHEST/ABD/PEL WO 01/02/2021 8:16 PM FINDINGS: Lungs: Lung bases are clear. Liver: Unremarkable noncontrast liver imaging. Gallbladder and bile ducts: Normal. No calcified stones. No ductal dilation. Pancreas: Normal. No ductal dilation. Spleen: Normal. No splenomegaly. Adrenal glands: Normal. No mass. Kidneys and ureters: No hydronephrosis. No stones. Stomach and bowel: Distended stomach. Nondilated small bowel. Fat planes around loops of small bowel are indistinct. There are no inflammatory changes observed around the colon. Appendix: Normal appendix. Intraperitoneal space: Mild mesenteric fat stranding. Mild pelvic free fluid present. Negative for free air. Negative for abscess. Vasculature: Unremarkable. No abdominal aortic aneurysm. Lymph nodes: Mesenteric lymph nodes are mildly prominent. Negative for pathologic lymphadenopathy. Urinary bladder: Unremarkable as visualized. Reproductive: Uterus is absent. Negative for adnexal mass or cyst. Bones/joints: Unremarkable. No acute fracture. Soft tissues: Unremarkable. Other findings: Exam is presented without sagittal or coronal reformations. IMPRESSION: Findings of enteritis with reactive mesenteric inflammation. Dictated and Authenticated by: Zachary Hansen MD. Ordering:JAMI Sharma MD
== END 2021-08-15 01:41 | disposition home or self-care (01) ==
PROVIDERS: Emergency Provider Emergency Medicine; PCP Family Medicine
DX: R10.9 Unspecified abdominal pain (principal); K52.9 Noninfective gastroenteritis and colitis, unspecified; F32.A Depression, unspecified
CPT/HCPCS: 36415; 80053; 83690; 99284; 74176; 81003; 81015; 82248; 83735; 84443; 85025

== ENCOUNTER 2021-08-15 06:28 | Inpatient (IN) | payer OTHER, SELFPAY ==
[2021-08-15] VITALS (26 sets, daily range): BP systolic 99–159; BP diastolic 57–94; PULSE 60–97; RESP 14–20; TEMP 36.2–36.7; O2SAT 95–100; BMI 23.3
--- NOTE | 2021-08-15 06:45 | RT.EKG_ITS ---
APPROVED REPORT Exam: Resting ECG Reason for Exam: back pain Patient Location: E HR:77 bpm ECG Measurements Heart Rate 77 AXIS [place] 158 P 63 QRSd 83 QRS 64 QT 407 T 49 QTc 462 Conclusion Sinus rhythm...normal P axis, V-rate 60- 99. Sinus. No STEMI. I have reviewed and interpreted ECG and agree with software generated interpretation.
--- NOTE | 2021-08-15 06:47 | W.ED.GENAD ---
Discharge Plan Disposition Patient Disposition: [facility] INPATIENT Condition: Stable Discharge Details Clinical Impression: Acute cholecystitis, Transaminitis Admit Date/Time: 08/15/21 15:04 Admit Provider: Nenita Hinkle Attending Provider: Nenita Hinkle Primary Care Provider: Leonora Syed ED Provider: Gillian Reilly Discharge Data Discharge Date/Time-TO BE ENTERED AT DEPARTURE: 08/15/21 13:10 Medical Decision Making <Zachary Bridges MD - Last Filed: 08/15/21 07:48> 46 yo female seen in the ED late last night for abdominal pain and lower back pain comes in with complaint of primarily back pain. She had labs and a ct that did not show emergent findings, ct showed nonspecific mesenteric inflammation. She was discharged but states since being home the pain has been primarily in the back and couldn't sleep so came here. She has no abdominal pain or chest pain. Localizes the pain to the mid back and states it wraps around to the sides. No abdominal tenderness on exam. Has no erythema of the back or stepoff deformities. Pain is reproducible in the cva area on both sides so suspect musculoskeletal pain, but given pain is in the mid back will obtain troponin and ekg and try tyelnol and muscle relaxer. lfts elevated compared to earlier, and is tender in the ruq on reexam. Will obtain u/s Differential Diagnosis Differential Diagnosis: lumbago, muscle spasm ECG Data Attestation: I personally reviewed and interpreted this ECG (s) as follows: Prior ECG tracings: not available for review Interpretation: sinus rhythm, rate of 77, no acute st t wave ischemic findings <Gillian Reilly DO - Last Filed: 08/15/21 18:11> 0800 -- please see Dr. Bridges's note for initial presentation, exam and plan. Case endorsed to follow-up on ultrasound and final disposition. Patient reassessed and her pain is improved. Her abdomen is soft and minimally tender in the right upper quadrant. White blood cell count decreased from 14 at midnight to now 12. Significant elevation in her liver enzymes compared to earlier labs today. US notes: IMPRESSION: Constellation of findings suggestive of acute cholecystitis. 1115 -- Case discussed and imaging reviewed with Dr. Hinkle. Accepts pt for admission for suspected cholecystitis. Recommends antibiotics --patient has a history of anaphylaxis to penicillin and skin rash with ofloxacin. There is less than 1% cross effectivity of independent with penicillin. Discussed at length with patient and she is okay with proceeding with Levaquin and will treat with Benadryl in case of rash due to concern for cross sensitivity with penicillin and imipenem. Patient has significant anxiety. She is tearful throughout discussing her results. She states she is allergic to diazepam and lorazepam. 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 There has been a cancellation on the OR schedule and Dr. Hinkle will plan to take to the OR today. Patient is n.p.o. Her pain remains controlled. Medical Records Medical records reviewed: Yes I reviewed the patient's medical records. Imaging Data Radiologic Study: Radiologist's impression: US Abdomen Complete Exam date and time: 08/15/2021 7:47 AM Age: 46 years old Clinical indication: Other: Ruq pain TECHNIQUE: Imaging protocol: Real-time ultrasound of the abdomen with image documentation. COMPARISON: CT ABDOMEN PELVIS WO 08/15/2021 12:43 AM FINDINGS: Liver: Normal. No mass. Gallbladder: The gallbladder wall is thickened measuring up to 5 mm in diameter. There is mild pericholecystic fluid as well as some edema within the gallbladder wall. There is a small, mobile shadowing stone noted within the gallbladder. Sonographic Leigh's sign is negative. Common bile duct: Normal. No stones. No dilation. Pancreas: Visualized pancreas is unremarkable. Right kidney: Normal. No mass. No hydronephrosis. Left kidney: Normal. No mass. No hydronephrosis. Spleen: Normal. No splenomegaly. Aorta: Normal. No aneurysm. Inferior vena cava: Normal. IMPRESSION: Constellation of findings suggestive of acute cholecystitis. Lab Data Lab results reviewed: Yes I reviewed the patient's lab results. Labs: Laboratory Tests Range/Units 08/15/21 08/15/21 08/15/21 07:05 07:05 07:05 WBC (4.4-10.8) 10^3/uL 12.35 H RBC (3.93-5.22) 10^6/uL 4.16 Hgb (11.2-15.7) g/dL 12.5 Hct (36.0-46.0) % 37.5 MCV (80-95) fL 90.1 MCH (27.0-33.0) pg 30.0 MCHC (32.0-36.0) % 33.3 RDW (11.7-14.6) % 12.8 Plt Count (130-400) 10^3/uL 310 MPV (8.0-11.0) fL 9.9 Immature Gran % 0.3 Neutrophils % 78.6 Lymphocytes % 13.5 Monocytes % 5.4 Eosinophils % 1.6 Basophils % 0.6 Nucleated RBC % % 0 Absolute Neutrophils (1.2-6.7) 10^3/uL 9.71 H Absolute Lymphocytes (1.2-3.4) 10^3/uL 1.67 Absolute Monocytes (0.1-0.8) 10^3/uL 0.67 Absolute Eosinophils (0.0-0.7) 10^3/uL 0.20 Absolute Basophils (0.0-0.2) 10^3/uL 0.07 APTT (21.0-27.5) sec 25.4 Sodium (136-145) mmol/L 140 Potassium (3.5-5.1) mmol/L 3.8 Chloride (98-107) mmol/L 104 Carbon Dioxide (21.0-32.0) mmol/L 26.0 Anion Gap (3-11) mmol/L 10.0 BUN (7-18) mg/dL 14 Creatinine (0.55-1.02) mg/dL 0.8 Estimated GFR/1.73 m2 (mL/min/1.73m2) >= 60.00 Glucose (74-106) mg/dL 119 H Calcium (8.5-10.1) mg/dL 9.5 Magnesium (1.8-2.4) mg/dL 2.1 Total Bilirubin (0.2-1.0) mg/dL 0.8 Conjugated Bilirubin (0.0-0.2) mg/dL 0.5 H AST (15-37) U/L 347 H ALT (14-59) U/L 207 H Alkaline Phosphatase (46-116) U/L 116 Creatine Kinase (26-192) U/L 82 Troponin I (<or=60) ng/L < 50 Total Protein (6.4-8.2) g/dL 8.0 Albumin (3.4-5.0) g/dL 4.1 Lipase (73-393) U/L 121 TSH (0.36-3.74) uIU/mL Urine Color (Yellow) Urine Clarity (Clear) Urine pH (5-8) Ur Specific [place] (1.005-1.025) Urine Protein (Negative) mg/dL Urine Ketones (Negative) mg/dL Urine Blood (Negative) Urine Nitrite (Negative) Urine Bilirubin (Negative) Urine Urobilinogen (Up TO 0.2) EU/dL Ur Leukocyte Esterase (Negative) Urine Glucose (Negative) mg/dL COVID-19 Source SARS-CoV-2 (PCR) (Negative) Range/Units 08/15/21 08/15/21 08/15/21 07:05 10:30 10:35 WBC (4.4-10.8) 10^3/uL RBC (3.93-5.22) 10^6/uL Hgb (11.2-15.7) g/dL Hct (36.0-46.0) % MCV (80-95) fL MCH (27.0-33.0) pg MCHC (32.0-36.0) % RDW (11.7-14.6) % Plt Count (130-400) 10^3/uL MPV (8.0-11.0) fL Immature Gran % Neutrophils % Lymphocytes % Monocytes % Eosinophils % Basophils % Nucleated RBC % % Absolute Neutrophils (1.2-6.7) 10^3/uL Absolute Lymphocytes (1.2-3.4) 10^3/uL Absolute Monocytes (0.1-0.8) 10^3/uL Absolute Eosinophils (0.0-0.7) 10^3/uL Absolute Basophils (0.0-0.2) 10^3/uL APTT (21.0-27.5) sec Sodium (136-145) mmol/L Potassium (3.5-5.1) mmol/L Chloride (98-107) mmol/L Carbon Dioxide (21.0-32.0) mmol/L Anion Gap (3-11) mmol/L BUN (7-18) mg/dL Creatinine (0.55-1.02) mg/dL Estimated GFR/1.73 m2 (mL/min/1.73m2) Glucose (74-106) mg/dL Calcium (8.5-10.1) mg/dL Magnesium (1.8-2.4) mg/dL Total Bilirubin (0.2-1.0) mg/dL Conjugated Bilirubin (0.0-0.2) mg/dL AST (15-37) U/L ALT (14-59) U/L Alkaline Phosphatase (46-116) U/L Creatine Kinase (26-192) U/L Troponin I (<or=60) ng/L < 50 Total Protein (6.4-8.2) g/dL Albumin (3.4-5.0) g/dL Lipase (73-393) U/L TSH (0.36-3.74) uIU/mL 1.18 Urine Color (Yellow) Yellow Urine Clarity (Clear) Clear Urine pH (5-8) 7.0 Ur Specific [place] (1.005-1.025) 1.020 Urine Protein (Negative) mg/dL Negative Urine Ketones (Negative) mg/dL Negative Urine Blood (Negative) Negative Urine Nitrite (Negative) Negative Urine Bilirubin (Negative) Negative Urine Urobilinogen (Up TO 0.2) EU/dL 1.0 H Ur Leukocyte Esterase (Negative) Negative Urine Glucose (Negative) mg/dL Negative COVID-19 Source SARS-CoV-2 (PCR) (Negative) Range/Units 08/15/21 11:30 WBC (4.4-10.8) 10^3/uL RBC (3.93-5.22) 10^6/uL Hgb (11.2-15.7) g/dL Hct (36.0-46.0) % MCV (80-95) fL MCH (27.0-33.0) pg MCHC (32.0-36.0) % RDW (11.7-14.6) % Plt Count (130-400) 10^3/uL MPV (8.0-11.0) fL Immature Gran % Neutrophils % Lymphocytes % Monocytes % Eosinophils % Basophils % Nucleated RBC % % Absolute Neutrophils (1.2-6.7) 10^3/uL Absolute Lymphocytes (1.2-3.4) 10^3/uL Absolute Monocytes (0.1-0.8) 10^3/uL Absolute Eosinophils (0.0-0.7) 10^3/uL Absolute Basophils (0.0-0.2) 10^3/uL APTT (21.0-27.5) sec Sodium (136-145) mmol/L Potassium (3.5-5.1) mmol/L Chloride (98-107) mmol/L Carbon Dioxide (21.0-32.0) mmol/L Anion Gap (3-11) mmol/L BUN (7-18) mg/dL Creatinine (0.55-1.02) mg/dL Estimated GFR/1.73 m2 (mL/min/1.73m2) Glucose (74-106) mg/dL Calcium (8.5-10.1) mg/dL Magnesium (1.8-2.4) mg/dL Total Bilirubin (0.2-1.0) mg/dL Conjugated Bilirubin (0.0-0.2) mg/dL AST (15-37) U/L ALT (14-59) U/L Alkaline Phosphatase (46-116) U/L Creatine Kinase (26-192) U/L Troponin I (<or=60) ng/L Total Protein (6.4-8.2) g/dL Albumin (3.4-5.0) g/dL Lipase (73-393) U/L TSH (0.36-3.74) uIU/mL Urine Color (Yellow) Urine Clarity (Clear) Urine pH (5-8) Ur Specific [place] (1.005-1.025) Urine Protein (Negative) mg/dL Urine Ketones (Negative) mg/dL Urine Blood (Negative) Urine Nitrite (Negative) Urine Bilirubin (Negative) Urine Urobilinogen (Up TO 0.2) EU/dL Ur Leukocyte Esterase (Negative) Urine Glucose (Negative) mg/dL COVID-19 Source Nasal/Nares SARS-CoV-2 (PCR) (Negative) Negative HPI <Zachary Bridges MD - Last Filed: 08/15/21 07:48> General Mode of arrival: ambulatory. Date/Time Provider Initiated Documentation: 08/15/21 06:30. Limitations to Documentation: no limitations. Information obtained by: patient. History of Present Illness 46 year old F presents to the emergency department with the chief complaint of back pain, described as moderate and severe, Quality is described as sharp, and is localized to the back. Patient reports no radiation. No relieving factors improve symptom(s), No exacerbating factors reported . Patient did receive the following treatments prior to arrival, none Related Data Home Medications Medication Instructions Recorded Confirmed epinephrine 0.3 mg IJ PRN PRN #1 kit 03/27/15 08/15/21 acetaminophen [Tylenol] 650 mg PO Q4H PRN PRN #0 tab 01/22/21 08/15/21 albuterol sulfate 90 mcg/actuation 2 puff INHALATION Q6H PRN #8.5 g 03/13/21 08/15/21 aerosol inhaler levothyroxine 100 mcg tablet 100 mcg PO DAILY tab 03/18/21 08/15/21 Previous Rx's Medication Instructions Recorded epinephrine 0.3 mg IJ PRN PRN #1 kit 03/27/15 acetaminophen [Tylenol] 650 mg PO Q4H PRN PRN #0 tab 01/22/21 albuterol sulfate 90 mcg/actuation 2 puff INHALATION Q6H PRN #8.5 g 03/13/21 aerosol inhaler Allergies Allergy/AdvReac Type Severity Reaction Status Date / Time Gadolinium-Containing Allergy Severe Anaphylaxis Verified 08/15/21 06:38 Contrast Medi PER DM 2011 Penicillins Allergy Severe Anaphylaxsi Verified 08/15/21 06:38 s Sulfa (Sulfonamide Allergy Severe Anaphylaxsi Verified 08/15/21 06:38 Antibiotics) s venom-honey bee Allergy Severe Anaphylaxsi Verified 08/15/21 06:38 [bee venom (honey bee)] s citalopram Allergy Mild Hives Verified 08/15/21 06:38 ofloxacin [From Floxin] Allergy Mild Skin Rash Verified 08/15/21 06:38 naproxen [From Aleve] Allergy Verified 08/15/21 06:38 azithromycin [From Zithromax] AdvReac Severe Anaphylaxsi Verified 08/15/21 06:38 s Iodinated Contrast Media AdvReac Severe Anaphylaxsi Verified 08/15/21 06:38 [Iodinated Contrast Media - s IV Dye] ketorolac tromethamine AdvReac Severe Anaphylaxsi Verified 08/15/21 06:38 [From Toradol] s iodine AdvReac Intermediate Anaphylaxsi Verified 08/15/21 06:38 s lorazepam [From Ativan] AdvReac Intermediate Dizziness/L Verified 08/15/21 06:38 ightheade horse flies Allergy Severe Anaphylaxsi Uncoded 08/15/21 06:38 s General Stated Complaint: Abd Prob CLARI: 3 Review of Systems <Zachary Bridges MD - Last Filed: 08/15/21 07:48> All systems reviewed & are unremarkable except as noted in HPI and below Constitutional Constitutional: Denies chills, Denies fever(s) and Denies weakness Cardiovascular Cardiovascular: Denies chest pain and Denies dyspnea Respiratory Respiratory: Denies cough and Denies dyspnea Gastrointestinal Gastrointestinal: Denies abdominal pain, Denies nausea and Denies vomiting Musculoskeletal Musculoskeletal: Denies joint swelling Neurologic Neurologic: Denies weakness PFSH <Zachary Bridges MD - Last Filed: 08/15/21 07:48> All Active Problems (Updated 08/15/21 @ 13:04 by Nenita Hinkle DO) Anxiety about health (Acute) PONV (postoperative nausea and vomiting) (Acute) WOOD (generalized anxiety disorder) (Acute) Hypothyroidism (Acute) Secondary to thyroidectomy due to cancer Thyroid cancer (Acute) Papillary Acute cholecystitis (Acute) Transaminitis (Acute) Adverse drug effect (Acute) Thoracic outlet syndrome (Acute) Neck pain (Acute) Panic attacks (Acute) Depression (Chronic) Difficulty with speech (Acute) Bilateral arm weakness (Acute) Bilateral leg weakness (Acute) Difficulty with speech (Acute) Breast lump on left side at 3 o'clock position (Acute) Weakness (Acute) Anxiety (Chronic) Fatigue (Acute) Headache (Acute) Blurred vision (Acute) Chest pain (Acute) Near syncope (Acute) Atypical chest pain (Acute) Medical History Anxiety Fatigue Functional neurological symptom disorder with mixed symptoms (~01/15/21) Hypothyroidism Secondary to thyroidectomy due to cancer Thyroid cancer Papillary Surgical History H/O hand surgery cyst removal History of hysterectomy History of thyroidectomy Family History Mother Hypertension Social History Smoking/Tobacco Use Status: Never Smoking risk assessment performed?: Yes Alcohol Intake: never Drug use: Never Substance use type: does not use Household members: spouse and children Number of Children: 4 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 [employer] Do you think of yourself as: lesbian/bletrán/homosexual Current gender identity: female What is your relationship status?: Panel score (0-1 are the most socially isolated patients): 1 Do you feel safe at home: Yes Do you feel safe in your relationship?: Yes History History 3 Para 2 Hx # Term Pregnancies 2 Multiple births Hx # Pregnancies 1 Ectopic pregnancies AB induced Hx Number of Living Children 2 AB spontaneous 1 Exam <Zachary Bridges MD - Last Filed: 08/15/21 07:48> Const General: no acute distress Orientation: alert HENMT Head: normal to inspection Ears: external ears normal General nose exam: external nose normal Mouth: moist mucous membranes Eyes General: appearance normal, both eyes and all related structures Neck Neck: normal visual inspection Resp Effort & Inspection: normal respiratory effort and able to speak in complete sentences Cardio Rate: regular rate Back/Spine/Pelvis Back: CVA tenderness, No mass and No erythema Skin General skin exam: no rashes or lesions noted Neuro General: patient alert and patient oriented x3 Extrem General: normal to inspection Psych Mental Status: mental status grossly normal Course <Zachary Bridges MD - Last Filed: 08/15/21 07:48> Vital Signs Vital signs: Vital Signs Temperature 36.3 C L 08/15/21 06:33 Pulse 83 08/15/21 06:33 Respiratory Rate 16 08/15/21 06:33 Blood Pressure 139/94 H 08/15/21 06:33 Pulse Oximetry 100 08/15/21 06:33 Temperature 36.3 C L 08/15/21 06:33 Temperature Source Skin 08/15/21 06:33 Pulse 83 08/15/21 06:33 Respiratory Rate 16 08/15/21 06:33 Respiratory Effort Non-Labored 08/15/21 06:39 Blood Pressure 139/94 H 08/15/21 06:33 Blood Pressure Position Sitting 08/15/21 06:33 Pulse Oximetry 100 08/15/21 06:33 Oxygen Delivery Method Room Air 08/15/21 06:33 Oxygen Flow Rate 0 08/15/21 06:33 Pain Level 10 08/15/21 06:33 Sign Out <Zachary Bridges MD - Last Filed: 08/15/21 07:48> Sign Out Data: Sign Out Comment: seen earlier in the shift for abd pain, negative noncontrast ct, now primarily mid back pain, pending trops/ekg and response to muscle relaxers. Last updated by Zachary Bridges MD at 08/15/21 07:02
[2021-08-15] MEDS: Acetaminophen 500 MG TAB 1000 MG PO (06:53)
[2021-08-15 07:21] LABS: Abs Immature Grans 0.04 10^3/uL (0.0-0.06); Absolute Basophil Count 0.07 10^3/uL (0.0-0.2); Absolute Lymphocyte Count 1.67 10^3/uL (1.2-3.4); Absolute Monocyte Count 0.67 10^3/uL (0.1-0.8); Basophils % 0.6; Eosinophils % 1.6; HCT 37.5 % (36.0-46.0); HGB 12.5 g/dL (11.2-15.7); Immature Grans % 0.3; Lymphocytes % 13.5; MCHC 33.3 % (32.0-36.0); MCV 90.1 fL (80-95); MPV 9.9 fL (8.0-11.0); Monocytes % 5.4; Neutrophils % 78.6; Nucleated RBC 0 %; Platelet Count 310 10^3/uL (130-400); RBC 4.16 10^6/uL (3.93-5.22); RDW 12.8 % (11.7-14.6); RDW-SD 42.7 fL; WBC 12.35 10^3/uL (4.4-10.8)
[2021-08-15 07:24] LABS: Absolute Neutrophil Count 9.71 10^3/uL (1.2-6.7)
--- NOTE | 2021-08-15 07:30 | DI.US_ITS ---
Exam(s) US ABDOMEN EXAM: US ABDOMEN INDICATION: abdomen pain, elevated lfts COMPARISON: US US SOFT TISSUE EXTREMITY from 01/20/2021 TECHNIQUE: Ultrasound abdomen performed using standard protocol FINDINGS: Abdominal ultrasound was performed according to the usual protocol. The liver is normal in size and shape. No focal hepatic lesion seen. Note is made of cholelithiasis with a small mobile gallstone. Gallbladder wall is thickened, measuri ng up to about 5 millimeters in diameter. There is trace pericholecystic fluid. There is a negative sonographic Leigh sign period. Portal venous flow is hepatopetal. Pancreas appears intact as visualized. Spleen is unremarkable in appearance with no focal lesion. Kidneys are normal in size and shape. No renal mass, hydronephrosis, or nephrolithiasis. Abdominal aorta and IVC are of normal diameter. IMPRESSION: Cholelithiasis with gallbladder wall thickening and trace pericholecystic fluid. Please correlate re garding the possibility of acute cholecystitis..
[2021-08-15 07:41] LABS: ALT 207 U/L (14-59); AST 347 U/L (15-37); Albumin 4.1 g/dL (3.4-5.0); Alkaline Phosphatase 116 U/L (46-116); BUN 14 mg/dL (7-18); Bilirubin, Direct 0.5 mg/dL (0.0-0.2); Bilirubin, Total 0.8 mg/dL (0.2-1.0); CREATININE 0.8 mg/dL (0.55-1.02); Calcium 9.5 mg/dL (8.5-10.1); Chloride 104 mmol/L (98-107); Creatine Kinase 82 U/L (26-192); Glucose 119 mg/dL (74-106); Lipase 121 U/L (73-393); Magnesium 2.1 mg/dL (1.8-2.4); Potassium 3.8 mmol/L (3.5-5.1); Sodium 140 mmol/L (136-145); Troponin I < 50 ng/L (<or=60)
[2021-08-15] MEDS: Normal Saline 1,000 ML 1000 ML IV (08:00)
--- NOTE | 2021-08-15 10:17 | DI.VRAD_ITS ---
PROCEDURE INFORMATION: Exam: US Abdomen Complete Exam date and time: 08/15/2021 7:47 AM Age: 46 years old Clinical indication: Other: Ruq pain TECHNIQUE: Imaging protocol: Real-time ultrasound of the abdomen with image documentation. COMPARISON: CT ABDOMEN PELVIS WO 08/15/2021 12:43 AM FINDINGS: Liver: Normal. No mass. Gallbladder: The gallbladder wall is thickened measuring up to 5 mm in diameter. There is mild pericholecystic fluid as well as some edema within the gallbladder wall. There is a small, mobile shadowing stone noted within the gallbladder. Sonographic Leigh's sign is negative. Common bile duct: Normal. No stones. No dilation. Pancreas: Visualized pancreas is unremarkable. Right kidney: Normal. No mass. No hydronephrosis. Left kidney: Normal. No mass. No hydronephrosis. Spleen: Normal. No splenomegaly. Aorta: Normal. No aneurysm. Inferior vena cava: Normal. IMPRESSION: Constellation of findings suggestive of acute cholecystitis. Dictated and Authenticated by: Luisito Bowles MD. Ordering:JAMI Sharma MD
[2021-08-15 10:46] LABS: Bilirubin Negative (Negative); Blood Negative (Negative); Clarity Clear (Clear); Glucose Negative (Negative); Ketones Negative (Negative); Leukocyte Esterase Negative (Negative); Nitrite Negative (Negative)
[2021-08-15 10:49] LABS: Troponin I < 50 ng/L (<or=60)
[2021-08-15 11:34] LABS: Source Nasal/Nares
[2021-08-15 11:41] LABS: PTT Activated 25.4 sec (21.0-27.5)
[2021-08-15 11:51] LABS: TSH 1.18 uIU/mL (0.36-3.74)
[2021-08-15 12:13] LABS: COVID-19 PCR Negative (Negative)
--- NOTE | 2021-08-15 12:16 | W.ANESPRE ---
General Info Date of Service Date Performed: 08/15/21 Height: 5 ft 5 in Weight: 63.503 kg Body Mass Index (BMI): 23.3 Surgical Procedure: Operation Date: 08/15/21 12:10 Proposed Procedures Side Surgeon p Cholecystectomy Laparoscopic Not Applicable Nenita Hinkle, DO Meds Allergies and Home Medications Allergies Allergy/AdvReac Type Severity Reaction Status Date / Time Gadolinium-Containing Allergy Severe Anaphylaxis Verified 08/15/21 06:38 [place] [facility] [place] Penicillins Allergy Severe Anaphylaxsi Verified 08/15/21 06:38 s Sulfa (Sulfonamide Allergy Severe Anaphylaxsi Verified 08/15/21 06:38 Antibiotics) s venom-honey bee Allergy Severe Anaphylaxsi Verified 08/15/21 06:38 [bee venom (honey bee)] s citalopram Allergy Mild Hives Verified 08/15/21 06:38 ofloxacin [From Floxin] Allergy Mild Skin Rash Verified 08/15/21 06:38 naproxen [From Aleve] Allergy Verified 08/15/21 06:38 azithromycin [From Zithromax] AdvReac Severe Anaphylaxsi Verified 08/15/21 06:38 s Iodinated Contrast Media AdvReac Severe Anaphylaxsi Verified 08/15/21 06:38 [Iodinated Contrast Media - s IV Dye] ketorolac tromethamine AdvReac Severe Anaphylaxsi Verified 08/15/21 06:38 [From Toradol] s iodine AdvReac Intermediate Anaphylaxsi Verified 08/15/21 06:38 s lorazepam [From Ativan] AdvReac Intermediate Dizziness/L Verified 08/15/21 06:38 ightheade horse flies Allergy Severe Anaphylaxsi Uncoded 08/15/21 06:38 s Home Medication Medication Instructions Recorded epinephrine 0.3 mg IJ PRN PRN #1 kit 03/27/15 acetaminophen [Tylenol] 650 mg PO Q4H PRN PRN #0 tab 01/22/21 albuterol sulfate 90 mcg/actuation 2 puff INHALATION Q6H PRN #8.5 g 03/13/21 aerosol inhaler levothyroxine 100 mcg tablet 100 mcg PO DAILY tab 03/18/21 Current Visit Medications: Current Medications Generic Name Dose Route Start Last Admin Trade Name Freq PRN Reason Stop Dose Admin Acetaminophen 1,000 mg 08/15/21 12:00 Acetaminophen 500 Mg Tab PO Q8H LUCI Albuterol Sulfate 2 puff 08/15/21 11:20 Albuterol Hfa 8 Gm 60 Puff Inh IH Q6H PRN PRN shortness of breath or wheezin Device 1 each 08/15/21 12:00 Inhaler, Assist Device DIRECTED [facility] Docusate Sodium 100 mg 08/16/21 09:00 Docusate Sodium 100 Mg Cap PO DAILY [facility] Enoxaparin Sodium 40 mg 08/15/21 12:00 Enoxaparin 40 Mg/0.4 Ml Syr SC Q24H [facility] Sodium Chloride 500 mls @ 0 mls/hr 08/15/21 11:12 Saline 500ml Bag IV PRN PRN As Directed Sodium Chloride 1,000 mls @ 125 mls/hr 08/15/21 11:15 Saline 1000ml Bag IV INFUSION LUCI Levofloxacin 750 mg in 150 mls @ 100 mls/hr 08/15/21 11:22 Levaquin Premixed Bag IVPB 08/15/21 12:51 NOW ONE Protocol Sodium Chloride 1,000 mls @ 125 mls/hr 08/15/21 11:30 Saline 1000ml Bag IV INFUSION [facility] IV Miscellaneous Supplies 1 each 08/15/21 11:15 Iv Access IV DIRECTED [facility] Levothyroxine Sodium 100 mcg 08/16/21 06:00 Levothyroxine 100 Mcg Tab PO DAILY@0600 [facility] Morphine Sulfate 2 mg 08/15/21 11:12 Morphine 2 Mg/Ml Syr IVP Q1H PRN PRN Ondansetron HCl 4 mg 08/15/21 11:12 Ondansetron 4 Mg/2 Ml Vial IVP Q4H PRN PRN Sodium Chloride 0 ml 08/15/21 11:12 Normal Saline Flush 10 Ml Syr IVP PRN PRN PFSH Active Problems Active Problems: Problem Status Onset Code Abdominal pain R10.9 Enteritis K52.9 Acute cholecystitis K81.0 Transaminitis R74.01 Adverse drug effect T50.905A Thoracic outlet syndrome G54.0 Neck pain M54.2 Panic attacks F41.0 Depression F32.9 Discharge planning issues Z02.9 DVT prophylaxis Z29.9 Difficulty with speech R47.9 Bilateral arm weakness R29.898 Bilateral leg weakness R29.898 Difficulty with speech R47.9 Breast lump on left side at 3 o'clock position N63.25 Weakness R53.1 Anxiety F41.9 Fatigue R53.83 Headache R51.9 Blurred vision H53.8 Chest pain R07.9 Near syncope R55 Atypical chest pain R07.89 Medical History Medical History Anxiety Fatigue Functional neurological symptom disorder with mixed symptoms (~01/15/21) Hypothyroidism Secondary to thyroidectomy due to cancer Thyroid cancer Papillary Surgical History Surgical History H/O hand surgery cyst removal History of hysterectomy History of thyroidectomy Tobacco Smoking/Tobacco Use Status: Never Alcohol Alcohol Intake: never Substance Use Substance use: Never Substance use type: does not use Prental History History 3 Para 2 Hx # Term Pregnancies 2 Multiple births Hx # Pregnancies 1 Ectopic pregnancies AB induced Hx Number of Living Children 2 AB spontaneous 1 Vital Signs and Lab Results Vital Signs Most Recent Vital Signs in EMR: Most Recent Vital Signs Temp Pulse Resp BP Pulse Ox 36.7 C 80 20 137/86 99 08/15/21 10:13 08/15/21 12:00 08/15/21 10:13 08/15/21 12:00 08/15/21 12:01 Lab Results Result Diagrams: 08/15/21 07:05 08/15/21 07:05 Blood Type / Crossmatch: No Data to Display Complete Blood Count: White Blood Count 12.35 10^3/uL (4.4-10.8) H 08/15/21 07:05 08/15/21 Red Blood Count 4.16 10^6/uL (3.93-5.22) 08/15/21 07:05 08/15/21 Hemoglobin 12.5 g/dL (11.2-15.7) 08/15/21 07:05 08/15/21 Hematocrit 37.5 % (36.0-46.0) 08/15/21 07:05 08/15/21 Platelet Count 310 10^3/uL (130-400) 08/15/21 07:05 08/15/21 Complete Metabolic Panel: Sodium Level 140 mmol/L (136-145) 08/15/21 07:05 08/15/21 Potassium Level 3.8 mmol/L (3.5-5.1) 08/15/21 07:05 08/15/21 Chloride Level 104 mmol/L (98-107) 08/15/21 07:05 08/15/21 Carbon Dioxide Level 26.0 mmol/L (21.0-32.0) 08/15/21 07:05 08/15/21 Blood Urea Nitrogen 14 mg/dL (7-18) 08/15/21 07:05 08/15/21 Creatinine 0.8 mg/dL (0.55-1.02) 08/15/21 07:05 08/15/21 Estimated GFR/1.73 m2 >= 60.00 (mL/min/1.73m2) 08/15/21 07:05 08/15/21 Magnesium Level 2.1 mg/dL (1.8-2.4) 08/15/21 07:05 08/15/21 Calcium Level 9.5 mg/dL (8.5-10.1) 08/15/21 07:05 08/15/21 Albumin 4.1 g/dL (3.4-5.0) 08/15/21 07:05 08/15/21 Glucose Level 119 mg/dL (74-106) H 08/15/21 07:05 08/15/21 Liver Function Panel: Alanine Aminotransferase (ALT/SGPT) 207 U/L (14-59) H 08/15/21 07:05 08/15/21 Aspartate Amino Transf (AST/SGOT) 347 U/L (15-37) H 08/15/21 07:05 08/15/21 Coagulation Panel: Activated Partial Thromboplast Time 25.4 sec (21.0-27.5) 08/15/21 07:05 08/15/21 Cardiac Panel: Troponin I < 50 ng/L (<or=60) 08/15/21 10:30 08/15/21 Creatine Kinase 82 U/L (26-192) 08/15/21 07:05 08/15/21 Arterial Blood Gas: No Data to Display Venous Blood Gas: No Data to Display Pancreas Panel: Lipase 121 U/L (73-393) 08/15/21 07:05 08/15/21 Thyroid Panel: Thyroid Stimulating Hormone (TSH) 1.18 uIU/mL (0.36-3.74) 08/15/21 07:05 08/15/21 Infectious Disease: Coronavirus (COVID-19)(PCR) Negative (Negative) 08/15/21 11:30 08/15/21 Coronavirus 2019 Source Nasal/Nares 08/15/21 11:30 08/15/21 Blood Cultures: No Data to Display Toxicology Panel: No Data to Display Panel: No Data to Display Imaging and Studies Imaging and Studies Study information below may be from another EMR and interpreted by another provider. Please see original notes in EMR for more complete details. Stress Test Summary: Stress ECG Conclusion 1. The resting electrocardiogram was normal 2. The patient exercised on the Harlan protocol and completed a workload of 13.53 METS, limited by fatigue 3. Normal heart rate and blood pressure response to exercise. The patient achieved 98% of predicted heart rate for age 4. There was no electrocardiographic evidence of myocardial ischemia with exercise 5. There were no significant dysrhythmias Jacobson Treadmill Score is 11 which is Low risk. 12/18/20 Anesthesia Assessment and Plan Anesthesia History Personal History: PONV Family History: No Family History of Anesthesia Complications and Family History Unknown Exercise Tolerance Exercise Tolerance: Metabolic Equivalents>4 Pertinent Negatives Pertinent Negatives: No Major Cardiovascular Symptoms or Complaints and No Major Pulmonary Symptoms or Complaints Cardiac & Pulmonary Exam Cardiac Exam: Normal S1/S2 Heart Sounds Pulmonary Exam: Clear Bilateral Breath Sounds Implantable Cardiac Device Does patient have a Pacemaker or an ICD?: No Airway Exam Known Difficult Airway: No Mallampati Class: 2 Mouth Opening: Normal (> 3cm) Thyromental Distance: Greater than 3 cm Neck Range of Motion: Full ROM Neck Circumference: Normal Teeth Condition: Normal Dentition ASA Classification ASA Score: ASA 2 Emergency Case?: Yes NPO Status NPO Status: NPO Clears >2 hours, Solids >8 hours Status Status: History of Hysterectomy Anesthesia Plan Resuscitation Status: Full Code Anesthesia Technique: Epidural Anesthesia Airway Planned: Endotracheal Tube Pain Management: Epidural Monitors Used: Standard Monitors Preoperative Comments:: Extreme anxiety and medication ?phobia?
[2021-08-15] MEDS: diphenhydrAMINE 50 MG/ML VIAL IVP (12:44)
[2021-08-15] MEDS: levoFLOXacin 750 MG/150 ML BAG 100 MG IVPB (12:45)
[2021-08-15] MEDS: Normal Saline 1,000 ML 125 ML IV (12:45)
[2021-08-15] MEDS: Normal Saline Flush 10 ML SYR IVP (12:45)
--- NOTE | 2021-08-15 12:52 | W.PM.HP.N ---
Date of service: 08/15/21 Time of Service: 12:52 Assessment and Plan Assessment and plan (1) Acute cholecystitis: Status: Acute Assessment and plan: Patient has a very mild acute cholecystitis. I did discuss this with her at her . We discussed the etiology of gallstones and cholecystitis. We discussed treatment and medical management versus surgical management. We can do surgery today otherwise he cannot get her in to my surgery schedule for the next 10 days. She is not an emergent case. However patient has severe anxiety around her medical status and I do not think she would tolerate medical management well and I do recommend that we proceed with surgery today. We discussed risks and benefits of the surgery. Discussed the risks of surgery at length. She does have a history of postop nausea and vomiting especially with narcotic. She cannot take Toradol. I do recommend that we keep her overnight for hydration and pain management . The alternatives to surgery, risks, complications, and the possible need to convert to open cholecystectomy were discussed. Also bleeding, infection, pneumonia, blood clots, complications of anesthesia, damage to bowel, bladder, blood vessels, or bile ducts, liver, need for blood transfusions. Also: chronic pain, chronic diarrhea, reoccurrence of signs and symptoms, port site hernias, adhesions. All questions were answered and the patient elected to proceed with surgery. We discussed that we need to do any having keep her on antibiotics because she does have a low-grade infection. We discussed anaphylaxis sepsis that quite a great length. We did address her fears regarding anesthetic agent use. And about immediate versus possible risks and how to recognize postop comp complications. 60 minutes was spent in consultation with this patient today This document was created using voice activated software and wiamy contain errors (2) Transaminitis: Status: Acute (3) Adverse drug effect: Status: Acute (4) Panic attacks: Status: Acute (5) Depression: Status: Chronic Qualifiers: Depression Type: major depressive disorder Major depression recurrence: unspecified whether recurrent Active/Remission status: currently active Major depression episode severity: moderate Qualified Code(s): F32.1 - Major depressive disorder, single episode, moderate (6) WOOD (generalized anxiety disorder): Status: Acute (7) PONV (postoperative nausea and vomiting): Status: Acute (8) Anxiety about health: Status: Acute (9) Hypothyroidism: Status: Acute (10) Thyroid cancer: Status: Acute History of Present Illness Narrative: Patient is a 46-year-old woman with severe anxiety. She came to the ER at midnight complaining mostly of back pain. She was soft, pain meds and antiemetics. I did review the Dr. Bridges's note. Patient came back at 7 AM complaining of increasing in severity of abdominal pain. She had repeat labs and an ultrasound which did show an increase in her LFTs and see ultrasound in [facility]. Patient had a similar episode 2 months ago with right upper quadrant pain and that radiated around her stomach in a bandlike fashion radiating to the back. It was not as severe and it only lasted 2 hours. It seemed to come on with urination. She had a history of kidney stones and thought this was a kidney stone. On 1227 she did consent known last over holiday food but that was more fatty than she would normally eat and had an episode of abdominal pain and nausea but it and it did not last. Today she still having R upper quadrant radiating around her abdomen and pain in a bandlike fashion, although, it is mildly improved. She has not received any recent antibiotic point at her request. She has severe anxiety. She is very drug sensitive. She has a history of severe nausea with narcotic she had postop nausea and vomiting after LAVH. She does have a significant a lot of medication reaction. We discussed goals for the etiology pathology of gallstones. We discussed treatment. Conservative versus surgery. Patient is very anxious about her health care. I do not think she will do well with conservative medical management. We are able to do her surgery today. We discussed surgery and what it entails. We discussed risks and benefits. We discussed the medications we use. Risks of surgery include but are not limited to:. The alternatives to surgery, risks, complications, and the possible need to convert to open cholecystectomy were discussed. Also bleeding, infection, pneumonia, blood clots, complications of anesthesia, damage to bowel, bladder, blood vessels, or bile ducts, liver, need for blood transfusions. Also: chronic pain, chronic diarrhea, reoccurrence of signs and symptoms, port site hernias, adhesions. All questions were answered and the patient elected to proceed with surgery. Also d/w pt dietary restrictions and warning signs of when to go to ER. We will plan on keeping her overnight for hydration and antiemetic She has a very mild infection but it does need to be treated with antibiotics. We did get her concerned about the infection spreading vs taking an antibiotic. We will give the antibiotic Benadryl. She will receive Decadron in the OR. She does wish to proceed with surgery Patient did not tell me she had thyroid cancer or thyroid surgery,. Although it is noted in her history. Review of Systems All systems reviewed & are unremarkable except as noted in HPI and below PFSH All Active Problems (Updated 08/15/21 @ 13:04 by Nenita Hinkle DO) Anxiety about health (Acute) PONV (postoperative nausea and vomiting) (Acute) WOOD (generalized anxiety disorder) (Acute) Hypothyroidism (Acute) Secondary to thyroidectomy due to cancer Thyroid cancer (Acute) Papillary Acute cholecystitis (Acute) Transaminitis (Acute) Adverse drug effect (Acute) Thoracic outlet syndrome (Acute) Neck pain (Acute) Panic attacks (Acute) Depression (Chronic) Difficulty with speech (Acute) Bilateral arm weakness (Acute) Bilateral leg weakness (Acute) Difficulty with speech (Acute) Breast lump on left side at 3 o'clock position (Acute) Weakness (Acute) Anxiety (Chronic) Fatigue (Acute) Headache (Acute) Blurred vision (Acute) Chest pain (Acute) Near syncope (Acute) Atypical chest pain (Acute) Medical History Anxiety Fatigue Functional neurological symptom disorder with mixed symptoms (~01/15/21) Hypothyroidism Secondary to thyroidectomy due to cancer Thyroid cancer Papillary Surgical History H/O hand surgery cyst removal History of hysterectomy History of thyroidectomy Family History Mother Hypertension Social History Smoking/Tobacco Use Status: Never Smoking risk assessment performed?: Yes Alcohol Intake: never Drug use: Never Substance use type: does not use Household members: spouse and children Number of Children: 4 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 Do you think of yourself as: lesbian/beltrán/homosexual Current gender identity: female What is your relationship status?: Panel score (0-1 are the most socially isolated patients): 1 Do you feel safe at home: Yes Do you feel safe in your relationship?: Yes History History 3 Para 2 Hx # Term Pregnancies 2 Multiple births Hx # Pregnancies 1 Ectopic pregnancies AB induced Hx Number of Living Children 2 AB spontaneous 1 Meds Allergies and Home Medications Allergies Allergy/AdvReac Type Severity Reaction Status Date / Time Gadolinium-Containing Allergy Severe Anaphylaxis Verified 08/15/21 06:38 [place] [facility] [place] Penicillins Allergy Severe Anaphylaxsi Verified 08/15/21 06:38 s Sulfa (Sulfonamide Allergy Severe Anaphylaxsi Verified 08/15/21 06:38 Antibiotics) s venom-honey bee Allergy Severe Anaphylaxsi Verified 08/15/21 06:38 [bee venom (honey bee)] s citalopram Allergy Mild Hives Verified 08/15/21 06:38 ofloxacin [From Floxin] Allergy Mild Skin Rash Verified 08/15/21 06:38 naproxen [From Aleve] Allergy Verified 08/15/21 06:38 azithromycin [From Zithromax] AdvReac Severe Anaphylaxsi Verified 08/15/21 06:38 s Iodinated Contrast Media AdvReac Severe Anaphylaxsi Verified 08/15/21 06:38 [Iodinated Contrast Media - s IV Dye] ketorolac tromethamine AdvReac Severe Anaphylaxsi Verified 08/15/21 06:38 [From Toradol] s iodine AdvReac Intermediate Anaphylaxsi Verified 08/15/21 06:38 s lorazepam [From Ativan] AdvReac Intermediate Dizziness/L Verified 08/15/21 06:38 ightheade horse flies Allergy Severe Anaphylaxsi Uncoded 08/15/21 06:38 s Home Medications Medication Instructions Recorded Confirmed Type epinephrine 0.3 mg IJ PRN PRN #1 kit 03/27/15 08/15/21 Rx acetaminophen [Tylenol] 650 mg PO Q4H PRN PRN #0 tab 01/22/21 08/15/21 Rx albuterol sulfate 90 mcg/actuation 2 puff INHALATION Q6H PRN #8.5 g 03/13/21 08/15/21 Rx aerosol inhaler levothyroxine 100 mcg tablet 100 mcg PO DAILY tab 03/18/21 08/15/21 History Exam Const General: cooperative, healthy appearing, comfortable, no acute distress, well developed and well groomed Nutritional Appearance: average body habitus and well nourished Orientation: alert, awake and oriented x3 [facility] Head: normal to inspection, normocephalic and atraumatic Ears: hearing grossly normal bilaterally and external ears normal General nose exam: external nose normal Face and sinus: normal facial exam and sinuses nontender Mouth: oral mucosae normal, lip normal, tongue normal and moist mucous membranes Teeth and gingiva: dentition normal Eyes General: appearance normal, both eyes and all related structures Conjunctivae: conjunctivae normal Sclera: sclerae normal Pupils: PERRL Neck Neck: normal visual inspection and full ROM Chest Chest: normal inspection of the chest Resp Effort & Inspection: normal respiratory effort, able to speak in complete sentences, no cough, no nasal flaring, not tachypneic and no use of accessory muscles Auscultation: clear to auscultation bilaterally, no rales, no rhonchi and no wheezes Cardio Jugular venous pressure: no JVD Rate: regular rate Rhythm: regular rhythm GI Inspection: normal to inspection, no edema and non-distended Palpation: soft, no masses, tender in the RUQ and at McBurney's point and No ascites Auscultation: normal bowel sounds Other: No hernias. No rebound rigidity or guarding. Skin General skin exam: no rashes or lesions noted Trauma: no lacerations or abrasions Neuro General: patient alert, patient oriented x3, oriented, gait normal, moves all extremities, no focal motor deficits and CN's II-XI intact bilaterally Cognition: normal cognition Speech: speech normal Gait: normal gait Motor: muscle tone normal throughout Extrem General: normal to inspection, full ROM and no clubbing, cyanosis or edema Psych Appearance: grossly normal and well kempt Mental Status: mental status grossly normal Speech and Movement: speech and movement normal Affect: normal affect Results Labs Result diagrams: 08/15/21 07:05 08/15/21 07:05 Labs: Laboratory Results - last 24 hr 08/15/21 08/15/21 08/15/21 07:05 07:05 07:05 WBC 12.35 H RBC 4.16 Hgb 12.5 Hct 37.5 MCV 90.1 MCH 30.0 MCHC 33.3 RDW 12.8 Plt Count 310 MPV 9.9 Immature Gran % 0.3 Neutrophils % 78.6 Lymphocytes % 13.5 Monocytes % 5.4 Eosinophils % 1.6 Basophils % 0.6 Nucleated RBC % 0 Absolute Neutrophils 9.71 H Absolute Lymphocytes 1.67 Absolute Monocytes 0.67 Absolute Eosinophils 0.20 Absolute Basophils 0.07 APTT 25.4 Sodium 140 Potassium 3.8 Chloride 104 Carbon Dioxide 26.0 Anion Gap 10.0 BUN 14 Creatinine 0.8 Estimated GFR/1.73 m2 >= 60.00 Glucose 119 H Calcium 9.5 Magnesium 2.1 Total Bilirubin 0.8 Conjugated Bilirubin 0.5 H AST 347 H ALT 207 H Alkaline Phosphatase 116 Creatine Kinase 82 Troponin I < 50 Total Protein 8.0 Albumin 4.1 Lipase 121 TSH Urine Color Urine Clarity Urine pH Ur Specific [place] Urine Protein Urine Ketones Urine Blood Urine Nitrite Urine Bilirubin Urine Urobilinogen Ur Leukocyte Esterase Urine Glucose COVID-19 Source SARS-CoV-2 (PCR) 08/15/21 08/15/21 08/15/21 07:05 10:30 10:35 WBC RBC Hgb Hct MCV MCH MCHC RDW Plt Count MPV Immature Gran % Neutrophils % Lymphocytes % Monocytes % Eosinophils % Basophils % Nucleated RBC % Absolute Neutrophils Absolute Lymphocytes Absolute Monocytes Absolute Eosinophils Absolute Basophils APTT Sodium Potassium Chloride Carbon Dioxide Anion Gap BUN Creatinine Estimated GFR/1.73 m2 Glucose Calcium Magnesium Total Bilirubin Conjugated Bilirubin AST ALT Alkaline Phosphatase Creatine Kinase Troponin I < 50 Total Protein Albumin Lipase TSH 1.18 Urine Color Yellow Urine Clarity Clear Urine pH 7.0 Ur Specific [place] 1.020 Urine Protein Negative Urine Ketones Negative Urine Blood Negative Urine Nitrite Negative Urine Bilirubin Negative Urine Urobilinogen 1.0 H Ur Leukocyte Esterase Negative Urine Glucose Negative COVID-19 Source SARS-CoV-2 (PCR) 08/15/21 11:30 WBC RBC Hgb Hct MCV MCH MCHC RDW Plt Count MPV Immature Gran % Neutrophils % Lymphocytes % Monocytes % Eosinophils % Basophils % Nucleated RBC % Absolute Neutrophils Absolute Lymphocytes Absolute Monocytes Absolute Eosinophils Absolute Basophils APTT Sodium Potassium Chloride Carbon Dioxide Anion Gap BUN Creatinine Estimated GFR/1.73 m2 Glucose Calcium Magnesium Total Bilirubin Conjugated Bilirubin AST ALT Alkaline Phosphatase Creatine Kinase Troponin I Total Protein Albumin Lipase TSH Urine Color Urine Clarity Urine pH Ur Specific [place] Urine Protein Urine Ketones Urine Blood Urine Nitrite Urine Bilirubin Urine Urobilinogen Ur Leukocyte Esterase Urine Glucose COVID-19 Source Nasal/Nares SARS-CoV-2 (PCR) Negative Last Vital Signs Temp 36.7 C 08/15/21 10:13 Pulse 80 08/15/21 12:00 Resp 20 08/15/21 10:13 BP 137/86 08/15/21 12:00 Pulse Ox 99 08/15/21 12:01
--- NOTE | 2021-08-15 14:00 | GB_PTH ---
PATIENT: Raquel Valencia LOC: [id number]#:[id number] AGE/SX: 46/F ROOM: RE08/15/[address]: Nenita Hinkle : 1975 BED: A DIS: 08/16/2021 SPEC #: [id number] RECD: 08/17/21 12:48 STATUS: SHAYY REQ #: [id number] CRISTOBAL: 08/15/21 14:[address]: Nenita Hinkle DEPT: Surgical Specimen RECD BY: Elizabet Bills ENTERED: 08/17/21 12:49 SP TYPE: GB OTHR DR: Leonora Syed Tissues: 1 - GALLBLADDER Procedures: GROSS AND MICRO LEVEL 3 Comments: [id number]
--- NOTE | 2021-08-15 14:31 | ROE_ITS ---
Date of service: 08/15/21 Time of Service: 14:31 Operative Note Operative Note DATE OF PROCEDURE: 08/15/21 PRE-OP DIAGNOSIS: acute jessica w/stones POST-OP DIAGNOSIS: same SURGEON: Nenita Toussaint HABITAT MANAGEMENT COORDINATOR: Nenita Denny ANESTHESIA TYPE: General LMA/ETT Refer to Anesthesia Record ESTIMATED BLOOD LOSS: 7 PATHOLOGY: other COMPLICATIONS: None Patient was transported to: PACU Patient's condition: stable Procedure Description: The patient agrees and is brought to the operative room suite and placed in supine position. Anesthesia was administered per the Department of Anesthesia. The patient did receive IV antibiotics. NG tube and Benavides catheter are placed. The patient was prepped and draped in the usual sterile fashion using DuraPrep scrub solution. Pause for the cause was done. 20 mL of 1% buffered lidocaine was used for local anesthetization. A stab incision was made in the umbilicus. She does have a small umbilical hernia and a cutdown was done. The #5 port inserted. The camera was inserted through the port and shows no damage to underlying structures. A 10 mm port was then placed in the epigastric position under direct visualization following creation of local field blocks as well as two 5 mm ports in the right upper quadrant. She does have some adhesions of the omentum up to the gallbladder. These are taken down with blunt dissection. The gallbladder fundus was grasped and retracted towards the right shoulder. Infundibulum was grasped and retracted laterally. The hepat- duodenal ligament is entered. The cystic duct and artery are dissected out and the most inferior portion of the gallbladder plate is removed from the liver and the critical view of safety was obtained after clearing away all fatty material. Endo Clips were placed across the duct and artery and these structures are divided. The remainder of the gallbladder was excised from the liver bed. She does have some mild edema of the wall of the gallbladder. The gallbladder was placed in a bag and brought out. Examination of the gallbladder shows indeed the cystic duct and artery to have been divided. The remainder of the abdomen was copiously irrigated with a liter of saline. All saline is removed. FloSeal is placed in the gallbladder fossa. There is no bleeding or bile leakage from the liver bed or the clips sites. An EndoClose needle was used to close the 10 mm port site with an 0 Vicryl. All ports and instruments are removed. SPonge and needle counts are correct. Pneumoperitoneum is evacuated and the port sites are monitored to make sure there is no bleeding at the time of desufflation. The epigastric port site is instilled w/ 20cc Experel at the time of closure. The fascia under the umbilical port is closed with 2-0 Vicryl. Port sites are irrigated and the skin is closed with 4-0 Monocryl in a running subcuticular fashion. Skin glue sterile dressings are applied. The patient tolerated the procedure well without complications, transferred to the recovery room in stable condition. NENITA TOUSSAINT DO
[2021-08-15] MEDS: fentaNYL 100 MCG/2 ML VIAL IVP (14:48)
[2021-08-15] MEDS: oxyCODONE 5 MG TAB PO (15:36)
--- NOTE | 2021-08-15 20:09 | W.PM.PROGNOT ---
Date of Service Date of service: 08/15/21 Time of Service: 20:10 Assessment and Plan Assessment and plan (1) Acute cholecystitis: Status: Acute Assessment and plan: The patient is doing well postOP. She is c/o pain in her chest and shoulders. She has not been up walking. They are having no nausea or vomiting. The pt is not having any chest pain or SOB, productive cough; no calf pain or swelling. The pt is making good urine. The case was discussed with nursing and patient?s progress reviewed. All of the pt's home medications were addressed and adjusted accordingly for their oral intact status. HEENT: no jaundice. no eye pain/drainage/redness/swelling. Mild sore throat Cardio- NSR no chest pain, BP stable. Pulm: no sob or productive cough. no hemoptysis Incision- clean/dry. Dressing intact no excessive bleeding or drainage I discussed with the patient and/or there family about the findings in surgery and the pt's progress. I did review the patient's chart. She has seen Dr. Azevedo in the past for chest pain she has had an extensive work-up for this including multiple CT scans and MRIs. She did have a stress test that was negative. And Dr. Marks concludes that her chest pain is not cardiac in nature. She does have an extensive history of WOOD and anxiety regarding her health. We discussed the importance of walking to dissolve the insufflated CO2. Patient has been refusing to get up and walk with the nurses. She has been insisting that she have a front desk monitor placed. She has no history of heart problems. She has been in normal sinus. Her vital signs have been stable. She needs to get up and walk in order for the CO2 to resolve and this will alleviate the chest pain. I discussed that the pain from the gas cannot be resolved with more pain medication and her better option is to be up walking. And encouraged her and her significant other to get up with nursing. We reviewed expectations for progress in the hospital; what the pt could expect for recovery time and length of stay. We discussed the importance of walking and pulmonary toilet to avoid blood clots and pneumonia. Continue current plans for pulmonary toilet, GI and DVT prophylaxis. We shall continue the current plan for pain management as it is at an appropriate level, and working well for the pt. Appropriate measures will be taken for constipation prevention, and this was also reviewed with the pt. The wound care plan was reviewed with nursing as well. Patient will be discharged in a.m. The patient was Reassured that she had no anaphylaxis or such symptoms during the course of the OR. That she tolerated her IV Levaquin well. She had no problems with anesthetics during the course of her surgery. I did review Dr. Fontaine's notes. see orders (2) PONV (postoperative nausea and vomiting): Status: Acute (3) WOOD (generalized anxiety disorder): Status: Acute Objective Last Vital Signs Temp 36.3 C L 08/15/21 19:20 Pulse 64 08/15/21 19:20 Resp 16 08/15/21 19:20 BP 159/87 H 08/15/21 19:20 Pulse Ox 100 08/15/21 19:20 Laboratory Results - last 24 hr 08/15/21 08/15/21 08/15/21 07:05 07:05 07:05 WBC 12.35 H RBC 4.16 Hgb 12.5 Hct 37.5 MCV 90.1 MCH 30.0 MCHC 33.3 RDW 12.8 Plt Count 310 MPV 9.9 Immature Gran % 0.3 Neutrophils % 78.6 Lymphocytes % 13.5 Monocytes % 5.4 Eosinophils % 1.6 Basophils % 0.6 Nucleated RBC % 0 Absolute Neutrophils 9.71 H Absolute Lymphocytes 1.67 Absolute Monocytes 0.67 Absolute Eosinophils 0.20 Absolute Basophils 0.07 APTT 25.4 Sodium 140 Potassium 3.8 Chloride 104 Carbon Dioxide 26.0 Anion Gap 10.0 BUN 14 Creatinine 0.8 Estimated GFR/1.73 m2 >= 60.00 Glucose 119 H Calcium 9.5 Magnesium 2.1 Total Bilirubin 0.8 Conjugated Bilirubin 0.5 H AST 347 H ALT 207 H Alkaline Phosphatase 116 Creatine Kinase 82 Troponin I < 50 Total Protein 8.0 Albumin 4.1 Lipase 121 TSH Urine Color Urine Clarity Urine pH Ur Specific [place] Urine Protein Urine Ketones Urine Blood Urine Nitrite Urine Bilirubin Urine Urobilinogen Ur Leukocyte Esterase Urine Glucose COVID-19 Source SARS-CoV-2 (PCR) 08/15/21 08/15/21 08/15/21 07:05 10:30 10:35 WBC RBC Hgb Hct MCV MCH MCHC RDW Plt Count MPV Immature Gran % Neutrophils % Lymphocytes % Monocytes % Eosinophils % Basophils % Nucleated RBC % Absolute Neutrophils Absolute Lymphocytes Absolute Monocytes Absolute Eosinophils Absolute Basophils APTT Sodium Potassium Chloride Carbon Dioxide Anion Gap BUN Creatinine Estimated GFR/1.73 m2 Glucose Calcium Magnesium Total Bilirubin Conjugated Bilirubin AST ALT Alkaline Phosphatase Creatine Kinase Troponin I < 50 Total Protein Albumin Lipase TSH 1.18 Urine Color Yellow Urine Clarity Clear Urine pH 7.0 Ur Specific [place] 1.020 Urine Protein Negative Urine Ketones Negative Urine Blood Negative Urine Nitrite Negative Urine Bilirubin Negative Urine Urobilinogen 1.0 H Ur Leukocyte Esterase Negative Urine Glucose Negative COVID-19 Source SARS-CoV-2 (PCR) 08/15/21 11:30 WBC RBC Hgb Hct MCV MCH MCHC RDW Plt Count MPV Immature Gran % Neutrophils % Lymphocytes % Monocytes % Eosinophils % Basophils % Nucleated RBC % Absolute Neutrophils Absolute Lymphocytes Absolute Monocytes Absolute Eosinophils Absolute Basophils APTT Sodium Potassium Chloride Carbon Dioxide Anion Gap BUN Creatinine Estimated GFR/1.73 m2 Glucose Calcium Magnesium Total Bilirubin Conjugated Bilirubin AST ALT Alkaline Phosphatase Creatine Kinase Troponin I Total Protein Albumin Lipase TSH Urine Color Urine Clarity Urine pH Ur Specific [place] Urine Protein Urine Ketones Urine Blood Urine Nitrite Urine Bilirubin Urine Urobilinogen Ur Leukocyte Esterase Urine Glucose COVID-19 Source Nasal/Nares SARS-CoV-2 (PCR) Negative
[2021-08-16 01:31] VITALS: BP 149/86; PULSE 62; RESP 20; TEMP 36.9; O2SAT 99
[2021-08-16 05:59] LABS: Abs Immature Grans 0.03 10^3/uL (0.0-0.06); Absolute Basophil Count 0.02 10^3/uL (0.0-0.2); Absolute Lymphocyte Count 1.07 10^3/uL (1.2-3.4); Absolute Monocyte Count 0.46 10^3/uL (0.1-0.8); Basophils % 0.2; HCT 37.5 % (36.0-46.0); HGB 12.1 g/dL (11.2-15.7); Immature Grans % 0.3; Lymphocytes % 10.8; MCH 29.2 pg (27.0-33.0); MCHC 32.3 % (32.0-36.0); MCV 90.4 fL (80-95); MPV 10.2 fL (8.0-11.0); Monocytes % 4.7; Nucleated RBC 0 %; Platelet Count 318 10^3/uL (130-400); RBC 4.15 10^6/uL (3.93-5.22); RDW 13.3 % (11.7-14.6); RDW-SD 44.6 fL; WBC 9.88 10^3/uL (4.4-10.8)
[2021-08-16 06:09] LABS: Prothrombin Time 10.2 sec (9.3-11.0)
[2021-08-16 06:13] LABS: ALT 724 U/L (14-59); AST 471 U/L (15-37); Albumin 4.1 g/dL (3.4-5.0); Alkaline Phosphatase 164 U/L (46-116); Anion Gap 10.8 mmol/L (3-11); BUN 9 mg/dL (7-18); Bilirubin, Total 0.5 mg/dL (0.2-1.0); CO2 24.2 mmol/L (21.0-32.0); CREATININE 0.8 mg/dL (0.55-1.02); Calcium 9.5 mg/dL (8.5-10.1); Chloride 103 mmol/L (98-107); Glucose 131 mg/dL (74-106); Potassium 4.2 mmol/L (3.5-5.1); Sodium 138 mmol/L (136-145); Total Protein 8.1 g/dL (6.4-8.2)
[2021-08-16] MEDS: Levothyroxine 100 MCG TAB PO (06:32)
[2021-08-16 07:50] VITALS: BP 149/88; PULSE 75; RESP 17; TEMP 36.9; O2SAT 99
--- NOTE | 2021-08-16 09:10 | W.ANESPOSTOP ---
Postoperative Evaluation Date, Time and Location Date Performed: 08/16/21 Time Performed: 07:20 Patient Location: Med/Surg Vital Signs Most Recent Imported Vital Signs: Most Recent Vital Signs Temp Pulse Resp BP Pulse Ox 36.9 C 75 17 149/88 H 99 08/16/21 07:50 08/16/21 07:50 08/16/21 07:50 08/16/21 07:50 08/16/21 07:50 Pain Score Most Recent Pain Score: Most Recent Pain Score Pain Level 10 08/15/21 18:26 Assessment Mental Status: Awake (Alert & Oriented to Patient Baseline) Airway and Respiratory Function: Patent airway with normal (patient baseline) respiratory exam Cardiovascular Function: Hemodynamically Stable Hydration Status: Adequately Hydrated Nausea & Vomiting: No Nausea or Vomiting Pain: Pain is Moderate or Severe (Pain level 8 at present, time for next PO pain med) Postoperative Pain Management: Pain being addressed with medication Peripheral Nerve Block: Patient did not receive a nerve block Teaching Patient Teaching: Discussed Safe Use of Pain Medication Given Recent Anesthesia
--- NOTE | 2021-08-16 09:21 | PDOC.CMIN ---
- If Service Date Differs Date of service: 08/16/21 Time of Service: 09:21 Care Management Initial Assess REASON FOR HOSPITALIZATION:: Acute cholecystitis. PAST MEDICAL HISTORY/PAST SURGICAL HISTORY:: All Active Problems: Anxiety about health (Acute), PONV (postoperative nausea and vomiting) (Acute), WOOD (generalized anxiety disorder) (Acute), Hypothyroidism (Acute) - Secondary to thyroidectomy due to cancer,. Thyroid cancer (Acute) - Papillary, Acute cholecystitis (Acute), Transaminitis (Acute), Adverse drug effect (Acute), Thoracic outlet syndrome (Acute), Neck pain (Acute), Panic attacks (Acute), Depression (Chronic), Difficulty with speech (Acute), Bilateral arm weakness (Acute),. Bilateral leg weakness (Acute), Difficulty with speech (Acute), Breast lump on left side at 3 o'clock position (Acute), Weakness (Acute), Anxiety (Chronic), Fatigue (Acute), Headache (Acute), Blurred vision (Acute),. Chest pain (Acute), Near syncope (Acute), and Atypical chest pain (Acute). Medical History: Anxiety, Fatigue, Functional neurological symptom disorder with mixed symptoms (~01/15/21), Hypothyroidism - Secondary to thyroidectomy due to cancer, and Thyroid cancer - Papillary. Surgical History: H/O hand surgery - cyst removal, History of hysterectomy, and History of thyroidectomy. PREVIOUS FUNCTIONAL STATUS/SOCIAL/FAMILY SUPPORTS:: Raquel lives with her Salvador and their 6 year old son on a farm in [place], [place]. Raquel has two additional children who are adults and live on their own. 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 CURRENT FUNCTIONAL STATUS:: Raquel is laying in bed when comes to meet with her. She is pleasant and easily engages in conversation. Raquel had gallbladder surgery yesterday. She reports having quite a bit of pain last evening but did not take pain medication due to fears it would damage her liver. She states her liver enzymes were elevated prior to the surgery and remain elevated this morning and this is concerning to her. She is looking forward to speaking with the surgeon as she has many questions regarding the surgery, liver enzymes, etc. ADVANCE DIRECTIVES:: None on file and is not interested in an Advance Directives at this time. Has patient been provided with info about the portal/API?: Yes Did the patient sign up for the portal?: Yes (Previously enrolled.) CODE STATUS:: Full Code INSURANCE COVERAGE / FINANCIAL ISSUES:: [employer] CURRENT HOME/COMMUNITY SERVICES/EQUIPMENT:: None. PRIMARY CARE PHYSICIAN:: Leonora Syed MD ([facility]). POTENTIAL DISCHARGE NEEDS:: Follow up with PCP, surgeon, and plan of care. PATIENT/FAMILY EDUCATION NEEDS:: Review of discharge instructions, limitations, medications, and follow up plan of care; discuss Ask Me Three and self management. ANTICIPATED BARRIERS TO DISCHARGE:: No anticipated barriers to discharge. TRANSPORTATION:: Via private vehicle with family. PLAN:: Raquel will likely be discharged home with no new services when medically cleared by provider. She will transport with family by private vehicle when ready. Raquel will follow up with her PCP, surgeon, and plan of care as prescribed. CM will continue to follow.
[2021-08-16] MEDS: diphenhydrAMINE 50 MG/ML VIAL 25 MG IVP (12:31)
--- NOTE | 2021-08-16 12:42 | W.PM.DSUDISC ---
Discharge Plan Disposition Patient Disposition: HOME Condition: Stable Discharge Details Reason For Visit: Acute cholecystitis Admit Date/Time: 08/15/21 15:04 Admit Provider: Nenita Hinkle Attending Provider: Nenita Hinkle Primary Care Provider: Leonora Syed [place] Hospital Course Hospital Course: see addendum Home Meds and New Rx's Prescriptions: New oxycodone 5 mg tablet 5 mg PO Q6H PRNQty: 10 RF: 0 levofloxacin 500 mg tablet 500 mg PO DAILY 4 Days Qty: 4 RF: 0 ondansetron HCl [Zofran] 4 mg tablet 4 mg PO Q6H PRN (Reason: nausea and vomiting) Qty: 7 RF: 0 Continued albuterol sulfate [Proventil HFA] 90 mcg/actuation HFA aerosol inhaler 2 puff inhalation Q6H PRN (Reason: shortness of breath or wheezing) Qty: 8.5 RF: 0 levothyroxine 100 mcg tablet 100 mcg PO DAILY RF: 0 epinephrine 0.3 MG/SYR auto-injector 0.3 mg IJ PRN PRN (Reason: Allergy Symptoms) Qty: 1 RF: 0 acetaminophen [Tylenol] 325 mg Tablet 650 mg PO Q4H PRN PRNQty: 0 RF: 0 Discharge Instructions Additional Instructions: Care after Gallbladder Surgery -Pain control: For the first 72 hours after surgery, take you pain meds continuously and not just when you have pain. Tylenol 1000mg by mouth every 8 hours. Use the oxycodone for breakthrough pain- pain that is greater than a 7. - Use ICE! Ice really helps to keep the swelling down, and swelling causes pain. Twenty minutes on, and then off, continuously for the first 72hours. After the first 72hrs, you can just use the Tylenol, and ice, when you have pain. If you are taking narcotic pain medication, follow the instructions on the label and do not drive. Pain medications can make you very constipated. Make sure you are moving your bowels daily. If not, take Miralax, milk of magnesia or magnesium citrate. - Anesthesia makes you very constipated. Take a dose of milk of magnesia the morning after surgery. ? Use an ice bag for the first 72 hours. This helps to decrease swelling, which causes pain. It is normal to be more sore/painful and swollen towards the end of the day and first thing in the morning. ? Gallbladder surgery can make you very nauseated; use Zofran for nausea, for the first 24 hours. The nausea generally stops after 24 hours. ? Use milk of magnesia or prune juice to prevent constipation (this is a particular side effect of pain medication and anesthesia). Do not allow yourself to become constipated. ? Avoid fatty or greasy foods; introduce these slowly, with care, after about 1 month. High-fat foods include: ? Foods that are fried, like Portuguese fries and potato chips ? High-fat meats, such as hunter, bologna, sausage, ground beef, and ribs, pork products ? High-fat dairy products, such as cheese, ice cream, cream, whole milk, and sour cream ? Pizza ? Foods made with lard or butter ? Creamy soups or sauces ? Meat gravies ? Chocolate ? Oils, such as palm and coconut oil ? Skin of chicken or turkey Nuts and nut butters [place]adoes ? Start out eating very small, bland amounts of food. Do not take pain pills on an empty stomach. - You will notice purple discoloration around the incisions. This is the ?skin glue?. This will wear off on its own. It is OK to shower after 24hrs. You do not need to cover the incisions. - -You should walk frequently-up walking 10 minutes for every hour sitting, gradually, increasing the distance. You may climb stairs, just go slowly. ? Do not go swimming or sit in a hot tub for two weeks. ? There are no stitches to remove. ? Do not drive your car x72hrs and then only if you have no pain and can move freely. Do not drive if you are taking pain narcotic pain medications. ? You may resume sexual activity whenever pain and soreness subside, usually in 2 weeks. ? Do no lift anything over 5 lbs. for two weeks. ? You may return to work in one week, or when you feel able, provided you do not have to do any heavy lifting or prolonged standing. ? You should return to Dr. Hinkle?s office for a post-op appointment about one week after surgery. Please call the Surgical Clinic at: [phone] to schedule an appointment. My Medications for pain and nausea are: Tylenol and oxycodone, and zofran -Take 25 mg of Benadryl by mouth 30 minutes prior to taking the antibiotic, Levaquin. Finish all antibiotic. Yogurt daily while on antibiotic When to Call the Office: ? If the incision becomes red or swollen, or there is more than a little drainage from it. ? If you develop a temperature higher than 100.5 F. ? If your eyes turn yellow ? Vomiting and can?t keep fluids down Activity:: See above Equipment/Supplies:: No Equipment Needed Diet:: See above DS: Diagnosis Discharge Diagnosis (1) Acute cholecystitis: Status: Acute (2) PONV (postoperative nausea and vomiting): Status: Acute (3) WOOD (generalized anxiety disorder): Status: Acute
[2021-08-16] MEDS: levoFLOXacin 500 MG/100 ML BAG 100 MG IVPB (12:56)
[2021-08-16] MEDS: Milk of Magnesia 30 ML CUP PO (14:43)
[2021-08-16 16:35] VITALS: BP 161/88; PULSE 70; RESP 17; TEMP 37.3; O2SAT 99
== END 2021-08-16 17:03 | disposition home or self-care (01) | DRG 419 ==
LOC: ER 11:35 → SUR 13:18 → MS 15:10 → SUR 08-17 13:32 → ER 08-17 13:32 → MS 08-17 13:32
PROVIDERS: Emergency Medicine; Admitting Provider Surgery; Emergency Provider Physician Assistant; PCP Family Medicine; Visit Provider Surgery
PROC: 0FT44ZZ Resection of Gallbladder, Percutaneous Endoscopic Approach (ICD-10-PCS; CPT 47562; principal; 2021-08-15 12:10)
DX: K80.10 Calculus of gallbladder with chronic cholecystitis without obstruction (principal); F32.A Depression, unspecified; F41.0 Panic disorder [episodic paroxysmal anxiety]; E89.0 Postprocedural hypothyroidism; R74.01 Elevation of levels of liver transaminase levels; Z85.850 Personal history of malignant neoplasm of thyroid
CPT/HCPCS: 47562; 36415; 80053; 82550; 83690; 87635; 93005; 96361; 96365; 96375; 99285; 76700; 81003; 82248; 83735; 84443; 84484; 85025; 85610; 85730; 88304; 93010; J0131; J1100; J1200; J1885; J1956; J2250; J2270; J2405; J3010

== ENCOUNTER 2021-08-23 12:23 | Inpatient (IN) | payer OTHER, SELFPAY ==
[2021-08-23] VITALS (48 sets, daily range): BP systolic 75–147; BP diastolic 18–82; PULSE 91–119; RESP 11–25; TEMP 36.6–38.3; O2SAT 95–100
--- NOTE | 2021-08-23 12:30 | DI.RAD_ITS ---
Exam(s) XR CHEST 2V PA LATERAL EXAM: XR CHEST 2V PA LATERAL CLINICAL HISTORY: post op fever TECHNIQUE: 2D digital imaging was performed. COMPARISON: CR XR CHEST 2V PA LATERAL from 01/13/2021 FINDINGS: MEDIASTINUM: Normal. HEART: Normal. PULMONARY VASCULATURE: Normal. LUNGS: Clear. PLEURAL SPACE: No pleural effusion or pneumothorax. BONE:Unremarkable for age. IMPRESSION: No acute abnormality. DATA REPOSITORY: RADIATION DOSE DELIVERED:
--- NOTE | 2021-08-23 12:56 | ED.GENADUL_ITS ---
Discharge Plan Disposition Patient Disposition: [facility] INPATIENT Condition: Stable Discharge Details Chief Complaint: Fever Clinical Impression: Post surgical complication Primary Care Provider: Leonora Syed ED Provider: Deo Mondragon Home Meds and New Rx's Prescriptions: No Action albuterol sulfate [Proventil HFA] 90 mcg/actuation HFA aerosol inhaler 2 puff inhalation Q6H PRN (Reason: shortness of breath or wheezing) Qty: 8.5 RF: 0 levothyroxine 100 mcg tablet 100 mcg PO DAILY RF: 0 epinephrine 0.3 MG/SYR auto-injector 0.3 mg IJ PRN PRN (Reason: Allergy Symptoms) Qty: 1 RF: 0 acetaminophen [Tylenol] 325 mg Tablet 650 mg PO Q4H PRN PRNQty: 0 RF: 0 Medical Decision Making 46-year-old female who is postop day #7 status post laparoscopic Jolene cystectomy on August 15. Part of her treatment included 3 days of Levaquin which she sees due to palpitations. Patient presents today complaining of fever and chills, noticing a rise of heart rate from 80s to 100s over the past 2 days, T-max of 101.8 at home. She denies cough, abdominal pain, change to urine. She has been eating and drinking and had a bowel movement earlier in the week. Patient's exam is reassuring although she has a resting tachycardia. Given the temperature and climbing heart rates at home I am concerned for postoperative infection. Patient IV access established, given 2 L fluid bolus, referred for CT imaging, chest x-ray, urinalysis and blood work. The patient has an elevated white blood cell count of 14 with left shift present. Hematocrit is 38 and platelet 353. Sodium slightly low at 133, chemistries otherwise notable for AST 30, ALT 89, total bili 06. Urinalysis with ketones but no evidence of infection. CT imaging:. Inflammatory changes in the right upper quadrant adjacent to the gallbladder fossa. Free fluid in the pelvis. Concern for bile leak. Adjacent bowel rupture not excludable but strongly suspected. Chest x-ray: No acute disease Patient reports intolerant of Levaquin and numerous antibiotic allergies. Discussed with her pretreatment with Benadryl and beginning ciprofloxacin and then Flagyl for empiric coverage of enteric organisms. On-call surgery, Dr Dejesus and patient to be admitted. HPI General Mode of arrival: ambulatory . Date/Time Provider Initiated Documentation: 08/23/21 12:24 . Limitations to Documentation: no limitations . Information obtained by: patient . History of Present Illness 46 year old F presents to the emergency department with the chief complaint of Postoperative fever , described as mild, Patient started experiencing this hour(s) and it has been intermittent. No relieving factors improve symptom(s), No exacerbating factors reported . Patient notes fever/chills and malaise; denies chest pain, cough, nausea/vomiting, shortness of breath and syncope. Patient did receive the following treatments prior to arrival, none Related Data Home Medications Medication Instructions Recorded Confirmed epinephrine 0.3 mg IJ PRN PRN #1 kit 03/27/15 08/23/21 acetaminophen [Tylenol] 650 mg PO Q4H PRN PRN #0 tab 01/22/21 08/23/21 albuterol sulfate 90 mcg/actuation 2 puff INHALATION Q6H PRN #8.5 g 03/13/21 08/23/21 aerosol inhaler levothyroxine 100 mcg tablet 100 mcg PO DAILY tab 03/18/21 08/23/21 Previous Rx's Medication Instructions Recorded epinephrine 0.3 mg IJ PRN PRN #1 kit 03/27/15 acetaminophen [Tylenol] 650 mg PO Q4H PRN PRN #0 tab 01/22/21 albuterol sulfate 90 mcg/actuation 2 puff INHALATION Q6H PRN #8.5 g 03/13/21 aerosol inhaler Allergies Allergy/AdvReac Type Severity Reaction Status Date / Time Gadolinium-Containing Allergy Severe Anaphylaxis Verified 08/23/21 12:40 Contrast Medi PER DM 2011 Penicillins Allergy Severe Anaphylaxsi Verified 08/23/21 12:40 s Sulfa (Sulfonamide Allergy Severe Anaphylaxsi Verified 08/23/21 12:40 Antibiotics) s venom-honey bee Allergy Severe Anaphylaxsi Verified 08/23/21 12:40 [bee venom (honey bee)] s citalopram Allergy Mild Hives Verified 08/23/21 12:40 ofloxacin [From Floxin] Allergy Mild Skin Rash Verified 08/23/21 12:40 naproxen [From Aleve] Allergy Verified 08/23/21 12:40 azithromycin [From Zithromax] AdvReac Severe Anaphylaxsi Verified 08/23/21 12:40 s Iodinated Contrast Media AdvReac Severe Anaphylaxsi Verified 08/23/21 12:40 [Iodinated Contrast Media - s IV Dye] ketorolac tromethamine AdvReac Severe Anaphylaxsi Verified 08/23/21 12:40 [From Toradol] s iodine AdvReac Intermediate Anaphylaxsi Verified 08/23/21 12:40 s lorazepam [From Ativan] AdvReac Intermediate Dizziness/L Verified 08/23/21 12:40 ightheade horse flies Allergy Severe Anaphylaxsi Uncoded 08/23/21 12:40 s General Stated Complaint: Fever CLARI: 3 Review of Systems Narrative: Fever and chills at home with T-max of 101.8. No abdominal pain. Denies cough. No change to urine. No lower extremity pain or swelling. 8 systems were reviewed and otherwise negative PFSH All Active Problems (Updated 08/23/21 @ 17:07 by Deo Mondragon MD) Post surgical complication (Acute) S/P laparoscopic cholecystectomy (Acute) Anxiety about health (Acute) PONV (postoperative nausea and vomiting) (Acute) WOOD (generalized anxiety disorder) (Acute) Hypothyroidism (Acute) Secondary to thyroidectomy due to cancer Thyroid cancer (Acute) Papillary Adverse drug effect (Acute) Thoracic outlet syndrome (Acute) Neck pain (Acute) Panic attacks (Acute) Depression (Chronic) Difficulty with speech (Acute) Bilateral arm weakness (Acute) Bilateral leg weakness (Acute) Difficulty with speech (Acute) Breast lump on left side at 3 o'clock position (Acute) Weakness (Acute) Anxiety (Chronic) Fatigue (Acute) Headache (Acute) Blurred vision (Acute) Chest pain (Acute) Near syncope (Acute) Atypical chest pain (Acute) Medical History Anxiety Fatigue Functional neurological symptom disorder with mixed symptoms (~01/15/21) Surgical History H/O hand surgery cyst removal History of hysterectomy History of thyroidectomy Family History Mother Hypertension Social History Smoking/Tobacco Use Status: Never Smoking risk assessment performed?: Yes Alcohol Intake: never Drug use: Never Substance use type: does not use Household members: spouse and children Number of Children: 4 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 Pleasant, well groomed, interactive. HEAD: Normocephalic, atraumatic ENT: Mucous membranes moist, oropharynx unremarkable, External ear exam unremarkable EYES: PERRL, EOMI NECK: Full ROM, no JOEL, no menigismus CHEST/RESP: Nontender, clear to auscultation bilateral, no wheeze/rhonchi/rales CARDIOVASCULAR: Regular and tachycardic, no murmur, rub taylor. 2+ Rad pulse bilateral ABDOMEN: Soft, minimal tenderness right upper quadrant, no mass. Healing laparoscopic ports that are clean dry and intact. +Bowel sounds EXT: Full ROM, no edema, no rash Neuro: Grossly normal neurologic exam, conversant, interactive. Psych: Speech fluent, thoughts congruent, affect normal Course Vital Signs Vital signs: Vital Signs Temperature 36.6 C 08/23/21 12:34 Pulse 110 H 08/23/21 12:34 Respiratory Rate 21 08/23/21 12:34 Blood Pressure 147/79 H 08/23/21 12:34 Pulse Oximetry 96 08/23/21 12:34 Temperature 36.6 C 08/23/21 12:34 Temperature Source Skin 08/23/21 12:34 Pulse 110 H 08/23/21 12:34 Respiratory Rate 21 08/23/21 12:34 Respiratory Effort 08/23/21 12:34 Blood Pressure 147/79 H 08/23/21 12:34 Blood Pressure Position Supine 08/23/21 12:34 Pulse Oximetry 96 08/23/21 12:34 Oxygen Delivery Method Room Air 08/23/21 12:34 Oxygen Flow Rate 0 08/23/21 12:34 Pain Level 6 08/23/21 12:34 Lab/Test Results Lab/Test Results: 08/23/21 12:41 Blood Blood Culture - Pending 08/23/21 12:41 Blood Blood Culture - Pending
--- NOTE | 2021-08-23 13:00 | DI.CT_ITS ---
Exam(s) CT ABDOMEN PELVIS WO EXAM: CT ABDOMEN PELVIS WO CLINICAL HISTORY: POD7 LapChole, Fever. States contrast allergy. TECHNIQUE: Imaging Protocol: Axial computed tomography images with coronal and sagittal reformatted images were created and reviewed. Oral: / no COMPARISON: CT CT ABDOMEN PELVIS WO from 08/15/2021 US US ABDOMEN from 08/15/2021 FINDINGS: ABDOMEN: Lung Bases: Minimal left lower lobe atelectasis. Calcified granular lobe. Liver: Normal density. No measurable mass. Gallbladder and biliary tract: Status post cholecystectomy. No biliary dilatation. There is some re sidual stranding in the gallbladder fossa and adjacent fat. There is mild adjacent thickening of the duodenum. Pancreas: Normal density, no abnormal calcifications or inflammatory process. Spleen: Normal. Kidneys: Normal size, contour and axis. No radiodense stones or obstructive uropathy. No masses seen. Adrenal glands: No masses seen. Lymph nodes: Within normal limits. Abdominal Aorta: Abdominal portion non-dilated. PELVIS: Bladder: Symmetric distention, no gross wall thickening. Bowel: No obstruction. Duodenal wall thickening. Appendix normal. Normal quantity of stool. Peritoneal cavity: There is fluid, moderate in the low pelvis. There is stranding in the right peric olic gutter and right upper quadrant. No drainable abscess. No free air. Reproductive organs: Within normal limits. Bones: Within normal limits. IMPRESSION: Status post cholecystectomy. Moderate quantity of fluid in the pelvis and stranding in the right upp er quadrant extension in along the right paracolic gutter. The findings could represent a bile leak. No free air. RADIATION DOSE DELIVERED: 761.78mGy.cm Total DLP DATA REPOSITORY: All CT scans at this facility are submitted to the National Radiology Data Registry (NRDR) Dose Index Registry (DIR) with the [employer] (ACR). RADIATION OPTIMIZATION: All CT scans at this facility use at least one of these dose optimization te chniques: automated exposure control; mA and/or kV adjustment per patient size (includes targeted exa ms where dose is matched to clinical indication); or iterative reconstruction.
[2021-08-23 13:13] LABS: Lactate 0.8 mmol/L (0.6-1.4)
[2021-08-23 13:14] LABS: Source Nasal/Nares
[2021-08-23 13:15] LABS: Abs Immature Grans 0.06 10^3/uL (0.0-0.06); Absolute Basophil Count 0.04 10^3/uL (0.0-0.2); Absolute Lymphocyte Count 1.03 10^3/uL (1.2-3.4); Absolute Monocyte Count 0.85 10^3/uL (0.1-0.8); Absolute Neutrophil Count 12.16 10^3/uL (1.2-6.7); Basophils % 0.3; Eosinophils % 2.1; HCT 38.6 % (36.0-46.0); HGB 12.8 g/dL (11.2-15.7); Immature Grans % 0.4; Lymphocytes % 7.1; MCH 29.4 pg (27.0-33.0); MCHC 33.2 % (32.0-36.0); MCV 88.7 fL (80-95); MPV 9.5 fL (8.0-11.0); Monocytes % 5.9; Neutrophils % 84.2; Nucleated RBC 0 %; Platelet Count 353 10^3/uL (130-400); RBC 4.35 10^6/uL (3.93-5.22); RDW 12.6 % (11.7-14.6); RDW-SD 41.7 fL; WBC 14.44 10^3/uL (4.4-10.8)
[2021-08-23 13:32] LABS: ALT 89 U/L (14-59); AST 30 U/L (15-37); Albumin 3.9 g/dL (3.4-5.0); Alkaline Phosphatase 131 U/L (46-116); Anion Gap 9.3 mmol/L (3-11); BUN 7 mg/dL (7-18); Bilirubin, Total 0.6 mg/dL (0.2-1.0); CO2 25.7 mmol/L (21.0-32.0); CREATININE 0.9 mg/dL (0.55-1.02); Calcium 9.3 mg/dL (8.5-10.1); Chloride 98 mmol/L (98-107); Glucose 105 mg/dL (74-106); Potassium 3.8 mmol/L (3.5-5.1); Sodium 133 mmol/L (136-145); Total Protein 8.3 g/dL (6.4-8.2)
[2021-08-23] MEDS: Normal Saline 1,000 ML 2000 ML IV (13:57)
[2021-08-23 14:43] LABS: Bilirubin Negative (Negative); Blood Negative (Negative); Clarity Clear (Clear); Glucose Negative (Negative); Ketones 15 mg/dL (Negative); Leukocyte Esterase Negative (Negative); Nitrite Negative (Negative); Specific Gravity 1.015 (1.005-1.025); Urobilinogen 0.2 EU/dL (Up TO 0.2); pH 7.5 (5-8)
[2021-08-23] MEDS: Normal Saline 1,000 ML 999 ML IV (15:27)
--- NOTE | 2021-08-23 15:37 | DI.VRAD_ITS ---
PROCEDURE INFORMATION: Exam: XR Chest Exam date and time: 08/23/2021 3:18 PM Age: 46 years old Clinical indication: Pain; Other: Pod7 lapchole, fever. States contrast allergy TECHNIQUE: Imaging protocol: XR of the chest. Views: 2 views. COMPARISON: CR XR CHEST 2V PA LATERAL 01/13/2021 9:34 AM FINDINGS: Lungs: Clear lungs. Pleural spaces: No sizable pleural effusion. No pneumothorax. Heart/Mediastinum: Cardiomediastinal silhouette is within normal limits. Bones/joints: No acute displaced fracture or dislocation. IMPRESSION: No acute cardiopulmonary process. Dictated and Authenticated by: Riley Rosado MD. Ordering:TEETEE Desouza MD
--- NOTE | 2021-08-23 16:14 | DI.VRAD_ITS ---
PROCEDURE INFORMATION: Exam: CT Abdomen And Pelvis Without Contrast Exam date and time: 08/23/2021 1:01 PM Age: 46 years old Clinical indication: Pain; Other: Pod7 lapchole, fever. States contrast allergy TECHNIQUE: Imaging protocol: Computed tomography of the abdomen and pelvis without contrast. COMPARISON: CT ABDOMEN PELVIS WO 08/15/2021 12:43 AM FINDINGS: Lungs: Left lower lobe calcification unchanged consistent with granuloma. Minimal left lower lobe atelectasis. Liver: There is soft tissue stranding in the gallbladder fossa and adjacent Perihepatic tissues extending inferiorly. No definite extraluminal air however the process extends to the duodenal level. Gallbladder and bile ducts: Status post cholecystectomy. Pancreas: Normal. No ductal dilation. Spleen: Splenic calcification consistent with old granulomatous change. Adrenal glands: Normal. No mass. Kidneys and ureters: Normal. No hydronephrosis. Stomach and bowel: Unremarkable. No obstruction. No mucosal thickening. Appendix: No evidence of appendicitis. Intraperitoneal space: There is moderate free fluid in the deep pelvis with some layering debris. Vasculature: Unremarkable. No abdominal aortic aneurysm. Lymph nodes: Unremarkable. No enlarged lymph nodes. Urinary bladder: Unremarkable as visualized. Reproductive: Unremarkable as visualized. Bones/joints: Unremarkable. No acute fracture. Soft tissues: Unremarkable. IMPRESSION: Inflammatory changes in the right upper quadrant tissues adjacent to the gallbladder fossa. Free fluid in the pelvis. Findings of concern for bile leak. Adjacent bowel rupture not excludable but not strongly suspected. Dictated and Authenticated by: Christiana Bolden MD. Ordering:TEETEE Desouza MD
[2021-08-23] MEDS: diphenhydrAMINE 50 MG/ML VIAL 25 MG IVP ×2 (16:41→21:55)
[2021-08-23] MEDS: CIPROFLOXACIN 400 MG/200 ML BAG 100 MG IVPB (16:42)
[2021-08-23] MEDS: Normal Saline 1,000 ML 150 ML IV (16:43)
--- NOTE | 2021-08-23 17:21 | W.PM.HP.N ---
Date of service: 08/23/21 Time of Service: 17:21 Assessment and Plan Assessment and plan (1) Post surgical complication: Status: Acute Assessment and plan: Will admit overnight and place on IV antibiotics as well as IV fluids. Patient request for continued telemetry monitoring HIDA scan for the a.m. to rule out possibility of bile leak. Low clinical suspicion but CT read otherwise. Repeat laboratory studies in a.m. PRN Benadryl to be given with antibiotics to prevent allergic reaction/sensitivity. Lovenox for DVT prophylaxis. Home medications ordered. Qualifiers: Procedure type: digestive system Surgical complication system/body Area: digestive system Surgical complication type: unspecified Qualified Code(s): K91.89 - Other postprocedural complications and disorders of digestive system (2) S/P laparoscopic cholecystectomy: Status: Acute History of Present Illness Consults Consult date: 08/23/21 Requesting physician: Deo Mondragon Narrative: 46-year-old female who is postoperative from laparoscopic cholecystectomy who came in complaining of fevers and tachycardia at home for the last 2 to 3 days. Patient denies any nausea or vomiting or abdominal pain of any sort. She was given Levaquin to take at home after her procedure but was unable to tolerate it and therefore stopped. She has not been taking any pain medication at home since her procedure. She was seen in the office on Tuesday and seemed to be doing well. She presented to the emergency department under my discretion due to continued fevers up to 101.6 at home. She underwent basic laboratory studies in the emergency department revealing a mild leukocytosis and improving transaminitis. CT scan of the abdomen and pelvis revealed what appears to be postoperative changes although bile leak and infection cannot be ruled out. Due to the above concerns I was asked to see the patient for a possible admission and further care. Review of Systems Constitutional Constitutional: Reports system reviewed and no additional complaints, except as documented, Denies anorexia, Reports fever(s) and Denies weakness Cardiovascular Cardiovascular: Denies chest pain, Reports rapid heart rate and Denies dyspnea Respiratory Respiratory: Denies dyspnea Gastrointestinal Gastrointestinal: Denies abdominal pain, Denies change in stool character, Denies nausea and Denies vomiting Neurologic Neurologic: Denies weakness Psychiatric Psychiatric: Reports anxiety PFSH All Active Problems (Updated 08/23/21 @ 17:23 by Myriam Murphy DO) Post surgical complication (Acute) S/P laparoscopic cholecystectomy (Acute) Anxiety about health (Acute) PONV (postoperative nausea and vomiting) (Acute) WOOD (generalized anxiety disorder) (Acute) Hypothyroidism (Acute) Secondary to thyroidectomy due to cancer Thyroid cancer (Acute) Papillary Adverse drug effect (Acute) Thoracic outlet syndrome (Acute) Neck pain (Acute) Panic attacks (Acute) Depression (Chronic) Difficulty with speech (Acute) Bilateral arm weakness (Acute) Bilateral leg weakness (Acute) Difficulty with speech (Acute) Breast lump on left side at 3 o'clock position (Acute) Weakness (Acute) Anxiety (Chronic) Fatigue (Acute) Headache (Acute) Blurred vision (Acute) Chest pain (Acute) Near syncope (Acute) Atypical chest pain (Acute) Medical History Anxiety Fatigue Functional neurological symptom disorder with mixed symptoms (~01/15/21) Surgical History H/O hand surgery cyst removal History of hysterectomy History of thyroidectomy Family History Mother Hypertension Social History Smoking/Tobacco Use Status: Never Smoking risk assessment performed?: Yes Alcohol Intake: never Drug use: Never Substance use type: does not use Household members: spouse and children Number of Children: 4 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[employer] Do you think of yourself as: lesbian/beltrán/homosexual Current gender identity: female What is your relationship status?: Panel score (0-1 are the most socially isolated patients): 1 Do you feel safe at home: Yes Do you feel safe in your relationship?: Yes History History 3 Para 2 Hx # Term Pregnancies 2 Multiple births Hx # Pregnancies 1 Ectopic pregnancies AB induced Hx Number of Living Children 2 AB spontaneous 1 Meds Allergies and Home Medications Allergies Allergy/AdvReac Type Severity Reaction Status Date / Time Gadolinium-Containing Allergy Severe Anaphylaxis Verified 08/23/21 12:40 Contrast Medi PER DM 2011 Penicillins Allergy Severe Anaphylaxsi Verified 08/23/21 12:40 s Sulfa (Sulfonamide Allergy Severe Anaphylaxsi Verified 08/23/21 12:40 Antibiotics) s venom-honey bee Allergy Severe Anaphylaxsi Verified 08/23/21 12:40 [bee venom (honey bee)] s citalopram Allergy Mild Hives Verified 08/23/21 12:40 ofloxacin [From Floxin] Allergy Mild Skin Rash Verified 08/23/21 12:40 naproxen [From Aleve] Allergy Verified 08/23/21 12:40 azithromycin [From Zithromax] AdvReac Severe Anaphylaxsi Verified 08/23/21 12:40 s Iodinated Contrast Media AdvReac Severe Anaphylaxsi Verified 08/23/21 12:40 [Iodinated Contrast Media - s IV Dye] ketorolac tromethamine AdvReac Severe Anaphylaxsi Verified 08/23/21 12:40 [From Toradol] s iodine AdvReac Intermediate Anaphylaxsi Verified 08/23/21 12:40 s lorazepam [From Ativan] AdvReac Intermediate Dizziness/L Verified 08/23/21 12:40 ightheade horse flies Allergy Severe Anaphylaxsi Uncoded 08/23/21 12:40 s Home Medications Medication Instructions Recorded Confirmed Type epinephrine 0.3 mg IJ PRN PRN #1 kit 03/27/15 08/23/21 Rx acetaminophen [Tylenol] 650 mg PO Q4H PRN PRN #0 tab 01/22/21 08/23/21 Rx albuterol sulfate 90 mcg/actuation 2 puff INHALATION Q6H PRN #8.5 g 03/13/21 08/23/21 Rx aerosol inhaler levothyroxine 100 mcg tablet 100 mcg PO DAILY tab 03/18/21 08/23/21 History Exam Const General: cooperative, healthy appearing, comfortable and no acute distress [facility] Head: normocephalic and atraumatic Eyes General: appearance normal, both eyes and all related structures Eyelids: eyelids normal Conjunctivae: conjunctivae normal Sclera: sclerae normal Cardio Rate: tachycardic Rhythm: regular rhythm GI Inspection: normal to inspection, non-distended and incision (intact with skin glue) Palpation: soft, not firm, no guarding and nontender Neuro General: patient alert, patient awake and patient oriented x3 Results Labs Result diagrams: 08/23/21 13:08 08/23/21 13:08 Labs: Laboratory Results - last 24 hr 08/23/21 08/23/21 08/23/21 13:08 13:08 13:08 WBC 14.44 H RBC 4.35 Hgb 12.8 Hct 38.6 MCV 88.7 MCH 29.4 MCHC 33.2 RDW 12.6 Plt Count 353 MPV 9.5 Immature Gran % 0.4 Neutrophils % 84.2 Lymphocytes % 7.1 Monocytes % 5.9 Eosinophils % 2.1 Basophils % 0.3 Nucleated RBC % 0 Absolute Neutrophils 12.16 H Absolute Lymphocytes 1.03 L Absolute Monocytes 0.85 H Absolute Eosinophils 0.30 Absolute Basophils 0.04 VBG Lactate 0.8 Sodium 133 L Potassium 3.8 Chloride 98 Carbon Dioxide 25.7 Anion Gap 9.3 BUN 7 Creatinine 0.9 Estimated GFR/1.73 m2 >= 60.00 Glucose 105 Calcium 9.3 Total Bilirubin 0.6 AST 30 ALT 89 H Alkaline Phosphatase 131 H Total Protein 8.3 H Albumin 3.9 Urine Color Urine Clarity Urine pH Ur Specific [place] Urine Protein Urine Ketones Urine Blood Urine Nitrite Urine Bilirubin Urine Urobilinogen Ur Leukocyte Esterase Urine Glucose COVID-19 Source 08/23/21 08/23/21 13:10 14:35 WBC RBC Hgb Hct MCV MCH MCHC RDW Plt Count MPV Immature Gran % Neutrophils % Lymphocytes % Monocytes % Eosinophils % Basophils % Nucleated RBC % Absolute Neutrophils Absolute Lymphocytes Absolute Monocytes Absolute Eosinophils Absolute Basophils VBG Lactate Sodium Potassium Chloride Carbon Dioxide Anion Gap BUN Creatinine Estimated GFR/1.73 m2 Glucose Calcium Total Bilirubin AST ALT Alkaline Phosphatase Total Protein Albumin Urine Color Yellow Urine Clarity Clear Urine pH 7.5 Ur Specific [place] 1.015 Urine Protein Negative Urine Ketones 15 H Urine Blood Negative Urine Nitrite Negative Urine Bilirubin Negative Urine Urobilinogen 0.2 Ur Leukocyte Esterase Negative Urine Glucose Negative COVID-19 Source Nasal/Nares Last Vital Signs Temp 98.4 F 08/23/21 15:48 Pulse 105 H 08/23/21 16:46 Resp 21 08/23/21 16:50 BP 129/82 08/23/21 16:46 Pulse Ox 99 08/23/21 16:50
[2021-08-23 18:19] LABS: COVID-19 PCR Negative (Negative)
[2021-08-23] MEDS: Normal Saline 1,000 ML 75 ML IV (18:39)
[2021-08-23] MEDS: metroNIDAZOLE 500 MG/100 ML BAG 100 MG IVPB (21:57)
[2021-08-23] MEDS: Normal Saline Flush 10 ML SYR IVP (21:58)
[2021-08-24] VITALS (8 sets, daily range): BP systolic 100–104; BP diastolic 66–70; PULSE 84–99; RESP 16–18; TEMP 36.9–38.1; O2SAT 97–100
[2021-08-24] MEDS: metroNIDAZOLE 500 MG/100 ML BAG 100 MG IVPB ×2 (03:59→09:24)
[2021-08-24] MEDS: diphenhydrAMINE 50 MG/ML VIAL 25 MG IVP (04:09)
[2021-08-24] MEDS: CIPROFLOXACIN 400 MG/200 ML BAG 200 MG IVPB (04:10)
[2021-08-24] MEDS: Normal Saline 1,000 ML 75 ML IV (04:11)
[2021-08-24 07:02] LABS: Abs Immature Grans 0.04 10^3/uL (0.0-0.06); Absolute Basophil Count 0.02 10^3/uL (0.0-0.2); Absolute Eosinophil Count 0.46 10^3/uL (0.0-0.7); Absolute Lymphocyte Count 1.01 10^3/uL (1.2-3.4); Absolute Monocyte Count 0.99 10^3/uL (0.1-0.8); Absolute Neutrophil Count 8.24 10^3/uL (1.2-6.7); Basophils % 0.2; Eosinophils % 4.3; HCT 33.5 % (36.0-46.0); Immature Grans % 0.4; Lymphocytes % 9.4; MCH 29.6 pg (27.0-33.0); MCHC 32.8 % (32.0-36.0); MCV 90.1 fL (80-95); MPV 9.6 fL (8.0-11.0); Monocytes % 9.2; Neutrophils % 76.5; Nucleated RBC 0 %; Platelet Count 274 10^3/uL (130-400); RBC 3.72 10^6/uL (3.93-5.22); RDW-SD 42.8 fL; WBC 10.76 10^3/uL (4.4-10.8)
[2021-08-24 07:17] LABS: ALT 62 U/L (14-59); AST 19 U/L (15-37); Alkaline Phosphatase 103 U/L (46-116); Anion Gap 10.1 mmol/L (3-11); BUN 8 mg/dL (7-18); Bilirubin, Direct 0.1 mg/dL (0.0-0.2); Bilirubin, Total 0.3 mg/dL (0.2-1.0); CO2 22.9 mmol/L (21.0-32.0); CREATININE 0.8 mg/dL (0.55-1.02); Calcium 8.5 mg/dL (8.5-10.1); Chloride 105 mmol/L (98-107); Glucose 100 mg/dL (74-106); Lipase 61 U/L (73-393); Potassium 3.8 mmol/L (3.5-5.1); Sodium 138 mmol/L (136-145); Total Protein 6.8 g/dL (6.4-8.2)
--- NOTE | 2021-08-24 08:00 | DI.NM_ITS ---
Exam(s) NM HEPATOBILIARY SCAN GRP EXAM: NM HEPATOBILIARY SCAN GRP CLINICAL HISTORY: R/O BILE LEAK,fever, s/p lap jessica. TECHNIQUE: Injected dose: 4.4 mCi Tc-99 mebrofenin Initial dynamic images: Out to 60 minutes, 70 minutes delay in lateral images . COMPARISON: US US ABDOMEN from 08/15/[address] ABDOMEN PELVIS WO from 08/23/2021 FINDINGS: Normal hepatic transit time. Prompt excretion into the small bowel. No abnormal collection in the gallbladder fossa to suggest bile leak. IMPRESSION: 1. No evidence of bile leak.
[2021-08-24] MEDS: Acetaminophen 325 MG TAB 650 MG PO (11:24)
--- NOTE | 2021-08-24 11:57 | PGE_ITS ---
Date of Service Date of service: 08/24/21 Time of Service: 11:57 Assessment and Plan Assessment and plan (1) Post surgical complication: Status: Acute Assessment and plan: Will admit overnight and place on IV antibiotics as well as IV fluids. D/C telemetry HIDA scan at 2 pm. to rule out possibility of bile leak. Low clinical suspicion. If HIDA scan is normal then will discharge to home Repeat laboratory studies in a.m. PRN Benadryl to be given with antibiotics to prevent allergic reaction/sensitivity. Lovenox for DVT prophylaxis. Home medications ordered. Qualifiers: Surgical complication system/body Area: digestive system Surgical complication type: unspecified Procedure type: digestive system Qualified Code(s): K91.89 - Other postprocedural complications and disorders of digestive system (2) S/P laparoscopic cholecystectomy: Status: Acute Subjective Subjective Interval history since last seen: Ms Valencia is complaining of fevers. Highest fever today was 100.6. Her WBC count is normal. I reviewed her CT scan. fluid in pelvis and right gutter. Some inflammation around the RUQ which I would expect after surgery. NO fluid collection under the liver. Exam Const General: cooperative and comfortable Orientation: alert and oriented x3 HENMT Head: normocephalic and atraumatic Resp Effort & Inspection: normal respiratory effort Auscultation: clear to auscultation bilaterally Cardio Rate: regular rate Rhythm: regular rhythm Heart Sounds: no gallops, no murmurs and no rubs GI Inspection: normal to inspection Palpation: soft, no hepatosplenomegaly and nontender Auscultation: normal bowel sounds Objective Last Vital Signs Temp 99.9 F H 08/24/21 11:24 Pulse 99 H 08/24/21 11:05 Resp 18 08/24/21 11:05 BP 102/68 08/24/21 11:05 Pulse Ox 100 08/24/21 11:05 Laboratory Results - last 24 hr 08/23/21 08/23/21 08/23/21 13:08 13:08 13:08 WBC 14.44 H RBC 4.35 Hgb 12.8 Hct 38.6 MCV 88.7 MCH 29.4 MCHC 33.2 RDW 12.6 Plt Count 353 MPV 9.5 Immature Gran % 0.4 Neutrophils % 84.2 Lymphocytes % 7.1 Monocytes % 5.9 Eosinophils % 2.1 Basophils % 0.3 Nucleated RBC % 0 Absolute Neutrophils 12.16 H Absolute Lymphocytes 1.03 L Absolute Monocytes 0.85 H Absolute Eosinophils 0.30 Absolute Basophils 0.04 VBG Lactate 0.8 Sodium 133 L Potassium 3.8 Chloride 98 Carbon Dioxide 25.7 Anion Gap 9.3 BUN 7 Creatinine 0.9 Estimated GFR/1.73 m2 >= 60.00 Glucose 105 Calcium 9.3 Total Bilirubin 0.6 Conjugated Bilirubin AST 30 ALT 89 H Alkaline Phosphatase 131 H Total Protein 8.3 H Albumin 3.9 Lipase Urine Color Urine Clarity Urine pH Ur Specific Anderson Urine Protein Urine Ketones Urine Blood Urine Nitrite Urine Bilirubin Urine Urobilinogen Ur Leukocyte Esterase Urine Glucose COVID-19 Source SARS-CoV-2 (PCR) 08/23/21 08/23/21 08/24/21 13:10 14:35 06:45 WBC RBC Hgb Hct MCV MCH MCHC RDW Plt Count MPV Immature Gran % Neutrophils % Lymphocytes % Monocytes % Eosinophils % Basophils % Nucleated RBC % Absolute Neutrophils Absolute Lymphocytes Absolute Monocytes Absolute Eosinophils Absolute Basophils VBG Lactate Sodium 138 Potassium 3.8 Chloride 105 Carbon Dioxide 22.9 Anion Gap 10.1 BUN 8 Creatinine 0.8 Estimated GFR/1.73 m2 >= 60.00 Glucose 100 Calcium 8.5 Total Bilirubin 0.3 Conjugated Bilirubin 0.1 AST 19 ALT 62 H Alkaline Phosphatase 103 Total Protein 6.8 Albumin 3.0 L Lipase 61 Urine Color Yellow Urine Clarity Clear Urine pH 7.5 Ur Specific Anderson 1.015 Urine Protein Negative Urine Ketones 15 H Urine Blood Negative Urine Nitrite Negative Urine Bilirubin Negative Urine Urobilinogen 0.2 Ur Leukocyte Esterase Negative Urine Glucose Negative COVID-19 Source Nasal/Nares SARS-CoV-2 (PCR) Negative 08/24/21 06:45 WBC 10.76 RBC 3.72 L Hgb 11.0 L Hct 33.5 L MCV 90.1 MCH 29.6 MCHC 32.8 RDW 13.0 Plt Count 274 MPV 9.6 Immature Gran % 0.4 Neutrophils % 76.5 Lymphocytes % 9.4 Monocytes % 9.2 Eosinophils % 4.3 Basophils % 0.2 Nucleated RBC % 0 Absolute Neutrophils 8.24 H Absolute Lymphocytes 1.01 L Absolute Monocytes 0.99 H Absolute Eosinophils 0.46 Absolute Basophils 0.02 VBG Lactate Sodium Potassium Chloride Carbon Dioxide Anion Gap BUN Creatinine Estimated GFR/1.73 m2 Glucose Calcium Total Bilirubin Conjugated Bilirubin AST ALT Alkaline Phosphatase Total Protein Albumin Lipase Urine Color Urine Clarity Urine pH Ur Specific Anderson Urine Protein Urine Ketones Urine Blood Urine Nitrite Urine Bilirubin Urine Urobilinogen Ur Leukocyte Esterase Urine Glucose COVID-19 Source SARS-CoV-2 (PCR)
--- NOTE | 2021-08-24 15:49 | PDOC.CMIN ---
- If Service Date Differs Date of service: 08/24/21 Time of Service: 15:49 Care Management Initial Assess REASON FOR HOSPITALIZATION:: post operative complication PAST MEDICAL HISTORY/PAST SURGICAL HISTORY:: All Active Problems. Post surgical complication (Acute). S/P laparoscopic cholecystectomy (Acute). Anxiety about health (Acute). PONV (postoperative nausea and vomiting) (Acute). WOOD (generalized anxiety disorder) (Acute). Hypothyroidism (Acute). Secondary to thyroidectomy due to cancer. Thyroid cancer (Acute). Papillary. Adverse drug effect (Acute). Thoracic outlet syndrome (Acute). Neck pain (Acute). Panic attacks (Acute). Depression (Chronic). Difficulty with speech (Acute). Bilateral arm weakness (Acute). Bilateral leg weakness (Acute). Difficulty with speech (Acute). Breast lump on left side at 3 o'clock position (Acute). Weakness (Acute). Anxiety (Chronic). Fatigue (Acute). Headache (Acute). Blurred vision (Acute). Chest pain (Acute). Near syncope (Acute). Atypical chest pain (Acute). Medical History. Anxiety. Fatigue. Functional neurological symptom disorder with mixed symptoms (~01/15/21). Surgical History. H/O hand surgery. cyst removal. History of hysterectomy. History of thyroidectomy PREVIOUS FUNCTIONAL STATUS/SOCIAL/FAMILY SUPPORTS:: Raquel lives with her Salvador and their 6 year old son on a farm in [place], [place]. Raquel has two additional children who are adults and live on their own. 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 CURRENT FUNCTIONAL STATUS:: Raquel was lying in bed when FEROZ met with her. She reported that she is doing ok, and is anticipating a HIDA scan today. She discussed her previous hospital course, stating that she went to the ED for extreme pain, and had to have surgery right away, and that it has been a whirlwind. She reported that she returned to the ED due to a fever that was concerning to her. Per MD, if her HIDA scan is negative, she will likely be discharged with out patient follow up. FEROZ reviewed this with Raquel, who asked that her prescriptions are available upon discharge, as she uses [employer]'s pharmacy. CM will continue to follow. ADVANCE DIRECTIVES:: None on file. Has patient been provided with info about the portal/API?: Yes Did the patient sign up for the portal?: Yes (active) CODE STATUS:: Full Code INSURANCE COVERAGE / FINANCIAL ISSUES:: [employer] CURRENT HOME/COMMUNITY SERVICES/EQUIPMENT:: No current services or equipment needed. PRIMARY CARE PHYSICIAN:: Leonora Syed POTENTIAL DISCHARGE NEEDS:: Follow up with PCP, surgeon, and plan of care. PATIENT/FAMILY EDUCATION NEEDS:: Review of discharge instructions, limitations, medications, and follow up plan of care; discuss Ask Me Three and self management. ANTICIPATED BARRIERS TO DISCHARGE:: No anticipated barriers to discharge. TRANSPORTATION:: Via private vehicle with family. PLAN:: Raquel will likely be discharged home with no new services when medically cleared by provider. She will transport with family by private vehicle when ready. Raquel will follow up with her PCP, surgeon, and plan of care as prescribed. CM will continue to follow.
--- NOTE | 2021-08-24 16:11 | PDOC.CMDIS ---
- If Service Date Differs Date of service: 08/24/21 Time of Service: 16:11 LACE Index Scoring Tool - Questions: Length of Stay (in days): 1 Acuity (Admit via E.D.?): Yes E.D. Visits: 11 - Answers: Total Score: 8 Risk of Readmission: Low Risk Care Management Discharge Reason for Hospitalization: post operative complication Discharge Plan: Raquel will return home today with no new services. She will be transported home via private vehicle by family. She will follow up with her PCP and discharge plan of care. Patient/Family Education Needs: Review discharge instructions regarding activity levels and medications, discussion of self care needs including ask me three.
--- NOTE | 2021-08-24 16:18 | W.PM.DS.N ---
Date of service: 08/24/21 Time of Service: 16:18 DS: Diagnosis Discharge Diagnosis (1) Post surgical complication: Status: Acute (2) S/P laparoscopic cholecystectomy: Status: Acute Discharge Plan Disposition Patient Disposition: HOME Condition: Stable Discharge Details Reason For Visit: Post Operative Complication Admit Date/Time: 08/23/21 17:24 Admit Provider: Myriam Murphy Attending Provider: Myriam Murphy Primary Care Provider: Leonora Syed Hospital Course Hospital Course: Ms Valencia is a 46 year old s/p Lap. Perri on 08/15/21. She was admitted overnight for pain and discharged the next day. She was seen in the office on 08/21 for a post-op check and was doing well. Was seen in the ED with fevers on 08/23 and admitted because of some fluid in the abdomen and fevers. On exam today abdomen was soft and NTTP. Review of CT scan showed a small amount of fluid. NO fluid in the Gallbladder fossa. HIDA scan was negative. Her highest fever today was 100.6. Blood culture was negative. CXR was fine. Patient given a few doses of Flagyl and Cipro. Will d/c home with 3 more days of antibiotics Home Meds and New Rx's Prescriptions: New ciprofloxacin HCl [Cipro] 500 mg tablet 500 mg PO BID Qty: 9 RF: 0 metronidazole 500 mg tablet 500 mg PO Q8H Qty: 12 RF: 0 Continued albuterol sulfate [Proventil HFA] 90 mcg/actuation HFA aerosol inhaler 2 puff inhalation Q6H PRN (Reason: shortness of breath or wheezing) Qty: 8.5 RF: 0 levothyroxine 100 mcg tablet 100 mcg PO DAILY RF: 0 epinephrine 0.3 MG/SYR auto-injector 0.3 mg IJ PRN PRN (Reason: Allergy Symptoms) Qty: 1 RF: 0 acetaminophen [Tylenol] 325 mg Tablet 650 mg PO Q4H PRN PRNQty: 0 RF: 0 Discharge Instructions Additional Instructions: Activity at Home after surgery: 1. Make sure you walk outside at least 4 times per day 2. You should be able to climb a flight of stairs 3. No driving while in pain or taking pain medications 4. No strenuous activity or heavy lifting for 2 weeks (laparoscopic surgery) Diet, Nutrition, & wound healin. Avoid alcohol until after you are recovered from your surgery 2. Make sure to eat plenty of lean protein (meat, fish, eggs, cottage cheese, beans) 3. Eat a variety of fruits and vegetables. Eat plenty of high fiber foods to avoid constipation. 4. Drink plenty of liquids to stay hydrated and avoid constipation Pain Medications: 1. Tylenol 650mg every 6 hours as needed 2. If a narcotic has been prescribed take as directed only for breakthrough pain For Constipation: 1. Take Milk of Magnesia or MiraLax as needed for constipation Other: 1. You may shower daily. Do not scrub the incisions 2. Do not soak the incisions for 1 week 3. You may alternate ice and heat as needed for pain and swelling Wound Care: 1. Keep the incisions clean and dry Please call our office if you develop: 1. Fevers >101.5 2. Nausea or Vomiting 3. Worsening pain 4. Redness and thick discharge from the wounds If after hours please call the Hospital at and ask to speak to the on-call surgeon Activity:: see above Equipment/Supplies:: No Equipment Needed Diet:: As Tolerated DS: Summary Time Spent with Patient providing and/or coordinating discharge services: Less than 30 minutes Status at Discharge Functional status at discharge: independent ambulation Overall status at discharge: patient is back to baseline Mental Status: mental status grossly normal Speech and Movement: speech and movement normal Mood: congruent mood Affect: normal affect Exam Resp Effort & Inspection: normal respiratory effort Auscultation: clear to auscultation bilaterally Cardio Rate: regular rate Rhythm: regular rhythm GI Inspection: normal to inspection Palpation: soft and nontender Auscultation: normal bowel sounds Psych Mental Status: mental status grossly normal Speech and Movement: speech and movement normal Mood: congruent mood Affect: normal affect DS: Data Vitals/I&O Vitals and I&O: Vital Signs Temperature 99.9 F H 08/24/21 11:24 Temperature Source Tympanic 08/24/21 11:05 Pulse 90 08/24/21 12:13 Pulse Rhythm Regular 08/24/21 07:20 Pulse 100 H 08/23/21 17:31 Respiratory Rate 18 08/24/21 11:05 Respiratory Effort Non-Labored 08/24/21 07:20 Respiratory Depth Normal 08/24/21 07:20 Respiratory Pattern Normal 08/24/21 07:20 Blood Pressure 102/68 08/24/21 11:05 Blood Pressure Mean 85 08/23/21 17:31 Blood Pressure Position Supine 08/23/21 12:34 Pulse Oximetry 100 08/24/21 11:05 Oxygen Delivery Method Room Air 08/24/21 11:05 Oxygen Flow Rate 0 08/24/21 11:05 Pain Level 0 08/24/21 11:05 Comment 08/24/21 07:16 Intake & Output 08/23/21 08/24/21 08/24/21 23:59 11:59 23:59 Intake Total 2387.5 / 2387.5 815 / 815 Output Total 900 / 900 1400 / 1800 400 / 1800 Balance 1487.5 / 1487.5 -585 / -985 -400 / -985 Weight 134 lb Intake: IV 2387.5 / 2387.5 815 / 815 Output: Urine 900 / 900 1400 / 1800 400 / 1800 Other: Urine Color Yellow Yellow Yellow Urine Appearance Cloudy Clear Clear Urine Odor Normal Normal Normal Voiding Methods Toilet Toilet Toilet Data Completed and Pending Labs on day of discharge: Labs from last 24 hours 08/24/21 08/24/21 08/23/21 06:45 06:45 13:10 WBC 10.76 RBC 3.72 L Hgb 11.0 L Hct 33.5 L MCV 90.1 MCH 29.6 MCHC 32.8 RDW 13.0 Plt Count 274 MPV 9.6 Immature Gran % 0.4 Neutrophils % 76.5 Lymphocytes % 9.4 Monocytes % 9.2 Eosinophils % 4.3 Basophils % 0.2 Nucleated RBC % 0 Absolute Neutrophils 8.24 H Absolute Lymphocytes 1.01 L Absolute Monocytes 0.99 H Absolute Eosinophils 0.46 Absolute Basophils 0.02 Sodium 138 Potassium 3.8 Chloride 105 Carbon Dioxide 22.9 Anion Gap 10.1 BUN 8 Creatinine 0.8 Estimated GFR/1.73 m2 >= 60.00 Glucose 100 Calcium 8.5 Total Bilirubin 0.3 Conjugated Bilirubin 0.1 AST 19 ALT 62 H Alkaline Phosphatase 103 Total Protein 6.8 Albumin 3.0 L Lipase 61 SARS-CoV-2 (PCR) Negative Preliminary micro results at discharge 08/23/21 13:18 Blood Culture - Preliminary Blood NO GROWTH 24 HOURS 08/23/21 13:00 Blood Culture - Preliminary Blood NO GROWTH 24 HOURS PFSH All Active Problems Post surgical complication (Acute) S/P laparoscopic cholecystectomy (Acute) Anxiety about health (Acute) PONV (postoperative nausea and vomiting) (Acute) WOOD (generalized anxiety disorder) (Acute) Hypothyroidism (Acute) Secondary to thyroidectomy due to cancer Thyroid cancer (Acute) Papillary Adverse drug effect (Acute) Thoracic outlet syndrome (Acute) Neck pain (Acute) Panic attacks (Acute) Depression (Chronic) Difficulty with speech (Acute) Bilateral arm weakness (Acute) Bilateral leg weakness (Acute) Difficulty with speech (Acute) Breast lump on left side at 3 o'clock position (Acute) Weakness (Acute) Anxiety (Chronic) Fatigue (Acute) Headache (Acute) Blurred vision (Acute) Chest pain (Acute) Near syncope (Acute) Atypical chest pain (Acute) Medical History Anxiety Fatigue Functional neurological symptom disorder with mixed symptoms (~01/15/21) Surgical History H/O hand surgery cyst removal History of hysterectomy History of thyroidectomy Family History Mother Hypertension Social History Smoking/Tobacco Use Status: Never Smoking risk assessment performed?: Yes Alcohol Intake: never Drug use: Never Substance use type: does not use Household members: spouse and children Number of Children: 4 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
[2021-08-24] MEDS: Ciprofloxacin 500 MG TAB PO (16:48)
[2021-08-24] MEDS: metroNIDAZOLE 500 MG TAB PO (16:48)
== END 2021-08-24 18:00 | disposition home or self-care (01) | DRG 395 ==
LOC: ER 17:34 → MS 17:53
PROVIDERS: Admitting Provider Surgery; Emergency Provider Emergency Medicine; PCP Family Medicine; Visit Provider Surgery
DX: K91.89 Other postprocedural complications and disorders of digestive system (principal); F41.1 Generalized anxiety disorder; E89.0 Postprocedural hypothyroidism; Z85.850 Personal history of malignant neoplasm of thyroid; G54.0 Brachial plexus disorders; F32.9 Major depressive disorder, single episode, unspecified; R53.1 Weakness; R50.9 Fever, unspecified; R00.0 Tachycardia, unspecified
CPT/HCPCS: 36415; 78227; 80048; 80053; 80076; 83690; 87040; 87635; 96361; 96365; 96366; 96375; 99285; 71046; 74176; 81003; 83605; 85025; 99284; J0744; J1200

== ENCOUNTER 2021-08-25 19:02 | Outpatient (CLI) | payer OTHER, SELFPAY ==
--- NOTE | 2021-08-25 19:00 | RT.EKG_ITS ---
APPROVED REPORT Exam: Resting ECG Reason for Exam: Chest pain Patient Location: O HR:94 bpm ECG Measurements Heart Rate 94 AXIS MD 159 P 65 QRSd 79 QRS 66 QT 350 T 36 QTc 438 Conclusion Sinus rhythm...normal P axis, V-rate 60- 99 Probable left atrial enlargement...P >50mS, <-0.10mV V1
== END 2021-08-25 19:03 | disposition home or self-care (01) ==
LOC: DI.CM 19:03
PROVIDERS: PCP Family Medicine; Visit Provider Physician Assistant
DX: R07.89 Other chest pain (principal)
CPT/HCPCS: 93010

== ENCOUNTER 2021-08-25 21:34 | Emergency (ER) | payer OTHER, SELFPAY ==
[2021-08-25] VITALS (12 sets, daily range): BP systolic 149–154; BP diastolic 90–97; PULSE 73–96; RESP 15–24; TEMP 36.3; O2SAT 98–100
--- NOTE | 2021-08-25 21:30 | RT.EKG_ITS ---
APPROVED REPORT Exam: Resting ECG Reason for Exam: palpitations Patient Location: E HR:79 bpm ECG Measurements Heart Rate 79 AXIS [place] 128 P 22 QRSd 82 QRS 64 QT 373 T 38 QTc 428 Conclusion Sinus rhythm...normal P axis, V-rate 60- 99
--- NOTE | 2021-08-25 21:53 | ED.GENADUL_ITS ---
Discharge Plan Disposition Patient Disposition: HOME Condition: Stable Discharge Details Clinical Impression: Palpitations, Chest pain Primary Care Provider: Leonora Syed ED Provider: Chrissy Fernandez Home Meds and New Rx's Prescriptions: Continued albuterol sulfate [Proventil HFA] 90 mcg/actuation HFA aerosol inhaler 2 puff inhalation Q6H PRN (Reason: shortness of breath or wheezing) Qty: 8.5 RF: 0 levothyroxine 100 mcg tablet 100 mcg PO DAILY RF: 0 epinephrine 0.3 MG/SYR auto-injector 0.3 mg IJ PRN PRN (Reason: Allergy Symptoms) Qty: 1 RF: 0 acetaminophen [Tylenol] 325 mg Tablet 650 mg PO Q4H PRN PRNQty: 0 RF: 0 Discharge Instructions Instructions: Chest Pain (ED), Heart Palpitations (ED) Additional Instructions: Please return immediately to the emergency department if you develop any new or worsening symptoms, if your condition does not improve as expected, or if you become otherwise concerned. It is extremely important that you call soon as possible to make an appointment to be seen in follow-up for this visit by your primary care doctor, and that you attend your scheduled follow-up appointment with surgery. Referrals: Leonora Syed [Primary Care Provider] - Margaux Araya MD [ [facility] STAFF PHYSICIAN] - Discharge Data Discharge Date/Time-TO BE ENTERED AT DEPARTURE: 08/26/21 17:39 Medical Decision Making <Zachary Bridges MD - Last Filed: 08/25/21 23:33> 46 yo female with hx of anxiety, hypothyroidism, who had a cholecystectomy at the beginning of the month and is currently on flagyl and cipro for possible p ost op infection and was discharged yesterday for this comes in because she states her normal heart rate is less than 60 and is currently in the 90's. She had some sharp chest pain earlier none now. Denies fevers, chills, abdominal pain, dyspnea. She appears anxious otherwise no acute distress, stable vitals, heart rate 90 on my exam. She has no leg swelling or calf pain. Even with recent surgery her wells criteria is low, will obtain d dimer. She is allergic to contrast dye so if positive won't be able to have cta and if positive will discuss having vq tomorrow vs starting anticoagulation. She has no findings to suggest worsening infection. Heart score is 1, will send troponin as well. No tearing back pain so doubt dissection. labs show no significant abnormalities from prior labs other than d dimer over 5000. Discussed with pt and given her history of anaphylaxis to ct contrast can't obtain CTA. She would prefer not to take a medicine if she can avoid it. Discussed with her we could do a vq scan and dvt u/s and if negative/low risk for pe likely doesn't need to be on an anticoagualant. She would prefer to stay in the ED as we have no beds available in our hospital to admit her to and have the studies done tomorrow. Differential Diagnosis Differential Diagnosis: anxiety, anemia, PE Medical Records Medical records reviewed: Yes I reviewed the patient's medical records. Imaging Data Radiologic Study: Attestation: I personally reviewed and interpreted this imaging study as follows: Imaging: X-Ray Radiologist's impression: no acute findings Lab Data Lab results reviewed: Yes I reviewed the patient's lab results. ECG Data Attestation: I personally reviewed and interpreted this ECG (s) as follows: Prior ECG tracings: available for review Interpretation: sinus rhythm, rate of 90, no acute st t wave ischemic findings <Chrissy Fernandez MD - Last Filed: 09/09/21 14:00> Pt signed out to me at time of shift change by Dr. Bridges with v/q scan, LE DVT studies pending. Pt states to me that she feels well and has no symptoms but is concerned that her HR has been measuring in the 80s despite baseline resting HR in the 60s. VQ read as low probability. DVT studies negative. Pt's HR has been SR on monitor 70s-80s throughout the day. Pt reports concern that these values are a change in baseline for her. No acute emergent medical condition identified at this time. I had a lengthy discussion with her re: possible causes for this change and need for outpt f/u. I had a lengthy discussion with Patient regarding return to emergency department precautions, home care, and importance of outpatient follow-up. Pt verbalizes understanding of the plan and is amenable. Patient discharged to home with clear plan for outpatient follow-up. All questions were answered. Disposition decision was made weighing the risks and benefits of hospitalization versus outpatient treatment, the risk for further decompensation, and the patient's wishes. Medical Records Medical records reviewed: Yes I reviewed the patient's medical records. Imaging Data Radiologic Study: Attestation: I personally reviewed and interpreted this imaging study as follows: Radiologist's impression: EXAM: US EXTREMITY VENOUS BI CLINICAL HISTORY: ?pe, rule out dvt TECHNIQUE: Grayscale, color, and doppler imaging of the deep venous system of both lower extremities was performed. COMPARISON: US US ABDOMEN from 08/15/2021 FINDINGS: There is no evidence of intraluminal thrombus and there is normal compression and augmentation demonstrated within the common femoral veins, femoral veins, and popliteal veins of both lower extremities. In the calves the interrogated veins also exhibit normal compression/ augmentation properties. The greater saphenous veins also appear patent as do the saphenofemoral junctions bilaterally.. IMPRESSION: 1. No ultrasound evidence of DVT in either lower extremity. EXAM: NM LUNG SCAN VENT PERF AEROS CLINICAL HISTORY: ?pe. TECHNIQUE: Injected Dose: Ventilation: 32 mCi Tc-99m DTPA via inhalation Perfusion: 4.5 mCi Tc-99m MAA via IV COMPARISON: NM NM HEPATOBILIARY SCAN GRP from 08/24/2021 CR,XR XR CHEST 2V PA LATERAL from 08/25/2021 FINDINGS: Chest X-Ray: Performed yesterday no pulmonary findings. There are few small bilateral peripheral matched subsegmental defects. There are no obvious significant V/Q mismatches. IMPRESSION: 1. By the PIOPED criteria this scan is low probability for the presence of recent hemodynamically significant pulmonary emboli. HPI <Zachary Bridges MD - Last Filed: 08/25/21 23:33> General Mode of arrival: ambulatory . Date/Time Provider Initiated Documentation: 08/25/21 21:35 . Limitations to Documentation: no limitations . Information obtained by: patient . History of Present Illness 46 year old F presents to the emergency department with the chief complaint of feels heart rate is elevated, Patient started experiencing this day(s) (1) and it has been constant. No relieving factors improve symptom(s), No exacerbating factors reported . Patient notes denies shortness of breath. Patient did receive the following treatments prior to arrival, none Related Data Home Medications Medication Instructions Recorded Confirmed epinephrine 0.3 mg IJ PRN PRN #1 kit 03/27/15 09/02/21 acetaminophen [Tylenol] 650 mg PO Q4H PRN PRN #0 tab 01/22/21 09/02/21 albuterol sulfate 90 mcg/actuation 2 puff INHALATION Q6H PRN #8.5 g 03/13/21 09/02/21 aerosol inhaler levothyroxine 100 mcg tablet 100 mcg PO DAILY tab 03/18/21 09/02/21 Previous Rx's Medication Instructions Recorded epinephrine 0.3 mg IJ PRN PRN #1 kit 03/27/15 acetaminophen [Tylenol] 650 mg PO Q4H PRN PRN #0 tab 01/22/21 albuterol sulfate 90 mcg/actuation 2 puff INHALATION Q6H PRN #8.5 g 03/13/21 aerosol inhaler Allergies Allergy/AdvReac Type Severity Reaction Status Date / Time Gadolinium-Containing Allergy Severe Anaphylaxis Verified 08/31/21 14:27 Contrast Medi PER DM 2011 Penicillins Allergy Severe Anaphylaxsi Verified 08/31/21 14:27 s Sulfa (Sulfonamide Allergy Severe Anaphylaxsi Verified 08/31/21 14:27 Antibiotics) s venom-honey bee Allergy Severe Anaphylaxsi Verified 08/31/21 14:27 [bee venom (honey bee)] s citalopram Allergy Mild Hives Verified 08/31/21 14:27 ofloxacin [From Floxin] Allergy Mild Skin Rash Verified 08/31/21 14:27 naproxen [From Aleve] Allergy Verified 08/31/21 14:27 azithromycin [From Zithromax] AdvReac Severe Anaphylaxsi Verified 08/31/21 14:27 s Iodinated Contrast Media AdvReac Severe Anaphylaxsi Verified 08/31/21 14:27 [Iodinated Contrast Media - s IV Dye] ketorolac tromethamine AdvReac Severe Anaphylaxsi Verified 08/31/21 14:27 [From Toradol] s iodine AdvReac Intermediate Anaphylaxsi Verified 08/31/21 14:27 s lorazepam [From Ativan] AdvReac Intermediate Dizziness/L Verified 08/31/21 14:27 ightheade horse flies Allergy Severe Anaphylaxsi Uncoded 08/31/21 14:27 s General Stated Complaint: Palpitatns CLARI: 3 Review of Systems <Zachary Bridges MD - Last Filed: 08/25/21 23:33> All systems reviewed & are unremarkable except as noted in HPI and below Constitutional Constitutional: Denies chills, Denies fever(s) and Denies weakness Cardiovascular Cardiovascular: Denies dyspnea Respiratory Respiratory: Denies cough and Denies dyspnea Gastrointestinal Gastrointestinal: Denies abdominal pain, Denies nausea and Denies vomiting Musculoskeletal Musculoskeletal: Denies joint swelling Neurologic Neurologic: Denies weakness [facility] <Zachary Bridges MD - Last Filed: 08/25/21 23:33> All Active Problems Palpitations (Acute) Anxiety about health (Acute) PONV (postoperative nausea and vomiting) (Acute) WOOD (generalized anxiety disorder) (Acute) Hypothyroidism (Acute) Secondary to thyroidectomy due to cancer Thyroid cancer (Acute) Papillary Adverse drug effect (Acute) Thoracic outlet syndrome (Acute) Neck pain (Acute) Panic attacks (Acute) Depression (Chronic) Difficulty with speech (Acute) Bilateral arm weakness (Acute) Bilateral leg weakness (Acute) Difficulty with speech (Acute) Breast lump on left side at 3 o'clock position (Acute) Weakness (Acute) Anxiety (Chronic) Fatigue (Acute) Headache (Acute) Blurred vision (Acute) Chest pain (Acute) Near syncope (Acute) Atypical chest pain (Acute) Medical History Anxiety Fatigue Functional neurological symptom disorder with mixed symptoms (~01/15/21) Surgical History H/O hand surgery cyst removal History of hysterectomy History of thyroidectomy S/P laparoscopic cholecystectomy Family History Mother Hypertension Social History Smoking/Tobacco Use Status: Never Smoking risk assessment performed?: Yes Alcohol Intake: never Drug use: Never Substance use type: does not use Household members: spouse and children Number of Children: 4 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[employer] Do you think of yourself as: lesbian/beltrán/homosexual Current gender identity: female What is your relationship status?: Panel score (0-1 are the most socially isolated patients): 1 Do you feel safe at home: Yes Do you feel safe in your relationship?: Yes History History 3 Para 2 Hx # Term Pregnancies 2 Multiple births Hx # Pregnancies 1 Ectopic pregnancies AB induced Hx Number of Living Children 2 AB spontaneous 1 Exam <Zachary Bridges MD - Last Filed: 08/25/21 23:33> Const General: no acute distress and anxious Orientation: alert HENMT Head: normal to inspection Ears: external ears normal General nose exam: external nose normal Mouth: moist mucous membranes Eyes General: appearance normal, both eyes and all related structures Neck Neck: normal visual inspection Resp Effort & Inspection: normal respiratory effort and able to speak in complete sentences Cardio Rate: regular rate Skin General skin exam: no rashes or lesions noted Neuro General: patient alert and patient oriented x3 Extrem General: normal to inspection Psych Mental Status: mental status grossly normal Course <Zachary Bridges MD - Last Filed: 08/25/21 23:33> Vital Signs Vital signs: Vital Signs Temperature 36.3 C L 08/25/21 21:38 Pulse 96 H 08/25/21 21:38 Respiratory Rate 18 08/25/21 21:38 Blood Pressure 154/97 H 08/25/21 21:38 Pulse Oximetry 99 08/25/21 21:38 Temperature 36.3 C L 08/25/21 21:38 Pulse 96 H 08/25/21 21:38 Respiratory Rate 18 08/25/21 21:38 Respiratory Effort 08/25/21 21:45 Blood Pressure 154/97 H 08/25/21 21:38 Pulse Oximetry 99 08/25/21 21:38 Pain Level 6 08/25/21 21:38 Sign Out <Zachary Bridges MD - Last Filed: 08/25/21 23:33> Sign Out Data: Sign Out Comment: recent cholecystectomy and here for palpitations/chest pain, d dimer over 5000, anaphylxis to ct contrast so vq scan and dvt u/s ordered Last updated by Zachary Bridges MD at 08/25/21 23:34
[2021-08-25] MEDS: Normal Saline 1,000 ML 1000 ML IV (22:05)
[2021-08-25 22:19] LABS: Abs Immature Grans 0.04 10^3/uL (0.0-0.06); Absolute Basophil Count 0.03 10^3/uL (0.0-0.2); Absolute Lymphocyte Count 1.82 10^3/uL (1.2-3.4); Absolute Neutrophil Count 8.02 10^3/uL (1.2-6.7); Basophils % 0.3; Eosinophils % 5.3; HGB 11.2 g/dL (11.2-15.7); Immature Grans % 0.4; Lymphocytes % 16.1; MCH 29.7 pg (27.0-33.0); MCHC 32.9 % (32.0-36.0); MCV 90.2 fL (80-95); MPV 9.4 fL (8.0-11.0); Monocytes % 7.1; Neutrophils % 70.8; Nucleated RBC 0 %; Platelet Count 355 10^3/uL (130-400); RBC 3.77 10^6/uL (3.93-5.22); RDW 12.7 % (11.7-14.6); RDW-SD 42.4 fL; WBC 11.33 10^3/uL (4.4-10.8)
[2021-08-25 22:35] LABS: ALT 51 U/L (14-59); AST 11 U/L (15-37); Albumin 3.5 g/dL (3.4-5.0); Alkaline Phosphatase 111 U/L (46-116); Anion Gap 9.8 mmol/L (3-11); BUN 9 mg/dL (7-18); Bilirubin, Total 0.3 mg/dL (0.2-1.0); CO2 27.2 mmol/L (21.0-32.0); CREATININE 0.8 mg/dL (0.55-1.02); Chloride 100 mmol/L (98-107); Glucose 114 mg/dL (74-106); Potassium 3.4 mmol/L (3.5-5.1); Sodium 137 mmol/L (136-145); Total Protein 7.8 g/dL (6.4-8.2); Troponin I < 50 ng/L (<or=60)
[2021-08-25 22:51] LABS: D-Dimer 5046 ng/mlFEU (<500)
--- NOTE | 2021-08-25 23:15 | DI.RAD_ITS ---
Exam(s) XR CHEST 2V PA LATERAL EXAM: XR CHEST 2V PA LATERAL CLINICAL HISTORY: palpitations. TECHNIQUE: 2D digital imaging was performed. COMPARISON: CR,XR XR CHEST 2V PA LATERAL from 08/23/2021 FINDINGS: Heart size is normal. The mediastinum is not widened. Lungs are clear. No infiltrates nor pleural effusions. IMPRESSION: No acute pulmonary findings. DATA REPOSITORY: RADIATION DOSE DELIVERED:
--- NOTE | 2021-08-25 23:55 | DI.VRAD_ITS ---
PROCEDURE INFORMATION: Exam: XR Chest Exam date and time: 08/25/2021 11:29 PM Age: 46 years old Clinical indication: Condition or disease; Other: Palpitations TECHNIQUE: Imaging protocol: XR of the chest. Views: 2 views. COMPARISON: CR XR CHEST 2V PA LATERAL 08/23/2021 3:20 PM FINDINGS: Lungs: Unremarkable. No consolidation. Pleural spaces: Unremarkable. No pleural effusion. No pneumothorax. Heart/Mediastinum: Unremarkable. No cardiomegaly. Bones/joints: Unremarkable. IMPRESSION: No acute findings. Dictated and Authenticated by: Mulugeta Richards MD. Ordering:JAMI Sharma MD
[2021-08-26] VITALS (71 sets, daily range): BP systolic 105–133; BP diastolic 70–83; PULSE 70–97; RESP 12–30; TEMP 36.4–36.8; O2SAT 95–100
[2021-08-26] MEDS: metroNIDAZOLE 500 MG TAB PO ×2 (01:22→09:34)
[2021-08-26 01:38] LABS: Troponin I < 50 ng/L (<or=60)
[2021-08-26] MEDS: Levothyroxine 100 MCG TAB PO (08:02)
[2021-08-26] MEDS: Ciprofloxacin 500 MG TAB PO (09:34)
--- NOTE | 2021-08-26 16:20 | DI.VRAD_ITS ---
PROCEDURE INFORMATION: Exam: NM Lung Ventilation and Perfusion Imaging Exam date and time: 08/26/2021 3:40 PM Age: 46 years old Clinical indication: Tachypnea; Patient HX: Gb removed 08/15/21. Tachycardia TECHNIQUE: Imaging protocol: Nuclear pulmonary ventilation with aerosol or gas was performed followed by perfusion. Total images: 1 Radiopharmaceutical: 4.5 mCi Tc-99m MAA (Macroaggregated Albumin), IV. 32 mCi Tc-99m DTPA (DTPA Aerosol), Inhalation. COMPARISON: CR XR CHEST 2V PA LATERAL 08/25/2021 11:46 PM FINDINGS: Ventilation: Homogeneous. No ventilation defects. Perfusion: Homogeneous. No segmental perfusion defect. IMPRESSION: Low probability for pulmonary embolism. Dictated and Authenticated by: Antonina West MD. Ordering:JAMI Sharma MD
--- NOTE | 2021-08-26 23:27 | DI.US_ITS ---
Exam(s) US EXTREMITY VENOUS BI EXAM: US EXTREMITY VENOUS BI CLINICAL HISTORY: ?pe, rule out dvt TECHNIQUE: Grayscale, color, and doppler imaging of the deep venous system of both lower extremities was performed. COMPARISON: US US ABDOMEN from 08/15/2021 FINDINGS: There is no evidence of intraluminal thrombus and there is normal compression and augmentation demons trated within the common femoral veins, femoral veins, and popliteal veins of both lower extremities. In the calves the interrogated veins also exhibit normal compression/ augmentation properties. The greater saphenous veins also appear patent as do the saphenofemoral junctions bilaterally.. IMPRESSION: 1. No ultrasound evidence of DVT in either lower extremity. DATA REPOSITORY:
--- NOTE | 2021-08-26 23:27 | DI.NM_ITS ---
Exam(s) AR LUNG SCAN VENT PERF AEROS EXAM: AR LUNG SCAN VENT PERF AEROS CLINICAL HISTORY: ?pe. TECHNIQUE: Injected Dose: Ventilation: 32 mCi Tc-99m DTPA via inhalation Perfusion: 4.5 mCi Tc-99m MAA via IV COMPARISON: [facility] HEPATOBILIARY SCAN GRP from 08/24/2021 CR,XR XR CHEST 2V PA LATERAL from 08/25/2021 FINDINGS: Chest X-Ray: Performed yesterday no pulmonary findings. There are few small bilateral peripheral matched subsegmental defects. There are no obvious significant V/Q mismatches. IMPRESSION: 1. By the PIOPED criteria this scan is low probability for the presence of recent hemodynamically sig nificant pulmonary emboli. DATA REPOSITORY:
== END 2021-08-26 17:39 | disposition home or self-care (01) ==
PROVIDERS: Emergency Medicine; Emergency Provider Student in an Organized Health Care Education/Training Program; PCP Family Medicine
DX: R00.2 Palpitations (principal); R07.9 Chest pain, unspecified; Z98.890 Other specified postprocedural states
CPT/HCPCS: 80053; 93005; 96360; 99285; 71046; 78582; 84484; 85025; 85379; 93010; 93970; 99284

== ENCOUNTER 2021-08-27 18:11 | Outpatient (REF) | payer OTHER, SELFPAY ==
[2021-08-29 15:11] LABS: COVID-19 RT-PCR UVMMC Result Negative (Negative)
== END 2021-08-27 18:12 | disposition home or self-care (01) ==
LOC: NCHCN 18:11
PROVIDERS: PCP Family Medicine; Visit Provider Family Medicine
DX: Z20.822 Contact with and (suspected) exposure to COVID-19 (principal); R50.9 Fever, unspecified
CPT/HCPCS: U0003

== ENCOUNTER 2021-09-19 19:45 | Emergency (ER) | payer OTHER, SELFPAY ==
[2021-09-19 19:57] VITALS: BP 163/81; PULSE 103; RESP 18; TEMP 37.3; O2SAT 100
[2021-09-19 20:20] LABS: Bilirubin Negative (Negative); Blood Trace-intact (Negative); Clarity Clear (Clear); Glucose Negative (Negative); Ketones Negative (Negative); Leukocyte Esterase Trace (Negative); Nitrite Negative (Negative); Specific Gravity >= 1.030 (1.005-1.025); Urobilinogen 0.2 EU/dL (Up TO 0.2); pH 5.5 (5-8)
[2021-09-19 20:46] LABS: Bacteria Moderate HPF (Negative); C & S Indicated? Yes; Casts Negative LPF (Negative); Crystals Few Calcium Oxalate HPF (Negative); Epithelial Cells Few HPF (Negative); Mucus Negative (Negative); RBC Negative HPF (0-2); WBC 20-50 HPF (0-5)
[2021-09-19 21:47] LABS: Abs Immature Grans 0.04 10^3/uL (0.0-0.06); Absolute Basophil Count 0.08 10^3/uL (0.0-0.2); Absolute Eosinophil Count 0.28 10^3/uL (0.0-0.7); Absolute Lymphocyte Count 1.21 10^3/uL (1.2-3.4); Absolute Neutrophil Count 9.35 10^3/uL (1.2-6.7); Basophils % 0.7; Eosinophils % 2.4; HCT 39.4 % (36.0-46.0); HGB 12.8 g/dL (11.2-15.7); Immature Grans % 0.3; Lymphocytes % 10.5; MCH 29.6 pg (27.0-33.0); MCHC 32.5 % (32.0-36.0); MPV 10.4 fL (8.0-11.0); Monocytes % 5.2; Neutrophils % 80.9; Nucleated RBC 0 %; Platelet Count 253 10^3/uL (130-400); RBC 4.33 10^6/uL (3.93-5.22); RDW 12.6 % (11.7-14.6); WBC 11.56 10^3/uL (4.4-10.8)
[2021-09-19 21:50] LABS: ALT 16 U/L (14-59); AST 16 U/L (15-37); Albumin 4.1 g/dL (3.4-5.0); Alkaline Phosphatase 84 U/L (46-116); Anion Gap 13.9 mmol/L (3-11); BUN 8 mg/dL (7-18); Bilirubin, Total 0.3 mg/dL (0.2-1.0); CO2 24.1 mmol/L (21.0-32.0); CREATININE 0.7 mg/dL (0.55-1.02); Calcium 9.4 mg/dL (8.5-10.1); Chloride 103 mmol/L (98-107); Glucose 113 mg/dL (74-106); Magnesium 1.9 mg/dL (1.8-2.4); Potassium 3.6 mmol/L (3.5-5.1); Sodium 141 mmol/L (136-145); Total Protein 8.3 g/dL (6.4-8.2)
--- NOTE | 2021-09-19 22:42 | ED.GENADUL_ITS ---
Discharge Plan Disposition Patient Disposition: HOME Condition: Stable Discharge Details Clinical Impression: Acute diarrhea, Anxiety about health Primary Care Provider: Leonora Syed ED Provider: Luisito Christensen Home Meds and New Rx's Prescriptions: Continued albuterol sulfate [Proventil HFA] 90 mcg/actuation HFA aerosol inhaler 2 puff inhalation Q6H PRN (Reason: shortness of breath or wheezing) Qty: 8.5 RF: 0 levothyroxine 100 mcg tablet 100 mcg PO DAILY RF: 0 epinephrine 0.3 MG/SYR auto-injector 0.3 mg IJ PRN PRN (Reason: Allergy Symptoms) Qty: 1 RF: 0 acetaminophen [Tylenol] 325 mg Tablet 650 mg PO Q4H PRN PRNQty: 0 RF: 0 Discharge Instructions Instructions: Acute Diarrhea (ED) Additional Instructions: It is recommended for you to stay well-hydrated and continue diet as discussed. You may also use probiotics during that you have recently been on antibiotics. Please return for significant persistent abdominal pain, persistent fever, vomiting, or change in your condition as discussed. Full evaluation it is helpful for you to bring back stool specimen as discussed for further studies. If not improving in the next week please follow-up with your primary care provider for reassessment. Discharge Data Discharge Date/Time-TO BE ENTERED AT DEPARTURE: 09/19/21 23:24 Medical Decision Making Patient presenting to the emergency department for chief complaint of acute diarrhea. She states this occurred approximately 1 or 2 hours after introduction of new foods. Patient has been severely anxious about food intake since her gallbladder surgery. She also has been on multiple antibiotics for suspected infection postoperatively but she has not had any antibiotics in 3 weeks and denies any diarrhea type symptoms in that time. Physical exam shows e xtremely anxious patient that even has crying episode during exam due to concern of health anxiety that is been going on since her Covid vaccination over a year ago. Exam is otherwise unremarkable with no abdominal tenderness, normal active bowel sounds, no CVA tenderness no obvious findings noted. Patient did bring in small reported sample of stool that she got out of her toilet which shows slight red-tinged but otherwise nondiagnostic in appearance history of illness mostly concerning for possible foodborne illness that is acute in nature but will plan to perform lab findings and stool specimen if able to obtain. Reviewed labs that show mild leukocytosis otherwise nondiagnostic. Urinalysis did show slight amount of leukocyte patient denies any UTI type symptoms so will wait on culture before treating with further antibiotics. Empiric antibiotics were considered for acute diarrhea but given less than 24 hours of symptoms, and that patient has been on multiple antibiotics with many allergies I do not know if risks outweigh benefit for her symptoms given no travel, greater than 3 weeks of time from last antibiotics with no symptoms since, no other circumstances that are concerning for severe bacterial infectious type diarrhea. Discussed this with patient risk versus benefit and shared decision was made to hold off on further antibiotics until stool specimen could be obtained and further testing. Patient given instructions on outpatient stool specimen. After discussion of diagnosis and plan of care patient has no further needs, questions, or concerns and states clear understanding to return to the emergency department for any worsening symptoms. HPI General Mode of arrival: ambulatory . Date/Time Provider Initiated Documentation: 09/19/21 19:46 . Limitations to Documentation: no limitations . Information obtained by: patient . History of Present Illness 46 year old F presents to the emergency department with the chief complaint of acute diarrhea, Quality is described as other (denies current pain), Patient started experiencing this hour(s) (6) and it has been intermittent. No relieving factors improve symptom(s), Eating worsens symptoms . Patient notes no other symptoms.. Patient did receive the following treatments prior to arrival, none Related Data Home Medications Medication Instructions Recorded Confirmed epinephrine 0.3 mg IJ PRN PRN #1 kit 03/27/15 09/20/21 acetaminophen [Tylenol] 650 mg PO Q4H PRN PRN #0 tab 01/22/21 09/20/21 albuterol sulfate 90 mcg/actuation 2 puff INHALATION Q6H PRN #8.5 g 03/13/21 09/20/21 aerosol inhaler levothyroxine 100 mcg tablet 100 mcg PO DAILY tab 03/18/21 09/20/21 Previous Rx's Medication Instructions Recorded epinephrine 0.3 mg IJ PRN PRN #1 kit 03/27/15 acetaminophen [Tylenol] 650 mg PO Q4H PRN PRN #0 tab 01/22/21 albuterol sulfate 90 mcg/actuation 2 puff INHALATION Q6H PRN #8.5 g 03/13/21 aerosol inhaler Allergies Allergy/AdvReac Type Severity Reaction Status Date / Time Gadolinium-Containing Allergy Severe Anaphylaxis Verified 09/20/21 15:40 Contrast Medi [place] [facility] [place] Penicillins Allergy Severe Anaphylaxsi Verified 09/20/21 15:40 s Sulfa (Sulfonamide Allergy Severe Anaphylaxsi Verified 09/20/21 15:40 Antibiotics) s venom-honey bee Allergy Severe Anaphylaxsi Verified 09/20/21 15:40 [bee venom (honey bee)] s citalopram Allergy Mild Hives Verified 09/20/21 15:40 ofloxacin [From Floxin] Allergy Mild Skin Rash Verified 09/20/21 15:40 naproxen [From Aleve] Allergy Verified 09/20/21 15:40 azithromycin [From Zithromax] AdvReac Severe Anaphylaxsi Verified 09/20/21 15:40 s Iodinated Contrast Media AdvReac Severe Anaphylaxsi Verified 09/20/21 15:40 [Iodinated Contrast Media - s IV Dye] ketorolac tromethamine AdvReac Severe Anaphylaxsi Verified 09/20/21 15:40 [From Toradol] s iodine AdvReac Intermediate Anaphylaxsi Verified 09/20/21 15:40 s lorazepam [From Ativan] AdvReac Intermediate Dizziness/L Verified 09/20/21 15:40 ightheade horse flies Allergy Severe Anaphylaxsi Uncoded 09/20/21 15:40 s General Stated Complaint: Abd Prob CLARI: 3 Review of Systems Constitutional Constitutional: Reports chills (when having bowel movement) Cardiovascular Cardiovascular: Denies chest pain and Denies dyspnea Respiratory Respiratory: Denies cough and Denies dyspnea Gastrointestinal Gastrointestinal: Reports as per HPI, Reports abdominal pain (cramping with bm), Denies melena, Denies hematochezia, Denies change in bowel habits, Denies tenesmus, Reports change in stool character, Denies constipation, Denies fecal incontinence, Reports diarrhea, Reports loose stools, Denies nausea, Denies v omiting, Denies hematemesis and Reports other (red streaks in stool) Genitourinary Genitourinary: Denies hematuria, Denies urinary incontinence, Denies urinary hesitancy and Denies urinary urgency Integumentary/Breasts Skin/Breast: Denies rash PFSH All Active Problems (Updated 09/19/21 @ 22:42 by Luisito Christensen NP) Acute diarrhea (Acute) Palpitations (Acute) Anxiety about health (Acute) PONV (postoperative nausea and vomiting) (Acute) WOOD (generalized anxiety disorder) (Acute) Hypothyroidism (Acute) Secondary to thyroidectomy due to cancer Thyroid cancer (Acute) Papillary Adverse drug effect (Acute) Thoracic outlet syndrome (Acute) Neck pain (Acute) Panic attacks (Acute) Depression (Chronic) Difficulty with speech (Acute) Bilateral arm weakness (Acute) Bilateral leg weakness (Acute) Difficulty with speech (Acute) Breast lump on left side at 3 o'clock position (Acute) Weakness (Acute) Anxiety (Chronic) Fatigue (Acute) Headache (Acute) Blurred vision (Acute) Chest pain (Acute) Near syncope (Acute) Atypical chest pain (Acute) Medical History Anxiety Fatigue Functional neurological symptom disorder with mixed symptoms (~01/15/21) Surgical History H/O hand surgery cyst removal History of hysterectomy History of thyroidectomy S/P laparoscopic cholecystectomy Family History Mother Hypertension Social History Smoking/Tobacco Use Status: Never Smoking risk assessment performed?: Yes Alcohol Intake: never Drug use: Never Substance use type: does not use Household members: spouse and children Number of Children: 4 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 Do you think of yourself as: lesbian/beltrán/homosexual Current gender identity: female What is your relationship status?: Panel score (0-1 are the most socially isolated patients): 1 Do you feel safe at home: Yes Do you feel safe in your relationship?: Yes History History 3 Para 2 Hx # Term Pregnancies 2 Multiple births Hx # Pregnancies 1 Ectopic pregnancies AB induced Hx Number of Living Children 2 AB spontaneous 1 Exam Const General: cooperative and anxious Orientation: alert, awake and oriented x3 Resp Effort & Inspection: normal respiratory effort and able to speak in complete se ntences Auscultation: clear to auscultation bilaterally Cardio Rate: regular rate Rhythm: regular rhythm Heart Sounds: S1 normal and S2 normal GI Palpation: soft, no hepatosplenomegaly, not firm, no guarding, no masses, no pulsatile masses, not rigid, no splenomegaly and nontender Auscultation: normal bowel sounds Rectal Exam - female: visual inspection normal, No fissure, No hemorrhoids and other (Nurse demo coordinator present) Back/Spine/Pelvis Back: no CVA tenderness Neuro General: patient alert, patient awake, patient oriented x3, gait normal and moves all extremities Psych Appearance: grossly normal Mood: anxious mood Course Vital Signs Vital signs: Vital Signs Temperature 37.3 C 09/19/21 19:57 Pulse 103 H 09/19/21 19:57 Respiratory Rate 18 09/19/21 19:57 Blood Pressure 163/81 H 09/19/21 19:57 Pulse Oximetry 100 09/19/21 19:57 Temperature 37.3 C 09/19/21 19:57 Pulse 103 H 09/19/21 19:57 Respiratory Rate 18 09/19/21 19:57 Respiratory Effort Non-Labored 09/19/21 20:04 Blood Pressure 163/81 H 09/19/21 19:57 Pulse Oximetry 100 09/19/21 19:57 Pain Level 4 09/19/21 19:57 Lab/Test Results Lab/Test Results: 09/19/21 19:59 Urine - Reflex from Ua Urine Culture - Pending Laboratory Tests Range/Units 09/19/21 09/19/21 09/19/21 19:59 21:28 21:28 WBC (4.4-10.8) 10^3/uL 11.56 H RBC (3.93-5.22) 10^6/uL 4.33 Hgb (11.2-15.7) g/dL 12.8 Hct (36.0-46.0) % 39.4 MCV (80-95) fL 91.0 MCH (27.0-33.0) pg 29.6 MCHC (32.0-36.0) % 32.5 RDW (11.7-14.6) % 12.6 Plt Count (130-400) 10^3/uL 253 D MPV (8.0-11.0) fL 10.4 Immature Gran % 0.3 Neutrophils % 80.9 Lymphocytes % 10.5 Monocytes % 5.2 Eosinophils % 2.4 Basophils % 0.7 Nucleated RBC % % 0 Absolute Neutrophils (1.2-6.7) 10^3/uL 9.35 H Absolute Lymphocytes (1.2-3.4) 10^3/uL 1.21 Absolute Monocytes (0.1-0.8) 10^3/uL 0.60 Absolute Eosinophils (0.0-0.7) 10^3/uL 0.28 Absolute Basophils (0.0-0.2) 10^3/uL 0.08 Sodium (136-145) mmol/L 141 Potassium (3.5-5.1) mmol/L 3.6 Chloride (98-107) mmol/L 103 Carbon Dioxide (21.0-32.0) mmol/L 24.1 Anion Gap (3-11) mmol/L 13.9 H BUN (7-18) mg/dL 8 Creatinine (0.55-1.02) mg/dL 0.7 Estimated GFR/1.73 m2 (mL/min/1.73m2) >= 60.00 Glucose (74-106) mg/dL 113 H Calcium (8.5-10.1) mg/dL 9.4 Magnesium (1.8-2.4) mg/dL 1.9 Total Bilirubin (0.2-1.0) mg/dL 0.3 AST (15-37) U/L 16 ALT (14-59) U/L 16 Alkaline Phosphatase (46-116) U/L 84 Total Protein (6.4-8.2) g/dL 8.3 H Albumin (3.4-5.0) g/dL 4.1 Urine Color (Yellow) Yellow Urine Clarity (Clear) Clear Urine pH (5-8) 5.5 Ur Specific [place] (1.005-1.025) >= 1.030 H Urine Protein (Negative) mg/dL Negative Urine Ketones (Negative) mg/dL Negative Urine Blood (Negative) Trace-intact H Urine Nitrite (Negative) Negative Urine Bilirubin (Negative) Negative Urine Urobilinogen (Up TO 0.2) EU/dL 0.2 Ur Leukocyte Esterase (Negative) Trace H Urine RBC (0-2) HPF Negative Urine WBC (0-5) HPF 20-50 H Ur Epithelial Cells (Negative) HPF Few Urine Crystals (Negative) HPF Few Calcium Oxalate Urine Bacteria (Negative) HPF Moderate Urine Casts (Negative) LPF Negative Urine Mucus (Negative) Negative Ur Culture Indicated? Yes Urine Glucose (Negative) mg/dL Negative
[2021-09-19 23:12] VITALS: BP 132/75; PULSE 79; RESP 16; TEMP 36.7; O2SAT 98
== END 2021-09-19 23:24 | disposition home or self-care (01) ==
PROVIDERS: Emergency Provider Nurse Practitioner Family; PCP Family Medicine
DX: R19.7 Diarrhea, unspecified (principal); F41.9 Anxiety disorder, unspecified; D72.829 Elevated white blood cell count, unspecified
CPT/HCPCS: 80053; 99282; 81003; 81015; 83735; 85025; 87086

== ENCOUNTER 2021-09-20 15:24 | Observation (INO) | payer OTHER, SELFPAY ==
[2021-09-20 15:32] VITALS: BP 149/72; PULSE 83; RESP 18; TEMP 36.9; O2SAT 100
--- NOTE | 2021-09-20 16:15 | DI.CT_ITS ---
Exam(s) CT ABDOMEN PELVIS WO EXAM: CT ABDOMEN PELVIS WO CLINICAL HISTORY: abdominal pain, bloody stool. TECHNIQUE: Imaging Protocol: Axial computed tomography images with coronal and sagittal reformatted images were created and reviewed CONTRAST MATERIAL: Intravenous: none Oral: None COMPARISON: CT CT ABDOMEN PELVIS WO from 08/23/2021 FINDINGS: VISUALIZED LUNG BASES: Calcified pleural based density in the left lower lobe is unchanged. There are no pleural effusions. ABDOMEN: LIVER: Again noted is evidence of prior cholecystectomy. There is less stranding in the gallbladder fossa and surrounding mesentery noted and the amount of free fluid in the pelvis is also decreased (b ut has not completely resolved). There is presently a fluid collection in the gallbladder fossa exte nding along the inferior liver margin measuring approximately 2.5 cm by 1.2 cm x 5.4 cm, most probabl y postop collection such as biloma although cannot exclude abscess despite absence of gas in the jono ection. The amount of surrounding fat stranding has decreased from the prior study of 08/23/2021. GALLBLADDER/BILIARY: As above . the CBD is not dilated. PANCREAS: No evidence of pancreatic mass nor dilatation of the pancreatic duct. SPLEEN: Spleen size normal. No perisplenic fluid. ADRENALS: There are no significant adrenal masses. KIDNEYS:No cysts evident. No solid renal masses. No calculi nor hydronephrosis. . ABDOMINAL AORTA: Abdominal aorta is not enlarged. LYMPH NODES: There is no retroperitoneal nor paraaortic adenopathy. ABDOMINAL WALL: No evidence of significant anterior abdominal wall nor inguinal hernia. GI: There is no evidence of bowel obstruction, free air, nor abscess. PELVIS: LYMPH NODES: There is no intrapelvic nor inguinal adenopathy. GI: No evidence of appendicitis.No evidence of sigmoid diverticulitis. URINARY BLADDER: No calculi nor obvious masses evident REPRODUCTIVE: Uterus is surgically absent. No abnormal adnexal masses. OSSEOUS: No significant osseous lesions. IMPRESSION: When compared to the CT scan of 08/23/2021 there is again noted evidence of prior cholecystectomy and there is a more well-defined 2.5 x 1.2 x 5.4 cm fluid collection in the gallbladder fossa along the inferior liver margin which either represents bile collection from bile leak, sterile collection, or abscess. The amount of associated fluid in the dependent aspect of the pelvis has decreased signific antly from the prior recent study but not completely resolved. There is no free intraperitoneal air. RADIATION DOSE DELIVERED: 626.16mGy.cm Total DLP DATA REPOSITORY: All CT scans at this facility are submitted to the National Radiology Data Registry (NRDR) Dose Index Registry (DIR) with the [employer] (A[employer]). RADIATION OPTIMIZATION: All CT scans at this facility use at least one of these dose optimization te chniques: automated exposure control; mA and/or kV adjustment per patient size (includes targeted exa ms where dose is matched to clinical indication); or iterative reconstruction.
--- NOTE | 2021-09-20 17:07 | DI.VRAD_ITS ---
PROCEDURE INFORMATION: Exam: CT Abdomen And Pelvis Without Contrast Exam date and time: 09/20/2021 4:42 PM Age: 46 years old Clinical indication: Other: Abdominal pain, bloody stool; Prior surgery; Surgery date: <1 month; Surgery type: Cholecystectomy TECHNIQUE: Imaging protocol: Computed tomography of the abdomen and pelvis without contrast. COMPARISON: CT ABDOMEN PELVIS WO 08/23/2021 3:06 PM FINDINGS: Lungs: Calcified left lower lobe pulmonary granuloma. Minimal atelectasis at the left base. Liver: Grossly unremarkable unenhanced liver. Gallbladder and bile ducts: Prior cholecystectomy, recent by report. 2.5 cm x 1.2 cm x 5.4 cm well-defined fluid collection in the gallbladder fossa extending along the inferior liver margin, images 23-35 of series 2 and 21-31 of coronal series 3. Minimal hazy fat stranding in the right upper quadrant, improved since the prior exam from August 23, 2021. No gross biliary dilatation Pancreas: Grossly unremarkable unenhanced pancreas. Spleen: Grossly unremarkable unenhanced spleen. Adrenal glands: Normal appearing adrenal glands. Kidneys and ureters: Grossly unremarkable unenhanced kidneys. No radiopaque urinary tract stones, hydronephrosis, or evidence of recent stone passage. Stomach and bowel: No oral contrast. Stomach partially decompressed. No small bowel dilatation to suggest obstruction. Normal-appearing cecum, ascending colon, and proximal transverse colon. Downstream colon largely well evacuated and collapsed. Mural thickening through collapsed well evacuated segments of the distal transverse colon, descending colon, and sigmoid colon. Artifact of incomplete distention? Acute segmental colitis? Clinical correlation recommended. No evidence of focal acute diverticulitis. Appendix: Normal appendix. Intraperitoneal space: Small amount of free fluid in the deep pelvis. No free air. Vasculature: Normal caliber abdominal aorta. Lymph nodes: No pathologically enlarged mesenteric, retroperitoneal, or pelvic sidewall lymph nodes. Urinary bladder: Urinary bladder partially collapsed but grossly unremarkable, as seen. Reproductive: Prior hysterectomy. Ovaries partially obscured but normal in size. Bones/joints: No acute fracture seen among the bones of the abdomen or pelvis. Soft tissues: Mild diastasis recti. No significant ventral or inguinal hernia. IMPRESSION: 1. Mural thickening through collapsed well evacuated segments of the distal transverse colon, descending colon, and sigmoid colon. Artifact of incomplete distention or acute segmental colitis could produce this appearance. Acute colitis is favored in a patient with bloody stools. Clinical correlation is recommended. If there is clinical concern for colitis, infectious, inflammatory, or ischemic etiologies would be considered. 2. Small amount of free fluid in the deep pelvis. 3. 2.5 cm x 1.2 cm x 5.4 cm well-defined fluid collection in the gallbladder fossa extending along the inferior liver margin. A postoperative collection such as a resolving seroma, a biloma, a sequela of hepatic injury with a subcapsular collection, or an abscess could have this appearance. Clinical correlation is recommended. Minimal hazy fat stranding in the right upper quadrant, improved since the prior exam from August 23, 2021. Dictated and Authenticated by: Mariano Mcleod MD. Ordering:NINA Pozo MD
--- NOTE | 2021-09-20 17:11 | W.ED.GENAD ---
Discharge Plan Disposition Patient Disposition: [facility] INPATIENT Condition: Serious Discharge Details Chief Complaint: GI Bleed Clinical Impression: Colitis, Acute GI bleeding Primary Care Provider: Leonora Syed ED Provider: Sánchez Fernandez Home Meds and New Rx's Prescriptions: No Action albuterol sulfate [Proventil HFA] 90 mcg/actuation HFA aerosol inhaler 2 puff inhalation Q6H PRN (Reason: shortness of breath or wheezing) Qty: 8.5 RF: 0 levothyroxine 100 mcg tablet 100 mcg PO DAILY RF: 0 epinephrine 0.3 MG/SYR auto-injector 0.3 mg IJ PRN PRN (Reason: Allergy Symptoms) Qty: 1 RF: 0 acetaminophen [Tylenol] 325 mg Tablet 650 mg PO Q4H PRN PRNQty: 0 RF: 0 Medical Decision Making 172 --46-year-old female here approximately 5 weeks status post laparoscopic cholecystectomy that was complicated by postoperative fever and intra-abdominal fluid, HIDA scan was negative for bile leak, here with intermittent loose stool over the past few weeks, now with bloody mucousy stool, generalized abdominal discomfort, episode of severe abdominal pain yesterday. Abdominal exam demonstrates diffuse mild discomfort on palpation, no peritoneal findings. CT of the abdomen pelvis was reviewed and interpreted by radiology: IMPRESSION: 1. Mural thickening through collapsed well evacuated segments of the distal transverse colon, descending colon, and sigmoid colon. Artifact of incomplete distention or acute segmental colitis could produce this appearance. Acute colitis is favored in a patient with bloody stools. Clinical correlation is recommended. If there is clinical concern for colitis, infectious, inflammatory, or ischemic etiologies would be considered. 2. Small amount of free fluid in the deep pelvis. 3. 2.5 cm x 1.2 cm x 5.4 cm well-defined fluid collection in the gallbladder fossa extending along the inferior liver margin. A postoperative collection such as a resolving seroma, a biloma, a sequela of hepatic injury with a subcapsular collection, or an abscess could have this appearance. Clinical correlation is recommended. Minimal hazy fat stranding in the right upper quadrant, improved since the prior exam from August 23, 2021. Labs reviewed from last night demonstrate mild leukocytosis of 11.56. Normal LFTs. I called and spoke with on-call general surgeon, Dr. Murphy, discussed ED presentation course including diagnostics, she will evaluate the patient here in the emergency department. 1900 --Dr. Murphy to admit patient. Care transition to Dr. Murphy at time of admission. HPI General Mode of arrival: ambulatory. Date/Time Provider Initiated Documentation: 09/20/21 15:55. Limitations to Documentation: no limitations. Information obtained by: patient. HPI Narrative: 46-year-old female with multiple medical problems including recent history of laparoscopic cholecystectomy approximately 5 weeks ago complicated by postoperative fever and intra-abdominal fluid, HIDA scan negative for bile leak, seen here in the emergency department last night for blood-tinged mucus per rectum, returns to [facility] today with stool specimen which she cannot provide last night and intention on bringing this to the lab. Patient presents with her lab and was advised to come get checked out in the emergency department given bloody stool. Patient notes that since her surgery in early August she has had loose stool every other day with formed bowel movements in between. She states she has maintained a bland diet. Yesterday she had a 1 to 2-hour episode of severe diffuse abdominal pain and associated nausea and diaphoresis. Symptoms resolved and then later she had a blood-tinged mucous bowel movement. She was seen here in the emerge department last night and at the time it had improved discomfort. Labs were nondiagnostic and she was discharged home with instruction to return with stool sample. She notes that since discharge last night she has had another bloody bowel movement described as a 2 inch blood clot. Patient denies rectal mass. He continues to have diffuse mild abdominal discomfort described as upset stomach and mild nausea. She has no associated fever or vomiting. Related Data Home Medications Medication Instructions Recorded Confirmed epinephrine 0.3 mg IJ PRN PRN #1 kit 03/27/15 09/20/21 acetaminophen [Tylenol] 650 mg PO Q4H PRN PRN #0 tab 01/22/21 09/20/21 albuterol sulfate 90 mcg/actuation 2 puff INHALATION Q6H PRN #8.5 g 03/13/21 09/20/21 aerosol inhaler levothyroxine 100 mcg tablet 100 mcg PO DAILY tab 03/18/21 09/20/21 Previous Rx's Medication Instructions Recorded epinephrine 0.3 mg IJ PRN PRN #1 kit 03/27/15 acetaminophen [Tylenol] 650 mg PO Q4H PRN PRN #0 tab 01/22/21 albuterol sulfate 90 mcg/actuation 2 puff INHALATION Q6H PRN #8.5 g 03/13/21 aerosol inhaler Allergies Allergy/AdvReac Type Severity Reaction Status Date / Time Gadolinium-Containing Allergy Severe Anaphylaxis Verified 09/20/21 15:40 Contrast Medi PER [facility] [place] 2011 Penicillins Allergy Severe Anaphylaxsi Verified 09/20/21 15:40 s Sulfa (Sulfonamide Allergy Severe Anaphylaxsi Verified 09/20/21 15:40 Antibiotics) s venom-honey bee Allergy Severe Anaphylaxsi Verified 09/20/21 15:40 [bee venom (honey bee)] s citalopram Allergy Mild Hives Verified 09/20/21 15:40 ofloxacin [From Floxin] Allergy Mild Skin Rash Verified 09/20/21 15:40 naproxen [From Aleve] Allergy Verified 09/20/21 15:40 azithromycin [From Zithromax] AdvReac Severe Anaphylaxsi Verified 09/20/21 15:40 s Iodinated Contrast Media AdvReac Severe Anaphylaxsi Verified 09/20/21 15:40 [Iodinated Contrast Media - s IV Dye] ketorolac tromethamine AdvReac Severe Anaphylaxsi Verified 09/20/21 15:40 [From Toradol] s iodine AdvReac Intermediate Anaphylaxsi Verified 09/20/21 15:40 s lorazepam [From Ativan] AdvReac Intermediate Dizziness/L Verified 09/20/21 15:40 ightheade horse flies Allergy Severe Anaphylaxsi Uncoded 09/20/21 15:40 s General Stated Complaint: GI Bleed CLARI: 3 Review of Systems All systems reviewed & are unremarkable except as noted in HPI and below Constitutional Constitutional: Denies fever(s) Gastrointestinal Gastrointestinal: Reports as per HPI PFSH All Active Problems (Updated 09/20/21 @ 19:02 by Sánchez Fernandez MD) Acute diarrhea (Acute) Colitis (Acute) Acute GI bleeding (Acute) Palpitations (Acute) Anxiety about health (Acute) PONV (postoperative nausea and vomiting) (Acute) WOOD (generalized anxiety disorder) (Acute) Hypothyroidism (Acute) Secondary to thyroidectomy due to cancer Thyroid cancer (Acute) Papillary Adverse drug effect (Acute) Thoracic outlet syndrome (Acute) Neck pain (Acute) Panic attacks (Acute) Depression (Chronic) Difficulty with speech (Acute) Bilateral arm weakness (Acute) Bilateral leg weakness (Acute) Difficulty with speech (Acute) Breast lump on left side at 3 o'clock position (Acute) Weakness (Acute) Anxiety (Chronic) Fatigue (Acute) Headache (Acute) Blurred vision (Acute) Chest pain (Acute) Near syncope (Acute) Atypical chest pain (Acute) Medical History Anxiety Fatigue Functional neurological symptom disorder with mixed symptoms (~01/15/21) Surgical History H/O hand surgery cyst removal History of hysterectomy History of thyroidectomy S/P laparoscopic cholecystectomy Family History Mother Hypertension Social History Smoking/Tobacco Use Status: Never Smoking risk assessment performed?: Yes Alcohol Intake: never Drug use: Never Substance use type: does not use Household members: spouse and children Number of Children: 4 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 Do you think of yourself as: lesbian/beltrán/homosexual Current gender identity: female What is your relationship status?: Panel score (0-1 are the most socially isolated patients): 1 Do you feel safe at home: Yes Do you feel safe in your relationship?: Yes History History 3 Para 2 Hx # Term Pregnancies 2 Multiple births Hx # Pregnancies 1 Ectopic pregnancies AB induced Hx Number of Living Children 2 AB spontaneous 1 Exam Const General: cooperative and no acute distress HENMT Mouth: moist mucous membranes Eyes Conjunctivae: normal conjunctivae Sclera: normal sclerae Resp Auscultation: clear to auscultation bilaterally, no rales, no rhonchi and no wheezes Cardio Rate: regular rate and not tachycardic Rhythm: regular rhythm GI Palpation: soft, not firm, no guarding, no masses, not rigid and tender (diffuse mild) Auscultation: hypoactive bowel sounds Skin General skin exam: no rashes or lesions noted Neuro General: patient alert, patient awake and tone normal Extrem General: no edema Psych Appearance: grossly normal Mental Status: mental status grossly normal Mood: anxious mood Course Vital Signs Vital signs: Vital Signs Temperature 36.9 C 09/20/21 15:32 Pulse 83 09/20/21 15:32 Respiratory Rate 18 09/20/21 15:32 Blood Pressure 149/72 H 09/20/21 15:32 Pulse Oximetry 100 09/20/21 15:32 Temperature 36.9 C 09/20/21 15:32 Temperature Source Temporal Artery Scan 09/20/21 15:32 Pulse 83 09/20/21 15:32 Respiratory Rate 18 09/20/21 15:32 Respiratory Effort Non-Labored 09/20/21 15:39 Blood Pressure 149/72 H 09/20/21 15:32 Blood Pressure Position Supine 09/20/21 15:32 Pulse Oximetry 100 09/20/21 15:32 Oxygen Delivery Method Room Air 09/20/21 15:32 Oxygen Flow Rate 0 09/20/21 15:32 Pain Level 3 09/20/21 15:46
[2021-09-20 19:26] VITALS: BP 130/74; PULSE 76; RESP 16; TEMP 36.6; O2SAT 99
--- NOTE | 2021-09-20 19:34 | W.PM.HP.N ---
Date of service: 09/20/21 Time of Service: 19:34 Assessment and Plan Assessment and plan (1) Colitis: Status: Acute Assessment and plan: -Patient given the option of inpatient vs outpatient antibiotics and bowel rest, preferred inpatient observation -IV antibiotics initiated, Cipro/Flagyl -IV fluids, clear liquid diet, bowel rest -Re-assess in AM, stool studies ordered -Lovenox for DVT ppx -Protonix for GI ppx -Home meds ordered History of Present Illness Narrative: 46 year old female who is now well known to our service who developed abdominal pain yesterday followed by an episode of bloody and mucousy bowel movement. She has had intermittent episodes of loose stools but not enough to affect her. Typically her abdominal discomfort has been mild and relieved by any bowel movement. She has been able to otherwise eat and drink without any issues. She was told by her PCP to come to the ER last night. Once here she was evaluated and had basic laboratory studies performed which were not concerning. She was unable to provide a stool sample so she was sent home with sample collection materials. When she came today to drop off her stool sample to the lab, the lab referred her to the ER. CT of the abdomen and pelvis was done revealing improvement in suphepatic fluid collection post cholecystectomy as well as possible colitis. Due to the underdistention of the colon this was difficult to visualize but since having bloody stool, colitis remains the most likely etiology of her vague abdominal pain. She was given the option of IV antibiotics in the ER with outpatient PO antibiotics but due to her concern about any possible side effects, etc. she requested inpatient observation. She is worried that she has c.diff but was reassured based on her labs and clinical symptoms this is less likely. Will send for all possible stool studies while here. Review of Systems All systems reviewed & are unremarkable except as noted in HPI and below Constitutional Constitutional: Denies chills, Denies fever(s) and Denies weakness Cardiovascular Cardiovascular: Denies chest pain, Denies syncope and Denies dyspnea Respiratory Respiratory: Denies cough and Denies dyspnea Gastrointestinal Gastrointestinal: Reports abdominal pain, Denies melena, Denies bloating, Reports hematochezia, Reports cramping, Reports loose stools, Denies nausea and Denies vomiting Genitourinary Genitourinary: Denies dysuria Neurologic Neurologic: Denies syncope, Denies tremor(s) and Denies weakness Psychiatric Psychiatric: Reports anxiety PFSH All Active Problems (Updated 09/20/21 @ 19:02 by Sánchez Fernandez MD) Acute diarrhea (Acute) Colitis (Acute) Acute GI bleeding (Acute) Palpitations (Acute) Anxiety about health (Acute) PONV (postoperative nausea and vomiting) (Acute) WOOD (generalized anxiety disorder) (Acute) Hypothyroidism (Acute) Secondary to thyroidectomy due to cancer Thyroid cancer (Acute) Papillary Adverse drug effect (Acute) Thoracic outlet syndrome (Acute) Neck pain (Acute) Panic attacks (Acute) Depression (Chronic) Difficulty with speech (Acute) Bilateral arm weakness (Acute) Bilateral leg weakness (Acute) Difficulty with speech (Acute) Breast lump on left side at 3 o'clock position (Acute) Weakness (Acute) Anxiety (Chronic) Fatigue (Acute) Headache (Acute) Blurred vision (Acute) Chest pain (Acute) Near syncope (Acute) Atypical chest pain (Acute) Medical History Anxiety Fatigue Functional neurological symptom disorder with mixed symptoms (~01/15/21) Surgical History H/O hand surgery cyst removal History of hysterectomy History of thyroidectomy S/P laparoscopic cholecystectomy Family History Mother Hypertension Social History Smoking/Tobacco Use Status: Never Smoking risk assessment performed?: Yes Alcohol Intake: never Drug use: Never Substance use type: does not use Household members: spouse and children Number of Children: 4 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 Do you think of yourself as: lesbian/beltrán/homosexual Current gender identity: female What is your relationship status?: Panel score (0-1 are the most socially isolated patients): 1 Do you feel safe at home: Yes Do you feel safe in your relationship?: Yes History History 3 Para 2 Hx # Term Pregnancies 2 Multiple births Hx # Pregnancies 1 Ectopic pregnancies AB induced Hx Number of Living Children 2 AB spontaneous 1 Meds Allergies and Home Medications Allergies Allergy/AdvReac Type Severity Reaction Status Date / Time Gadolinium-Containing Allergy Severe Anaphylaxis Verified 09/20/21 15:40 Contrast Medi PER [facility] 2011 Penicillins Allergy Severe Anaphylaxsi Verified 09/20/21 15:40 s Sulfa (Sulfonamide Allergy Severe Anaphylaxsi Verified 09/20/21 15:40 Antibiotics) s venom-honey bee Allergy Severe Anaphylaxsi Verified 09/20/21 15:40 [bee venom (honey bee)] s citalopram Allergy Mild Hives Verified 09/20/21 15:40 ofloxacin [From Floxin] Allergy Mild Skin Rash Verified 09/20/21 15:40 naproxen [From Aleve] Allergy Verified 09/20/21 15:40 azithromycin [From Zithromax] AdvReac Severe Anaphylaxsi Verified 09/20/21 15:40 s Iodinated Contrast Media AdvReac Severe Anaphylaxsi Verified 09/20/21 15:40 [Iodinated Contrast Media - s IV Dye] ketorolac tromethamine AdvReac Severe Anaphylaxsi Verified 09/20/21 15:40 [From Toradol] s iodine AdvReac Intermediate Anaphylaxsi Verified 09/20/21 15:40 s lorazepam [From Ativan] AdvReac Intermediate Dizziness/L Verified 09/20/21 15:40 ightheade horse flies Allergy Severe Anaphylaxsi Uncoded 09/20/21 15:40 s Home Medications Medication Instructions Recorded Confirmed Type epinephrine 0.3 mg IJ PRN PRN #1 kit 03/27/15 09/20/21 Rx acetaminophen [Tylenol] 650 mg PO Q4H PRN PRN #0 tab 01/22/21 09/20/21 Rx albuterol sulfate 90 mcg/actuation 2 puff INHALATION Q6H PRN #8.5 g 03/13/21 09/20/21 Rx aerosol inhaler levothyroxine 100 mcg tablet 100 mcg PO DAILY tab 03/18/21 09/20/21 History Exam Const General: cooperative, healthy appearing, comfortable and no acute distress [facility] Head: normal to inspection, normocephalic and atraumatic Mouth: moist mucous membranes Eyes Conjunctivae: normal conjunctivae Sclera: normal sclerae Neck Neck: normal visual inspection and full ROM Resp Effort & Inspection: normal respiratory effort, able to speak in complete sentences, no audible wheezes and no respiratory distress Auscultation: no rales, no rhonchi and no wheezes Cardio Rate: regular rate Rhythm: regular rhythm GI Palpation: soft, not firm, no guarding, no masses, not rigid and tender (diffuse mild) Auscultation: hypoactive bowel sounds Skin General skin exam: no rashes or lesions noted Neuro General: patient alert, patient awake and tone normal Cognition: normal cognition Speech: speech normal Extrem General: normal to inspection and no edema Psych Appearance: grossly normal Mental Status: mental status grossly normal Mood: anxious mood Attitude: cooperative Thought Process: normal Thought Content: normal Insight: insight good Judgment: judgment good Results Last Vital Signs Temp 97.9 F 09/20/21 19:26 Pulse 76 09/20/21 19:26 Resp 16 09/20/21 19:26 BP 130/74 09/20/21 19:26 Pulse Ox 99 09/20/21 19:26
[2021-09-20 19:50] LABS: Source Nasal/Nares
[2021-09-20 20:26] LABS: COVID-19 PCR Negative (Negative)
[2021-09-20 20:41] VITALS: BP 130/74; PULSE 76; RESP 16; TEMP 36.6; O2SAT 99
[2021-09-20 21:26] LABS: C Diff PCR Negative (Negative)
[2021-09-20] MEDS: Normal Saline Flush 10 ML SYR IVP (23:18)
[2021-09-21 07:18] LABS: Abs Immature Grans 0.01 10^3/uL (0.0-0.06); Absolute Basophil Count 0.07 10^3/uL (0.0-0.2); Absolute Eosinophil Count 0.63 10^3/uL (0.0-0.7); Absolute Lymphocyte Count 2.54 10^3/uL (1.2-3.4); Absolute Monocyte Count 0.58 10^3/uL (0.1-0.8); Absolute Neutrophil Count 3.45 10^3/uL (1.2-6.7); Eosinophils % 8.7; HGB 11.5 g/dL (11.2-15.7); Immature Grans % 0.1; Lymphocytes % 34.9; MCH 29.3 pg (27.0-33.0); MCHC 32.9 % (32.0-36.0); MCV 89.3 fL (80-95); MPV 10.8 fL (8.0-11.0); Neutrophils % 47.3; Nucleated RBC 0 %; Platelet Count 241 10^3/uL (130-400); RBC 3.92 10^6/uL (3.93-5.22); RDW-SD 42.6 fL; WBC 7.28 10^3/uL (4.4-10.8)
[2021-09-21 07:26] VITALS: BP 116/74; PULSE 65; RESP 18; TEMP 36; O2SAT 95
[2021-09-21 07:26] LABS: BUN 12 mg/dL (7-18); CREATININE 0.7 mg/dL (0.55-1.02); Calcium 9.2 mg/dL (8.5-10.1); Chloride 104 mmol/L (98-107); Glucose 88 mg/dL (74-106); Lipase 68 U/L (73-393); Potassium 3.8 mmol/L (3.5-5.1); Sodium 140 mmol/L (136-145)
[2021-09-21] MEDS: Levothyroxine 100 MCG TAB PO (08:12)
--- NOTE | 2021-09-21 09:33 | W.PM.PROGNOT ---
Date of Service Date of service: 09/21/21 Time of Service: 09:33 Assessment and Plan Assessment and plan (1) Colitis: Status: Acute Assessment and plan: Patient is doing very well this morning. She appears non-toxic and was sitting up in the chair. Lengthy discussion and review of her morning labs. Will start clear liquid diet for breakfast No BMs or rectal bleeding overnight. Discussed that she should follow up with her PCP after d/c. If rectal bleeding returns or continues may consider Colonoscopy. In chart review I do not see any previous Screening Colonoscopy results. She did not get antibiotics secondary to IV infiltration and the patient refusing placement for another. This morning labs with within normal limits No fevers, chills or night sweats overnight Encouraged activity OOB, sitting in the chair and ambulation Lovenox for DVT ppx Protonix for GI ppx Home meds ordered D/c home later today. Subjective Subjective Interval history since last seen: Arrived with the patient reviewing her morning lab results on her patient portal. She reports that she has not had any BMs since admission. She denies having any pain, fevers or chills. She describes feeling Nauseous which she questions may be related to not eating over the past few days. She describes that her IV became infiltrated over night and she became very frustrated and refused another IV. So she has not received any antibiotics at this time. She is concerned about getting antibiotics because she recently completed a course approximately 3 weeks ago. Exam Const General: cooperative, healthy appearing, comfortable and anxious Orientation: alert and oriented x3 Resp Effort & Inspection: normal respiratory effort, no audible wheezes and no cough Objective Last Vital Signs Temp 36.0 C L 09/21/21 07:26 Pulse 65 09/21/21 07:26 Resp 18 09/21/21 07:26 BP 116/74 09/21/21 07:26 Pulse Ox 95 09/21/21 07:26 Laboratory Results - last 24 hr 09/20/21 09/20/21 09/21/21 14:30 19:37 06:30 WBC RBC Hgb Hct MCV MCH MCHC RDW Plt Count MPV Immature Gran % Neutrophils % Lymphocytes % Monocytes % Eosinophils % Basophils % Nucleated RBC % Absolute Neutrophils Absolute Lymphocytes Absolute Monocytes Absolute Eosinophils Absolute Basophils Sodium 140 Potassium 3.8 Chloride 104 Carbon Dioxide 26.0 Anion Gap 10.0 BUN 12 Creatinine 0.7 Estimated GFR/1.73 m2 >= 60.00 Glucose 88 Calcium 9.2 Lipase 68 Stl C.difficile Tox PCR Negative COVID-19 Source Nasal/Nares SARS-CoV-2 (PCR) Negative 09/21/21 06:30 WBC 7.28 RBC 3.92 L Hgb 11.5 Hct 35.0 L MCV 89.3 MCH 29.3 MCHC 32.9 RDW 13.0 Plt Count 241 MPV 10.8 Immature Gran % 0.1 Neutrophils % 47.3 Lymphocytes % 34.9 Monocytes % 8.0 Eosinophils % 8.7 Basophils % 1.0 Nucleated RBC % 0 Absolute Neutrophils 3.45 Absolute Lymphocytes 2.54 Absolute Monocytes 0.58 Absolute Eosinophils 0.63 Absolute Basophils 0.07 Sodium Potassium Chloride Carbon Dioxide Anion Gap BUN Creatinine Estimated GFR/1.73 m2 Glucose Calcium Lipase Stl C.difficile Tox PCR COVID-19 Source SARS-CoV-2 (PCR)
--- NOTE | 2021-09-21 10:26 | PDOC.CMIN ---
- If Service Date Differs Date of service: 09/21/21 Time of Service: 11:41 Care Management Initial Assess REASON FOR HOSPITALIZATION:: Colitis PAST MEDICAL HISTORY/PAST SURGICAL HISTORY:: Medical History . Anxiety. Fatigue. Functional neurological symptom disorder with mixed symptoms (~01/15/21). Surgical History . H/O hand surgery. cyst removal. History of hysterectomy. History of thyroidectomy. S/P laparoscopic cholecystectomy PREVIOUS FUNCTIONAL STATUS/SOCIAL/FAMILY SUPPORTS:: Raquel lives with her Salvador and their 6 year old son on a farm in [place], [place]. Raquel has two additional children who are adults and live on their own. 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 CURRENT FUNCTIONAL STATUS:: Raquel is doing well this morning and sitting up in her chair, per MD anticipate discharge later today with continued stability. Has patient been provided with info about the portal/API?: Yes Did the patient sign up for the portal?: Yes (Previously) CODE STATUS:: Full Code INSURANCE COVERAGE / FINANCIAL ISSUES:: [employer] CURRENT HOME/COMMUNITY SERVICES/EQUIPMENT:: None, currently. PRIMARY CARE PHYSICIAN:: Leonora Syed POTENTIAL DISCHARGE NEEDS:: Follow up appointments. PATIENT/FAMILY EDUCATION NEEDS:: Review of discharge instructions, limitations, medications, and follow up plan of care; discuss Ask Me Three and self management. ANTICIPATED BARRIERS TO DISCHARGE:: None identified. TRANSPORTATION:: Via private vehicle with family. PLAN:: Raquel will likely be discharged home with no new services when medically cleared by provider. She will transport with family by private vehicle when ready. Raquel will follow up with her PCP, and plan of care as prescribed. CM will continue to follow.
--- NOTE | 2021-09-21 14:07 | DSE_ITS ---
DS: Diagnosis Discharge Diagnosis (1) Colitis: Status: Acute Discharge Plan Disposition Patient Disposition: HOME Condition: Improving Discharge Details Reason For Visit: Colitis Admit Date/Time: 09/20/21 19:28 Admit Provider: Myriam Murphy Attending Provider: Myriam Murphy Primary Care Provider: Leonora Syed Hospital Course Hospital Course: 46 year old female who is now well known to our service who developed abdominal pain yesterday followed by an episode of bloody and mucousy bowel movement. She has had intermittent episodes of loose stools but not enough to af fect her. Typically her abdominal discomfort has been mild and relieved by any bowel movement. She has been able to otherwise eat and drink without any issues. She was told by her PCP to come to the ER last night. Once here she was evaluated and had basic laboratory studies performed which were not concerning. She was unable to provide a stool sample so she was sent home with sample collection materials. When she came today to drop off her stool sample to the lab, the lab referred her to the ER. CT of the abdomen and pelvis was done revealing improvement in suphepatic fluid collection post cholecystectomy as well as possible colitis. Due to the underdistention of the colon this was difficult to visualize but since having bloody stool, colitis remains the most likely etiology of her vague abdominal pain. She was given the option of IV antibiotics in the ER with outpatient PO antibiotics but due to her concern about any possible side effects, etc. she requested inpatient observation. She is worried that she has c.diff but was reassured based on her labs and clinical symptoms this is less likely. She had no more liquid stools since admission. Had a normal soft BM today. No abdominal pain. Labs are wnl. Will d/c to home No antibiotics Start a probiotic ERNIE diet for 24 to 48 hours and then advance to a regular healthy diet as tolerated. Avoid milk products for 1 week and then slowly add. Home Meds and New Rx's Prescriptions: New Bio-K plus 50 billion cell capsule,delayed release(DR/EC) 1 cap PO DAILY Qty: 30 RF: 0 Continued albuterol sulfate [Proventil HFA] 90 mcg/actuation HFA aerosol inhaler 2 puff inhalation Q6H PRN (Reason: shortness of breath or wheezing) Qty: 8.5 RF: 0 levothyroxine 100 mcg tablet 100 mcg PO DAILY RF: 0 epinephrine 0.3 MG/SYR auto-injector 0.3 mg IJ PRN PRN (Reason: Allergy Symptoms) Qty: 1 RF: 0 acetaminophen [Tylenol] 325 mg Tablet 650 mg PO Q4H PRN PRNQty: 0 RF: 0 Discharge Instructions Additional Instructions: Diet: ERNIE diet for 24 to 48 hours then slowly advance to a healthy diet. If diarrhea recurrs then go from ERNIE diet to a low fiber diet until diarrhea has resolved. Stand Alone Forms: Nursing Discharge Form Referrals: Leonora Syed [Primary Care Provider] - Activity:: Activity as Tolerated Equipment/Supplies:: No Equipment Needed Diet:: see above DS: Summary Time Spent with Patient providing and/or coordinating discharge services: Less than 30 minutes Status at Discharge Functional status at discharge: independent ambulation Overall status at discharge: patient is back to baseline Mental Status: mental status grossly normal Speech and Movement: speech and movement normal Mood: congruent mood Affect: normal affect Exam Psych Mental Status: mental status grossly normal Speech and Movement: speech and movement normal Mood: congruent mood Affect: normal affect DS: Data Vitals/I&O Vitals and I&O: Vital Signs Temperature 96.8 F L 09/21/21 07:26 Temperature Source Tympanic 09/21/21 07:26 Pulse 65 09/21/21 07:26 Pulse Rhythm Regular 09/21/21 08:30 Respiratory Rate 18 09/21/21 07:26 Respiratory Effort Non-Labored 09/21/21 08:30 Respiratory Depth Normal 09/21/21 08:30 Respiratory Pattern Normal 09/21/21 08:30 Blood Pressure 116/74 09/21/21 07:26 Blood Pressure Position Supine 09/20/21 15:32 Pulse Oximetry 95 09/21/21 07:26 Oxygen Delivery Method Room Air 09/21/21 07:26 Oxygen Flow Rate 0 09/21/21 07:26 Pain Level 3 09/21/21 07:26 Intake & Output 09/20/21 09/21/21 09/21/21 23:59 11:59 23:59 Output Total 900 / 900 Balance -900 / -900 Weight 135 lb Output: Urine 900 / 900 Other: Urine Color Pale Yellow Urine Appearance Clear Urine Odor None Comment Patient states this urine is from last night and this morning. Stool Size Small Stool Characteristics Soft Formed Emesis Description None Voiding Methods Toilet Data Completed and Pending Labs on day of discharge: Labs from last 24 hours 09/21/21 09/21/21 09/21/21 11:11 11:11 11:11 WBC RBC Hgb Hct MCV MCH MCHC RDW Plt Count MPV Immature Gran % Neutrophils % Lymphocytes % Monocytes % Eosinophils % Basophils % Nucleated RBC % Absolute Neutrophils Absolute Lymphocytes Absolute Monocytes Absolute Eosinophils Absolute Basophils Sodium Potassium Chloride Carbon Dioxide Anion Gap BUN Creatinine Estimated GFR/1.73 m2 Glucose Calcium Lipase Stool Description Pending Stl Occult Bld Clinic Pending Stool Campylobacter PCR Pending Stl C.difficile Tox PCR Stool Salmonella PCR Pending Stool Shigella PCR Pending Stool Ova & Parasites Pending COVID-19 Source SARS-CoV-2 (PCR) Cryptosporidium/Giardia Shiga Toxin (PCR) Pending 09/21/21 09/21/21 09/21/21 11:11 11:11 06:30 WBC 7.28 RBC 3.92 L Hgb 11.5 Hct 35.0 L MCV 89.3 MCH 29.3 MCHC 32.9 RDW 13.0 Plt Count 241 MPV 10.8 Immature Gran % 0.1 Neutrophils % 47.3 Lymphocytes % 34.9 Monocytes % 8.0 Eosinophils % 8.7 Basophils % 1.0 Nucleated RBC % 0 Absolute Neutrophils 3.45 Absolute Lymphocytes 2.54 Absolute Monocytes 0.58 Absolute Eosinophils 0.63 Absolute Basophils 0.07 Sodium Potassium Chloride Carbon Dioxide Anion Gap BUN Creatinine Estimated GFR/1.73 m2 Glucose Calcium Lipase Stool Description Pending Stl Occult Bld Clinic Stool Campylobacter PCR Pending Stl C.difficile Tox PCR Stool Salmonella PCR Pending Stool Shigella PCR Pending Stool Ova & Parasites Pending COVID-19 Source SARS-CoV-2 (PCR) Cryptosporidium/Giardia Pending Shiga Toxin (PCR) Pending 09/21/21 09/20/21 09/20/21 06:30 19:37 14:30 WBC RBC Hgb Hct MCV MCH MCHC RDW Plt Count MPV Immature Gran % Neutrophils % Lymphocytes % Monocytes % Eosinophils % Basophils % Nucleated RBC % Absolute Neutrophils Absolute Lymphocytes Absolute Monocytes Absolute Eosinophils Absolute Basophils Sodium 140 Potassium 3.8 Chloride 104 Carbon Dioxide 26.0 Anion Gap 10.0 BUN 12 Creatinine 0.7 Estimated GFR/1.73 m2 >= 60.00 Glucose 88 Calcium 9.2 Lipase 68 Stool Description Stl Occult Bld Clinic Stool Campylobacter PCR Stl C.difficile Tox PCR Negative Stool Salmonella PCR Stool Shigella PCR Stool Ova & Parasites COVID-19 Source Nasal/Nares SARS-CoV-2 (PCR) Negative Cryptosporidium/Giardia Shiga Toxin (PCR) PFSH All Active Problems Acute diarrhea (Acute) Colitis (Acute) Acute GI bleeding (Acute) Palpitations (Acute) Anxiety about health (Acute) PONV (postoperative nausea and vomiting) (Acute) WOOD (generalized anxiety disorder) (Acute) Hypothyroidism (Acute) Secondary to thyroidectomy due to cancer Thyroid cancer (Acute) Papillary Adverse drug effect (Acute) Thoracic outlet syndrome (Acute) Neck pain (Acute) Panic attacks (Acute) Depression (Chronic) Difficulty with speech (Acute) Bilateral arm weakness (Acute) Bilateral leg weakness (Acute) Difficulty with speech (Acute) Breast lump on left side at 3 o'clock position (Acute) Weakness (Acute) Anxiety (Chronic) Fatigue (Acute) Headache (Acute) Blurred vision (Acute) Chest pain (Acute) Near syncope (Acute) Atypical chest pain (Acute) Medical History Anxiety Fatigue Functional neurological symptom disorder with mixed symptoms (~01/15/21) Surgical History H/O hand surgery cyst removal History of hysterectomy History of thyroidectomy S/P laparoscopic cholecystectomy Family History Mother Hypertension Social History Smoking/Tobacco Use Status: Never Smoking risk assessment performed?: Yes Alcohol Intake: never Drug use: Never Substance use type: does not use Household members: spouse and children Number of Children: 4 current occupation: [employer] Do you think of yourself as: lesbian/beltrán/homosexual Current gender identity: female What is your relationship status?: Panel score (0-1 are the most socially isolated patients): 1 Do you feel safe at home: Yes Do you feel safe in your relationship?: Yes History History 3 Para 2 Hx # Term Pregnancies 2 Multiple births Hx # Pregnancies 1 Ectopic pregnancies AB induced Hx Number of Living Children 2 AB spontaneous 1
[2021-09-21 15:01] VITALS: BP 130/81; PULSE 68; RESP 18; TEMP 35.9; O2SAT 100
[2021-09-22 11:51] LABS: Campylobacter PCR Negative (Negative); Salmonella PCR Negative (Negative); Shiga Toxin PCR Negative (Negative); Shigella/Enteroinvasive Ecoli Negative (Negative)
--- NOTE | 2021-09-22 12:50 | NUR.NOTE ---
left message for patient to return our call about her covid results
--- NOTE | 2021-09-22 13:01 | NUR.NOTE ---
patient was able to return mty call. PAtient told she was covid negative:
== END 2021-09-21 15:34 | disposition home or self-care (01) ==
LOC: ER 19:42 → MS 20:29
PROVIDERS: Nurse Practitioner Family; Admitting Provider Surgery; Emergency Provider Student in an Organized Health Care Education/Training Program; PCP Family Medicine; Visit Provider Surgery
DX: K52.9 Noninfective gastroenteritis and colitis, unspecified (principal); Z85.850 Personal history of malignant neoplasm of thyroid; E89.0 Postprocedural hypothyroidism; F41.0 Panic disorder [episodic paroxysmal anxiety]; G54.0 Brachial plexus disorders; Z20.822 Contact with and (suspected) exposure to COVID-19
CPT/HCPCS: 36415; 80048; 83690; 87329; 87493; 87505; 87635; 99285; 74176; 82272; 83630; 85025; 87177; G0378; J0744

== ENCOUNTER 2021-09-24 18:37 | Outpatient (REF) | payer OTHER, SELFPAY ==
[2021-09-24 21:35] LABS: HCT 37.6 % (36.0-46.0); HGB 12.4 g/dL (11.2-15.7); MCH 29.2 pg (27.0-33.0); MCV 88.7 fL (80-95); Platelet Count 298 10^3/uL (130-400); RBC 4.24 10^6/uL (3.93-5.22); RDW 12.8 % (11.7-14.6); RDW-SD 41.6 fL; WBC 7.59 10^3/uL (4.4-10.8)
[2021-09-24 21:48] LABS: ALT 19 U/L (14-59); AST 15 U/L (15-37); Albumin 4.6 g/dL (3.4-5.0); Alkaline Phosphatase 88 U/L (46-116); BUN 7 mg/dL (7-18); Bilirubin, Total 0.3 mg/dL (0.2-1.0); CREATININE 0.7 mg/dL (0.55-1.02); Chloride 101 mmol/L (98-107); Glucose 123 mg/dL (74-106); Sodium 135 mmol/L (136-145); Total Protein 8.4 g/dL (6.4-8.2)
== END 2021-09-24 18:38 | disposition home or self-care (01) ==
LOC: NCHCN 18:37
PROVIDERS: PCP Family Medicine; Visit Provider Family Medicine
DX: R10.11 Right upper quadrant pain (principal)
CPT/HCPCS: 80053; 85027

== ENCOUNTER 2021-11-17 13:48 | Outpatient (REF) | payer OTHER, SELFPAY ==
[2021-11-17 17:21] LABS: ALT 18 U/L (14-59); AST 14 U/L (15-37); Albumin 4.3 g/dL (3.4-5.0); Alkaline Phosphatase 100 U/L (46-116); Anion Gap 9.3 mmol/L (3-11); BUN 14 mg/dL (7-18); Bilirubin, Total 0.4 mg/dL (0.2-1.0); CO2 28.7 mmol/L (21.0-32.0); CREATININE 0.8 mg/dL (0.55-1.02); Calcium 9.7 mg/dL (8.5-10.1); Calculated LDL 103 mg/dL (<100); Chloride 103 mmol/L (98-107); Cholesterol 187 mg/dL (<200); Glucose 91 mg/dL (74-106); HDL Cholesterol 56 mg/dL (40-60); Potassium 4.5 mmol/L (3.5-5.1); Sodium 141 mmol/L (136-145); TSH (W/Ref FT4) 0.16 uIU/mL (0.36-3.74); Total Protein 7.9 g/dL (6.4-8.2); Triglyceride 141 mg/dL (<150)
[2021-11-17 17:52] LABS: FREE T4 1.17 ng/dL (0.76-1.46)
[2021-11-17 23:13] LABS: T3, Total 208 ng/dL (97-169)
[2021-11-19 05:31] LABS: Vitamin D 25 Total 26.5 ng/mL (30-100)
[2021-11-19 12:26] LABS: Thyroglobulin Antibody <1.8 IU/mL (<1.8); Thyroglobulin Tumor Marker 0.1 ng/mL
== END 2021-11-17 13:49 | disposition home or self-care (01) ==
LOC: NCHCN 13:48
PROVIDERS: PCP Family Medicine; Visit Provider Family Medicine
DX: E89.0 Postprocedural hypothyroidism (principal); Z13.220 Encounter for screening for lipoid disorders; M62.81 Muscle weakness (generalized); C73 Malignant neoplasm of thyroid gland; E55.9 Vitamin D deficiency, unspecified
CPT/HCPCS: 80053; 80061; 82306; 84432; 84439; 84443; 84480; 86800

== ENCOUNTER 2021-12-04 14:14 | Outpatient (REF) | payer OTHER, SELFPAY | END 2021-12-04 14:15 | disposition home or self-care (01) | LOC: LBN 14:14 | PROVIDERS: PCP Family Medicine; Visit Provider Physician Assistant Medical ==

== ENCOUNTER 2022-01-07 07:29 | Outpatient (CLI) | payer OTHER, SELFPAY ==
--- OUTSIDE RECORDS SUMMARY | 2022-01-07 07:31 | XMS_ITS ---
:1975 Author Care Team Providers Name Role Phone MARY AVILEZ Primary Care Provider [phone] [facility] OTHER [phone] [facility] [phone] Allergies Code Code System Name Reaction Severity Status Onset 596371 RxNorm Aleve Edema ? Active ? Rash ? Active ? 20240221 RxNorm Ativan ? ? Active ? 255 RxNorm Citalopram ? ? Active ? 20231221 RxNorm Floxin ? ? Active ? Iodinated Contrast Media Chest Pain Severe Acti ve ? 5933 RxNorm Iodine ? ? Active ? Penicillins ? ? Active ? Sulfa (Sulfonamide ? ? Active ? Antibiotics) Toradol ? ? Active ? 29322 RxNorm V[facility]OM-[facility]ASP Anaphylaxis ? Active ? 442166 RxNorm Zithromax ? ? Active ? Notes: Horseflies, yellowjackets- anap hylasix Medications Name Status Start Date Stop Date ? ? Adult Multivitamin Gummies Completed ? 12/23 Take two chewable gummies by mouth daily amitriptyline 10 mg tablet Completed ? 06/29 Take 1 tablet every day by oral route at bedtime. Ativan 0.5 mg tablet Completed 05/27/2010 05/27/2010/2 to 1 Tablet: as needed for anxiety betamethasone dipropionate 0.05 % topical cream Completed 10/08/2015 10/22/2015 1 (one) Cream: abid cephalexin 500 mg tablet Completed 11/23/2016 017 1 (one) Tablet: tid - three times a day codeine 10 mg-guaifenesin 100 mg/5 mL oral liquid Completed 03/26/2015 04/07/2015 1 (one) Solution: 5-10ml (1 teaspoon) every 4-6 hrs as needed f or cough Diflucan 150 mg tablet Completed 11/23/2016 05/15/201 7 1 (one) Tablet: x1 dose only docusate sodium 100 mg capsule Completed 08/28/2008 0 08/28/2008 1 (one) Capsule: two times daily EpiPen 0.3 mg/0.3 mL injection, auto-injector Active ? Not available Take 1 mL as needed by injection route. hydroxyzine HCl 50 mg tablet Completed 10/08/201504/2016 1 (one) Tablet: qhs - at bedtime hyoscyamine ER 0.375 mg tablet,extended release,12 hr Completed 10/14/2014 11/13/2014 1 (one) Tablet ER 12HR: bidprn levothyroxine 100 mcg tablet Completed ? 06/2022 Take 1 tablet by oral route. levothyroxine 88 mcg tablet Active ? Not available Take 1 tablet every day by oral route for 90 days. meclizine 12.5 mg tablet Completed ? 018 Take 2 tablets 3 times a day by oral route as needed. meclizine 25 mg tablet Completed 10/18/2007 8 1 (one) Tablet: 3 times daily as needed for dizziness methylprednisolone 4 mg tablets in a dose pack Completed ? 06/05/2018 metoclopramide 10 mg tablet Completed ? 12/13 1 (one) Tablet: every 6 hours as needed metronidazole 500 mg tablet Completed 09/26/200709/15 1 (one) Tablet: Twice daily Milk of Magnesia 400 mg/5 mL oral suspension Completed 05/20/2008 1 (one) Suspension: as needed Multiple Vitamins Completed ? 06/16/2018 naproxen sodium 550 mg tablet Completed 09/01/2011 1 (one) Tablet: Twice daily as needed omeprazole 20 mg capsule,delayed release Completed 010 10/20/2009 1 (one) Capsule DR: nightly prednisone 20 mg tablet Completed 10/08/2015 10/13/19 16 2 (two) Tablet Tablet: daily prochlorperazine 25 mg rectal suppository Completed 200705/20/2008 1 (one) Suppository: twice daily prn prochlorperazine maleate 5 mg tablet Completed 09/01/2011 09/21/2011 1/2 to 2 Tablet: Every 6 hours as needed promethazine 6.25 mg/5 mL oral syrup Completed 08/23/2012 08/30/2012 1 Syrup: 2 tsp every 6 hours prn Tamiflu 75 mg capsule Completed 08/23/2012 08/28/2012 1 Capsule: twice daily triamcinolone acetonide 0.5 % topical cream Completed ? 06/07/2019 Tylenol-Codeine #3 300 mg-30 mg tablet Completed 0 07/17/2010 1 (one) Tablet: every 4-6 hours as needed for pain Vistaril 50 mg capsule Completed 03/28/2008 8 1 (one) Cap: QHS / HS vitamins A and D 81581 unit-400 unit capsule Active ? Not available Take 1 capsule every day by oral route. Zantac 150 mg tablet Completed 04/12/2008 05/20/2008 1 (one) Tablet: two times daily Zofran ODT 4 mg disintegrating tablet Completed 04/05/2008 05/20/2008 1-2 tablets Tablet Disperse: two to three times daily as needed zolpidem 5 mg tablet Completed ? 08/13/2020 take 1-2 PO night of sleep study of needed Problems Name Status Onset Date Source ? Joint Pain Active 08/17/2019 ? Adult Health Examination Active 08/17/2019 ? Impaired Fasting Glycemia Active 01/23/2020 ? Fatigue Active 03/05/2020 ? 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 Excessive Daytime Sleepiness - Normal Night Sleep Active 05/22/2020 ? Dysphagia Active 07/28/2020 ? Obstructive Sleep Apnea Syndrome Active 10/15/2020 ? Malignant Tumor of Thyroid Gland Active ? History Lipoma (Clinical) Active ? History Postoperative Hypothyroidism Active ? His tory Hypothyroidism Active ? History Generalized Anxiety Disorder Active ? His tory Adjustment Disorder with Depressed Mood Active ? History Visual Disturbance Active ? History Labyrinthine Dysfunction Active ? History Temporomandibular Joint Disorder Active ? History Irritable Bowel Syndrome Active ? History Cholelithiasis without Obstruction Active ? History Pain in Right Lower Limb Unknown ? History Dizziness and Giddiness Unknown ? History Chest Pain Active ? History Abdominal Bloating Unknown ? History Adult Health Examination Unknown ? History Gynecologic Examination Unknown ? History Diabetes Mellitus Screening Unknown ? Hist ory Finding of Esophagus Unknown ? History Benign Lipomatous Tumor Active ? History Pelvic and Perineal Pain Unknown ? History Evaluation Procedure Unknown ? History Breast Lump Active ? History Skin Lesion Unknown ? History Menstruation Finding Unknown ? History Procedure by Method Unknown ? History Follow-up Visit Unknown ? History Procedures Date Name Performed by ? 11/12/2016 Vaginal Hysterectomy Information not delta ilable Notes: TVH, USVVS; pelvic pain, AUB 05/03/2016 Hysteroscopy Biopsy Information not avai lable Notes: endometrial polyp 08/15/2009 Cyst Excision Information not avai lable Notes: Right Hand 10/14/2008 Thyroid Surgery Information not avai lable Notes: Complete Thyroidectomy 05/03/2008 Dilation and Curettage Information not a vailable Notes: 1st trimester SAB 08/15/2001 Cystoscopy Information not avai lable 06/19/2018 US, Head + Neck, Soft Tissue [facility] Radiology (Internal) [address] [place] [place] [id number] ([address]) 08/17/2019 US, Head + Neck, Soft Tissue [facility] Radiology (Internal) [address] [place] [address] (Work Place) 03/17/2020 US, Extremity, Nonvascular, Limited [facility] Radiology (Internal) [address] [place] [address] (Work [address]) 03/17/2020 US, Extremity, Nonvascular, Limited [facility] Radiology (Internal) [address] [place] [address] (Work Place) 05/13/2020 RF, Swallow Study [facility] Radiology (Internal) [address] [place] [address] (Work Place) 05/21/2020 XR, Esophagram [facility] Radiology (Internal) [address] [place] [address] (Work Place) 06/18/2020 Event Monitor [facility] Cardio pulmonary [address] [place] [id number] (Work Place) 07/28/2020 MAMMO, Screening, Tomosynthesis, [facility] [place] [address] (Work Place) Results Lab Results Date Name Specimen Result Interpretation Description Value Range Status Address ? 01/05/2021 EKG Done by ? No observation ? ? ? [facility] [address] 01/04/2021 CBC W/ Auto BLD ? Wbc 8.3 5.0-10. Final North Diff 10*3/uL 0 [facility] 10*3/uL Hospital Lab (Internal) : [address] ? ? BLD ? Rbc 4.32 4.10-5. Final North 10*6/uL 30 [facility] 10*6/uL Hospital Lab (Internal) : [address] ? ? BLD ? Hgb 12.9 12.0-16 Final North g/dL .0 g/dL [facility] ([facility] : [address] ? ? BLD ? Hct 39.1 % 37.0-47 Final [facility] .0 % [facility] ([facility] : [address] ? ? BLD ? Mcv 90.5 fL 80.0-96 Final North .0 fL [facility] ([facility] : [address] ? ? BLD ? Mch 29.9 pg 26.0-32 Final North .0 pg [facility] : [address] ? ? BLD ? Mchc 33.0 31.0-35 Final [place] g/dL .0 g/dL [facility] ([facility] : [address] ? ? BLD ? Rdw 12.4 % 11.5-14 Final North .5 % [facility] : [address] ? ? BLD ? Plt 344 130-450 Final North 10*3/uL 10*3/uL [facility] ([facility] : [address] ? ? BLD ? Anc 4.28 ? Final North 10*3/uL [facility] L [facility] (Internal) : [address] ? ? BLD ? Nlr 1.29 0.00-3. Final North 20 [facility] L [facility] (Internal) : [address] ? ? BLD ? Neutro 51.4 % 40.0-75 Final North .0 % [facility] : [address] ? ? BLD ? Lymph 39.8 % 20.0-50 Final North .0 % [facility] (Internal) : [address] ? ? BLD ? [place] 6.4 % 2.0-10. Final North 0 % [facility] L [facility] (Internal) : [address] ? ? BLD ? Eos 1.4 % 1.0-6.0 Final North % [facility] L [facility] (Internal) : [address] ? ? BLD ? Baso 0.8 % 0.0-1.0 Final North % [facility] (Internal) : [address] ? ? BLD ? Ig 0.2 % 0.0-0.9 Final North % [facility] L ab (Internal) : [address] 01/04/2021 Urinalysis, UR ? UA-color pale pale Final [place] Dipstick, yellow yellow [facility] Micro (Internal) : [address] ? ? UR ? UA-appear clear clear Final [facility] ab (Internal) : [address] ? ? UR ? UA-spec Grav <=1.005 1.003-1 Final N orth .035 [facility] L [facility] (Internal) : [address] ? ? UR ? UA-pH 6.0 [pH] 4.6-8.0 Final [facility] [pH] [facility] Hospital ab (Internal) : [address] ? ? UR ? UA-leuk Est negative negativ Final N orth e [facility] L [facility] (Internal) : [address] ? ? UR ? UA-nitrite negative negativ Final No rth e [facility] (Internal[facility] : [address] ? ? UR ? UA-prot negative negativ Final [facility] ab (Internal) : [address] ? ? UR ? UA-gluc negative negativ Final North e [facility] Hospital ab (Internal) : [address] ? ? UR ? UA-ketone negative negativ Final Nor th e [facility] Hospital L ab (Internal) : [address] ? ? UR ? UA-urobil normal normal Final [facility] L [facility] (Internal) : [address] ? ? UR ? UA-bili negative negativ Final [facility] L ab (Internal) : [address] ? ? UR ABNORMAL UA-blood trace negativ Final [facility] L ab (Internal) : [address] 01/04/2021 CMP, Serum S ? g/r 96 mg/dL 74-106 Final North or Plasma mg/dL [facility] L [facility] (Internal) : [address] ? ? S ? Bun 10 mg/dL 7-17 Final North mg/dL [facility] L [facility] (Internal) : [address] ? ? S ? Crea 0.80 0.52-1. Final North mg/dL 04 [facility] mg/dL Hospital L ab (Internal) : [address] ? ? S ? Ca 10.1 8.4-10. Final North mg/dL 2 mg/dL [facility] L [facility] (Internal) : [address] ? ? S ? Na 142 137-145 Final North mmol/L mmol/L [facility] L ab (Internal) : [address] ? ? S Low K 3.4 3.5-5.1 Final [facility] mmol/L mmol/L [facility] L [facility] (Internal) : [address] ? ? S ? Cl 104 98-107 Final North mmol/L mmol/L [facility] L ab (Internal) : [address] ? ? S ? Tco2 24.0 22.0-30 Final [place] mmol/L .0 [facility] mmol/L Hospital L ab (Internal) : [address] ? ? S High Tp 8.5 g/dL 6.3-8.2 Final North g/dL [facility] L ab (Internal) : [address] ? ? S ? Alb 5.0 g/dL 3.5-5.0 Final North g/dL [facility] Hospital L ab (Internal) : [address] ? ? S ? Tbil 0.5 0.2-1.3 Final [place] mg/dL mg/dL [facility] Hospital L ab (Internal) : [address] ? ? S ? Alp 90 U/L 50-136 Final [place] U/L [facility] L [facility] (Internal) : [address] ? ? S ? Alt (Sgpt) 21 U/L 9-52 Final [place] U/L [facility] L [facility] (Internal) : [address] ? ? S ? Ast (Sgot) 26 U/L 14-36 Final [place] U/L [facility] L [facility] (Internal) : [address] 01/04/2021 Troponin I, S ? Trop <0.06 0.00-0. Final [place] Serum or NG/mL 06 [facility] Plasma NG/mL Hospital L ab (Internal) : [address] 01/04/2021 Urinalysis, UR ? UA-WBC 0-3 0-3 Final [place] Microscopic [hpf] [hpf] Count Hospital L ab (Internal) : [address] ? ? UR ? UA-RBC 0-2 0-2 Final [facility] [hpf] [hpf] [facility] L ab (Internal) : [address] ? ? UR ABNORMAL UA-bacteria few none Final No rth [hpf] seen [facility] [hpf] Hospital L ab (Internal) : [address] ? ? UR ABNORMAL UA-epithelial few none Final North [hpf] seen [facility] [hpf] Hospital L ab (Internal) : [address] ? ? UR ? UA-mucus none none Final North seen seen Country [hpf] [hpf] Hospital L ab (Internal) : [address] 01/04/2021 Culture UR ? Final microbio ? Final Nor th ([place] [facility] Count), results Hospital Lab Urine (Internal) : [address] 01/04/2021 Thyroid S ? Tsh 2.08 0.47-4. Final Nort h [place], u[IU]/mL 68 Countr y Serum u[IU]/m Hospital Lab L (Internal) : [address] 11/11/2020 T4, Free, S ? Ft4 1.16 0.78-2. Final No rth Serum NG/dL 19 [facility] NG/dL Hospital L ab (Internal) : [address] 11/11/2020 TSH, Serum S ? Tsh 1.03 0.47-4. Final N orth or Plasma u[IU]/mL 68 Count ry u[IU]/m Hospital Lab L (Internal) : [address] 11/11/2020 T3, Total, S ? T3, Total 139 97-169 Final [place] Serum NG/dL NG/dL [facility] L ab (Internal) : [address] 11/11/2020 Thyroglobul S ? Thyroglobulin <1.8 <1.8 Final [place] in Ab, Antibody, S IU/mL IU/mL Count ry Serum Hospital L ab (Internal) : [address] ? ? S High Thyroglobulin, 0.4 ? Final N orth Tumor Marker, S NG/mL C [facility] L ab (Internal) : [address] ? ? S ? Thyroglobulin see ? Final No rth Interpretation below [facility] L ab (Internal) : [address] 06/25/2020 CBC W/ Auto BLD ? Wbc 9.6 5.0-10. Final [place] Diff 10*3/uL 0 [facility] 10*3/uL Hospital Lab (Internal) : [address] ? ? BLD ? Rbc 4.25 4.10-5. Final North 10*6/uL 30 [facility] 10*6/uL Hospital Lab (Internal) : [address] ? ? BLD ? Hgb 12.6 12.0-16 Final [place] g/dL .0 g/dL [facility] L ab (Internal) : [address] ? ? BLD ? Hct 39.0 % 37.0-47 Final North .0 % [facility] L ab (Internal) : [address] ? ? BLD ? Mcv 91.8 fL 80.0-96 Final North .0 fL [facility] L ab (Internal) : [address] ? ? BLD ? Mch 29.6 pg 26.0-32 Final North .0 pg [facility] (Internal) : [address] [place] [place] ? ? BLD ? Mchc 32.3 31.0-35 Final North g/dL .0 g/dL [facility] (Internal) : [address] [place] ? ? BLD ? Rdw 12.9 % 11.5-14 Final North .5 % [facility] (Internal[facility] : [address] [place] ? ? BLD ? Plt 347 130-450 Final North 10*3/uL 10*3/uL [facility] (Internal) : [address] ? ? BLD ? Anc 6.15 ? Final [facility] 10*3/uL [facility] (Internal) : [address] ? ? BLD ? Nlr 2.37 0.00-3. Final North 20 [facility] (Internal) : [address] ? ? BLD ? Neutro 64.2 % 40.0-75 Final North .0 % [facility] (Internal) : [address] [place] ? ? BLD ? Lymph 27.0 % 20.0-50 Final North .0 % [facility] (Internal) : [address] ? ? BLD ? [place] 5.0 % 2.0-10. Final North 0 % [facility] (Internal) : [address] ? ? BLD ? Eos 2.9 % 1.0-6.0 Final North % [facility] (Internal) : [address], [place] ? ? BLD ? Baso 0.7 % 0.0-1.0 Final North % [facility] (Internal) : [address] ? ? BLD ? Ig 0.2 % 0.0-0.9 Final [facility] % [facility] (Internal) : [address] 06/25/2020 CMP, Serum S High g/r 118 74-106 Final No rth or Plasma mg/dL mg/dL [facility] (Internal) : [address] ? ? S ? Bun 14 mg/dL 7-17 Final [facility] mg/dL [facility] (Internal) : [address] ? ? S ? Crea 0.70 0.52-1. Final North mg/dL 04 [facility] mg/dL Hospital L ab (Internal) : [address] ? ? S ? Ca 10.1 8.4-10. Final North mg/dL 2 mg/dL [facility] (Internal) : [address] ? ? S ? Na 142 137-145 Final North mmol/L mmol/L [facility] (Internal) : [address] ? ? S ? K 4.2 3.5-5.1 Final [facility] mmol/L mmol/L [facility] (Internal) : [address] ? ? S ? Cl 105 98-107 Final North mmol/L mmol/L [facility] (Internal) : [address] ? ? S ? Tco2 25.0 22.0-30 Final North mmol/L .0 [facility] mmol/L Hospital L ab (Internal) : [address] ? ? S High Tp 8.4 g/dL 6.3-8.2 Final [facility] g/dL [facility] (Internal[facility] : [address] ? ? S ? Alb 5.0 g/dL 3.5-5.0 Final [facility] g/dL [facility] (Internal[facility] : [address] ? ? S ? Tbil 0.3 0.2-1.3 Final North mg/dL mg/dL [facility] (Internal) : [address] ? ? S ? Alp 82 U/L 50-136 Final [facility] U/L [facility] ([facility] : [address] ? ? S ? Alt (Sgpt) 15 U/L 9-52 Final [facility] U/L [facility] ([facility] : [address] ? ? S ? Ast (Sgot) 25 U/L 14-36 Final [facility] U/L [facility] ([facility] : [address] 06/25/2020 HbA1C BLD ? Ha1C 5.5 % 4.0-6.0 Final North (Hemoglobin % Count ry a1C), Blood Hospi jaz Lab (Internal) : [address] 06/25/2020 TSH, Serum S Low Tsh 0.11 0.47-4. Final N orth or Plasma u[IU]/mL 68 Count ry u[IU]/m Hospital Lab L (Internal) : [address] 06/25/2020 SCL-70 S ? Scl 70 Ab, <0.2 U <1.0 Final N orth Extractable IgG, S (negati Coun try Nuclear IgG ve) U Hospi [facility] Lab Ab,QN,IA,Se (Inte rnal): rum or [address] 01/23/2020 CBC W/ Auto BLD ? Wbc 9.6 5.0-10. Final North Diff 10*3/uL 0 [facility] 10*3/uL Hospital Lab (Internal) : [address] t ? ? BLD ? Rbc 4.43 4.10-5. Final North 10*6/uL 30 [facility] 10*6/uL Hospital Lab (Internal) : [address] ? ? BLD ? Hgb 13.0 12.0-16 Final [place] g/dL .0 g/dL [facility] (Internal) : [address] ? ? BLD ? Hct 40.4 % 37.0-47 Final North .0 % [facility] (Internal) : [address] [address] ? ? BLD ? Mcv 91.2 fL 80.0-96 Final North .0 fL [facility] Hospital L ab (Internal) : [address] ? ? BLD ? Mch 29.3 pg 26.0-32 Final North .0 pg [facility] (Internal) : [address] [place] [address] ? ? BLD ? Mchc 32.2 31.0-35 Final [place] g/dL .0 g/dL [facility] (Internal) : [address] ? ? BLD ? Rdw 12.7 % 11.5-14 Final North .5 % [facility] (Internal) : [address] ? ? BLD ? Plt 330 130-450 Final North 10*3/uL 10*3/uL [facility] (Internal) : [address] ? ? BLD ? Anc 6.45 ? Final North 10*3/uL [facility] (Internal) : [address] ? ? BLD ? Nlr 2.63 0.00-3. Final North 20 [facility] (Internal) : [address] [place] ? ? BLD ? Neutro 67.0 % 40.0-75 Final North .0 % [facility] (Internal) : [address] ? ? BLD ? Lymph 25.5 % 20.0-50 Final North .0 % [facility] (Internal) : [address] ? ? BLD ? [place] 4.5 % 2.0-10. Final North 0 % [facility] (Internal) : [address] ? ? BLD ? Eos 2.1 % 1.0-6.0 Final North % [facility] (Internal) : [address] [place] ? ? BLD ? Baso 0.7 % 0.0-1.0 Final North % [facility] (Internal) : [address] [place] ? ? BLD ? Ig 0.2 % 0.0-0.9 Final North % [facility] Hospital L ab (Internal) : [address] 01/23/2020 T4, Free, S ? Ft4 1.50 0.78-2. Final No rth Serum NG/dL 19 [facility] NG/dL Hospital L ab (Internal) : [address] 01/23/2020 HbA1C BLD ? Ha1C 5.2 % 4.0-6.0 Final North (Hemoglobin % Count ry a1C), Blood Hospi jaz Lab (Internal) : [address] 01/23/2020 TSH, Serum S Low Tsh 0.10 0.47-4. Final N orth or Plasma u[IU]/mL 68 Count ry u[IU]/m Hospital Lab L (Internal) : [address] 01/23/2020 Thyroglobul S ? Thyroglobulin <15 U/mL <=60 Final North in Ab, Antibody U/mL [facility] Serum Hospital L ab (Internal) : [address] 01/23/2020 Thyroglobul S ? Thyroglobulin <1.8 <1.8 Final North in Ab, Antibody, S IU/mL IU/mL Count ry Serum Hospital L ab (Internal) : [address] ? ? S High Thyroglobulin, 0.1 ? Final N orth Tumor Marker, S NG/mL C [facility] L ab (Internal) : [address] ? ? S ? Thyroglobulin see ? Final No rth Interpretation below [facility] (Internal[facility] [address] [facility] Glucose, S - Fbs 103 74-106 Final Nort h Fasting, mg/dL mg/dL [facility] Serum/plasm Hospi jaz Lab a (Internal) : [address] [facility] Lipid S High Chol 206 50-200 Final North Panel, mg/dL mg/dL [facility] Hospital L ab (Internal) : [address] ? ? S - Trig 99 mg/dL 10-150 Final North mg/dL [facility] L ab (Internal) : [address] ? ? S High Hdl 65 mg/dL 40-60 Final North mg/dL [facility] L ab (Internal) : [address] ? ? S - Ldl 121 0-130 Final North mg/dL mg/dL [facility] L ab (Internal) : [address] 06/07/2019 TSH, Serum S - Tsh 0.47 0.47-4. Final N orth or Plasma u[IU]/mL 68 Count ry u[IU]/m Hospital Lab L (Internal) : [address] 06/07/2019 T4, Free, S - Ft4 1.42 0.78-2. Final No rth Serum NG/dL 19 [facility] NG/dL Hospital L ab (Internal) : [address] 06/07/2019 Thyroglobul S - Thyroglobulin <1.8 <4.0 Final North in Ab, Antibody, S IU/mL IU/mL Count ry Serum Hospital L ab (Internal) : [address] ? ? S High Thyroglobulin, 0.3 ? Final N orth Tumor Marker, S NG/mL C [facility] L ab (Internal) : [address] naty ? ? S - Thyroglobulin see ? Final No rth Interpretation below [facility] L ab (Internal) : [address] 06/26/2018 Thyroglobul S - Thyroglobulin <15 U/mL <61 Final North in Ab, Antibody U/mL [facility] Hospital L ab (Internal) : [address] 06/26/2018 Thyroglobul S - Thyroglobulin <1.8 <4.0 Final North in Ab, Antibody, S IU/mL IU/mL Count Serum Hospital L ab (Internal) : [address] ? ? S High Thyroglobulin, 0.2 ? Final N orth Tumor Marker, S NG/mL C [facility] L ab (Internal) : [address] ? ? S - Thyroglobulin see ? Final No rth Interpretation below [facility] L ab (Internal) : [address] 06/05/2018 CBC W/ Auto BLD - Wbc 7.7 5.0-10. Final North Diff 10*3/uL 0 [facility] 10*3/uL Hospital Lab (Internal) : [address] ? ? BLD - Rbc 4.38 4.10-5. Final North 10*6/uL 30 [facility] 10*6/uL Hospital Lab (Internal) : [address] ? ? BLD - Hgb 13.0 12.0-16 Final North g/dL .0 g/dL [facility] Hospital L ab (Internal) : [address] ? ? BLD - Hct 40.8 % 37.0-47 Final North .0 % [facility] Hospital L ab (Internal) : [address] ? ? BLD - Mcv 93.2 fL 80.0-96 Final North .0 fL [facility] L ab (Internal) : [address] ? ? BLD - Mch 29.7 pg 26.0-32 Final North .0 pg [facility] L ab (Internal) : [address], [place] ? ? BLD - Mchc 31.9 31.0-35 Final North g/dL .0 g/dL [facility] ([facility]) : [address] ? ? BLD - Rdw 12.7 % 11.5-14 Final [facility] .5 % [facility] (Internal) : [address] ? ? BLD - Plt 360 130-450 Final North 10*3/uL 10*3/uL [facility] L [facility] (Internal) : [address] ? ? BLD - Anc 5.02 ? Final North 10*3/uL [facility] L [facility] (Internal) : [address] ? ? BLD - Neutro 65.1 % 40.0-75 Final North .0 % [facility] L [facility] (Internal) : [address] ? ? BLD - Lymph 26.2 % 20.0-50 Final North .0 % [facility] L [facility] (Internal) : [address] ? ? BLD - [place] 4.7 % 2.0-10. Final North 0 % [facility] (Internal) : [address] ? ? BLD - Eos 2.7 % 1.0-6.0 Final [facility] % [facility] L [facility] (Internal) : [address] ? ? BLD High Baso 1.2 % 0.0-1.0 Final [facility] % [facility] L [facility] (Internal) : [address] ? ? BLD - Ig 0.1 % 0.0-0.9 Final [facility] % [facility] (Internal) : [address] 06/05/2018 Glucose, S - Fbs 98 mg/dL 74-106 Final No rth Fasting, mg/dL [facility] Serum/plasm [facility] Lab a (Internal) : [address] 06/05/2018 Lipid S High Chol 237 50-200 Final North Panel, mg/dL mg/dL [facility] L ab (Internal) : [address] ? ? S - Trig 138 10-150 Final North mg/dL mg/dL [facility] (Internal) : [address] [facility] t ? ? S High Hdl 61 mg/dL 40-60 Final [facility] mg/dL [facility] (Internal) : [address] [facility] t ? ? S High Ldl 148 0-130 Final North mg/dL mg/dL [facility] (Internal) : [address] [facility] 06/05/2018 TSH, Serum S Low Tsh 0.27 0.47-4. Final N orth or Plasma u[IU]/mL 68 Count ry u[IU]/m Hospital Lab L (Internal) : [address] [facility] 06/05/2018 T4, Free, S - Ft4 1.80 0.78-2. Final No rth Serum NG/dL 19 [facility] NG/dL Hospital L ab (Internal) : [address] [facility] 05/30/2017 Venipunctur BLD ? Venpn* ? ? Final North e [facility] L [facility] (Internal) : [address] [facility] 05/30/2017 Glucose, S ? g/r 91 mg/dL 74-106 Final No rth Serum or mg/dL [facility] L [facility] (Internal) : [address] [facility] 05/30/2017 Lipid S High Chol 213 50-200 Final North Panel, mg/dL mg/dL [facility] L [facility] (Internal) : [address] [facility] t ? ? S ? Trig 110 10-150 Final North mg/dL mg/dL [facility] L ab (Internal) : [address] [facility] ? ? S ? Hdl 60 mg/dL 40-60 Final North mg/dL [facility] (Internal) : [address] [facility] t ? ? S High Ldl 131 0-130 Final North mg/dL mg/dL [facility] (Internal) : [address] [facility] 05/30/2017 TSH, Serum S Low Tsh 0.36 0.47-4. Final N orth or Plasma u[IU]/mL 68 Count ry u[IU]/m Hospital Lab L (Internal) : [address] [facility] 04/29/2017 Venipunctur BLD ? Venpn* ? ? Final [facility] e [facility] (Internal) : [address] [facility] 04/29/2017 TIBC (Total SERUM ? Tibc 368 265-497 Final North Iron-bindin ug/dL ug/dL Count ry g Hospital L ab Capacity), (Inter nal): Serum [address] 04/29/2017 Iron, Serum SERUM ? Iron 107 37-170 Final N orth ug/dL ug/dL [facility] L [facility] (Internal) : [address] 04/29/2017 T4, Free, S ? Ft4 1.30 0.78-2. Final No rth Serum NG/dL 19 [facility] NG/dL Hospital L ab (Internal) : [address] 04/29/2017 BMP, Serum S ? g/r 105 74-106 Final No rth or Plasma mg/dL mg/dL [facility] (Internal) : [address] t ? ? S ? Bun 16 mg/dL 7-17 Final North mg/dL [facility] (Internal) : [address] t ? ? S ? Crea 0.70 0.52-1. Final North mg/dL 04 [facility] mg/dL Hospital L ab (Internal) : [address] t ? ? S ? Ca 9.9 8.4-10. Final North mg/dL 2 mg/dL [facility] (Internal) : [address] t ? ? S ? Na 140 137-145 Final North mmol/L mmol/L [facility] (Internal) : [address] t ? ? S ? K 4.0 3.5-5.1 Final North mmol/L mmol/L [facility] (Internal) : [address] t ? ? S ? Cl 101 98-107 Final North mmol/L mmol/L [facility] (Internal) : [address] t ? ? S ? Tco2 23.0 22.0-30 Final North mmol/L .0 [facility] mmol/L Hospital L ab (Internal) : [address] 04/29/2017 Ferritin, S ? Ferr 25 NG/mL 11-264 Final N orth Serum or NG/mL [facility] Plasma [facility] L [facility] (Internal) : [address] 04/29/2017 TSH, Serum S Low Tsh 0.29 0.47-4. Final N orth or Plasma u[IU]/mL 68 Count ry u[IU]/m Hospital Lab L (Internal) : [address] t 04/29/2017 CBC W/ Auto BLD ? Wbc 8.3 5.0-10. Final North Diff 10*3/uL 0 [facility] 10*3/uL Hospital Lab (Internal) : [address] ? ? BLD ? Rbc 4.40 4.10-5. Final North 10*6/uL 30 [facility] 10*6/uL Hospital Lab (Internal) : [address] ? ? BLD ? Hgb 13.1 12.0-16 Final North g/dL .0 g/dL [facility] (Internal) : [address] ? ? BLD ? Hct 38.8 % 37.0-47 Final North .0 % [facility] (Internal) : [address] t ? ? BLD ? Mcv 88.2 fL 80.0-96 Final North .0 fL [facility] (Internal) : [address] ? ? BLD ? Mch 29.8 pg 26.0-32 Final North .0 pg [facility] L [facility] (Internal) : [address] ? ? BLD ? Mchc 33.8 31.0-35 Final North g/dL .0 g/dL [facility] (Internal) : [address] ? ? BLD ? Rdw 12.8 % 11.5-14 Final North .5 % [facility] (Internal) : [address] ? ? BLD ? Plt 341 130-450 Final North 10*3/uL 10*3/uL [facility] (Internal) : [address] ? ? BLD ? Anc 4.82 ? Final North 10*3/uL [facility] L ab (Internal) : [address] ? ? BLD ? Neutro 57.8 % 40.0-75 Final North .0 % [facility] (Internal) : [address] ? ? BLD ? Lymph 29.8 % 20.0-50 Final North .0 % [facility] L ab (Internal) : [address] ? ? BLD ? [place] 6.0 % 2.0-10. Final North 0 % [facility] L ab (Internal) : [address] ? ? BLD ? Eos 5.2 % 1.0-6.0 Final [place] % [facility] L ab (Internal) : [address] ? ? BLD ? Baso 1.0 % 0.0-1.0 Final [place] % [facility] L ab (Internal) : [address] ? ? BLD ? Ig 0.2 % 0.0-0.9 Final [facility] L ab (Internal) : [address] 11/18/2016 Culture, THRT ? Final microbio ? Final No rth Aerobic, logy [facility] Throat results Hospital Lab (Internal) : [address] 11/12/2016 Pathology TISS ? Report results ? Final N orth Study below [facility] L ab (Internal) : [address] 11/10/2016 Venipunctur BLD ? Venpn* ? ? Final [facility] L ab (Internal) : [address] 11/10/2016 Type + BLD ? Abo A ? Final [facility] Hospital L ab (Internal) : [address] ? ? BLD ? Rh positive ? Final [facility] L ab (Internal) : [address] t ? ? BLD ? Ab Scrn negative negativ Final [facility] L ab (Internal) : [address] 11/10/2016 CBC W/ Auto BLD ? Wbc 9.7 5.0-10. Final [place] Diff 10*3/uL 0 [facility] 10*3/uL Hospital Lab (Internal) : [address] t ? ? BLD ? Rbc 4.13 4.10-5. Final [place] 10*6/uL 30 [facility] 10*6/uL Hospital Lab (Internal) : [address] t ? ? BLD ? Hgb 12.4 12.0-16 Final [place] g/dL .0 g/dL [facility] L [facility] (Internal) : [address] [place] ? ? BLD ? Hct 37.2 % 37.0-47 Final North .0 % [facility] (Internal) : [address] [place] ? ? BLD ? Mcv 90.1 fL 80.0-96 Final North .0 fL [facility] L [facility] (Internal) : [address] [place] ? ? BLD ? Mch 30.0 pg 26.0-32 Final North .0 pg [facility] L [facility] (Internal) : [address] [place] ? ? BLD ? Mchc 33.3 31.0-35 Final North g/dL .0 g/dL [facility] (Internal) : [address] [place] ? ? BLD ? Rdw 13.2 % 11.5-14 Final North .5 % [facility] (Internal) : [address] [place] ? ? BLD ? Plt 307 130-450 Final North 10*3/uL 10*3/uL [facility] (Internal) : [address] [place] ? ? BLD ? Anc 5.70 ? Final North 10*3/uL [facility] (Internal) : [address] [place] ? ? BLD ? Neutro 59.0 % 40.0-75 Final North .0 % [facility] (Internal) : [address] [place] ? ? BLD ? Lymph 31.0 % 20.0-50 Final North .0 % [facility] (Internal) : [address] [place] ? ? BLD ? [place] 6.1 % 2.0-10. Final North 0 % [facility] (Internal) : [address] [place] ? ? BLD ? Eos 2.8 % 1.0-6.0 Final North % [facility] (Internal) : [address] [place] ? ? BLD ? Baso 0.9 % 0.0-1.0 Final [facility] % [facility] (Internal) : [address] [place] ? ? BLD ? Ig 0.2 % 0.0-0.9 Final [facility] % [facility] (Internal) : [address] [place] Past Encounters 12/16/2021 Obstructive Sleep Apnea Syndrome Myriam Oconnell, PRODUCT MANAGEMENT CONSULTANT: [address] [place] [phone], Ph. 06/10/2021 Obstructive Sleep Apnea Syndrome Myriam Oconnell, PRODUCT MANAGEMENT CONSULTANT: [address] [place] [phone], Ph. 03/03/2021 Obstructive Sleep Apnea Syndrome Myriam Oconnell, PRODUCT MANAGEMENT CONSULTANT: [address] [place] [phone], Ph. 01/08/2021 Obstructive Sleep Apnea Syndrome Myriam Oconnell, PRODUCT MANAGEMENT CONSULTANT: [address] [place] [phone], Ph. 10/15/2020 Obstructive Sleep Apnea Syndrome Myriam Oconnell PRODUCT MANAGEMENT CONSULTANT: [address] [place] [phone], Ph. 08/13/2020 Excessive Daytime Sleepiness - Normal Ni ght Sleep Myriam Oconnell PRODUCT MANAGEMENT CONSULTANT: [address] [place] [phone], Ph. 07/28/2020 Adult Health Examination; Screening Mamm ography; Chest Pain; Dysphagia; Hypothyroidism; Malignant Tumor of Thyroid Gland Elvi Marie MD: [address] [place] [phone], Ph. Social History Tobacco Smoking Status Never Smoker Vaccine List Vaccine Type influenza, injectable, quadrivalent, pre servative free 06/07/2019 influenza, seasonal, injectable 06/11/2020 rubella Td (adult), adsorbed 05/25/2007 Tdap 02/02/2016?0.5 mL varicella Plan of Care Reminders Provider Appointments None recorded. ? ? Lab None recorded. ? ? Referral None recorded. ? ? Procedures None recorded. ? ? Surgeries None recorded. ? ? Imaging None recorded. ? ? Vitals 12/16/2021 03:30PM Office 30 Height Weight BMI Blood Pressure 166.37 cm 54.43 kg 19.7 kg/m2 133/85 mm[Hg] 06/10/2021 11:30AM Office 30 Height Weight BMI 166.37 cm 61.23 kg 22.1 kg/m2 03/03/2021 08:30AM Office 30 Height Weight BMI 166.37 cm 61.23 kg 22.1 kg/m2 01/08/2021 08:30AM Office 30 Height 166.37 cm 10/15/2020 02:30PM Office 30 Height Weight BMI 166.37 cm 66.22 kg 23.9 kg/m2 08/13/2020 03:15PM Office 30 Height Weight BMI 168.28 cm 66.22 kg 23.4 kg/m2 07/28/2020 12:40PM CPE 40 Height Weight BMI Blood Pressure 168.28 cm 66.45 kg 23.5 kg/m2 122/82 mm[Hg] 06/18/2020 11:40AM Follow Up 20 Height Weight BMI Blood Pressure 168.28 cm 68.12 kg 24.1 kg/m2 118/86 mm[Hg] 05/22/2020 03:15PM New Patient 45 Height Weight BMI Blood Pressure 168.28 cm 69.4 kg 24.5 kg/m2 122/78 mm[Hg] 03/14/2020 09:20AM Acute 20 Height Weight BMI Blood Pressure 168.28 cm 67.59 kg 23.9 kg/m2 116/80 mm[Hg] 03/05/2020 08:20AM Acute 40 Height Weight BMI Blood Pressure 168.28 cm 67.68 kg 23.9 kg/m2 112/80 mm[Hg] 01/23/2020 01:20PM Acute 40 Height Weight BMI Blood Pressure 168.28 cm 69.58 kg 24.6 kg/m2 122/78 mm[Hg] 07/25/2019 10:40AM CPE 40 Height Weight BMI Blood Pressure 168.28 cm 71.17 kg 25.1 kg/m2 126/78 mm[Hg] 06/07/2019 08:30AM HME 30 Height Weight BMI Blood Pressure 166.37 cm 71.21 kg 25.7 kg/m2 118/70 mm[Hg] 06/29/2018 12:00PM AWV 40 Height Weight BMI 166.37 cm 70.76 kg 25.6 kg/m2 06/05/2018 08:30AM HME 30 Height Weight BMI Blood Pressure 166.37 cm 70.08 kg 25.3 kg/m2 120/70 mm[Hg] 07/06/2017 Weight Blood Pressure 69.94 kg 112/78 mm[Hg] 05/30/2017 Height Weight Blood Pressure 166.37 cm 70.31 kg 126/72 mm[Hg] 04/29/2017 Weight Blood Pressure 70.13 kg 110/80 mm[Hg] 03/21/2017 Height Weight Blood Pressure 166.37 cm 68.75 kg 108/78 mm[Hg] 12/27/2016 Height Weight Blood Pressure 166.37 cm 64.86 kg 100/62 mm[Hg] 11/18/2016 Height Weight Blood Pressure 166.37 cm 65.77 kg 118/60 mm[Hg] 11/04/2016 Height Weight Blood Pressure 166.37 cm 66.68 kg 114/66 mm[Hg] 08/30/2016 Weight Blood Pressure 67.18 kg 114/72 mm[Hg] 07/02/2016 Height Weight Blood Pressure 166.37 cm 66.68 kg 136/78 mm[Hg] 05/21/2016 Weight Blood Pressure 67.39 kg 112/82 mm[Hg] 04/29/2016 Height Weight Blood Pressure 168.91 cm 66.22 kg 118/62 mm[Hg] 04/13/2016 Height Weight Blood Pressure 168.91 cm 66.95 kg 104/76 mm[Hg] 02/02/2016 Height Weight Blood Pressure 166.37 cm 67.36 kg 98/66 mm[Hg] 10/08/2015 Weight Blood Pressure 68.08 kg 130/76 mm[Hg] 04/07/2015 Height Weight Blood Pressure 166.37 cm 65.41 kg 130/74 mm[Hg] 03/26/2015 Weight Blood Pressure 66.45 kg 104/70 mm[Hg] 02/21/2015 Weight Blood Pressure 66.68 kg 135/68 mm[Hg] 01/03/2015 Weight Blood Pressure 66.68 kg 132/78 mm[Hg] 10/14/2014 Weight Blood Pressure 65.73 kg 114/66 mm[Hg] 04/29/2014 Height Weight Blood Pressure 166.37 cm 61.28 kg 112/80 mm[Hg] 02/26/2014 Height Weight Blood Pressure 166.37 cm 59.96 kg 102/68 mm[Hg] 12/31/2013 Weight Blood Pressure 59.33 kg 110/62 mm[Hg] 02/12/2013 Height Weight Blood Pressure 166.37 cm 57.42 kg 102/72 mm[Hg] 01/24/2013 Weight Blood Pressure 57.61 kg 120/78 mm[Hg] 01/19/2013 Weight Blood Pressure 58.06 kg 110/76 mm[Hg] 12/11/2012 Weight Blood Pressure 57.72 kg 114/72 mm[Hg] 08/23/2012 Weight Blood Pressure 57.61 kg 110/74 mm[Hg] 06/02/2012 Height Weight Blood Pressure 166.37 cm 59.19 kg 124/78 mm[Hg] 02/11/2012 Height Weight Blood Pressure 166.37 cm 62.46 kg 112/64 mm[Hg] 09/21/2011 Height Weight Blood Pressure 165.1 cm 62.96 kg 120/70 mm[Hg] 09/01/2011 Height Weight Blood Pressure 165.1 cm 63.32 kg 110/70 mm[Hg] 08/25/2011 Height Weight Blood Pressure 165.1 cm 63.32 kg 108/68 mm[Hg] 05/17/2011 Height Weight Blood Pressure 165.1 cm 61.69 kg 116/68 mm[Hg] 09/21/2010 Weight Blood Pressure 64.23 kg 128/78 mm[Hg] 08/24/2010 Weight Blood Pressure 62.6 kg 118/80 mm[Hg] 07/17/2010 Height Weight Blood Pressure 165.1 cm 62.14 kg 126/82 mm[Hg] 06/01/2010 Height Weight Blood Pressure 165.1 cm 62.6 kg 122/76 mm[Hg] 05/27/2010 Height Weight Blood Pressure 166.37 cm 62.82 kg 110/72 mm[Hg] 04/14/2010 Height Weight Blood Pressure 165.74 cm 62.82 kg 102/78 mm[Hg] 10/20/2009 Height Weight Blood Pressure 165.74 cm 66.68 kg 118/76 mm[Hg] 09/19/2009 Blood Pressure 118/72 mm[Hg] 09/10/2009 Weight Blood Pressure 63.96 kg 118/78 mm[Hg] 04/14/2009 Height Weight Blood Pressure 165.74 cm 63.96 kg 102/58 mm[Hg] 11/18/2008 Weight Blood Pressure 59.87 kg 102/68 mm[Hg] 09/13/2008 Weight Blood Pressure 61.69 kg 118/80 mm[Hg] 08/28/2008 Weight Blood Pressure 62.14 kg 122/80 mm[Hg] 05/20/2008 Height Weight Blood Pressure 165.74 cm 59.87 kg 120/70 mm[Hg] 05/06/2008 Height Weight Blood Pressure 165.74 cm 59.42 kg 122/76 mm[Hg] 03/28/2008 Height Weight Blood Pressure 165.74 cm 64.41 kg 102/64 mm[Hg] 03/07/2008 Blood Pressure 108/68 mm[Hg] 10/18/2007 Weight Blood Pressure 67.59 kg 100/68 mm[Hg] 10/06/2007 Weight Blood Pressure 66.68 kg 110/74 mm[Hg] 09/27/2007 Weight Blood Pressure 66.68 kg (1) 104/68 mm[Hg] (2) 104/64 mm[Hg] 09/07/2007 Weight Blood Pressure 65.77 kg 122/74 mm[Hg] 05/25/2007 Height Weight Blood Pressure 165.74 cm 63.5 kg 110/76 mm[Hg] 04/24/2007 Weight Blood Pressure 63.05 kg 92/58 mm[Hg] 06/29/2006 Weight Blood Pressure 61.96 kg 96/72 mm[Hg] 05/20/2006 Height Weight Blood Pressure 167.64 cm 59.87 kg 118/74 mm[Hg] 03/14/2006 Weight Blood Pressure 59.65 kg 96/68 mm[Hg] 05/06/2005 Blood Pressure 110/70 mm[Hg] 04/05/2005 Height Weight Blood Pressure 167.64 cm 63.5 kg 110/72 mm[Hg]
--- OUTSIDE RECORDS SUMMARY | 2022-01-07 07:32 | XMS_ITS | Encounter Summary ---
:1975 Author Care Team Providers Name Role Phone Leonora Syed Primary Care Provider [phone] [facility] OTHER [phone] [facility] OTHER [phone] Reason for Visit None recorded. Assessment and Plan 1. Obstructive sleep apnea syndrome Mild, borderline HENNA with a RDI of 5/hr . She has just started back on CPAP 5-15 cm two nights ago. She used for her total sleep time. The AHI is at 5/hr with most events reported as hypopneas. These ma y be central since she has been several months without CPAP and at these pressures before her AHI was great. She has not gained weight (has actually lost weight). I asked for a one month compliance. She is encouraged to keep up with the routi ne maintenance of the machine and to clean and replace parts as indicated. I will see her back in one year. I have recommended the book Say Speedy ht to Insomnia by Gregory Mancia, PhD. I provided greater than 30 minutes in e care of this patient, more than half the time was spent in [id number] counseling. Discussion Note: None recorded.Patient educational handouts: No information available. Plan of Care Reminders Provider Appointments Return to Office on or around 12/16/2022 Hussein Oconnell NP Lab None recorded. ? ? Referral None recorded. ? ? Procedures None recorded. ? ? Surgeries None recorded. ? ? Imaging None recorded. ? ? Medications Name Start Date ? ? EpiPen 0.3 mg/0.3 mL injection, auto-injector ? Take 1 mL as needed by injection route. levothyroxine 88 mcg tablet ? Take 1 tablet every day by oral route for 90 days. vitamins A and D 07311 unit-400 unit capsule ? Take 1 capsule every day by oral route. Medications Administered None recorded. Vitals Height Weight BMI Blood Pressure 5 ft 5.5 in 120 lbs 19.7 kg/m2 133/85 mm[Hg] Results Lab Results None recorded. Allergies Code Code System Name Reaction Severity Onset 612629 RxNorm Aleve Edema ? Rash ? ? 20240221 RxNorm Ativan ? ? ? 255 RxNorm Citalopram ? ? ? 20231221 RxNorm Floxin ? ? ? Iodinated Contrast Media Chest Pain Severe ? 5933 RxNorm Iodine ? ? ? Penicillins ? ? ? Sulfa (Sulfonamide Antibiotics) ? ? ? Toradol ? ? ? 53678 RxNorm VENOM-WASP Anaphylaxis ? ? 809077 RxNorm Zithromax ? ? ? Notes: Horseflies, yellowjackets- anap hylasix Problems Name Status Onset Date Source ? [...] History Cholelithiasis without Obstruction Active ? History Chest Pain Active ? History Benign Lipomatous Tumor Active ? History Breast Lump Active ? History Procedures Date Name Performed by [...] SAB 08/15/2001 Cystoscopy Information not avai lable Vaccine List Vaccine Type influenza, injectable, quadrivalent, pre servative free 06/07/2019 influenza, seasonal, injectable 06/11/2020 rubella Td (adult), adsorbed 05/25/2007 Tdap 02/02/2016?0.5 mL varicella Social History Tobacco Smoking Status Never Smoker Are you currently employed? Y Are you blind or do you have difficulty N seeing? What is your code status? 0 How much tobacco do you chew? none What was the date of your most recent 06/07/2019 tobacco screening? What is your exercise level? Occasional Animal exposure? Y Notes: 3 dogs, she ep goats Which of your hands is dominant? Right What is your level of alcohol None consumption? Live alone or with others? with others Notes: with spouse Language Difficulties No Current Method of Control Notes: Hyst Are you passively exposed to smoke? N Hard of hearing or deaf in one or both N ears? What is your level of caffeine Occasional Notes: .5 c of coffee a day consumption? 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 Past Encounters 12/16/2021 Obstructive Sleep Apnea Syndrome Myriam Oconnell, SCHOOL SUPERVISOR: [address] [place] [phone], Ph. History of Present Illness Note: <p>Raquel Valencia has a visit for HENNA follow-up. She checked in 15v min late</p><div>
</div><p>Raquel had a Zoom visit with me on 06/10/21. She has a medical history to include depression, anxiety, IBS, impaired fasting glucose, malignant tumor of thyroid, and hypothyroidism. </p><p>She noted symptoms of excessive daytime sleepiness (ESS 17 despite sleeping soundly for 7- 8 hours/night), snoring, morning headaches and neurocognitive decline. PSG was denied by P so she had a HST.</p><p>HST 07/24/20 (BMI 24.51), AHI 3.9/hr sp02 lisa 93%, Inconclusive study, PSG recommended.</p><p>Polysomnogram was completed on </p><div>{{DATE 10/01/2020}} (BMI 23.38). Sleep efficiency was {{80 85#}}%, AHI {{NUMBER 0.2#}}/hr, RDI {{NUMBER 5#}}/hr, REM AHI {{NUMBER 1.2#}}/hr, REM RDI {{NUMBER 11.5#}}/hr, supine AHI {{NUMBER 0#}}/hr, right lateral AHI N/A, left lateral AHI {{NUMBER 0#}}/hr, sp02 lisa {{NUMBER 90#}}%, {{NUMBER 0#}} minutes were spent at a saturation <88%, arousal index {{NUMBER 18#}}/hr, PLMi {{NUMBER 0.9#}}/hr, PLM arousal index {{NUMBER 0.9#}}/hr. EKG showed {{NSR*}}. No snoring heard.</div>< div>
</div><p>Last visit she was using CPAP 5-15 cm with excellent compliance and reduction in AHI. She had stopped using for about a week prior to her visit because of the recall and was having worse sleep quality and pain. She was planning to start back on CPAP.</p><div>
</div><div>Raquel tells me she just started back on CPAP two nights agoand she is glad I did. She has her replacement CPAP for the recall. She had beenhaving trouble sleeping and waking after four hours and wakes p and feels wide awake" but then still feels exhausted during the day. Last night she was able to sleep through and did not have insomnia</div><div>
</div><div>
</div><div>ESS today 12/06</div><div>
</div><div>COMPLIANCE DATA REVIEWED WITH PATIENT: {{DATES 11/16/21-12/15/21#}}, Used {{25 30 2#}}/30 days, average use {{5 6 8#}} hours {{number 6#}} minutes a night, mean pressure {{8 9 6.3#}}cm, 90 th percentile pressure {{9 10 7.9#}}cm, time in large air leak {{5 10 11.5#}} minutes, AHI {{1 2 5#}}/hour.</div>Review of Systems: ROS as noted in the HPI Review of Systems None recorded. Physical Exam ? Notes: <div>General: A&O, well groo med {{over weight obese morbidly obese normal weight* thin}}.
HEAD: no rmocephalic & atraumatic.
EYES: non icteric.
LUNGS: CTA all f ields. Good air movement.
CARDIO: RRR without murmur, gallop or thrill. <b r>NEURO: A&O. Normal gait.
PSYCH: Normal mood and affect.
CUTANEOUS: no overt lesions or rashes</div>
[2022-01-07 15:32] LABS: FREE T4 0.95 ng/dL (0.76-1.46); TSH 0.29 uIU/mL (0.36-3.74)
[2022-01-07 22:28] LABS: T3, Total 169 ng/dL (97-169)
[2022-01-07 23:03] LABS: FSH 65.6 mIU/mL (See Note)
[2022-01-07 23:06] LABS: Estradiol 132 pg/mL (See Note); LH 63.2 mIU/mL (See Note)
[2022-01-08 16:07] LABS: Thyroglobulin Antibody <1.8 IU/mL (<1.8); Thyroglobulin Tumor Marker 0.1 ng/mL
== END 2022-01-07 07:30 | disposition home or self-care (01) ==
PROVIDERS: PCP Family Medicine; Visit Provider Internal Medicine Endocrinology, Diabetes & Metabolism
DX: E89.0 Postprocedural hypothyroidism (principal)
CPT/HCPCS: 36415; 82670; 83001; 83002; 84432; 84439; 84443; 84480; 86800

== ENCOUNTER 2022-01-08 18:36 | Outpatient (REF) | payer OTHER, SELFPAY ==
[2022-01-08 20:43] LABS: HCT 38.4 % (36.0-46.0); HGB 12.1 g/dL (11.2-15.7); MCHC 31.5 % (32.0-36.0); MCV 92 fL (80-95); MPV 11.4 fL (8.0-11.0); Platelet Count 297 10^3/uL (130-400); RBC 4.17 10^6/uL (3.93-5.22); RDW 12.5 % (11.7-14.6); RDW-SD 42.2 fL; WBC 6.99 10^3/uL (4.4-10.8)
[2022-01-08 20:55] LABS: ALT 40 U/L (14-59); AST 18 U/L (15-37); Albumin 4.2 g/dL (3.4-5.0); Alkaline Phosphatase 121 U/L (46-116); BUN 12 mg/dL (7-18); Bilirubin, Total 0.3 mg/dL (0.2-1.0); CREATININE 0.8 mg/dL (0.55-1.02); Calcium 9.5 mg/dL (8.5-10.1); Chloride 105 mmol/L (98-107); Glucose 89 mg/dL (74-106); Magnesium 2.1 mg/dL (1.8-2.4); Potassium 4.1 mmol/L (3.5-5.1); Sodium 143 mmol/L (136-145); Total Protein 7.7 g/dL (6.4-8.2)
== END 2022-01-08 18:37 | disposition home or self-care (01) ==
LOC: NCHCN 18:36
PROVIDERS: PCP Family Medicine; Visit Provider Family Medicine
DX: R42 Dizziness and giddiness (principal)
CPT/HCPCS: 80053; 85027; 83735

== ENCOUNTER 2022-01-26 02:18 | Outpatient (CLI) | payer OTHER, SELFPAY ==
[2022-01-26 08:50] LABS: ALT 26 U/L (14-59); AST 18 U/L (15-37); Albumin 4.2 g/dL (3.4-5.0); Alkaline Phosphatase 116 U/L (46-116); Bilirubin, Direct 0.1 mg/dL (0.0-0.2); Bilirubin, Total 0.3 mg/dL (0.2-1.0); Total Protein 8.1 g/dL (6.4-8.2)
[2022-01-26 08:53] LABS: Iron 48 ug/dL (50-170)
[2022-01-26 09:31] LABS: Vitamin B12 305 pg/mL (193-986)
[2022-01-27 19:45] LABS: Adrenocorticotropic Hormone, P 20 pg/mL
== END 2022-01-26 02:19 | disposition home or self-care (01) ==
PROVIDERS: Internal Medicine Endocrinology, Diabetes & Metabolism; PCP Family Medicine; Visit Provider Family Medicine
DX: E55.9 Vitamin D deficiency, unspecified (principal); R42 Dizziness and giddiness; R74.8 Abnormal levels of other serum enzymes; R63.4 Abnormal weight loss
CPT/HCPCS: 36415; 80076; 82306; 82533; 82024; 82607; 83540

== ENCOUNTER → 2022-02-05 00:41 | Outpatient (CLI) | payer OTHER, SELFPAY ==
--- NOTE | 2022-02-05 | DI.MRI_ITS ---
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 COMPARISON: MR MR BRAIN WO from 01/14/2021 MR MR ORBIT FACIAL NECK WO from 01/20/2021 FINDINGS: VENTRICLES AND EXTRA AXIAL SPACES: Normal in size and morphology for the patient's age. MIDLINE SHIFT: None. CEREBRAL PARENCHYMA: No focus of restricted diffusion to suggest acute infarct. No space-occupying le alen identified. There are stable white matter foci seen on the T2 and FLAIR images. HEMORRHAGE: None. BRAINSTEM/CEREBELLUM: Normal. CALVARIUM: Normal. VISUALIZED PARANASAL SINUSES/MASTOIDS:Clear. SQUAXIN OF ZEPEDA: Normal flow void. PITUITARY GLAND: Unremarkable. OTHER FINDINGS: None. IMPRESSION: No change in appearance of the brain since 01/14/2021. DATA REPOSITORY:
== END ==
PROVIDERS: PCP Family Medicine; Visit Provider Family Medicine
DX: G90.8 Other disorders of autonomic nervous system (principal); R90.82 White matter disease, unspecified
CPT/HCPCS: 70551

== ENCOUNTER 2022-02-09 19:13 | Outpatient (CLI) | payer OTHER, SELFPAY ==
--- NOTE | 2022-02-09 19:00 | RT.EKG_ITS ---
APPROVED REPORT Exam: Resting ECG Reason for Exam: Irregular heart beat Patient Location: O HR:76 bpm ECG Measurements Heart Rate 76 AXIS OR 150 P 54 QRSd 76 QRS 70 QT 399 T 61 QTc 451 Conclusion Sinus rhythm...normal P axis, V-rate 60- 99 Normal Electrocardiogram
== END 2022-02-09 19:14 | disposition home or self-care (01) ==
LOC: DI.CM 19:14
PROVIDERS: PCP Family Medicine; Visit Provider Physician Assistant
DX: R07.89 Other chest pain (principal)
CPT/HCPCS: 93010

== ENCOUNTER 2022-02-12 15:29 | Outpatient (REF) | payer OTHER, SELFPAY ==
[2022-02-12 20:54] LABS: TSH 2.09 uIU/mL (0.36-3.74)
[2022-02-12 21:14] LABS: FREE T4 1.02 ng/dL (0.76-1.46)
[2022-02-12 22:36] LABS: T3,Free 2.9 pg/mL (2.8-5.3)
[2022-02-12 22:49] LABS: T3, Total 147 ng/dL (97-169)
== END 2022-02-12 15:30 | disposition home or self-care (01) ==
LOC: NCHCN 15:29
PROVIDERS: PCP Family Medicine; Visit Provider Family Medicine
DX: E03.8 Other specified hypothyroidism (principal)
CPT/HCPCS: 84436; 84439; 84443; 84480; 84481

== ENCOUNTER → 2022-02-12 15:29 | Outpatient (CLI) | payer OTHER, SELFPAY ==
--- NOTE | 2022-02-12 | DI.US_ITS ---
APPROVED REPORT EXAM: Comprehensive 2D, Doppler, and color-flow Echocardiogram Patient Location: Out-Patient Manager Assessment: Safia Dick RDCS (AE) Indications: Bradycardia Other Information Study Quality: Good Conclusion Normal left ventricular wall thickness and chamber size. Estimated ejection fraction is 60%. Wall m otion is normal Normal right ventricular size and systolic function Both atria are normal in size There is no structural or hemodynamically significant valvular disease The patient was in sinus rhythm with an average heart rate of 70 throughout Wall motion Left Ventricle The left ventricle is normal size. The left ventricular systolic function is normal. The left ventric ular ejection fraction is within the normal range. There is normal left ventricular wall thickness. T here is normal LV segmental wall motion. There is no ventricular septal defect visualized. LVEF is 60 %. Right Ventricle The right ventricle is normal size. The right ventricular systolic function is normal. The RVSP is 21 .3 mmHg. Atria The left atrium size is normal. The right atrium size is normal. The interatrial septum is intact wit h no evidence for an atrial septal defect. Aortic Valve The aortic valve is normal in structure. There is no aortic valvular stenosis. No aortic regurgitatio n is present. Mitral Valve The mitral valve is normal in structure. No evidence of mitral valve stenosis. Trace mitral regurgita tion. Tricuspid Valve The tricuspid valve is normal in structure. There is no tricuspid valve stenosis. Trace tricuspid reg urgitation. Pulmonic Valve The pulmonary valve is normal in structure. There is no pulmonic valvular stenosis. Trace pulmonic re gurgitation. Great Vessels The aortic root is normal in size. The ascending aorta is normal in size. Aortic arch is not well vis ualized. IVC is normal in size and collapses >50% with inspiration. Pericardium There is no pericardial effusion. 2D Dimensions IVSD d PLAX 0.72 cm F: 0.6-1.0 LV Vol A2C d MOD 75.5 mL LVPW d PLAX 0.78 cm F: 0.6 - 1.0 LV Vol A4C d MOD 70.8 mL LVID d PLAX 4.70 cm F: 3.8 - 5.2 LA vol/ BSA A2C s A-L 20.4 mL/m2 LVDs 3.05 cm F: 2.2 - 3.5 LA vol/ BSA A4C s A-L 9.6 mL/m2 Ao Root d 2.58 cm F: 2.7 - 3.3 LA Vol/ BSA Biplane s A-L 16.7 mL/m2 RA Area A4C 11.04 cm2 LA Area A4C s MOD 7.59 cm2 RA Vol/ BSA A4C s A-L 16.8 mL/m2 LA Area A2C s MOD 13.20 cm2 Ao Asc Diam d 3.09 cm F: 2.3 - 3.1 LV EF A4C MOD 60.3 % LV EF Teichholz 63.6 % LV EF A2C MOD 60.1 % LVEF (Briggs's) 58.19 % F: 54 - 74 LV EF Biplane MOD 58.2 % LV Volume 59.80 mL F: 46 - 106 SV 42.74 mL LV Volume Index 37.61 mL/m2 F: 29 - 61 SV Index 26.85 mL/m2 LV Vol Biplane MOD 73.5 mL FS 34.50 % M-Mode TAPSE 2.31 cm (M/F) >1.7 LV Diastology MV E' medial 0.114 (>0.07 m/s) E/A Ratio 1.4 LV E/e MED 6.85 (<14) MV E Vmax 0.79 (0.4-1.3 m/s) MV E' lateral 0.180 (>0.1 m/s) MV A Vmax 0.55 (0.4-1.3 m/s) LV E/e LAT 4.35 (<14) MV E/A Ratio 1.33 MV E/E' medial 6.89 MV E/E' lateral 4.38 Aortic Valve LVOT Area 2.53 cm2 AoV Area Vmax 2.15 cm2 LVOT Vmax 0.94 m/s AoV Area/ BSA (Vmax) 1.35 cm2/m2 LVOT Mean Arturo. 0.60 m/s MIGUEL Mean Arturo. 2.10 cm2 LVOT Peak Grad 3.5 mmHg MIGUEL Mean Arturo. Index 1.32 cm2/m2 LVOT Mean Grad 1.7 mmHg LVOT VTI 0.209 m LVOT Diam s 1.75 cm AoV Vmax 1.10 m/s Velocity Ratio 0.85 AoV Mean Arturo. 0.72 m/s AoV Peak Grad 4.9 mmHg LVOT SV 52.91 mL AoV Mean Grad 2.4 mmHg AoV VTI 0.212 m AoV Area VTI 2.50 cm2 AoV Area/ BSA (VTI) 1.57 cm/m2 Mitral Valve MV DT 239 (160-240 msec) MV PHT 69 msec MV Area PHT 3.17 cm2 MV VTI 0.234 m MV Area VTI 2.27 (4.0-6.0 cm2) Pulmonary Valve PV Vmax 0.89 (0.5-1.5 m/s) RVOT Peak Gr. 1.72 mmHg PV Peak Grad 3.2 mmHg RVOT Mean Gr. 0.85 mmHg PV Mean Grad 1.8 mmHg RVOT VTI 0.131 m PV VTI 0.194 m RVOT Vmax 0.66 m/s Tricuspid Valve TR Peak Grad 18.2 mmHg TR Vmax 2.14 m/s RA Pressure 3.00 mmHg RVSP (TR) 21.3 mmHg
== END ==
PROVIDERS: PCP Family Medicine; Visit Provider Family Medicine
DX: R00.1 Bradycardia, unspecified (principal)
CPT/HCPCS: 93306

== ENCOUNTER 2022-02-17 18:02 | Outpatient (CLI) | payer OTHER, SELFPAY ==
--- NOTE | 2022-02-17 18:00 | RT.EKG_ITS ---
APPROVED REPORT Exam: Resting ECG Reason for Exam: Dizziness Patient Location: O HR:73 bpm ECG Measurements Heart Rate [address] 133 P 48 QRSd 76 QRS 73 QT 394 T 57 QTc 433 Conclusion Sinus rhythm...normal P axis, V-rate 60- 99 Normal Electrocardiogram
== END 2022-02-17 18:03 | disposition home or self-care (01) ==
LOC: DI.CM 18:02
PROVIDERS: PCP Family Medicine; Visit Provider Nurse Practitioner Family
DX: R07.89 Other chest pain (principal)
CPT/HCPCS: 93010

== ENCOUNTER 2022-03-12 16:51 | Outpatient (REF) | payer OTHER, SELFPAY ==
[2022-03-12 19:05] LABS: Creatinine,Urine 100.88 mg/dL; Sodium, Urine 100 mmol/L
[2022-03-12 19:32] LABS: Anion Gap 8.3 mmol/L (3-11); BUN 18 mg/dL (7-18); CO2 29.7 mmol/L (21.0-32.0); CREATININE 0.8 mg/dL (0.55-1.02); Calcium 9.3 mg/dL (8.5-10.1); Chloride 102 mmol/L (98-107); FREE T4 0.97 ng/dL (0.76-1.46); Glucose 94 mg/dL (74-106); Potassium 4.4 mmol/L (3.5-5.1); Sodium 140 mmol/L (136-145); TSH (W/Ref FT4) 1.73 uIU/mL (0.36-3.74)
[2022-03-12 19:51] LABS: Iron 58 ug/dL (50-170)
[2022-03-12 20:53] LABS: T4 8.6 ug/mL (4.7-13.3)
[2022-03-14 17:59] LABS: T3,Free 2.7 pg/mL (2.8-5.3)
[2022-03-14 18:13] LABS: T3, Total 136 ng/dL (97-169)
== END 2022-03-12 16:52 | disposition home or self-care (01) ==
LOC: NCHCN 16:51
PROVIDERS: PCP Family Medicine; Visit Provider Family Medicine
DX: I95.9 Hypotension, unspecified (principal)
CPT/HCPCS: 80048; 82565; 83540; 84300; 84436; 84439; 84443; 84480; 84481

== ENCOUNTER 2022-03-24 03:16 | Outpatient (CLI) | payer OTHER, SELFPAY ==
[2022-03-24 17:25] LABS: Anion Gap 9.1 mmol/L (3-11); BUN 17 mg/dL (7-18); CO2 30.9 mmol/L (21.0-32.0); CREATININE 0.9 mg/dL (0.55-1.02); Calcium 9.7 mg/dL (8.5-10.1); Chloride 104 mmol/L (98-107); Glucose 96 mg/dL (74-106); Potassium 4.5 mmol/L (3.5-5.1); Sodium 144 mmol/L (136-145); TSH 1.42 uIU/mL (0.36-3.74)
[2022-03-26 19:35] LABS: Thyroglobulin Antibody <1.8 IU/mL (<1.8); Thyroglobulin Tumor Marker 0.5 ng/mL
[2022-03-28 14:08] LABS: Renin Activity, Plasma <0.6 ng/mL/h
== END 2022-03-24 03:17 | disposition home or self-care (01) ==
PROVIDERS: PCP Family Medicine; Visit Provider Internal Medicine
DX: E89.0 Postprocedural hypothyroidism (principal); I95.1 Orthostatic hypotension; Z85.850 Personal history of malignant neoplasm of thyroid
CPT/HCPCS: 36415; 80048; 82088; 84244; 84432; 84443; 86800

== ENCOUNTER 2022-04-13 03:05 | Outpatient (CLI) | payer OTHER, SELFPAY ==
[2022-04-13 16:00] LABS: Anion Gap 7.2 mmol/L (3-11); BUN 16 mg/dL (7-18); CO2 28.8 mmol/L (21.0-32.0); CREATININE 0.8 mg/dL (0.55-1.02); Calcium 9.2 mg/dL (8.5-10.1); Chloride 101 mmol/L (98-107); Estimated GFR 90.27 (mL/min/1.73m2); Glucose 95 mg/dL (74-106); Potassium 3.7 mmol/L (3.5-5.1); Sodium 137 mmol/L (136-145)
[2022-04-15 17:24] LABS: Renin Activity, Plasma 2.2 ng/mL/h
== END 2022-04-13 03:06 | disposition home or self-care (01) ==
PROVIDERS: PCP Family Medicine; Visit Provider Internal Medicine Endocrinology, Diabetes & Metabolism
DX: I95.1 Orthostatic hypotension (principal)
CPT/HCPCS: 36415; 80048; 82533; 82088; 84244

== ENCOUNTER 2022-06-16 11:10 | Outpatient (CLI) | payer OTHER, SELFPAY ==
[2022-06-16 09:00] LABS: Anion Gap 5.5 mmol/L (3-11); BUN 17 mg/dL (7-18); CO2 29.5 mmol/L (21.0-32.0); CREATININE 0.8 mg/dL (0.55-1.02); Calcium 9.2 mg/dL (8.5-10.1); Calculated LDL 133 mg/dL (<100); Chloride 106 mmol/L (98-107); Cholesterol 225 mg/dL (<200); Estimated GFR 90.27 (mL/min/1.73m2); Glucose 93 mg/dL (74-106); HDL Cholesterol 79 mg/dL (40-60); Potassium 4.4 mmol/L (3.5-5.1); Sodium 141 mmol/L (136-145); Triglyceride 69 mg/dL (<150)
[2022-06-16 09:16] LABS: FREE T4 1.08 ng/dL (0.76-1.46)
[2022-06-16 17:33] LABS: T3,Free 3.4 pg/mL (2.8-5.3)
[2022-06-16 17:51] LABS: T3, Total 138 ng/dL (97-169)
== END 2022-06-16 11:11 | disposition home or self-care (01) ==
LOC: LBO 11:11
PROVIDERS: PCP Family Medicine; Visit Provider Physician Assistant
DX: E03.9 Hypothyroidism, unspecified (principal)
CPT/HCPCS: 36415; 80048; 80061; 84436; 84439; 84443; 84480; 84481

== ENCOUNTER 2022-10-06 19:19 | Outpatient (CLI) | payer OTHER, SELFPAY ==
--- NOTE | 2022-10-06 19:15 | RT.EKG_ITS ---
APPROVED REPORT Exam: Resting ECG Reason for Exam: chest discomfort Patient Location: O HR:73 bpm ECG Measurements Heart Rate 73 AXIS AL 132 P 51 QRSd 82 QRS 70 QT 397 T 58 QTc 438 Conclusion Sinus rhythm...normal P axis, V-rate 50- 99 Normal Electrocardiogram
== END 2022-10-06 19:20 | disposition home or self-care (01) ==
PROVIDERS: PCP Family Medicine; Visit Provider Nurse Practitioner Family
DX: R07.89 Other chest pain (principal)
CPT/HCPCS: 93010

== ENCOUNTER 2022-10-08 11:04 | Outpatient (RCR) | payer OTHER, SELFPAY ==
--- NOTE | 2022-10-08 11:00 | HOLTER_ITS ---
APPROVED REPORT Conclusion This is a 48-hour Holter monitor ordered for palpitations Rhythm throughout was sinus with an average heart rate of 71. Minimum was 52, maximum 121 There was 1 isolated premature ventricular contraction There were rare atrial premature beats There was no atrial fibrillation no high-grade AV block no SVT no pauses greater than 3 seconds No patient symptoms were reported
== END 2022-10-12 23:59 | disposition home or self-care (01) ==
LOC: CARDOPNVT 11:04
PROVIDERS: PCP Family Medicine; Visit Provider Nurse Practitioner Family
DX: R00.2 Palpitations (principal); I49.3 Ventricular premature depolarization
CPT/HCPCS: 93227; 93225; 93226

== ENCOUNTER 2022-10-08 15:32 | Outpatient (REF) | payer OTHER, SELFPAY ==
[2022-10-08 14:53] LABS: HCT 38.8 % (36.0-46.0); HGB 12.8 g/dL (11.2-15.7); MCV 91 fL (80-95); Platelet Count 319 10^3/uL (130-400); RBC 4.26 10^6/uL (3.93-5.22); RDW 12.5 % (11.7-14.6); WBC 7.91 10^3/uL (4.4-10.8)
[2022-10-08 15:16] LABS: ALT 27 U/L (14-59); AST 18 U/L (15-37); Albumin 4.6 g/dL (3.4-5.0); Alkaline Phosphatase 109 U/L (46-116); Anion Gap 9.2 mmol/L (3-11); BUN 12 mg/dL (7-18); Bilirubin, Total 0.3 mg/dL (0.2-1.0); CO2 25.8 mmol/L (21.0-32.0); CREATININE 0.8 mg/dL (0.55-1.02); Calcium 9.9 mg/dL (8.5-10.1); Chloride 102 mmol/L (98-107); Estimated GFR 90.27 (mL/min/1.73m2); FREE T4 0.95 ng/dL (0.76-1.46); Glucose 90 mg/dL (74-106); Potassium 4.2 mmol/L (3.5-5.1); Sodium 137 mmol/L (136-145); TSH 2.28 uIU/mL (0.36-3.74); Total Protein 8.2 g/dL (6.4-8.2)
== END 2022-10-08 15:33 | disposition home or self-care (01) ==
LOC: NCHCN 15:32
PROVIDERS: PCP Family Medicine; Visit Provider Physician Assistant
DX: R55 Syncope and collapse (principal); E03.8 Other specified hypothyroidism
CPT/HCPCS: 80053; 85027; 84439; 84443

== ENCOUNTER 2023-01-05 00:22 | Emergency (ER) | payer OTHER, SELFPAY ==
[2023-01-05 00:27] VITALS: BP 120/76; PULSE 90; RESP 18; TEMP 37.1; O2SAT 98
--- NOTE | 2023-01-05 00:45 | DI.RAD_ITS ---
Exam(s) XR FOOT RT COMPLETE EXAM: XR FOOT RT COMPLETE CLINICAL HISTORY: 5th MT pain post inj. TECHNIQUE: 2D digital imaging was performed. COMPARISON: No exams were available for comparison FINDINGS: 3 views No evidence of acute fracture or diastasis of the Lisfranc joint. Bone density. No osseous lesions nor erosions. No radiopaque foreign body. IMPRESSION: No significant osseous findings in the foot. DATA REPOSITORY: RADIATION DOSE DELIVERED:
--- NOTE | 2023-01-05 00:45 | DI.RAD_ITS ---
Exam(s) XR ANKLE RT COMPLETE EXAM: XR ANKLE RT COMPLETE CLINICAL HISTORY: lateral malleolus pain. TECHNIQUE: 2D digital imaging was performed. COMPARISON: No exams were available for comparison FINDINGS: 3 views No evidence of fracture or widening of the ankle mortise. Talar dome unremarkable. Bone density nor mal. No degenerative changes. No osseous lesions. No soft tissue swelling. IMPRESSION: No significant osseous findings in the ankle. DATA REPOSITORY: RADIATION DOSE DELIVERED:
[2023-01-05] MEDS: Acetaminophen 325 MG TAB 650 MG PO (01:03)
--- NOTE | 2023-01-05 01:40 | ED.GENADUL_ITS ---
Discharge Plan Disposition Patient Disposition: Home Condition: Good Discharge Details Clinical Impression: Right foot sprain Primary Care Provider: Leonora Syed ED Provider: Meg Gabriel Home Meds and New Rx's Prescriptions: Continued albuterol sulfate [Proventil HFA] 90 mcg/actuation HFA aerosol inhaler 2 puff inhalation Q6H PRN (Reason: shortness of breath or wheezing) Qty: 8.5 0RF levothyroxine 100 mcg tablet 100 mcg PO DAILY epinephrine 0.3 MG/SYR auto-injector 0.3 mg IJ PRN PRN (Reason: Allergy Symptoms) Qty: 1 0RF Discharge Instructions Instructions: Foot Sprain (ED) Additional Instructions: Right now ice 20 minutes on and 20 minutes off for the next 72 hours. Tylenol 6 50 mg every 6 hours as needed for pain. Recheck with your primary care doctor as needed. Medical Decision Making Patient was reassured that this is likely a foot strain. Of note, x-rays were placed prior to me examining her due to the ED being busy. She did tell me that she could no longer bear weight when I evaluated her. We did not have crutches in her size and she hopped to the car. Imaging Data Radiologic Study: Attestation: I personally reviewed and interpreted this imaging study as follows: (NFS on foot or ankle films) HPI General Date/Time Provider Initiated Documentation: 01/05/23 00:56 . HPI Narrative: This 47-year-old female patient presents with a chief complaint of right lower extremity foot and ankle pain sustained earlier today. Patient states that she has difficulty with balance and uses canes to walk. Around noon today she rolled her ankle into a hole. It hurt but she was able to walk on it and get around. It did not seem too bad or swollen initially. She says this evening she got up to walk to the bathroom and had severe pain on the dorsal aspect of her foot. She reports that she was unable to ambulate and had to hop around. She did not try any medication at home but decided to come to the ED. She reports a brief episode of numbness with the severe pain but says this resolved. Her foot is atraumatic appearing with normal color. She did scrape her left knee when she twisted her right ankle but denies any other injuries. Her knee is fine. Related Data Home Medications Medication Instructions Recorded Confirmed epinephrine 0.3 mg/0.3 mL 0.3 mg (0.3 mL) IJ PRN PRN Allergy 03/27/15 01/05/23 injection, auto-injector Symptoms ##1 albuterol sulfate 90 mcg/actuation 2 puff inhalation Q6H PRN 03/13/21 01/05/23 aerosol inhaler (Proventil HFA) shortness of breath or wheezing #8.5 grams levothyroxine 100 mcg tablet 100 mcg PO DAILY 01/03/23 01/05/23 Previous Rx's Medication Instructions Recorded epinephrine 0.3 mg/0.3 mL 0.3 mg (0.3 mL) IJ PRN PRN Allergy 03/27/15 injection, auto-injector Symptoms ##1 albuterol sulfate 90 mcg/actuation 2 puff inhalation Q6H PRN 03/13/21 aerosol inhaler (Proventil HFA) shortness of breath or wheezing #8.5 grams Allergies Allergy/AdvReac Type Severity Reaction Status Date / Time Gadolinium-Containing Allergy Severe Anaphylaxis Verified 01/05/23 00:32 Contrast Medi PER [facility] [place] Penicillins Allergy Severe Anaphylaxsi Verified 01/05/23 00:32 s Sulfa (Sulfonamide Allergy Severe Anaphylaxsi Verified 01/05/23 00:32 Antibiotics) s venom-honey bee Allergy Severe Anaphylaxsi Verified 01/05/23 00:32 [bee venom (honey bee)] s citalopram Allergy Mild Hives Verified 01/05/23 00:32 ofloxacin [From Floxin] Allergy Mild Skin Rash Verified 01/05/23 00:32 naproxen [From Aleve] Allergy Verified 01/05/23 00:32 azithromycin [From Zithromax] AdvReac Severe Anaphylaxsi Verified 01/05/23 00:32 s Iodinated Contrast Media AdvReac Severe Anaphylaxsi Verified 01/05/23 00:32 [Iodinated Contrast Media - s IV Dye] ketorolac tromethamine AdvReac Severe Anaphylaxsi Verified 01/05/23 00:32 [From Toradol] s iodine AdvReac Intermediate Anaphylaxsi Verified 01/05/23 00:32 s lorazepam [From Ativan] AdvReac Intermediate Dizziness/L Verified 01/05/23 00:32 ightheade horse flies Allergy Severe Anaphylaxsi Uncoded 01/05/23 00:32 s General Stated Complaint: Orthopedic CLARI: 4 Review of Systems Musculoskeletal Musculoskeletal: Denies joint swelling Integumentary/Breasts Skin/Breast: Denies skin swelling, Denies wounds and Reports other (No ecchymosis or abrasions) PFSH All Active Problems Right foot sprain (Acute) Gait difficulty (Acute) Well woman exam with routine gynecological exam (Acute) Abnormal CT of the abdomen (Acute) Colitis (Acute) Anxiety about health (Acute) PONV (postoperative nausea and vomiting) (Acute) WOOD (generalized anxiety disorder) (Acute) Hypothyroidism (Acute) Secondary to thyroidectomy due to cancer Thyroid cancer (Acute) Papillary Adverse drug effect (Acute) Thoracic outlet syndrome (Acute) Neck pain (Acute) Panic attacks (Acute) Depression (Chronic) Difficulty with speech (Acute) Bilateral arm weakness (Acute) Bilateral leg weakness (Acute) Difficulty with speech (Acute) Breast lump on left side at 3 o'clock position (Acute) Weakness (Acute) Anxiety (Chronic) Fatigue (Acute) Headache (Acute) Blurred vision (Acute) Chest pain (Acute) Near syncope (Acute) Atypical chest pain (Acute) Medical History Anxiety Fatigue Functional neurological symptom disorder with mixed symptoms (~01/15/21) Surgical History H/O hand surgery cyst removal History of hysterectomy History of thyroidectomy S/P laparoscopic cholecystectomy Family History Mother Hypertension Social History Smoking/Tobacco Use Status: Never Smoking risk assessment performed?: Yes Alcohol Intake: never Drug use: Never Substance use type: does not use Household members: spouse and children Number of Children: 4 current occupation: [employer] Do you think of yourself as: lesbian/beltrán/homosexual Current gender identity: female What is your relationship status?: Panel score (0-1 are the most socially isolated patients): 1 Do you feel safe at home: Yes Do you feel safe in your relationship?: Yes History History 3 Para 2 Hx # Term Pregnancies 2 Multiple births Hx # Pregnancies 1 Ectopic pregnancies AB induced Hx Number of Living Children 2 AB spontaneous 1 Exam Const General: no acute distress, well developed and well groomed Nutritional Appearance: well nourished Orientation: alert Eyes Conjunctivae: conjunctivae normal Neck Neck: supple Resp Effort & Inspection: normal respiratory effort Skin General skin exam: other (AT, PWD) Extrem General: normal to inspection, full ROM, capillary refill normal (sensation intact in foot) and other (Right ankle is AT/NTP; some dorsal medial midfoot TTP, ankle stable) Course Vital Signs Vital signs: Vital Signs Temperature 37.1 C 01/05/23 00:27 Pulse 90 01/05/23 00:27 Respiratory Rate 18 01/05/23 00:27 Blood Pressure 120/76 01/05/23 00:27 Pulse Oximetry 98 01/05/23 00:27 Temperature 37.1 C 01/05/23 00:27 Pulse 90 01/05/23 00:27 Respiratory Rate 18 01/05/23 00:27 Respiratory Effort Normal 01/05/23 00:31 Blood Pressure 120/76 01/05/23 00:27 Blood Pressure Position Sitting 01/05/23 00:27 Pulse Oximetry 98 01/05/23 00:27 Oxygen Delivery Method Room Air 01/05/23 00:27 Oxygen Flow Rate 0 01/05/23 00:27 Pain Level 8 01/05/23 01:03
[2023-01-05 02:08] VITALS: BP 118/74; PULSE 86; RESP 18; TEMP 37.2; O2SAT 97
--- NOTE | 2023-01-05 02:59 | DI.VRAD_ITS ---
PROCEDURE INFORMATION: Exam: XR Right Foot Exam date and time: 01/05/2023 1:18 AM Age: 47 years old Clinical indication: Injury or trauma; Fall; Blunt trauma; Foot; Right; Injury date: 01/04/23; Injury details: 5th mt pain post inj TECHNIQUE: Imaging protocol: Radiologic exam of the right foot. Views: 3 or more views. COMPARISON: CR XR ANKLE RT COMPLETE 01/05/2023 1:16 AM FINDINGS: Bones/joints: Normal. Soft tissues: Normal. IMPRESSION: No acute findings. Dictated and Authenticated by: Zachary Lenz MD. Ordering:LEANA Weaver MD
--- NOTE | 2023-01-05 03:00 | DI.VRAD_ITS ---
PROCEDURE INFORMATION: Exam: XR Right Ankle Exam date and time: 01/05/2023 1:16 AM Age: 47 years old Clinical indication: Injury or trauma; Fall; Blunt trauma; Ankle; Right; Injury date: 01/04/23; Injury details: Lateral malleolus pain TECHNIQUE: Imaging protocol: Radiologic exam of the right ankle. Views: 3 or more views. COMPARISON: US EXTREMITY VENOUS BI 08/26/2021 8:42 AM FINDINGS: Bones/joints: Normal. Soft tissues: Normal. IMPRESSION: No acute findings. Dictated and Authenticated by: Zachary Lenz MD. Ordering:LEANA Weaver MD
== END 2023-01-05 02:10 | disposition home or self-care (01) ==
PROVIDERS: Emergency Provider Emergency Medicine; PCP Family Medicine
DX: S93.601A Unspecified sprain of right foot, initial encounter (principal); W17.2XXA Fall into hole, initial encounter
CPT/HCPCS: 99284; 73610; 73630; 99283

== ENCOUNTER 2023-01-07 00:23 | Outpatient (CLI) | payer OTHER, SELFPAY ==
--- NOTE | 2023-01-07 13:58 | DI.DEXA_ITS ---
Exam(s) XR DEXA BONE DENSITY W/WO HOOD EXAM: XR DEXA BONE DENSITY W/WO HOOD CLINICAL HISTORY: HYPOTHYROIDISM,R03.9,? OSTEOPOROSIS TECHNIQUE: Holo[employer] Horizon C densitometer analysis of left hip, lumbar spine and left forearm. Lat eral survey image of the thoracic and lumbar spine. COMPARISON: No exams were available for comparison FINDINGS: Lateral view of the thoracic and lumbar spine shows no evidence of compression fractures. Bone mineral density measurements of the lumbar spine correspond to a total T-score of -0.5, in the normal range. Bone mineral density measurements of the left hip correspond to a total T-score of -0.2 . The femora l neck T-score is -0.4, in the normal range.. The left forearm bone mineral density measurements correspond to a T-score of the distal 3rd of 1.0, in the normal range.. IMPRESSION: Normal bone mineral density.
== END 2023-01-07 00:43 ==
LOC: DI 00:23
PROVIDERS: PCP Family Medicine; Visit Provider Physician Assistant
DX: Z13.820 Encounter for screening for osteoporosis (principal)
CPT/HCPCS: 77080

== ENCOUNTER 2023-01-14 17:18 | Outpatient (REF) | payer OTHER, SELFPAY ==
--- NOTE | 2023-01-14 16:30 | SKI_PTH ---
PATIENT: Raquel Valencia LOC: [facility] U#:[id number] AGE/SX: 47/F ROOM: RE01/14/[address]: Abdon Muro : 1975 BED: DIS: 01/14/2023 SPEC #: [id number] RECD: 01/17/23 12:52 STATUS: SHAYY ORTIZ #: [id number] CRISTOBAL: 01/14/23 16:[address]: Abdon Muro DEPT: Surgical Specimen RECD BY: Elizabet Bills Tissues: 1 - SKIN BIOPSY(SHAVE/PUNCH) Procedures: SKIN LEVEL 4 Comments: [id number]
== END 2023-01-14 17:19 | disposition home or self-care (01) ==
LOC: NCHCN 17:18
PROVIDERS: PCP Physician Assistant; Visit Provider Physician Assistant
DX: L82.1 Other seborrheic keratosis (principal)
CPT/HCPCS: 88305

== ENCOUNTER 2023-01-18 03:10 | Outpatient (CLI) | payer OTHER, SELFPAY ==
[2023-01-18 08:38] LABS: HCT 39.6 % (36.0-46.0); HGB 12.9 g/dL (11.2-15.7); MCH 30.5 pg (27.0-33.0); MCHC 32.6 % (32.0-36.0); MCV 94 fL (80-95); MPV 9.7 fL (8.0-11.0); Platelet Count 313 10^3/uL (130-400); RBC 4.23 10^6/uL (3.93-5.22); RDW 12.4 % (11.7-14.6); RDW-SD 42.5 fL; WBC 7.19 10^3/uL (4.4-10.8)
[2023-01-18 09:18] LABS: Iron 98 ug/dL (50-170)
[2023-01-18 09:24] LABS: Anion Gap 6.6 mmol/L (3-11); BUN 15 mg/dL (7-18); CO2 27.4 mmol/L (21.0-32.0); CREATININE 0.8 mg/dL (0.55-1.02); Calcium 9.1 mg/dL (8.5-10.1); Chloride 103 mmol/L (98-107); Estimated GFR 90.27 (mL/min/1.73m2); FREE T4 1.09 ng/dL (0.76-1.46); Glucose 91 mg/dL (74-106); Magnesium 1.9 mg/dL (1.8-2.4); Sodium 137 mmol/L (136-145)
[2023-01-18 10:00] LABS: Calculated LDL 118 mg/dL (<100); Cholesterol 219 mg/dL (<200); HDL Cholesterol 72 mg/dL (40-60); T4 9.5 ug/dL (4.7-13.3); Triglyceride 149 mg/dL (<150); Vitamin B12 292 pg/mL (193-986)
[2023-01-18 18:21] LABS: T3,Free 3.7 pg/mL (2.8-5.3)
[2023-01-18 18:35] LABS: T3, Total 150 ng/dL (97-169)
[2023-01-18 19:40] LABS: Thyroglobulin Antibody <15 U/mL (<=60)
[2023-01-20 12:22] LABS: Thyroglobulin Antibody <1.8 IU/mL (<1.8); Thyroglobulin Tumor Marker 0.2 ng/mL
[2023-01-20 17:59] LABS: 25-Hydroxy D Total 27 ng/mL; 25-Hydroxy D2 <4.0 ng/mL; 25-Hydroxy D3 27 ng/mL
== END 2023-01-18 03:11 | disposition home or self-care (01) ==
PROVIDERS: PCP Physician Assistant; Visit Provider Physician Assistant
DX: E78.5 Hyperlipidemia, unspecified (principal); I95.9 Hypotension, unspecified; G90.9 Disorder of the autonomic nervous system, unspecified; E61.1 Iron deficiency; E03.9 Hypothyroidism, unspecified; E55.9 Vitamin D deficiency, unspecified; R26.89 Other abnormalities of gait and mobility
CPT/HCPCS: 36415; 80048; 80061; 82306; 85027; 82607; 83540; 83735; 84432; 84436; 84439; 84443; 84480; 84481; 86800

== ENCOUNTER 2023-03-02 16:58 | Outpatient (REF) | payer OTHER, SELFPAY ==
[2023-03-02 19:31] LABS: HCT 40.4 % (36.0-46.0); HGB 13.4 g/dL (11.2-15.7); MCH 30.2 pg (27.0-33.0); MCHC 33.2 % (32.0-36.0); MCV 91 fL (80-95); MPV 10.5 fL (8.0-11.0); Platelet Count 312 10^3/uL (130-400); RBC 4.43 10^6/uL (3.93-5.22); RDW 12.5 % (11.7-14.6); RDW-SD 41.6 fL; WBC 7.84 10^3/uL (4.4-10.8)
[2023-03-02 19:44] LABS: ALT 17 U/L (14-59); AST 17 U/L (15-37); Albumin 4.4 g/dL (3.4-5.0); Alkaline Phosphatase 100 U/L (46-116); Anion Gap 9.2 mmol/L (3-11); BUN 14 mg/dL (7-18); Bilirubin, Total 0.3 mg/dL (0.2-1.0); CO2 26.8 mmol/L (21.0-32.0); CREATININE 0.8 mg/dL (0.55-1.02); Calcium 9.4 mg/dL (8.5-10.1); Chloride 105 mmol/L (98-107); Estimated GFR 90.27 (mL/min/1.73m2); Glucose 97 mg/dL (74-106); Lipase 43 U/L (16-77); Sodium 141 mmol/L (136-145)
== END 2023-03-02 16:59 | disposition home or self-care (01) ==
LOC: NCHCN 16:58
PROVIDERS: PCP Physician Assistant; Visit Provider Physician Assistant
DX: R10.9 Unspecified abdominal pain (principal)
CPT/HCPCS: 80053; 83690; 85027

== ENCOUNTER 2023-04-22 07:31 | Outpatient (REF) | payer SELFPAY ==
[2023-04-21 23:01] LABS: COVID-19 PCR POSITIVE (Negative)
[2023-04-21 23:02] LABS: Source Nasopharynx
== END 2023-04-22 07:32 | disposition home or self-care (01) ==
LOC: LBN 07:31
PROVIDERS: PCP Physician Assistant; Visit Provider Physician Assistant Medical
DX: Z20.822 Contact with and (suspected) exposure to COVID-19 (principal)
CPT/HCPCS: 87635

== ENCOUNTER 2023-05-25 13:47 | Emergency (ER) | payer OTHER, SELFPAY ==
[2023-05-25] VITALS (7 sets, daily range): BP systolic 131–169; BP diastolic 71–92; PULSE 65–104; RESP 18–76; TEMP 37; O2SAT 68–100
--- NOTE | 2023-05-25 13:45 | RT.EKG_ITS ---
APPROVED REPORT Exam: Resting ECG Reason for Exam: Dizziness Patient Location: E HR:76 bpm ECG Measurements Heart Rate 76 AXIS IL 119 P 29 QRSd 89 QRS 68 QT 406 T 66 QTc 456 Conclusion Sinus rhythm...normal P axis, V-rate 60- 99 Narrow complex normal sinus rhythm at a rate of 76. Normal axis. Mildly shortened IL interval at 11 9 ms. No obvious delta wave. No ST segment abnormalities. T wave flattening in aVL. No acute inju ry pattern. Appears similar to prior dated earlier this year.
--- NOTE | 2023-05-25 14:08 | ED.GENADUL_ITS ---
Discharge Plan Disposition Patient Disposition: Home Discharge Details Clinical Impression: Tingling of both upper extremities Primary Care Provider: Abdon Muro ED Provider: Tk Garcia Home Meds and New Rx's Prescriptions: Continued albuterol sulfate [Proventil HFA] 90 mcg/actuation HFA aerosol inhaler 2 puff inhalation Q6H PRN (Reason: shortness of breath or wheezing) Qty: 8.5 0RF levothyroxine 100 mcg tablet 100 mcg PO DAILY epinephrine 0.3 MG/SYR auto-injector 0.3 mg IJ PRN PRN (Reason: Allergy Symptoms) Qty: 1 0RF Discharge Instructions Additional Instructions: You were seen in the emergency department for the tingling in her hands. Your CAT scan showed no sign of any acute abnormalities in your brain. Your blood work showed that your kidneys are working well and that you have no signs of a heart attack. Please follow-up with your neurologist tomorrow. Please return to the emergency department if you develop fevers chest pain or shortness of breath. For your pain please take medications as follows: 1. Take acetaminophen (Tylenol), 1,000 mg (two 500 mg tabs) every 6 hours Discharge Data Discharge Date/Time-TO BE ENTERED AT DEPARTURE: 05/25/23 15:20 HPI General Date/Time Provider Initiated Documentation: 05/25/23 13:57 . HPI Narrative: Weaning offHPI This is a 48-year-old female with a history of daily headaches and mixed functional neurological disorder arriving to the emergency department in the setting of feeling off balance. Patient reports that she had COVID at the end of April. She reports that she had trouble moving her legs last week. She said last night she was last well at 11 PM. 12:30 AM she woke up with a severe posterior headache. She also endorsed a period of palpitations at that point time. She felt pulsations in the left side of her neck. She was able to fall back asleep and slept for several hours longer than usual. When she woke up she has had intermittent 5-minute episodes of left-sided face tingling. She is also had tingling in her upper extremities. She has had a persistent headache. She has not attempted any treatment for her headache. She denies any shortness of breath chest pain history of PE and DVT. No dysuria frequency nor abdominal pain. Exam General: Well-appearing in no acute distress speaking in complete sentences. Head: Normocephalic, atraumatic. Eye: Extraocular eye movements intact. No conjunctival injection. No scleral icterus. Ear, nose, mouth, throat: Grossly normal inspection. Normal voice, handling secretions normally. Neck: Trachea midline. Cardiovascular: Well-perfused distal extremities. Regular rate and rhythm. Respiratory: Nonlabored respiration. Clear lungs bilaterally Gastrointestinal: Nondistended abdomen. Musculoskeletal: No significant lower extremity pitting edema. Moving all 4 extremities spontaneously. Skin: Normal for age and race, grossly normal temperature and turgor. No acute rash. Neurologic: Alert and appropriate, no apparent acute deficits. GCS 15. NIH stroke scale 0. No pronator drift. No dysmetria. No dysdiadochokinesia. Psychiatric: Mood and manner are appropriate. Grooming and personal hygiene are appropriate. MDM This is a mildly tachycardic but overall well-appearing normothermic 48-year-old female with history of mixed functional neurological disorder with presentation which appears similar to prior. He has been followed extensively by neurology. Given her headaches which began within approximately [address] head will not be diagnostic to ensure the patient does not have subarachnoid hemorrhage. My suspicion is low for subarachnoid hemorrhage as the patient is neurologically intact and based on her history of functional neurological disorder. Patient has no significant truncal ataxia nor nystagmus so I did not apply the hints exam as my suspicion for posterior circulation CVA is exceedingly low. She does have a history of chronic daily headaches so we will attempt treatment with acetaminophen and prochlorperazine. I do not feel the patient has a candidate for tPA as my suspicion for CVA is exceedingly low. We will defer MRI given low suspicion for CVA. No nuchal rigidity to suggest meningitis. No tonic-clonic activity to suggest seizure. No emesis so my suspicion is low for acute electrolyte abnormalities. No chest pain however given difficulty balancing and tingling in arms will obtain electrolytes and assess thyroid function. No pain or proportion to suggest necrotizing soft tissue infection. Clear lungs with tachypnea with thorax. Soft nontender abdomen so doubt intra-abdominal process. Given anaphylaxis to contrast will defer CT angiogram as my suspicion is low for cervical arterial dissection. I feel that the patient's pulsations in the left side of her neck did not represent pulsatile tinnitus given her history of chronic daily headaches complicated by tension headaches. I considered thoracic outlet syndrome however given bilateral upper extremity tingling I felt that thoracic outlet syndrome was less likely. 2:28 PM I spoke with Dr. Fontaine from neurology. She advised that if the patient had reassuring negative CT head that she could likely be discharged home assuming her labs were at baseline and that she was able to ambulate. Dr. Fontaine will arrange to have the patient seen in clinic tomorrow. Patient's heart rate normalized to 76 without intervention. 2:36 PM No anemia thrombocytopenia nor leukocytosis. 3 PM Negative troponin. Magnesium within normal limits. Mildly depressed TSH. Free T4 pending. Basic metabolic panel showing no TERESITA. Normal renal function. No acute electrolyte abnormalities. 3:10 PM Free T4 within normal limit. CT head with no acute intercranial process. Patient's EGD was canceled as she has a remote history of a hysterectomy. We will ensure patient can ambulate and proceed with empiric trial of discharge with expectant outpatient management and neurological follow-up tomorrow. Patient had reassuring repeat vital signs with resolved hypertension resolved tachycardia and persistent normothermia. Of note her oxygen saturation was documented at 68%. I spoke with the patient's nurse Mariama. She will add an addendum as this was not an accurate reading. Patient reportedly had a heart rate of 68. Shortness of breath is not hypoxic throughout her entire ED course. Chronic conditions affecting the care of the patient: Functional neurological disorder History obtained from an outside historian: Dr. Fontaine External record [place]: [facility] [place] [Diagnostic interpretations performed by me:] [Per my independent interpretation chest x-ray shows:] No acute findings [Per my independent interpretation EKG shows:] Narrow complex normal sinus rhythm at a rate of 76. Normal axis. Mildly shortened [place] interval at 119 ms. No obvious delta wave. No ST segment abnormalities. T wave flattening in aVL. No acute injury pattern. Appears similar to prior dated earlier this year. Medications: Acetaminophen metoclopramide Social determinants of health affecting disposition: N/A Management discussed with: Neurology Treatment/interventions considered: Hospitalization but deferred Response to therapies provided: Patient felt improved knowing of her reassuring evaluation in the ED. Related Data Home Medications Medication Instructions Recorded Confirmed epinephrine 0.3 mg/0.3 mL 0.3 mg (0.3 mL) IJ PRN PRN Allergy 03/27/15 05/25/23 injection, auto-injector Symptoms ##1 albuterol sulfate 90 mcg/actuation 2 puff inhalation Q6H PRN 03/13/21 05/25/23 aerosol inhaler (Proventil HFA) shortness of breath or wheezing #8.5 grams levothyroxine 100 mcg tablet 100 mcg PO DAILY 01/03/23 05/25/23 Previous Rx's Medication Instructions Recorded epinephrine 0.3 mg/0.3 mL 0.3 mg (0.3 mL) IJ PRN PRN Allergy 03/27/15 injection, auto-injector Symptoms ##1 albuterol sulfate 90 mcg/actuation 2 puff inhalation Q6H PRN 03/13/21 aerosol inhaler (Proventil HFA) shortness of breath or wheezing #8.5 grams Allergies Allergy/AdvReac Type Severity Reaction Status Date / Time Gadolinium-Containing Allergy Severe Anaphylaxis Verified 05/25/23 13:57 Contrast Medi PER [facility] [place] 2011 Penicillins Allergy Severe Anaphylaxsi Verified 05/25/23 13:57 s Sulfa (Sulfonamide Allergy Severe Anaphylaxsi Verified 05/25/23 13:57 Antibiotics) s venom-honey bee Allergy Severe Anaphylaxsi Verified 05/25/23 13:57 [bee venom (honey bee)] s citalopram Allergy Mild Hives Verified 05/25/23 13:57 ofloxacin [From Floxin] Allergy Mild Skin Rash Verified 05/25/23 13:57 naproxen [From Aleve] Allergy Verified 05/25/23 13:57 azithromycin [From Zithromax] AdvReac Severe Anaphylaxsi Verified 05/25/23 13:57 s Iodinated Contrast Media AdvReac Severe Anaphylaxsi Verified 05/25/23 13:57 [Iodinated Contrast Media - s IV Dye] ketorolac tromethamine AdvReac Severe Anaphylaxsi Verified 05/25/23 13:57 [From Toradol] s iodine AdvReac Intermediate Anaphylaxsi Verified 05/25/23 13:57 s lorazepam [From Ativan] AdvReac Intermediate Dizziness/L Verified 05/25/23 13:57 ightheade horse flies Allergy Severe Anaphylaxsi Uncoded 05/25/23 13:57 s General Stated Complaint: CVA/TIA CLARI: 2 PFSH All Active Problems (Updated 05/25/23 @ 14:58 by Tk Garcia MD) Tingling of both upper extremities (Acute) Vaginal atrophy (Acute) Abdominal bloating (Acute) Gait difficulty (Acute) Well woman exam with routine gynecological exam (Acute) Abnormal CT of the abdomen (Acute) Colitis (Acute) Anxiety about health (Acute) PONV (postoperative nausea and vomiting) (Acute) WOOD (generalized anxiety disorder) (Acute) Hypothyroidism (Acute) Secondary to thyroidectomy due to cancer Thyroid cancer (Acute) Papillary Adverse drug effect (Acute) Thoracic outlet syndrome (Acute) Neck pain (Acute) Panic attacks (Acute) Depression (Chronic) Difficulty with speech (Acute) Bilateral arm weakness (Acute) Bilateral leg weakness (Acute) Difficulty with speech (Acute) Breast lump on left side at 3 o'clock position (Acute) Weakness (Acute) Anxiety (Chronic) Fatigue (Acute) Headache (Acute) Blurred vision (Acute) Chest pain (Acute) Near syncope (Acute) Atypical chest pain (Acute) Medical History Anxiety Fatigue Functional neurological symptom disorder with mixed symptoms (~01/15/21) Surgical History H/O hand surgery cyst removal History of hysterectomy History of thyroidectomy S/P laparoscopic cholecystectomy Family History Mother Hypertension Social History Smoking/Tobacco Use Status: Never Smoking risk assessment performed?: Yes Alcohol Intake: never Drug use: Never Substance use type: does not use Household members: spouse and children Number of Children: 2 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[employer] Current gender identity: female What is your relationship status?: living with partner Panel score (0-1 are the most socially isolated patients): 1 Do you feel safe at home: Yes Do you feel safe in your relationship?: Yes History History 3 Para 2 Hx # Term Pregnancies 2 Multiple births Hx # Pregnancies 1 Ectopic pregnancies AB induced Hx Number of Living Children 2 AB spontaneous 1 Course Vital Signs Vital signs: Vital Signs Temperature 37.0 C 05/25/23 13:50 Pulse 104 H 05/25/23 13:50 Respiratory Rate 20 10/11/23 13:50 Blood Pressure 169/92 H 05/25/23 13:50 Pulse Oximetry 100 05/25/23 13:50 Temperature 37.0 C 05/25/23 13:50 Temperature Source Oral 05/25/23 13:50 Pulse 104 H 05/25/23 13:50 Respiratory Rate 20 05/25/23 13:50 Blood Pressure 169/92 H 05/25/23 13:50 Pulse Oximetry 100 05/25/23 13:50 Oxygen Delivery Method Room Air 05/25/23 13:50 Oxygen Flow Rate 0 05/25/23 13:50 Pain Level 0 05/25/23 13:50
--- NOTE | 2023-05-25 14:10 | DI.CT_ITS ---
Exam(s) CT HEAD WO EXAM: CT HEAD WO CLINICAL HISTORY: Tingling in arms. TECHNIQUE: Imaging Protocol: Axial computed tomography images with coronal and sagittal reformatted images were created and reviewed COMPARISON: CT CT HEAD WO from 02/06/2021 MR MR BRAIN WO from 02/05/2022 FINDINGS: Ventricles and Extra axial spaces: Normal in size and morphology for the patient's age. Hemorrhage: None. Cerebral parenchyma: No evidence of acute infarct or mass. Midline shift: None. Brainstem/Cerebellum: Normal. Calvarium: Normal. Visualized Paranasal sinuses/Mastoids: Clear. Soft Tissues: Unremarkable. IMPRESSION: No acute intracranial process. RADIATION DOSE DELIVERED: Total DLP DATA REPOSITORY: All CT scans at this facility are submitted to the National Radiology Data Registry (NRDR) Dose Index Registry (DIR) with the [employer] (ACR). RADIATION OPTIMIZATION: All CT scans at this facility use at least one of these dose optimization te chniques: automated exposure control; mA and/or kV adjustment per patient size (includes targeted exa ms where dose is matched to clinical indication); or iterative reconstruction.
[2023-05-25 14:26] LABS: Abs Immature Grans 0.04 10^3/uL (0.0-0.06); Absolute Basophil Count 0.07 10^3/uL (0.0-0.2); Absolute Eosinophil Count 0.23 10^3/uL (0.0-0.7); Absolute Lymphocyte Count 2.96 10^3/uL (1.2-3.4); Absolute Monocyte Count 0.47 10^3/uL (0.1-0.8); Absolute Neutrophil Count 6.19 10^3/uL (1.2-6.7); Basophils % 0.7; Eosinophils % 2.3; HCT 39.9 % (36.0-46.0); HGB 13.3 g/dL (11.2-15.7); Immature Grans % 0.4; Lymphocytes % 29.7; MCHC 33.3 % (32.0-36.0); MCV 90 fL (80-95); MPV 9.7 fL (8.0-11.0); Monocytes % 4.7; Neutrophils % 62.2; Platelet Count 363 10^3/uL (130-400); RBC 4.43 10^6/uL (3.93-5.22); RDW 12.3 % (11.7-14.6); RDW-SD 40.8 fL; WBC 9.96 10^3/uL (4.4-10.8)
--- NOTE | 2023-05-25 14:34 | DI.RAD_ITS ---
Exam(s) XR PORTABLE CHEST AP EXAM: XR PORTABLE CHEST AP CLINICAL HISTORY: Loss of balance TECHNIQUE: 2D digital imaging was performed. COMPARISON: CR,XR XR CHEST 2V PA LATERAL from 08/25/2021 FINDINGS: LUNGS: Clear. No pleural abnormality seen. HEART: Normal size. AORTA: Normal diameter. BONES: Unremarkable for age. Soft tissues: Unremarkable. IMPRESSION: No acute findings. DATA REPOSITORY: RADIATION DOSE DELIVERED:
[2023-05-25] MEDS: ACETAMINOPHEN 1,000 MG/100 ML BTL 400 MG IVPB (14:47)
[2023-05-25 14:48] LABS: Anion Gap 9.7 mmol/L (3-11); BUN 12 mg/dL (7-18); CO2 25.3 mmol/L (21.0-32.0); CREATININE 0.7 mg/dL (0.55-1.02); Chloride 103 mmol/L (98-107); Glucose 103 mg/dL (74-106); Magnesium 2.1 mg/dL (1.8-2.4); Potassium 3.5 mmol/L (3.5-5.1); Sodium 138 mmol/L (136-145); TSH (W/Ref FT4) 0.17 uIU/mL (0.36-3.74); Troponin I < 50 ng/L (<or=60)
[2023-05-25 15:05] LABS: FREE T4 1.32 ng/dL (0.76-1.46)
--- NOTE | 2023-05-25 16:11 | NUR.NOTE ---
1516 vital sign 68 entered as O2- this was an erroneous entry, the O2 was 98%, CLB
== END 2023-05-25 15:20 | disposition home or self-care (01) ==
PROVIDERS: Emergency Provider Emergency Medicine; PCP Physician Assistant
DX: R20.2 Paresthesia of skin (principal); F44.7 Conversion disorder with mixed symptom presentation; E89.0 Postprocedural hypothyroidism; Z85.850 Personal history of malignant neoplasm of thyroid
CPT/HCPCS: 80048; 82962; 93005; 99284; 70450; 71045; 83735; 84439; 84443; 84484; 84703; 85025; 93010; J0131

== ENCOUNTER 2023-07-20 13:27 | Outpatient (REF) | payer OTHER, SELFPAY ==
[2023-07-20 17:15] LABS: FREE T4 1.14 ng/dL (0.76-1.46); TSH 0.33 uIU/mL (0.36-3.74)
== END 2023-07-20 13:28 | disposition home or self-care (01) ==
LOC: NCHCN 13:27
PROVIDERS: PCP Physician Assistant; Visit Provider Physician Assistant
DX: E03.9 Hypothyroidism, unspecified (principal)
CPT/HCPCS: 84439; 84443

== ENCOUNTER 2023-10-19 10:58 | Outpatient (CLI) | payer OTHER, SELFPAY ==
[2023-10-19 11:50] LABS: FREE T4 1.17 ng/dL (0.76-1.46); TSH 1.78 uIU/Ml (0.36-3.74)
[2023-10-19 12:40] LABS: Vitamin B12 282 pg/mL (193-986)
== END 2023-10-19 10:59 | disposition home or self-care (01) ==
LOC: LBO 10:59
PROVIDERS: Psychiatry & Neurology Neurology; PCP Physician Assistant; Visit Provider Physician Assistant
DX: E03.9 Hypothyroidism, unspecified; R26.89 Other abnormalities of gait and mobility; G62.89 Other specified polyneuropathies
CPT/HCPCS: 36415; 82607; 84439; 84443

== ENCOUNTER 2023-12-20 13:31 | Outpatient (CLI) | payer OTHER, SELFPAY | END 2023-12-20 13:32 | disposition home or self-care (01) | PROVIDERS: PCP Physician Assistant; Visit Provider Physician Assistant | DX: R00.2 Palpitations (principal) | CPT/HCPCS: 93270 ==

== ENCOUNTER 2023-12-23 02:44 | Outpatient (CLI) | payer OTHER, SELFPAY ==
[2023-12-23 10:26] LABS: Calculated LDL 140 mg/dL (<100); Cholesterol 251 mg/dL (<200); HDL Cholesterol 84 mg/dL (40-60); Triglyceride 136 mg/dL (<150)
[2023-12-23 10:36] LABS: FREE T4 1.24 ng/dL (0.76-1.46); TSH 0.51 uIU/Ml (0.36-3.74)
== END 2023-12-23 02:45 | disposition home or self-care (01) ==
PROVIDERS: PCP Physician Assistant; Visit Provider Internal Medicine Endocrinology, Diabetes & Metabolism
DX: E89.0 Postprocedural hypothyroidism (principal); Z85.850 Personal history of malignant neoplasm of thyroid; E55.9 Vitamin D deficiency, unspecified
CPT/HCPCS: 36415; 80061; 84439; 84443

== ENCOUNTER 2023-12-28 05:03 | Outpatient (CLI) | payer OTHER, SELFPAY ==
[2023-12-28 15:37] LABS: HCT 40.3 % (36.0-46.0); HGB 13.2 g/dL (11.2-15.7); MCH 30.1 pg (27.0-33.0); MCHC 32.8 % (32.0-36.0); MCV 92 fL (80-95); MPV 9.7 fL (8.0-11.0); Platelet Count 324 10^3/uL (130-400); RBC 4.38 10^6/uL (3.93-5.22); RDW 12.2 % (11.7-14.6); RDW-SD 41.6 fL; WBC 12.87 10^3/uL (4.4-10.8)
[2023-12-28 16:35] LABS: Vitamin D 25 Total 22.2 ng/mL (30-100)
[2023-12-28 17:03] LABS: Vitamin B12 363 pg/mL (193-986)
[2023-12-31 14:03] LABS: Apolipoprotein A1 177 mg/dL (>=140)
== END 2023-12-28 05:04 | disposition home or self-care (01) ==
LOC: LBO 05:03
PROVIDERS: PCP Physician Assistant; Visit Provider Physician Assistant
DX: E03.9 Hypothyroidism, unspecified (principal); E78.5 Hyperlipidemia, unspecified; E55.9 Vitamin D deficiency, unspecified
CPT/HCPCS: 36415; 82306; 85027; 82172; 82607

== ENCOUNTER 2024-01-03 20:44 | Outpatient (REF) | payer OTHER, SELFPAY ==
[2024-01-03 21:38] LABS: COVID-19 PCR Negative (Negative); Influenza A PCR Negative (Negative); Influenza B PCR Negative (Negative); RSV PCR Negative (Negative)
[2024-01-03 21:41] LABS: Source NASOPHARYNX
== END 2024-01-03 20:45 | disposition home or self-care (01) ==
LOC: LBN 20:44
PROVIDERS: PCP Physician Assistant; Visit Provider Nurse Practitioner Family
DX: R68.89 Other general symptoms and signs (principal); J02.9 Acute pharyngitis, unspecified
CPT/HCPCS: 87637; 87070

== ENCOUNTER → 2024-01-05 00:47 | Outpatient (CLI) | payer OTHER, SELFPAY ==
--- NOTE | 2024-01-05 | ETT_ITS ---
APPROVED REPORT Exam: Exercise Treadmill Patient Location: Out-Patient Room/Bed: Stress Nurse: Brianne Denis RN Ordering Provider:RAVI GEMMA, Contact Number: [phone] BMI: 25.45 Baseline Rhythm: Sinus Rhythm Indications: Dizziness and giddiness, Medical History Medical History: Functional neurological symptom disorder with mixed symptoms, anxiety, fatigue, WOOD, hypothyroidism Cardiac Medications: Albuterol sulfate, epi-pen, levothyroxine Allergies: Gadolinium-containing contrast media, toradol, iodine, ativan Cardiac Risk Factors: Family hx, asthma Previous Cardiac Procedures: None Pretest Chest Pain Characteristics: None Exercise History: Physically active Physical Disabilities: None Lung Sounds: Clear to auscultation Heart Sounds: Regular Stress Test Details Test: Exercise stress testing was performed using a Harlan protocol. Rest Stress HR Resting HR Supine: 79 bpm Max Heart Rate (APMHR): 170 bpm Resting HR Standin bpm Target HR (85% APMHR): 145 bpm Max HR Achieved: 158 bpm % of APMHR: 93 Recovery HR: 88 bpm HR response to stress: Normal HR response to stress BP Resting BP Supine: 110/80 mmHg Resting BP Standin/82 mmHg Max BP: 186/90 mmHg Recovery BP: 130/76 mmHg BP response to stress: Normal blood pressure response to stress. ECG Resting ECG: Sinus Rhythm Ectopy: None Stress ECG: Sinus Tachycardia ST Change: No significant ST segment changes noted Arrhythmia: Occasional PAC's, occasional PVC's Recovery ECG: Sinus Rhythm Recovery ST Change: No significant ST segment changes noted Recovery Arrhythmia: Rare PVC Clinical Reason for Termination: Target HR Achieved, Fatigue Stress Symptoms: General Fatigue Exercise duration: 09 min45 sec Highest Stage Reached: Stage 3: 3.4 mph at 14% grade. Exercise capacity: 11.37 METs Angina Score: None Jacobson Treadmill Score: 9.3 Rate Pressure Product: [id number] Stress ECG Conclusion 1. Resting electrocardiogram was normal 2. The patient exercised on the Harlan protocol and completed a workload of 11.37 METS 3. Normal heart rate and blood pressure response to exercise. The patient achieved 93% of predicted heart rate for age 4. There was no electrocardiographic evidence of myocardial ischemia 5. There were no significant dysrhythmias Jacobson Treadmill Score is 9.3 which is Low risk. Stress Test Summary STAGE Time (mins) Speed (mph) Grade (%) HR BP SpO2 SYMPTOMS METS Supine 79 110/80 96 Standing 84 120/82 1 3 1.7 10 110 128/78 96 4.5 2 6 2.5 12 141 170/90 7 3 9 3.4 14 158 10 1 min recovery 133 186/90 97 3 min recovery 103 164/82 98 6 min recovery 88 130/76
== END ==
PROVIDERS: PCP Physician Assistant; Visit Provider Physician Assistant
DX: R42 Dizziness and giddiness (principal)
CPT/HCPCS: 93017

== ENCOUNTER 2024-01-23 07:08 | Outpatient (CLI) | payer OTHER, SELFPAY ==
--- NOTE | 2024-01-23 08:45 | CER_ITS ---
Date of service: 01/23/24 Time of Service: 08:45 Cardiac Event Recorder Referring Provider:: Abdon Muro Indications:: Palpitations Cardiac Event Note: This is a cardiac event monitor. Patient was monitored for 29 days and 6 hours Rhythm throughout with sinus. Average heart rate was 78. Minimum was 54, maximum 157 There were rare ventricular ectopic beats There were very rare atrial premature beats. There were several brief self- limited atrial runs. The longest of these was 5 beats in duration there was no atrial fibrillation, no high-grade AV block, no pauses greater than 3 seconds Patient symptoms corresponded to atrial and ventricular ectopics
== END 2024-01-23 07:09 | disposition home or self-care (01) ==
LOC: CARDOPNVT 07:08
PROVIDERS: PCP Physician Assistant; Visit Provider Internal Medicine Cardiovascular Disease
DX: R00.2 Palpitations (principal)

== ENCOUNTER 2024-03-23 01:06 | Outpatient (CLI) | payer OTHER, SELFPAY ==
[2024-03-23 14:52] LABS: TSH 0.52 uIU/Ml (0.36-3.74); Vitamin B12 328 pg/mL (193-986)
[2024-03-23 15:14] LABS: FREE T4 1.16 ng/dL (0.76-1.46)
== END 2024-03-23 01:07 | disposition home or self-care (01) ==
PROVIDERS: PCP Physician Assistant; Referring Provider Psychiatry & Neurology Neurology; Visit Provider Psychiatry & Neurology Neurology
DX: E53.8 Deficiency of other specified B group vitamins (principal)
CPT/HCPCS: 36415; 82607; 84439; 84443

== ENCOUNTER 2024-04-04 15:23 | Outpatient (CLI) | payer OTHER, SELFPAY ==
[2024-04-04 14:58] LABS: Abs Immature Grans 0.02 10^3/uL (0.0-0.06); Absolute Basophil Count 0.07 10^3/uL (0.0-0.2); Absolute Eosinophil Count 0.26 10^3/uL (0.0-0.7); Absolute Lymphocyte Count 3.08 10^3/uL (1.2-3.4); Absolute Monocyte Count 0.38 10^3/uL (0.1-0.8); Absolute Neutrophil Count 4.71 10^3/uL (1.2-6.7); Basophils % 0.8 %; Eosinophils % 3.1 %; HCT 43.2 % (36.0-46.0); HGB 13.8 g/dL (11.2-15.7); Immature Grans % 0.2 %; Lymphocytes % 36.2 %; MCH 29.4 pg (27.0-33.0); MCHC 31.9 % (32.0-36.0); MCV 92 fL (80-95); MPV 9.5 fL (8.0-11.0); Monocytes % 4.5 %; Neutrophils % 55.2 %; Platelet Count 339 10^3/uL (130-400); RBC 4.69 10^6/uL (3.93-5.22); RDW 12.7 % (11.7-14.6); RDW-SD 42.6 fL; WBC 8.52 10^3/uL (4.4-10.8)
[2024-04-04 16:05] LABS: ALT 22 U/L (14-59); AST 15 U/L (15-37); Albumin 4.6 g/dL (3.4-5.0); Alkaline Phosphatase 134 U/L (46-116); Anion Gap 9.9 mmol/L (3-11); BUN 12 mg/dL (7-18); Bilirubin, Total 0.25 mg/dL (0.2-1.0); CO2 29.1 mmol/L (21.0-32.0); CREATININE 0.8 mg/dL (0.55-1.02); Calcium 9.9 mg/dL (8.5-10.1); Chloride 101 mmol/L (98-107); Estimated GFR 89.15 (mL/min/1.73m2); Glucose 87 mg/dL (74-106); Potassium 4.1 mmol/L (3.5-5.1); Sodium 140 mmol/L (136-145); Total Protein 8.6 g/dL (6.4-8.2)
[2024-04-04 16:31] LABS: Lipase 45 U/L (16-77)
== END 2024-04-04 15:24 | disposition home or self-care (01) ==
LOC: LBO 15:24
PROVIDERS: PCP Physician Assistant; Visit Provider Emergency Medicine Emergency Medical Services
DX: R10.11 Right upper quadrant pain (principal)
CPT/HCPCS: 36415; 80053; 83690; 85025

== ENCOUNTER 2024-04-12 04:11 | Outpatient (CLI) | payer OTHER, SELFPAY ==
[2024-04-12 13:11] LABS: ALT 17 U/L (14-59); AST 17 U/L (15-37); Albumin 4.1 g/dL (3.4-5.0); Alkaline Phosphatase 122 U/L (46-116); Bilirubin, Direct 0.1 mg/dL (0.0-0.2); Bilirubin, Total 0.36 mg/dL (0.2-1.0); Total Protein 8.3 g/dL (6.4-8.2)
== END 2024-04-12 04:12 | disposition home or self-care (01) ==
LOC: LBO 04:11
PROVIDERS: PCP Physician Assistant; Visit Provider Physician Assistant
DX: R10.11 Right upper quadrant pain (principal)
CPT/HCPCS: 36415; 80076

== ENCOUNTER 2024-06-15 02:02 | Outpatient (CLI) | payer OTHER, SELFPAY ==
[2024-06-15 09:44] LABS: HCT 38.3 % (36.0-46.0); HGB 12.4 g/dL (11.2-15.7); MCH 29.8 pg (27.0-33.0); MCHC 32.4 % (32.0-36.0); MCV 92 fL (80-95); MPV 9.7 fL (8.0-11.0); Platelet Count 298 10^3/uL (130-400); RBC 4.16 10^6/uL (3.93-5.22); RDW 13.1 % (11.7-14.6); RDW-SD 44.4 fL; WBC 6.85 10^3/uL (4.4-10.8)
[2024-06-15 10:40] LABS: ALT 28 U/L (14-59); AST 19 U/L (15-37); Alkaline Phosphatase 117 U/L (46-116); Anion Gap 9.9 mmol/L (3-11); BUN 14 mg/dL (7-18); Bilirubin, Total 0.39 mg/dL (0.2-1.0); CO2 27.1 mmol/L (21.0-32.0); CREATININE 0.9 mg/dL (0.55-1.02); Calcium 9.6 mg/dL (8.5-10.1); Calculated LDL 117 mg/dL (<100); Chloride 105 mmol/L (98-107); Cholesterol 221 mg/dL (<200); Glucose 95 mg/dL (74-106); HDL Cholesterol 86 mg/dL (40-60); Potassium 4.7 mmol/L (3.5-5.1); Sodium 142 mmol/L (136-145); Total Protein 8.2 g/dL (6.4-8.2); Triglyceride 90 mg/dL (<150); Vitamin B12 395 pg/mL (193-986)
[2024-06-15 10:44] LABS: FREE T4 1.09 ng/dL (0.76-1.46); TSH 0.33 uIU/mL (0.36-3.74)
[2024-06-15 10:57] LABS: GGT 14 U/L
== END 2024-06-15 02:03 | disposition home or self-care (01) ==
PROVIDERS: PCP Physician Assistant; Visit Provider Internal Medicine Endocrinology, Diabetes & Metabolism
DX: E89.0 Postprocedural hypothyroidism (principal); Z85.850 Personal history of malignant neoplasm of thyroid; E55.9 Vitamin D deficiency, unspecified; R74.8 Abnormal levels of other serum enzymes; E53.8 Deficiency of other specified B group vitamins; E78.5 Hyperlipidemia, unspecified
CPT/HCPCS: 36415; 80053; 80061; 82306; 85027; 82607; 82977; 84439; 84443

== ENCOUNTER 2024-10-18 03:00 | Outpatient (CLI) | payer OTHER, SELFPAY ==
[2024-10-18 12:02] LABS: Vitamin B12 287 pg/mL (193-986); Vitamin D 25 Total 23.8 ng/mL (30-100)
[2024-10-18 17:48] LABS: T4, Free 1.3 ng/dL (0.8-2.2)
== END 2024-10-18 03:01 | disposition home or self-care (01) ==
PROVIDERS: Internal Medicine Endocrinology, Diabetes & Metabolism; PCP Physician Assistant; Visit Provider Psychiatry & Neurology Neurology
DX: E53.8 Deficiency of other specified B group vitamins (principal); R53.83 Other fatigue
CPT/HCPCS: 36415; 82306; 82607; 84439; 84443

== ENCOUNTER 2024-12-08 14:13 | Outpatient (REF) | payer OTHER, SELFPAY ==
[2024-12-08 15:55] LABS: Bilirubin Negative (Negative); Blood Negative (Negative); Clarity Clear (Clear); Glucose Negative (Negative); Ketones Negative (Negative); Leukocyte Esterase Negative (Negative); Nitrite Negative (Negative); Urobilinogen 0.2 mg/dL (Up to 0.2)
== END 2024-12-08 14:14 | disposition home or self-care (01) ==
LOC: LBN 14:13
PROVIDERS: PCP Physician Assistant; Visit Provider Physician Assistant
DX: R30.0 Dysuria (principal)
CPT/HCPCS: 81003

== ENCOUNTER 2024-12-17 12:57 | Outpatient (REF) | payer OTHER, SELFPAY ==
[2024-12-18 22:11] LABS: Campylobacter PCR Negative (Negative); Salmonella PCR Negative (Negative); Shiga Toxin PCR Negative (Negative); Shigella/Enteroinvasive Ecoli Negative (Negative)
[2024-12-21 23:26] LABS: Calprotectin <50.0 mcg/g
== END 2024-12-17 12:58 | disposition home or self-care (01) ==
LOC: NCHCN 12:57
PROVIDERS: PCP Physician Assistant; Visit Provider Physician Assistant
DX: R19.7 Diarrhea, unspecified (principal)
CPT/HCPCS: 87015; 87269; 87272; 87505; 83993

== ENCOUNTER 2024-12-21 19:23 | Outpatient (CLI) | payer OTHER, SELFPAY ==
--- NOTE | 2024-12-21 | DI.RAD_ITS ---
Exam(s) XR LUMBAR SPINE COMPLETE EXAM: XR LUMBAR SPINE COMPLETE CLINICAL HISTORY: low back pain, eval pathology M54.50. TECHNIQUE: 2D digital imaging was performed. COMPARISON: CR XR DEXA BONE DENSITY W/WO HOOD from 01/07/2023 FINDINGS: Five views. There is transitional anatomy here. There is a transitional lumbosacral vertebra. There is no evidence of fracture, listhesis, nor pars interarticularis defects. Disc spaces exhibit normal height although there is mild anterior osseous lipping at L4-5 and L3-4 levels. There are que e degenerative changes in the right facet joints at the lower 2 levels.. Bone density normal. No os seous lesions. There is no scoliosis. Sacroiliac joints appear unremarkable. Surgical clips in the right upper quadrant indicate prior cholecystectomy IMPRESSION: No acute osseous findings in the lumbar spine. Degenerative facet arthropathy noted in right facet joints of the lower 2 levels. DATA REPOSITORY: RADIATION DOSE DELIVERED:
--- NOTE | 2024-12-21 20:27 | DI.VRAD_ITS ---
PROCEDURE INFORMATION: Exam: XR Lumbosacral Spine Exam date and time: 12/21/2024 7:38 PM Age: 49 years old Clinical indication: Low back pain, eval pathology TECHNIQUE: Imaging protocol: Radiologic exam of the lumbosacral spine. Views: 4 or 5 views. COMPARISON: MR LUMBAR SPINE WO 01/15/2021 1:30 PM FINDINGS: Bones/joints: Normal. No acute fracture. Normal alignment. Soft tissues: Unremarkable. Organs: Prior cholecystectomy. IMPRESSION: No acute findings by plain film. Dictated and Authenticated by: Mark Chapman MD. Orderin Annemarie Lawrence MD
== END 2024-12-21 19:43 ==
LOC: DI 19:24
PROVIDERS: PCP Physician Assistant; Visit Provider Nurse Practitioner Family
DX: M51.360 Other intervertebral disc degeneration, lumbar region with discogenic back pain only (principal)
CPT/HCPCS: 72110

== ENCOUNTER 2025-01-01 19:01 | Outpatient (REF) | payer OTHER, SELFPAY ==
[2025-01-01 15:29] LABS: Abs Immature Grans 0.02 10^3/uL (0.0-0.06); Absolute Basophil Count 0.08 10^3/uL (0.0-0.2); Absolute Eosinophil Count 0.17 10^3/uL (0.0-0.7); Absolute Lymphocyte Count 2.29 10^3/uL (1.2-3.4); Eosinophils % 2.1 %; HCT 39.8 % (36.0-46.0); HGB 13.4 g/dL (11.2-15.7); Immature Grans % 0.3 %; Lymphocytes % 28.8 %; MCH 30.3 pg (27.0-33.0); MCHC 33.7 % (32.0-36.0); MCV 90 fL (80-95); MPV 10.9 fL (8.0-11.0); Neutrophils % 62.8 %; Platelet Count 341 10^3/uL (130-400); RBC 4.42 10^6/uL (3.93-5.22); RDW 12.5 % (11.7-14.6); RDW-SD 41.5 fL; WBC 7.96 10^3/uL (4.4-10.8)
[2025-01-01 15:58] LABS: ALT 17 U/L (14-59); AST 16 U/L (15-37); Albumin 4.7 g/dL (3.4-5.0); Alkaline Phosphatase 127 U/L (46-116); Anion Gap 11.7 mmol/L (3-11); BUN 21 mg/dL (7-18); Bilirubin, Total 0.4 mg/dL (0.2-1.0); CO2 26.3 mmol/L (21.0-32.0); CREATININE 0.9 mg/dL (0.55-1.02); Calcium 10.4 mg/dL (8.5-10.1); Chloride 104 mmol/L (98-107); Glucose 105 mg/dL (74-106); PHOSPHORUS 3.4 mg/dL (2.6-4.7); Potassium 4.4 mmol/L (3.5-5.1); Sodium 142 mmol/L (136-145); Total Protein 8.5 g/dL (6.4-8.2)
[2025-01-01 22:40] LABS: Parathyroid Hormone,Intact 45 pg/mL (19-88)
[2025-01-02 12:15] LABS: Vitamin D 25 Total 26 ng/mL (30-100)
== END 2025-01-01 19:02 | disposition home or self-care (01) ==
LOC: NCHCN 19:01
PROVIDERS: PCP Physician Assistant; Visit Provider Student in an Organized Health Care Education/Training Program
DX: R10.30 Lower abdominal pain, unspecified (principal); R74.8 Abnormal levels of other serum enzymes
CPT/HCPCS: 80053; 82306; 82330; 83970; 84100; 85025

== ENCOUNTER 2025-01-02 11:23 | Outpatient (CLI) | payer OTHER, SELFPAY | END 2025-01-02 11:24 | disposition home or self-care (01) | LOC: LBO 11:23 | PROVIDERS: PCP Physician Assistant; Visit Provider Student in an Organized Health Care Education/Training Program | DX: R10.30 Lower abdominal pain, unspecified (principal); R74.8 Abnormal levels of other serum enzymes | CPT/HCPCS: 36415; 82330 ==

== ENCOUNTER 2025-01-04 19:07 | Outpatient (CLI) | payer OTHER, SELFPAY ==
[2025-01-08 13:15] LABS: Albumin 59.4 % (55.8-66.1); Albumin g/dL 4.8 g/dL (3.6-5.2); Total Protein 8.1 g/dL (6.3-8.2)
== END 2025-01-04 19:08 | disposition home or self-care (01) ==
LOC: LBO 19:07
PROVIDERS: PCP Physician Assistant; Visit Provider Student in an Organized Health Care Education/Training Program
DX: R77.9 Abnormality of plasma protein, unspecified (principal)
CPT/HCPCS: 36415; 84165

== ENCOUNTER 2025-01-12 13:52 | Outpatient (REF) | payer OTHER, SELFPAY ==
[2025-01-12 15:54] LABS: Bilirubin Negative (Negative); Blood Negative (Negative); Clarity Clear (Clear); Glucose Negative (Negative); Ketones Negative (Negative); Leukocyte Esterase Negative (Negative); Nitrite Negative (Negative); Specific Gravity <= 1.005 (1.005-1.025); Urobilinogen 0.2 mg/dL (Up to 0.2)
== END 2025-01-12 13:53 | disposition home or self-care (01) ==
LOC: LBN 13:52
PROVIDERS: PCP Physician Assistant; Visit Provider Physician Assistant Medical
DX: R30.0 Dysuria (principal)
CPT/HCPCS: 81003

== ENCOUNTER 2025-01-14 16:12 | Outpatient (REF) | payer OTHER, SELFPAY ==
[2025-01-14 15:35] LABS: Abs Immature Grans 0.02 10^3/uL (0.0-0.06); Absolute Basophil Count 0.07 10^3/uL (0.0-0.2); Absolute Eosinophil Count 0.13 10^3/uL (0.0-0.7); Absolute Lymphocyte Count 1.97 10^3/uL (1.2-3.4); Absolute Monocyte Count 0.36 10^3/uL (0.1-0.8); Absolute Neutrophil Count 5.26 10^3/uL (1.2-6.7); Basophils % 0.9 %; Eosinophils % 1.7 %; HCT 38.9 % (36.0-46.0); HGB 12.8 g/dL (11.2-15.7); Immature Grans % 0.3 %; Lymphocytes % 25.2 %; MCH 29.8 pg (27.0-33.0); MCHC 32.9 % (32.0-36.0); MCV 91 fL (80-95); MPV 10.6 fL (8.0-11.0); Monocytes % 4.6 %; Neutrophils % 67.3 %; Platelet Count 358 10^3/uL (130-400); RBC 4.29 10^6/uL (3.93-5.22); RDW 12.7 % (11.7-14.6); RDW-SD 41.6 fL; WBC 7.81 10^3/uL (4.4-10.8)
[2025-01-14 15:38] LABS: ESR 34 mm/hr (0-30)
[2025-01-14 15:48] LABS: ALT 16 U/L (14-59); AST 15 U/L (15-37); Albumin 4.4 g/dL (3.4-5.0); Alkaline Phosphatase 126 U/L (46-116); Anion Gap 10.2 mmol/L (3-11); BUN 14 mg/dL (7-18); Bilirubin, Total 0.3 mg/dL (0.2-1.0); CO2 28.8 mmol/L (21.0-32.0); CREATININE 0.8 mg/dL (0.55-1.02); Chloride 103 mmol/L (98-107); Estimated GFR 89.15 (mL/min/1.73m2); Glucose 90 mg/dL (74-106); Potassium 4.1 mmol/L (3.5-5.1); Sodium 142 mmol/L (136-145)
== END 2025-01-14 16:13 | disposition home or self-care (01) ==
LOC: NCHCN 16:12
PROVIDERS: PCP Physician Assistant; Visit Provider Student in an Organized Health Care Education/Training Program
DX: R10.30 Lower abdominal pain, unspecified (principal)
CPT/HCPCS: 80053; 85652; 86141; 85025

== ENCOUNTER 2025-01-21 10:37 | Emergency (ER) | payer OTHER, SELFPAY ==
--- NOTE | 2025-01-21 10:30 | RT.EKG_ITS ---
APPROVED REPORT Exam: Resting ECG Reason for Exam: Chest pain Patient Location: E HR:69 bpm ECG Measurements Heart Rate 69 AXIS FL 135 P 35 QRSd 81 QRS 62 QT 394 T 33 QTc 424 Conclusion Sinus rhythm, rate 69 No interval abnormalities No STEMI No significant changes from priors
[2025-01-21 10:40] VITALS: BP 144/79; PULSE 76; RESP 20; TEMP 36.1; O2SAT 98
--- NOTE | 2025-01-21 10:51 | W.ED.GENAD ---
Discharge Plan Disposition Patient Disposition: Home Condition: Stable Discharge Details Clinical Impression: Chest pain Primary Care Provider: Abdon Muro ED Provider: Belkis Santos Home Meds and New Rx's Prescriptions: Continued albuterol sulfate [Proventil HFA] 90 mcg/actuation HFA aerosol inhaler 2 puff inhalation Q6H PRN (Reason: shortness of breath or wheezing) Qty: 8.5 0RF levothyroxine 88 mcg capsule 88 mcg PO DAILY levothyroxine 100 mcg tablet 100 mcg PO DAILY epinephrine 0.3 MG/SYR auto-injector 0.3 mg IJ PRN PRN (Reason: Allergy Symptoms) Qty: 1 0RF Discharge Instructions Instructions: Costochondritis, Chest Pain, Adult ED Additional Instructions: This time your cardiac workup is within normal limits. No evidence of pulmonary embolism no evidence of pneumonia. There is a focal density in the right middle lobe however it appears that it is not changed from a CT scan performed in 2021. Please discuss these findings in your visit today with your primary care provider. Also discuss if you need to have a outpatient stress test or echocardiogram if you continue to have chest pain. Return to the ER if you have any significantly worsening chest pain, shortness of breath, trouble breathing, tachycardia fever vomiting or concerns. You may alternate ice and heat for your chest pain. Follow up with primary care provider in 3-5 days. Return to ED sooner if any worsening or concerns. Thank you for allowing us to care for you today. Referrals: Abdon Muro [Primary Care Provider] - 3 days HPI General Mode of arrival: ambulatory. Date/Time Provider Initiated Documentation: 01/21/25 10:38. Limitations to Documentation: no limitations. Information obtained by: patient, family, RN notes reviewed and old records reviewed. HPI Narrative: 49-year-old female presents to the ER with a chief complaint of midsternal chest pain and left arm burning. Patient woke up with the pain. No significant cardiac history. She reports that she has 6 out of 10 chest pain however the sensation in her arm has subsided. She does have a past medical history of hypothyroidism, functional neurological disorder, anxiety and fatigue. Surgical history includes thyroidectomy, cholecystectomy hysterectomy. She denies any neck pain. Denies any shortness of breath. She was recently diagnosed with a distal ureter kidney stone and obstruction which she has an appointment with urology tomorrow. Reports urinary frequency. Denies any fever however she does report cold and hot flashes. No reports of recent trips in a plane or car, she is a non-smoker. Not currently on any hormonal replacement therapy. Related Data Home Medications ?Medication ?Instructions ?Recorded ?Confirmed epinephrine 0.3 mg/0.3 mL 0.3 mg (0.3 mL) IJ PRN PRN Allergy 03/27/15 01/21/25 injection, auto-injector Symptoms ##1 albuterol sulfate 90 mcg/actuation 2 puff inhalation Q6H PRN 03/13/21 01/21/25 aerosol inhaler (Proventil HFA) shortness of breath or wheezing #8.5 grams levothyroxine 100 mcg tablet 100 mcg PO DAILY 01/03/23 01/21/25 levothyroxine 88 mcg capsule 88 mcg PO DAILY 03/01/24 01/21/25 Previous Rx's ?Medication ?Instructions ?Recorded epinephrine 0.3 mg/0.3 mL 0.3 mg (0.3 mL) IJ PRN PRN Allergy 03/27/15 injection, auto-injector Symptoms ##1 albuterol sulfate 90 mcg/actuation 2 puff inhalation Q6H PRN 03/13/21 aerosol inhaler (Proventil HFA) shortness of breath or wheezing #8.5 grams Allergies Allergy/AdvReac Type Severity Reaction Status Date / Time Gadolinium-Containing Allergy Severe Anaphylaxis Verified 01/21/25 10:47 [place] [facility] [place] Penicillins Allergy Severe Anaphylaxsi Verified 01/21/25 10:47 s Sulfa (Sulfonamide Allergy Severe Anaphylaxsi Verified 01/21/25 10:47 Antibiotics) s venom-honey bee (bee venom Allergy Severe Anaphylaxsi Verified 01/21/25 10:47 (honey bee)) s citalopram Allergy Mild Hives Verified 01/21/25 10:47 ofloxacin (From Floxin) Allergy Mild Skin Rash Verified 01/21/25 10:47 naproxen (From Aleve) Allergy Anaphylaxis Verified 01/21/25 10:47 azithromycin (From Zithromax) AdvReac Severe Anaphylaxsi Verified 01/21/25 10:47 s Iodinated Contrast Media AdvReac Severe Anaphylaxsi Verified 01/21/25 10:47 (Iodinated Contrast Media - s IV Dye) ketorolac tromethamine (From AdvReac Severe Anaphylaxsi Verified 01/21/25 10:47 Toradol) s iodine AdvReac Intermediate Anaphylaxsi Verified 01/21/25 10:47 s lorazepam (From Ativan) AdvReac Intermediate Dizziness/L Verified 01/21/25 10:47 ightheade horse flies Allergy Severe Anaphylaxsi Uncoded 01/21/25 10:47 s General Stated Complaint: Chest Pain CLARI: 3 Review of Systems All systems reviewed & are unremarkable except as noted in HPI and below Cardiovascular Cardiovascular: Reports as per HPI, Reports chest pain, Denies leg edema and Reports radiating jaw, neck or arm pain Exam Narrative Exam Narrative: Constitutional: Alert and oriented x3. Appears stated age. Normal body habitus. Appears anxious. Head: Normocephalic, no trauma. Eyes: Pupils PERRL, Red reflex noted, EOM's intact. Eyelids symmetrical without lesions, discharge, or swelling. ENT: Bilateral TM's WNL, External ear normal to inspection, no mastoid TTP, swelling, or erythema, Nasal turbinates WNL, no nasal discharge. Normal dentition, Posterior pharynx WNL, no exudate. Chest: RRR, Normal S1, S2, distal pulses intact. Resp: Lungs clear to auscultation bilaterally, no wheezes, rales, or rhonchi. Abdomen: Soft, non-distended, Normoactive bowel sounds all 4 quads. Musculoskeletal: Normal gait, Moves all 4 extremities without difficulty. Skin: No suspicious rashes or lesions. Capillary refill less than 2 sec. Neurologic: Cranial nerves II-XII intact. Alert and oriented x 3. Motor: No deficits noted. Sensory: Intact bilaterally all 4 extremities. Hematologic/Lymphatic: No ecchymosis, no lymphadenopathy. Course Vital Signs Vital signs: Vital Signs Temperature 36.1 C L 01/21/25 10:40 Pulse 76 01/21/25 10:40 Respiratory Rate 20 01/21/25 10:40 Blood Pressure 144/79 H 01/21/25 10:40 Pulse Oximetry 98 01/21/25 10:40 Temperature 36.1 C L 01/21/25 10:40 Pulse 76 01/21/25 10:40 Respiratory Rate 20 01/21/25 10:40 Blood Pressure 144/79 H 01/21/25 10:40 Blood Pressure Position Sitting 01/21/25 10:40 Pulse Oximetry 98 01/21/25 10:40 Oxygen Delivery Method Room Air 01/21/25 10:40 Oxygen Flow Rate 0 01/21/25 10:40 Medical Decision Making 49-year-old female presents to the ER with a chief complaint of midsternal chest pain and left arm burning. Patient woke up with the pain. No significant cardiac history. She reports that she has 6 out of 10 chest pain however the sensation in her arm has subsided. She does have a past medical history of hypothyroidism, functional neurological disorder, anxiety and fatigue. Surgical history includes thyroidectomy, cholecystectomy hysterectomy. She denies any neck pain. Denies any shortness of breath. She was recently diagnosed with a distal ureter kidney stone and obstruction which she has an appointment with urology tomorrow. Reports urinary frequency. Denies any fever however she does report cold and hot flashes. No reports of recent trips in a plane or car, she is a non-smoker. Not currently on any hormonal replacement therapy. EKG was reviewed by myself and Dr. Poe ER attending, old EKG available for review, normal sinus rhythm no ischemic changes. See official report. Cardiac workup ordered including CBC CMP, D-dimer, serial troponins, lipase. Chest x-ray. Patient does have a history of allergic reaction to NSAIDs and Toradol, she is unsure if she is able to take aspirin at this time. Will hold off until lab work results. Differential diagnosis include [place] to CAD, pneumonia, PE, costochondritis, GERD, anxiety. Initial workup is unremarkable, no leukocytosis D-dimer less than 500, sodium 142 potassium 3.6 glucose 110, initial troponin within normal limits, chest x-ray shows a dense asymmetrical lesion in the right lower and right middle lobe recommend follow-up CT. CT chest without contrast ordered. Awaiting serial troponin. Repeat troponin is 8 and downtrending which is reassuring. CT shows a hyperdensity in the right lobe that is unchanged from previous images. I discussed at length with patient and visitor [place]. All of her questions were answered to the best my ability. At this time PE can be ruled out due to negative D-dimer, no tachycardia, no hypoxia, no recent trips in a car plane, no leg swelling no's smoking, no hormone replacement. She reports that the pain is worse with movement and palpation. I do suspect musculoskeletal in origin. However I did tell her to follow-up with her primary care provider for stress testing and echocardiogram if feasible. To return to the emergency department for any significantly worsening chest pain, shortness of breath dizziness lightheadedness or any concerns. This text was generated using [employer] system, please disregard any oddities of phrase or misspellings. Medical Records Medical records reviewed: Yes I reviewed the patient's medical records. Imaging Data Radiologic Study: Imaging: X-Ray Radiologist's impression: EXAM: XR CHEST 2V PA LATERAL CLINICAL HISTORY: Chest pain. TECHNIQUE: 2D digital imaging was performed. COMPARISON: CT CT ABDOMEN PELVIS WO from 09/20/2021 CR XR PORTABLE CHEST AP from 05/25/2023 FINDINGS: 2 views: Heart size is normal. The mediastinum is not widened. Left lung is clear. Small density noted adjacent to the right cardiac border seen on the frontal view. Possibly in the medial segment of the right middle lobe or right lower lobe. There is only seen on the frontal view. There are no pleural effusions. IMPRESSION: Asymmetric density measuring 1.7 x 1.6 cm adjacent to the right heart border, possibly significant. Follow-up CT scan recommended. Lab Data Lab results reviewed: Yes I reviewed the patient's lab results. Labs: Laboratory Tests Range/Units 01/21/25 01/21/25 01/21/25 11:09 11:20 12:19 WBC (4.4-10.8) 10^3/uL 8.11 RBC (3.93-5.22) 10^6/uL 4.11 Hgb (11.2-15.7) g/dL 12.4 Hct (36.0-46.0) % 36.9 MCV (80-95) fL 90 MCH (27.0-33.0) pg 30.2 MCHC (32.0-36.0) % 33.6 RDW (11.7-14.6) % 12.4 Plt Count (130-400) 10^3/uL 322 MPV (8.0-11.0) fL 9.7 Immature Gran % % 0.2 Neutrophils % % 63.6 Lymphocytes % % 28.2 Monocytes % % 5.3 Eosinophils % % 2.1 Basophils % % 0.6 Nucleated RBC % (0.0-0.3) % 0.0 Absolute Neutrophils (1.2-6.7) 10^3/uL 5.15 Absolute Lymphocytes (1.2-3.4) 10^3/uL 2.29 Absolute Monocytes (0.1-0.8) 10^3/uL 0.43 Absolute Eosinophils (0.0-0.7) 10^3/uL 0.17 Absolute Basophils (0.0-0.2) 10^3/uL 0.05 D-Dimer (<500) ng/mlFEU 487 Sodium (136-145) mmol/L 142 Potassium (3.5-5.1) mmol/L 3.6 Chloride (98-107) mmol/L 105 Carbon Dioxide (21.0-32.0) mmol/L 27.0 Anion Gap (3-11) mmol/L 10.0 BUN (7-18) mg/dL 10 Creatinine (0.55-1.02) mg/dL 0.9 Est GFR (CKD-EPI 2020) (mL/min/1.73m2) 77.40 Glucose (74-106) mg/dL 110 H Calcium (8.5-10.1) mg/dL 9.7 Magnesium (1.8-2.4) mg/dL 1.9 Total Bilirubin (0.2-1.0) mg/dL 0.4 AST (15-37) U/L 14 L ALT (14-59) U/L 15 Alkaline Phosphatase (46-116) U/L 115 Troponin I (<or=51) ng/L 9 8 Total Protein (6.4-8.2) g/dL 8.5 H Albumin (3.4-5.0) g/dL 4.3 Lipase (<78) U/L 35 Range/Units 01/21/25 13:59 WBC (4.4-10.8) 10^3/uL RBC (3.93-5.22) 10^6/uL Hgb (11.2-15.7) g/dL Hct (36.0-46.0) % MCV (80-95) fL MCH (27.0-33.0) pg MCHC (32.0-36.0) % RDW (11.7-14.6) % Plt Count (130-400) 10^3/uL MPV (8.0-11.0) fL Immature Gran % % Neutrophils % % Lymphocytes % % Monocytes % % Eosinophils % % Basophils % % Nucleated RBC % (0.0-0.3) % Absolute Neutrophils (1.2-6.7) 10^3/uL Absolute Lymphocytes (1.2-3.4) 10^3/uL Absolute Monocytes (0.1-0.8) 10^3/uL Absolute Eosinophils (0.0-0.7) 10^3/uL Absolute Basophils (0.0-0.2) 10^3/uL D-Dimer (<500) ng/mlFEU Sodium (136-145) mmol/L Potassium (3.5-5.1) mmol/L Chloride (98-107) mmol/L Carbon Dioxide (21.0-32.0) mmol/L Anion Gap (3-11) mmol/L BUN (7-18) mg/dL Creatinine (0.55-1.02) mg/dL Est GFR (CKD-EPI 2020) (mL/min/1.73m2) Glucose (74-106) mg/dL Calcium (8.5-10.1) mg/dL Magnesium (1.8-2.4) mg/dL Total Bilirubin (0.2-1.0) mg/dL AST (15-37) U/L ALT (14-59) U/L Alkaline Phosphatase (46-116) U/L Troponin I (<or=51) ng/L Cancelled Total Protein (6.4-8.2) g/dL Albumin (3.4-5.0) g/dL Lipase (<78) U/L Quality:SDOH Health Related Social Needs: No Data to Display PFSH All Active Problems (Updated 01/21/25 @ 14:32 by Belkis Santos NP) Chest pain (Acute) Microscopic hematuria (Acute) B12 deficiency (Acute) Vaginal atrophy (Acute) Abdominal bloating (Acute) Gait difficulty (Acute) Well woman exam with routine gynecological exam (Acute) Abnormal CT of the abdomen (Acute) Colitis (Acute) Anxiety about health (Acute) PONV (postoperative nausea and vomiting) (Acute) WOOD (generalized anxiety disorder) (Acute) Hypothyroidism (Acute) Secondary to thyroidectomy due to cancer Thyroid cancer (Acute) Papillary Adverse drug effect (Acute) Thoracic outlet syndrome (Acute) Neck pain (Acute) Panic attacks (Acute) Depression (Chronic) Difficulty with speech (Acute) Bilateral arm weakness (Acute) Bilateral leg weakness (Acute) Difficulty with speech (Acute) Breast lump on left side at 3 o'clock position (Acute) Weakness (Acute) Anxiety (Chronic) Fatigue (Acute) Headache (Acute) Blurred vision (Acute) Chest pain (Acute) Near syncope (Acute) Atypical chest pain (Acute) Medical History Functional neurological symptom disorder with mixed symptoms (~01/15/21) Anxiety Fatigue Surgical History S/P laparoscopic cholecystectomy History of thyroidectomy H/O hand surgery cyst removal History of hysterectomy Family History Mother Hypertension Social History Smoking/Tobacco Use Status: Never Smoking risk assessment performed?: Yes Alcohol Intake: never Drug use: Never Substance use type: does not use Household members: spouse and children Number of Children: 4 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
[2025-01-21 10:52] VITALS: RESP 16
--- NOTE | 2025-01-21 11:00 | DI.RAD_ITS ---
Exam(s) XR CHEST 2V PA LATERAL EXAM: XR CHEST 2V PA LATERAL CLINICAL HISTORY: Chest pain. TECHNIQUE: 2D digital imaging was performed. COMPARISON: CT CT ABDOMEN PELVIS WO from 09/20/2021 CR XR PORTABLE CHEST AP from 05/25/2023 FINDINGS: 2 views: Heart size is normal. The mediastinum is not widened. Left lung is clear. Small density noted adjacent to the right cardiac border seen on the frontal vie w. Possibly in the medial segment of the right middle lobe or right lower lobe. There is only seen on the frontal view. There are no pleural effusions. IMPRESSION: Asymmetric density measuring 1.7 x 1.6 cm adjacent to the right heart border, possibly significant. Follow-up CT scan recommended. DATA REPOSITORY: RADIATION DOSE DELIVERED:
[2025-01-21 11:22] LABS: Abs Immature Grans 0.02 10^3/uL (0.0-0.06); Absolute Basophil Count 0.05 10^3/uL (0.0-0.2); Absolute Eosinophil Count 0.17 10^3/uL (0.0-0.7); Absolute Lymphocyte Count 2.29 10^3/uL (1.2-3.4); Absolute Monocyte Count 0.43 10^3/uL (0.1-0.8); Absolute Neutrophil Count 5.15 10^3/uL (1.2-6.7); Basophils % 0.6 %; Eosinophils % 2.1 %; HCT 36.9 % (36.0-46.0); HGB 12.4 g/dL (11.2-15.7); Immature Grans % 0.2 %; Lymphocytes % 28.2 %; MCH 30.2 pg (27.0-33.0); MCHC 33.6 % (32.0-36.0); MCV 90 fL (80-95); MPV 9.7 fL (8.0-11.0); Monocytes % 5.3 %; Neutrophils % 63.6 %; Platelet Count 322 10^3/uL (130-400); RBC 4.11 10^6/uL (3.93-5.22); RDW 12.4 % (11.7-14.6); RDW-SD 40.7 fL; WBC 8.11 10^3/uL (4.4-10.8)
[2025-01-21 11:39] LABS: ALT 15 U/L (14-59); AST 14 U/L (15-37); Albumin 4.3 g/dL (3.4-5.0); Alkaline Phosphatase 115 U/L (46-116); BUN 10 mg/dL (7-18); Bilirubin, Total 0.4 mg/dL (0.2-1.0); CREATININE 0.9 mg/dL (0.55-1.02); Calcium 9.7 mg/dL (8.5-10.1); Chloride 105 mmol/L (98-107); Glucose 110 mg/dL (74-106); Lipase 35 U/L (<78); Magnesium 1.9 mg/dL (1.8-2.4); Potassium 3.6 mmol/L (3.5-5.1); Sodium 142 mmol/L (136-145); Total Protein 8.5 g/dL (6.4-8.2); Troponin I 9 ng/L (<or=51)
[2025-01-21 11:54] LABS: D-Dimer 487 ng/mlFEU (<500)
--- NOTE | 2025-01-21 12:00 | DI.CT_ITS ---
Exam(s) CT CHEST WO EXAM: CT CHEST WO CLINICAL HISTORY: R lobe density eval. TECHNIQUE: Multi planar reconstructions were performed. CONTRAST MATERIAL: None COMPARISON: CT CT CHEST/ABD/PEL WO from 01/02/[address] ABDOMEN PELVIS WO from 08/23/[address] ABDOMEN PELVIS WO from 09/20/2021 CR XR CHEST 2V PA LATERAL from 01/21/2025 FINDINGS: CHEST: LUNGS: There is partially calcified pleural plaque in posterior aspect of the left lower lobe which i s unchanged from 2021. There is mild adjacent scarring in the lung. No other significant left lung findings. The right lung there is a focal density in the medial aspect of the right middle lobe whic h most probably accounts for the finding on today's chest x-ray. However, it exhibits minimal change when compared to the uppermost images of an abdominal CT scan performed September 2021.. There are n o new additional right lung findings. There are no pleural effusions. No significant focal findings in the trachea and mainstem bronchi. MEDIASTINUM: There is small calcified hilar lymph nodes. Largest of these is left infrahilar and main sures 7 x 6 mm. This is commensurate with the finding in the left lower lobe. No obvious axillary a denopathy CARDIAC: Heart size is normal. There is no pericardial effusion.Caliber of the thoracic aorta is wit hin normal limits. VISUALIZED UPPER ABDOMEN:No adrenal masses. Gallbladder surgically absent. Spleen size normal. OSSEOUS: No significant osseous lesions.No fractures.. IMPRESSION: 1. Benign-appearing finding in the medial aspect of the right middle lobe corresponding to finding on today's chest radiograph. This appears unchanged from prior CT scans listed above. No new pulmonar y findings and no pleural effusions Report called to ER 01/21/2025 2:10 p.m. RADIATION DOSE DELIVERED: 134.59mGy.cm Total DLP DATA REPOSITORY: All CT scans at this facility are submitted to the National Radiology Data Registry (NRDR) Dose Index Registry (DIR) with the [employer] (ACR). RADIATION OPTIMIZATION: All CT scans at this facility use at least one of these dose optimization te chniques: automated exposure control; mA and/or kV adjustment per patient size (includes targeted exa ms where dose is matched to clinical indication); or iterative reconstruction.
[2025-01-21 12:50] LABS: Troponin I 8 ng/L (<or=51)
[2025-01-21 14:20] VITALS: BP 142/81; PULSE 77; RESP 16; O2SAT 100
[2025-01-21 14:59] VITALS: BP 120/73; PULSE 67; RESP 16; O2SAT 99
== END 2025-01-21 15:03 | disposition home or self-care (01) ==
PROVIDERS: Emergency Provider Registered Nurse Emergency; PCP Physician Assistant
DX: R07.9 Chest pain, unspecified (principal); E03.9 Hypothyroidism, unspecified
CPT/HCPCS: 36415; 71250; 80053; 83690; 93005; 99284; 99285; 71046; 83735; 84484; 85025; 85379; 93010

== ENCOUNTER 2025-01-24 09:04 | Outpatient (CLI) | payer OTHER, SELFPAY | END 2025-01-24 09:05 | disposition home or self-care (01) | PROVIDERS: PCP Physician Assistant; Referring Provider Student in an Organized Health Care Education/Training Program; Visit Provider Student in an Organized Health Care Education/Training Program | DX: R00.2 Palpitations (principal) | CPT/HCPCS: 93246 ==

== ENCOUNTER 2025-01-28 11:33 | Outpatient (CLI) | payer OTHER, SELFPAY ==
[2025-01-28 17:40] LABS: CRP, High Sensitivity 3.76 mg/L (See Note)
== END 2025-01-28 11:34 | disposition home or self-care (01) ==
LOC: LBO 11:33
PROVIDERS: PCP Physician Assistant; Visit Provider Student in an Organized Health Care Education/Training Program
DX: R79.82 Elevated C-reactive protein (CRP) (principal)
CPT/HCPCS: 36415; 86141

== ENCOUNTER 2025-02-01 19:11 | Outpatient (CLI) | payer OTHER, SELFPAY ==
--- NOTE | 2025-02-01 19:00 | RT.EKG_ITS ---
APPROVED REPORT Exam: Resting ECG Reason for Exam: body burning sensation Patient Location: O HR:76 bpm ECG Measurements Heart Rate 76 AXIS IA 158 P 65 QRSd 93 QRS 69 QT 383 T 58 QTc 431 Conclusion Sinus rhythm...normal P axis, V-rate 50- 99 Normal Electrocardiogram
== END 2025-02-01 19:12 | disposition home or self-care (01) ==
LOC: DI.CM 19:12
PROVIDERS: PCP Physician Assistant; Visit Provider Nurse Practitioner Family
DX: R52 Pain, unspecified (principal); R20.8 Other disturbances of skin sensation
CPT/HCPCS: 93010

== ENCOUNTER 2025-02-10 18:13 | Emergency (ER) | payer OTHER, SELFPAY ==
[2025-02-10] VITALS (23 sets, daily range): BP systolic 152–166; BP diastolic 64–92; PULSE 55–88; RESP 9–24; TEMP 36.6; O2SAT 96–100
--- NOTE | 2025-02-10 18:30 | DI.RAD_ITS ---
Exam(s) XR CHEST 2V PA LATERAL EXAM: XR CHEST 2V PA LATERAL CLINICAL HISTORY: CP TECHNIQUE: 2D digital imaging was performed. Two views. COMPARISON: CR XR CHEST 2V PA LATERAL from 01/21/2025 FINDINGS: Overlying modeling needs. HEART: Normal size. Aorta: Not dilated. PULMONARY VASCULATURE: Normal. MEDIASTINUM: Unremarkable. LUNGS: Clear. PLEURAL SPACE: No pleural effusion or pneumothorax. BONE:Unremarkable for age. SOFT TISSUES: Unremarkable. IMPRESSION: No acute abnormality. DATA REPOSITORY: RADIATION DOSE DELIVERED:
--- NOTE | 2025-02-10 18:30 | RT.EKG_ITS ---
APPROVED REPORT Exam: Resting ECG Reason for Exam: Patient Location: E HR:66 bpm ECG Measurements Heart Rate 66 AXIS RI 148 P 19 QRSd 83 QRS 61 QT 410 T 53 QTc 431 Conclusion Sinus rhythm at a rate of 66 without acute ischemic change
--- NOTE | 2025-02-10 18:46 | ED.GENADUL_ITS ---
Discharge Plan Discharge Details Chief Complaint: Anxiety Clinical Impression: Anxiety, Chest pain, Panic attacks Primary Care Provider: Abdon Muro ED Provider: Jonathan Hubbard Home Meds and New Rx's Prescriptions: No Action albuterol sulfate [Proventil HFA] 90 mcg/actuation HFA aerosol inhaler 2 puff inhalation Q6H PRN (Reason: shortness of breath or wheezing) Qty: 8.5 0RF levothyroxine 88 mcg capsule 88 mcg PO DAILY atorvastatin [Lipitor] 20 mg tablet 20 mg PO DAILY estradiol [Vagifem] 10 mcg tablet 10 mcg vaginal .Twice weekly 90 Days Qty: 30 3RF levothyroxine 100 mcg tablet 100 mcg PO DAILY epinephrine 0.3 MG/SYR auto-injector 0.3 mg IJ PRN PRN (Reason: Allergy Symptoms) Qty: 1 0RF HPI General Date/Time Provider Initiated Documentation: 02/10/25 18:15 . HPI Narrative: Raquel is a 49-year-old female who presents to the ED for evaluation of progressively worsening panic attacks for the last 3 weeks; feels she is having a mental breakdown and says she cannot handle this anymore. This is accompanied by chest pain, which has become worse today, described as a burning sensation throughout the anterior chest wall rated 6/10. Had the most severe episode one hour prior to presentation had an episode of left shoulder pain that radiated into the left side of her chest that lasted approximately 15 minutes, was accompanied by a weird feeling. She has also noticed that her heart rate has dropped from her usual 60s down to 40s on her Apple Watch. Denies recent fevers/chills, headaches, visual disturbances, congestion, ear pain, sore throat, cough, shortness of breath, nausea/vomiting, change in p.o. intake, change in bowel or bladder function, peripheral edema, recent immobility. Does admit she has felt chilled over the last couple of weeks. Past medical history significant for acquired hypothyroidism due to thyroid cancer (on Synthroid, no recent changes), history of adverse reactions to multiple medication (SSRIs, hydroxyzine, and lorazepam), with inpatient psychiatric hospitalization for management of anxiety in 2020 after adverse reaction to COVID-vaccine. No anxiety medications since then. Denies thoughts of harm to others, however alludes to thoughts of self-harm/passive SI, stating I just do not think I can take this anymore. No history of blood clots, connective tissue disorders, cardiac or pulmonary issues, diabetes, immunocompromise, or hormone use. Does not smoke or consume alcohol regularly. Recently lost family members due to heart attacks, admits this causes her significant anxiety. Related Data Home Medications ?Medication ?Instructions ?Recorded ?Confirmed epinephrine 0.3 mg/0.3 mL 0.3 mg (0.3 mL) IJ PRN PRN A llergy 03/27/15 02/10/25 injection, auto-injector Symptoms ##1 albuterol sulfate 90 mcg/actuation 2 puff inhalation Q 6H PRN 03/13/21 02/10/25 aerosol inhaler (Proventil HFA) shortness of breath or wheezing #8.5 grams levothyroxine 100 mcg tablet 100 mcg PO DAILY 01/03/23 02/10/25 levothyroxine 88 mcg capsule 88 mcg PO DAILY 03/01/24 02/10/25 atorvastatin 20 mg tablet (Lipitor) 20 mg PO DAILY 02/10/25 Held on 02/10/25. Instructions: Pt Stopped/Never Started estradiol 10 mcg vaginal tablet 10 mcg vaginal .Twice weekly 3 01/31/25 02/10/25 (Vagifem) months #30 tabs Previous Rx's ?Medication ?Instructions ?Recorded epinephrine 0.3 mg/0.3 mL 0.3 mg (0.3 mL) IJ PRN PRN A llergy 03/27/15 injection, auto-injector Symptoms ##1 albuterol sulfate 90 mcg/actuation 2 puff inhalation Q 6H PRN 03/13/21 aerosol inhaler (Proventil HFA) shortness of breath or wheezing #8.5 grams estradiol 10 mcg vaginal tablet 10 mcg vaginal .Twice weekly 3 01/31/25 (Vagifem) months #30 tabs Allergies Allergy/AdvReac Type Severity Reaction Status Date / Time Gadolinium-Containing Allergy Severe Anaphylaxis Verified 02/10/25 18:[address] [facility] 2011 Penicillins Allergy Severe Anaphylaxsi Verified 02/10/25 18:19 s Sulfa (Sulfonamide Allergy Severe Anaphylaxsi Verified 02/10/25 18:19 Antibiotics) s venom-honey bee (bee venom Allergy Severe Anaphylaxsi Verified 02/10/25 18:19 (honey bee)) s citalopram Allergy Mild Hives Verified 02/10/25 18:19 ofloxacin (From Floxin) Allergy Mild Skin Rash Verified 02/10/25 18:19 naproxen (From Aleve) Allergy Anaphylaxis Verified 02/01/25 18:40 azithromycin (From Zithromax) AdvReac Severe Anaphylaxsi Verified 02/10/25 18:19 s Iodinated Contrast Media AdvReac Severe Anaphylaxsi Verified 02/10/25 18:19 (Iodinated Contrast Media - s IV Dye) ketorolac tromethamine (From AdvReac Severe Anaphylaxsi Verified 02/10/25 18:19 Toradol) s iodine AdvReac Intermediate Anaphylaxsi Verified 02/10/25 18:19 s lorazepam (From Ativan) AdvReac Intermediate Dizziness/L Verified 02/10/25 18:19 ightheade horse flies Allergy Severe Anaphylaxsi Uncoded 02/10/25 18:19 s General Stated Complaint: Anxiety CLARI: 3 Exam Narrative Exam Narrative: General Appearance: Anxious and distressed. Appropriately conversational. Vital signs: Within normal limits. Respiratory: Clear to auscultation bilaterally, no wheezing or crackles. Cardiovascular: Regular rate and rhythm, no murmurs. No pain with palpation of anterior chest wall. Gastrointestinal: Abdomen soft, non-tender, no masses. Extremities: No pedal edema or calf tenderness/edema Skin: Warm and dry, no rash. Psychiatric: Anxious and distressed. Course Vital Signs Vital signs: Vital Signs Temperature 36.6 C 02/10/25 18:14 Pulse 88 02/10/25 18:14 Respiratory Rate 18 02/10/25 18:14 Blood Pressure 166/92 H 02/10/25 18:14 Pulse Oximetry 98 02/10/25 18:14 Temperature 36.6 C 02/10/25 18:14 Temperature Source Oral 02/10/25 18:14 Pulse 88 02/10/25 18:14 Respiratory Rate 16 02/10/25 18:30 Respiratory Effort Normal 02/10/25 18:30 Respiratory Depth Normal 02/10/25 18:30 Respiratory Pattern Normal 02/10/25 18:30 Blood Pressure 166/92 H 02/10/25 18:14 Pulse Oximetry 98 02/10/25 18:14 Oxygen Delivery Method Room Air 02/10/25 18:14 Oxygen Flow Rate 0 02/10/25 18:14 Pain Level 8 02/10/25 18:14 Medical Decision Making Initial Assessment: 49-year-old female with panic attacks and chest pain. Symptoms began 3 weeks ago after concerning blood test result. Anxiety exacerbated by family history of heart disease and recent personal losses. Differential Diagnosis includes but is not limited to: ACS, Takotsubo cardiomyopathy, occult infection such as pneumonia or UTI, thyroid dysfunction, electrolyte imbalance, cardiac arrhythmia, musculoskeletal strain, anxiety. No red flags concerning for DVT or PE based on lack of corresponding risk factors, reassuring presentation (burning CP c/w previous anxiety), and normal VS (no tachypnea, tachycardia, hypoxemia). ED Course: - EKG - Blood work (cell counts, electrolytes, kidney function, troponin) - Chest x-ray - Thyroid function tests - Urine test obtained I did discussed use of anxiolytics and GI cocktail with patient, who declines at this time, citing significant concerns with history of anaphylaxis due to medications. I independently interpreted the following tests Final Assessment: Workup today very reassuring, no obvious cause of symptoms, though musculoskeletal pain/anxiety likely contributory based on positive response to heat and tylenol. EKG, blood work, chest x-ray, thyroid function tests, and urine test performed. Evaluated for cardiac, pulmonary, musculoskeletal, and gastrointestinal causes of chest pain. Clinical Impression: - Panic attacks/anxiety - Chest pain w/ reassuring cardiac workup Pt evaluated by [facility] crisis counselor. She meet criteria to safety plan home with close therapy/psychiatry follow-up, however patient does not feel safe to go home due to significant anxiety. Patient to be placed in crisis bed (not currently open over the weekend, anticipate to open in the morning). I discussed plan of care with patient, she is agreeable with plan. Awaiting discharge to crisis bed. Handoff report given to Dr Hubbard, overnight attending. Patient consented to the use of [facility] Imaging Data Radiologic Study: Radiologist's impression: PROCEDURE INFORMATION: Exam: XR Chest Exam date and time: 02/10/2025 8:03 PM Age: 49 years old Clinical indication: Pain; Other: Cp TECHNIQUE: Imaging protocol: Radiologic exam of the chest. Views: 2 views. COMPARISON: CT CHEST WO 01/21/2025 1:23 PM FINDINGS: Lungs: Unremarkable. No consolidation. Pleural spaces: Unremarkable. No pleural effusion. No pneumothorax. Heart/Mediastinum: Unremarkable. No cardiomegaly. Bones/joints: Unremarkable. IMPRESSION: No evidence for acute abnormality in the chest. PFSH All Active Problems (Updated 02/10/25 @ 22:46 by Beckie San) Chest pain (Acute) Microscopic hematuria (Acute) B12 deficiency (Acute) Vaginal atrophy (Acute) Abdominal bloating (Acute) Gait difficulty (Acute) Well woman exam with routine gynecological exam (Acute) Abnormal CT of the abdomen (Acute) Colitis (Acute) Anxiety about health (Acute) PONV (postoperative nausea and vomiting) (Acute) WOOD (generalized anxiety disorder) (Acute) Hypothyroidism (Acute) Secondary to thyroidectomy due to cancer Thyroid cancer (Acute) Papillary Adverse drug effect (Acute) Thoracic outlet syndrome (Acute) Neck pain (Acute) Panic attacks (Acute) Depression (Chronic) Difficulty with speech (Acute) Bilateral arm weakness (Acute) Bilateral leg weakness (Acute) Difficulty with speech (Acute) Breast lump on left side at 3 o'clock position (Acute) Weakness (Acute) Anxiety (Chronic) Fatigue (Acute) Headache (Acute) Blurred vision (Acute) Chest pain (Acute) Near syncope (Acute) Atypical chest pain (Acute) Medical History Functional neurological symptom disorder with mixed symptoms (~01/15/21) Anxiety Fatigue Surgical History S/P laparoscopic cholecystectomy History of thyroidectomy H/O hand surgery cyst removal History of hysterectomy Family History Mother Hypertension Social History Smoking/Tobacco Use Status: Never Smoking risk assessment performed?: Yes Alcohol Intake: never Drug use: Never Substance use type: does not use Household members: spouse and children Number of Children: 4 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
[2025-02-10 19:19] LABS: Abs Immature Grans 0.01 10^3/uL (0.0-0.06); Absolute Basophil Count 0.06 10^3/uL (0.0-0.2); Absolute Eosinophil Count 0.14 10^3/uL (0.0-0.7); Absolute Lymphocyte Count 2.81 10^3/uL (1.2-3.4); Absolute Monocyte Count 0.48 10^3/uL (0.1-0.8); Absolute Neutrophil Count 4.24 10^3/uL (1.2-6.7); Basophils % 0.8 %; Eosinophils % 1.8 %; HCT 38.3 % (36.0-46.0); HGB 12.7 g/dL (11.2-15.7); Immature Grans % 0.1 %; Lymphocytes % 36.3 %; MCH 29.5 pg (27.0-33.0); MCHC 33.2 % (32.0-36.0); MCV 89 fL (80-95); MPV 9.8 fL (8.0-11.0); Monocytes % 6.2 %; Neutrophils % 54.8 %; Platelet Count 353 10^3/uL (130-400); RDW 12.5 % (11.7-14.6); RDW-SD 40.8 fL; WBC 7.74 10^3/uL (4.4-10.8)
[2025-02-10 19:37] LABS: Bilirubin Negative (Negative); Blood Negative (Negative); Clarity Clear (Clear); Glucose Negative (Negative); Ketones Negative (Negative); Leukocyte Esterase Negative (Negative); Nitrite Negative (Negative); Specific Gravity <= 1.005 (1.005-1.025); Urobilinogen 0.2 mg/dL (Up to 0.2)
[2025-02-10 19:38] LABS: ALT 19 U/L (14-59); AST 14 U/L (15-37); Albumin 4.7 g/dL (3.4-5.0); Alkaline Phosphatase 112 U/L (46-116); Anion Gap 13.7 mmol/L (3-11); BUN 10 mg/dL (7-18); Bilirubin, Total 0.4 mg/dL (0.2-1.0); CO2 25.3 mmol/L (21.0-32.0); CREATININE 0.7 mg/dL (0.55-1.02); Calcium 10.2 mg/dL (8.5-10.1); Chloride 102 mmol/L (98-107); Estimated GFR 104.65 (mL/min/1.73m2); Glucose 99 mg/dL (74-106); Magnesium 2.1 mg/dL (1.8-2.4); Potassium 3.7 mmol/L (3.5-5.1); Sodium 141 mmol/L (136-145); Total Protein 8.7 g/dL (6.4-8.2); Troponin I 9 ng/L (<or=51)
[2025-02-10 19:44] LABS: TSH (W/Ref FT4) 0.54 uIU/mL (0.36-3.74)
[2025-02-10 19:45] LABS: *AMPHETAMINES SCREEN URINE Negative (Negative); *BARBITURATES SCREEN URINE Negative (Negative); *BENZODIAZEPINES SCREEN URINE Negative (Negative); Cannabinoids THC Negative (Negative); Cocaine Screen,Urine Negative (Negative); METHADONE URINE SCREEN Negative (Negative); OPIATES URINE SCREEN Negative (Negative)
[2025-02-10 19:47] LABS: Tricyclic Antidepressants Negative (Negative)
[2025-02-10] MEDS: Acetaminophen 325 MG TAB 650 MG PO (20:13)
[2025-02-10 20:47] LABS: Troponin I 8 ng/L (<or=51)
--- NOTE | 2025-02-10 21:02 | DI.VRAD_ITS ---
PROCEDURE INFORMATION: Exam: XR Chest Exam date and time: 02/10/2025 8:03 PM Age: 49 years old Clinical indication: Pain; Other: Cp TECHNIQUE: Imaging protocol: Radiologic exam of the chest. Views: 2 views. COMPARISON: CT CHEST WO 01/21/2025 1:23 PM FINDINGS: Lungs: Unremarkable. No consolidation. Pleural spaces: Unremarkable. No pleural effusion. No pneumothorax. Heart/Mediastinum: Unremarkable. No cardiomegaly. Bones/joints: Unremarkable. IMPRESSION: No evidence for acute abnormality in the chest. Dictated and Authenticated by: Christiana Bolden MD. Orderin Eron Butts MD
--- NOTE | 2025-02-10 22:32 | PDOC.MHCN_ITS ---
Date of service: 02/10/25 Time of Service: 22:33 PHQ-9 Over the last 2 weeks, how often have you been bothered by any of the following problems? 1. Little interest or pleasure in doing things: nearly every day 2. Feeling down, depressed, or hopeless: nearly every day 3. Trouble falling or staying asleep, or sleeping too much: nearly every day 4. Feeling tired or having little energy: nearly every day 5. Poor appetite or overeating: nearly every day 6. Feeling bad about yourself - or that you are a failure or have let yourself and your family down: nearly every day 7. Trouble concentrating on things, such as reading the newspaper or watching television: nearly every day 8. Moving or speaking so slowly that other people could have noticed? - Or the opposite - being so fidgety or restless that you have been moving around a lot more than usual: nearly every day 9. Thoughts that you would be better off or of hurting yourself in some way: several days Total score: 25 PHQ-9 Results: Positive Source: Developed by Drs. Pranav Smith, Zoe López, Cristhian Gibbs and colleagues, with an educational debbie from [employer]. Suicide Severity Rate CSSRS Have you wished you were or wished you could go to sleep and not wake up?: Yes Have you actually had any thoughts of killing yourself?: Yes CSSRS2 Have you been thinking about how you might do this?: No Have you had these thoughts and had some intention of acting on them?: No Have you started to work out or worked out the details of how to kill yourself? Do you intend to carry out this plan?: No CSSRS3 Have you ever done anything, started to do anything or prepared to do anything to end your life?: No Screening Score Total Score: 4 Screening: Positive Mental Health Emergency Note Release [facility] release signed:: Yes Reason for Visit The client is previously known to [facility] however, her 10 year with this agency was previous to this newer electronic medical records. The client has been hospitalized before initially at [facility] and then transferred to [facility] due to it being a better suit per her report. This hospitalization was in 2020 following a Covid vaccine that caused her to Develop anxiety symptoms. The client is currently seen by Giuliana Juarez for therapy and Abdon Muro at [facility] for medication management. Per report of [facility] Abdon Muro has already put in a referral for psychiatry due to her drug sensitivity to medication's. In the last 2 weeks has the pt presented for ES prior to today?: Unknown Client Information Client is: New Well Housed: Yes Non Suicidal Self Injury Current: No History: No Safety Risk/Harm to Self or Others Current Ideation to Harm Self or Others: Yes to self. Intent: yes, has intent. Plan: no.does not have a plan. History of suicide attempt: No history of suicide attempt reported Risk: Does risk to harm exist?: yes. Access to means: Yes. Types of Means: Firearms, Other weapons and Medication. Counseling provided: Yes Risk: Moderate Risk Duty to warn indicated: No Asssessment/Mental Status Appearance: Unremarkable Attitude: Cooperative Behavior: Unremarkable Speech: Normal Affect: Cogruent with mood Mood: Stressed, Depressed and Anxious Thought process: Goal directed Hallucinations: No Delusions: No Attention: Unremarkable Perception: Not impaired Orientation: Fully orientated Memory: Intact Insight: Excellent and Good Judgement: Good Neurovegetative Symptoms Sleep: Decrease Appetitie: Decrease Interests: Decrease Energy: Decrease Libido: Not applicable Substance Use: Do you use nicotine?: No Have you used substances in the last 7 days?: No Additional Issues: Assaultive/Threatening Behavior: No Medical Concerns: No Client engaged in active self harm w/weapon: No Threatening to run away: No Child reported abuse/neglect: No Voluntarily presenting for services: Yes Domestic violence is a concern: No Extreme Psychosis or extreme behavior is present: No Impression The client is a 49 year-old, Born female, , , who lives in [place], [place], with her significant other. 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 The client is observed in the ED of [facility] wearing a hospital gown and EKG leads with an N 95 mask per her choosing. Her mood presents as she reports being anxious. Her speech is normal. Her affect is congruent with mood. She shows good insight and judgment. The client reports a decrease in appetite noting she's lost 13 pounds in one month and a decrease in sleep, noting that she cannot fall asleep and wakes up every hour on the hour throughout the night. The client does not present as having any auditory or visual, hallucinations or diligence. Her insight in judgment appear good. The client reports that she lost her father A year ago due to a heart attack and her sister one week ago due to a heart attack. She reports that her brother passed a year ago due to Covid. The client reports that in 2020 she had her first [employer] Covid shot which she had an allergic reaction to which resulted in anxiety symptoms and her needing psychiatric hospitalization at [facility]. The client has been tried on numerous different anxiety medication's, which she's had adverse reactions to. The client engaged in all screening tools, including the CSRS. Mary was not administered at this time. She is remaining at [facility] for the night. Resources [facility] reviewed and given:: [phone], Crisis Bed and Other (Front Porch) Plan/Disposition Recommended Disposition: Crisis bed, (referral will be sent/closed for the weekend. ) No, Therapy and Med management. Plan: The client will remain at [facility] and be housed in zone B pending referrals for therapy, psychiatry, and Care Bed. This is based on the fact that the client does not feel she would be safe as she returned home. Person reported agreement to plan: Yes Reports/communication Outcome discussed with: ED/Personnel
--- NOTE | 2025-02-11 05:40 | ED.PROG_ITS ---
Date of service: 02/11/25 Time of Service: 05:42 Medical Decision Making The patient was observed over the arc of the overnight shift here and did not have any significant complications or excessive needs. The patient slept here without difficulty. The patient's IV was removed and the monitor was disconnected so that she would not have any nighttime anxiety related to the stimulation from either appliance. The patient's laboratory workup was fully negative and there is no reason to suspect the patient is having any significant myocardial ischemia or other complications that would be causing her to have acute heart disease. The patient was unable to contract for safety with Sandee from [facility], and the plan is for the patient to be discharged to an acute respite crisis bed today when 1 becomes available from the emergency room. The case will be signed out over the morning shift to the a.m. provider. Discharge Plan Discharge Details Chief Complaint: Anxiety Clinical Impression: Anxiety, Chest pain, Panic attacks Primary Care Provider: Abdon Muro ED Provider: Jonathan Hubbard Home Meds and New Rx's Prescriptions: No Action albuterol sulfate [Proventil HFA] 90 mcg/actuation HFA aerosol inhaler 2 puff inhalation Q6H PRN (Reason: shortness of breath or wheezing) Qty: 8.5 0RF levothyroxine 88 mcg capsule 88 mcg PO DAILY atorvastatin [Lipitor] 20 mg tablet 20 mg PO DAILY estradiol [Vagifem] 10 mcg tablet 10 mcg vaginal .Twice weekly 90 Days Qty: 30 3RF levothyroxine 100 mcg tablet 100 mcg PO DAILY epinephrine 0.3 MG/SYR auto-injector 0.3 mg IJ PRN PRN (Reason: Allergy Symptoms) Qty: 1 0RF Discharge Instructions Additional Instructions: You were evaluated by [facility]; referrals are being made for therapy and psychiatry. Please follow the safety plan as developed. Return to emergency care if you develop new chest pains, difficulty breathing, episodes of passing out, thoughts of harming yourself or others, or if you are very worried and need to be rechecked again immediately
[2025-02-11] MEDS: Levothyroxine 100 MCG TAB PO (08:32)
[2025-02-11 08:39] VITALS: BP 143/81; PULSE 91; RESP 20; TEMP 36.8; O2SAT 95
--- NOTE | 2025-02-11 10:57 | NUR.NOTE ---
Patient refused xanax, med returned to [facility] in pharmacy.
--- NOTE | 2025-02-11 11:05 | W.EDPROG ---
Date of service: 02/11/25 Time of Service: 11:05 Medical Decision Making Care was signed out by Dr. Starks, please see his documentation and prior provider documentation regarding earlier ED presentation and course. Plan at signout: Patient medically cleared and awaiting psychiatric treatment plan. Patient likely to be discharged home with a safety plan in the a.m. versus care bed placement. Patient was given levothyroxine 100 mcg as prescribed. Patient having some anxiety and was given Xanax 0.25 mg. Patient was seen by [facility] crisis screener. Patient safe for discharge home with safety plan established. Patient agreeable with this plan. Patient stable. Usual and customary discharge instructions were reviewed and she was encouraged to return immediately for any worsening or new concerning symptoms. Discharge Plan Disposition Patient Disposition: Home Condition: Stable Discharge Details Clinical Impression: Anxiety, Chest pain, Panic attacks Primary Care Provider: Abdon Muro ED Provider: Sánchez Fernandez Home Meds and New Rx's Prescriptions: No Action albuterol sulfate [Proventil HFA] 90 mcg/actuation HFA aerosol inhaler 2 puff inhalation Q6H PRN (Reason: shortness of breath or wheezing) Qty: 8.5 0RF levothyroxine 88 mcg capsule 88 mcg PO DAILY atorvastatin [Lipitor] 20 mg tablet 20 mg PO DAILY estradiol [Vagifem] 10 mcg tablet 10 mcg vaginal .Twice weekly 90 Days Qty: 30 3RF levothyroxine 100 mcg tablet 100 mcg PO DAILY epinephrine 0.3 MG/SYR auto-injector 0.3 mg IJ PRN PRN (Reason: Allergy Symptoms) Qty: 1 0RF Discharge Instructions Instructions: Chest Pain, Adult ED, Anxiety, Adult ED Additional Instructions: You were evaluated by [facility]; referrals are being made for therapy and psychiatry. Please follow the safety plan as developed. Return to emergency care if you develop new chest pains, difficulty breathing, episodes of passing out, thoughts of harming yourself or others, or if you are very worried and need to be rechecked again immediately [facility]] Abdon Muro [Primary Care Provider, Medicine]
--- NOTE | 2025-02-11 16:49 | MHPN_ITS ---
Date of service: 02/11/25 Time of Service: 11:00 Mental Health Emergency Note Release [facility] release signed:: Yes Reason for Visit In the last 2 weeks has the pt presented for ES prior to today?: No Asssessment/Mental Status Appearance: Well groomed Attitude: Cooperative and Friendly Behavior: Unremarkable Speech: Soft Affect: Normal Mood: Sad and Stressed Thought process: Unremarkable Hallucinations: No Delusions: No Attention: Unremarkable Perception: Not impaired Orientation: Fully orientated Memory: Intact Insight: Fair Judgement: Fair Neurovegetative Symptoms Sleep: Decrease Appetitie: Decrease Interests: No change Energy: No change Libido: Not applicable Substance Use: Have you used substances in the last 7 days?: No Impression Ms Valencia is a 49 year old female who resides in [facility] with her . The client present's experiencing grief and depression. The client states she is not having any thoughts of hurting herself or others. The client states that she woke up every two hours and went through three cycles of this last night. The client states that she was able to eat some toast and fruit along with coffee in the morning. The client reports that she did not try to go to [facility] once and checked herself out before she spent a night there. The client states she is open to the carebed once there is some availability. The client states that the coping skills she learned back in 2021 are not working anymore and that she needs to learn new coping skills. The client states that she wants to try to do this from home and utilize the safety plan that she and QAMAR Gomez created together. This clinician went over resources the client could utilize 24 hours a day if needed including the emergency services team at [facility] and the Front [facility]. Plan/Disposition Recommended Disposition: [facility] Services [facility] Services: Other (Front [facility] and Emergency services ) and Therapy. Plan: The client is safety planning home in order to attempt utilization of out patient services. Reports/communication Outcome discussed with: ED/Personnel
== END 2025-02-11 11:18 | disposition home or self-care (01) ==
PROVIDERS: Nurse Practitioner Family; Emergency Provider Student in an Organized Health Care Education/Training Program; PCP Physician Assistant
DX: F41.9 Anxiety disorder, unspecified (principal); R07.9 Chest pain, unspecified; F41.0 Panic disorder [episodic paroxysmal anxiety]
CPT/HCPCS: 00123; 80053; 80307; 81025; 93005; 96127; 99285; 71046; 81003; 83735; 84443; 84484; 85025; 93010; 99284

== ENCOUNTER 2025-07-27 07:16 | Emergency (ER) | payer OTHER, SELFPAY ==
[2025-07-27 07:21] VITALS: BP 152/89; PULSE 75; RESP 20; TEMP 36.8; O2SAT 99
--- NOTE | 2025-07-27 07:39 | ED.GENADUL_ITS ---
Discharge Plan Disposition Patient Disposition: Home Condition: Stable Discharge Details Clinical Impression: Globus sensation Primary Care Provider: Abdon Muro ED Provider: Zachary Bridges Home Meds and New Rx's Prescriptions: Continued albuterol sulfate [Proventil HFA] 90 mcg/actuation HFA aerosol inhaler 2 puff inhalation Q6H PRN (Reason: shortness of breath or wheezing) Qty: 8.5 0RF levothyroxine 88 mcg capsule 88 mcg PO DAILY estradiol [Vagifem] 10 mcg tablet 10 mcg vaginal .Twice weekly 90 Days Qty: 30 3RF levothyroxine 100 mcg tablet 100 mcg PO DAILY epinephrine 0.3 MG/SYR auto-injector 0.3 mg IJ PRN PRN (Reason: Allergy Symptoms) Qty: 1 0RF Discharge Instructions Additional Instructions: You are suffering from a globus sensation which can be due to anxiety. Increase in anxiety is common when starting medications such as Zoloft the first few weeks. You have no findings on exam to suggest an allergic reaction. If your symptoms are improving this week that we discussed with your primary care provider potential different medication options. If you feel more ill or have new symptoms such as difficulty breathing or diffuse rash return to the emergency department for reevaluation. Stand Alone Forms: Portal Information HPI General Mode of arrival: ambulatory . Date/Time Provider Initiated Documentation: 07/27/25 07:17 . Limitations to Documentation: no limitations . Information obtained by: patient . History of Present Illness 50 year old F presents to the emergency department with the chief complaint of lump sensation in throat, described as mild, Patient started experiencing this day(s) (1) and it has been constant. No relieving factors improve symptom(s), No exacerbating factors reported . Patient notes no other symptoms.. Patient did receive the following treatments prior to arrival, none Related Data Home Medications ?Medication ?Instructions ?Recorded ?Confirmed epinephrine 0.3 mg/0.3 mL 0.3 mg (0.3 mL) IJ PRN PRN A llergy 03/27/15 06/10/25 injection, auto-injector Symptoms ##1 albuterol sulfate 90 mcg/actuation 2 puff inhalation Q 6H PRN 03/13/21 06/10/25 aerosol inhaler (Proventil HFA) shortness of breath or wheezing #8.5 grams levothyroxine 100 mcg tablet 100 mcg PO DAILY 01/03/23 06/10/25 levothyroxine 88 mcg capsule 88 mcg PO DAILY 03/01/24 06/10/25 estradiol 10 mcg vaginal tablet 10 mcg vaginal .Twice weekly 3 01/31/25 02/27/25 (Vagifem) months #30 tabs Previous Rx's ?Medication ?Instructions ?Recorded epinephrine 0.3 mg/0.3 mL 0.3 mg (0.3 mL) IJ PRN PRN A llergy 03/27/15 injection, auto-injector Symptoms ##1 albuterol sulfate 90 mcg/actuation 2 puff inhalation Q 6H PRN 03/13/21 aerosol inhaler (Proventil HFA) shortness of breath or wheezing #8.5 grams estradiol 10 mcg vaginal tablet 10 mcg vaginal .Twice weekly 3 01/31/25 (Vagifem) months #30 tabs Allergies Allergy/AdvReac Type Severity Reaction Status Date / Time Gadolinium-Containing Allergy Severe Anaphylaxis Verified 06/10/25 15:31 Contrast Medi PER [facility] 2011 Penicillins Allergy Severe Anaphylaxsi Verified 06/10/25 15:31 s Sulfa (Sulfonamide Allergy Severe Anaphylaxsi Verified 06/10/25 15:31 Antibiotics) s venom-honey bee (bee venom Allergy Severe Anaphylaxsi Verified 06/10/25 15:31 (honey bee)) s citalopram Allergy Mild Hives Verified 06/10/25 15:31 ofloxacin (From Floxin) Allergy Mild Skin Rash Verified 06/10/25 15:31 naproxen (From Aleve) Allergy Anaphylaxis Verified 06/10/25 15:31 azithromycin (From Zithromax) AdvReac Severe Anaphylaxsi Verified 06/10/25 15:31 s Iodinated Contrast Media AdvReac Severe Anaphylaxsi Verified 06/10/25 15:31 (Iodinated Contrast Media - s IV Dye) ketorolac tromethamine (From AdvReac Severe Anaphylaxsi Verified 06/10/25 15:31 Toradol) s iodine AdvReac Intermediate Anaphylaxsi Verified 06/10/25 15:31 s lorazepam (From Ativan) AdvReac Intermediate Dizziness/L Verified 06/10/25 15:31 ightheade horse flies Allergy Severe Anaphylaxsi Uncoded 06/10/25 15:31 s General Stated Complaint: Allergic CLARI: 3 Review of Systems All systems reviewed & are unremarkable except as noted in HPI and below Constitutional Constitutional: Denies chills, Denies fever(s) and Denies weakness ENT Ears, Nose, Mouth, and Throat: Denies change in voice Cardiovascular Cardiovascular: Denies chest pain and Denies dyspnea Respiratory Respiratory: Denies cough and Denies dyspnea Gastrointestinal Gastrointestinal: Denies vomiting Neurologic Neurologic: Denies weakness Psychiatric Psychiatric: Reports anxiety Exam Const General: no acute distress Orientation: alert HENMT Head: normal to inspection Ears: external ears normal General nose exam: external nose normal Mouth: oral mucosae normal, moist mucous membranes and no trismus Throat: posterior oropharynx normal and uvula midline Eyes General: appearance normal, both eyes and all related structures Neck Neck: normal visual inspection Resp Effort & Inspection: normal respiratory effort and able to speak in complete sentences Cardio Rate: regular rate Skin General skin exam: no rashes or lesions noted Neuro General: patient alert and patient oriented x3 Extrem General: normal to inspection Psych Mental Status: mental status grossly normal Course Vital Signs Vital signs: Vital Signs Temperature 36.8 C 07/27/25 07:21 Pulse 75 07/27/25 07:21 Respiratory Rate 20 07/27/25 07:21 Blood Pressure 152/89 H 07/27/25 07:21 Pulse Oximetry 99 07/27/25 07:21 Temperature 36.8 C 07/27/25 07:21 Temperature Source Oral 07/27/25 07:21 Pulse 75 07/27/25 07:21 Respiratory Rate 20 07/27/25 07:21 Blood Pressure 152/89 H 07/27/25 07:21 Pulse Oximetry 99 07/27/25 07:21 Oxygen Delivery Method Room Air 07/27/25 07:21 Oxygen Flow Rate 0 07/27/25 07:21 Medical Decision Making 50-year-old female with a history of anxiety, hypothyroidism, recently started Zoloft 3 days ago comes in feeling like she has a lump in her throat. Denies any fevers, chills, severe pain, difficulty breathing, rashes. She is concerned because she has had allergic reactions to similar medications in the past. She is speaking full sentences with no stridor or drooling. She has no swelling of the throat. Posterior pharynx is normal with a midline uvula, she has no restricted neck movements. There is no submandibular swelling. There is no pain over the hyoid, she has full range of motion of her neck. She has no rashes, clear lung sounds, no abdominal tenderness. Suspect globus sensation, she has no findings on exam or history to suggest entities such as retropharyngeal abscess, epiglottitis, or actual swelling of her throat. Advised that this is likely due to starting her Zoloft and is not an allergic reaction and starting Zoloft you can have increased anxiety symptoms which can lead to globus sensations. I advised to follow-up with her PCP, return precautions given. Differential Diagnosis Differential Diagnosis: anxiety, globus sensation [facility] All Active Problems (Updated 07/27/25 @ 07:52 by Zachary Bridges MD) Globus sensation (Acute) Microscopic hematuria (Acute) B12 deficiency (Acute) Vaginal atrophy (Acute) Abdominal bloating (Acute) Gait difficulty (Acute) Well woman exam with routine gynecological exam (Acute) Abnormal CT of the abdomen (Acute) Colitis (Acute) Anxiety about health (Acute) PONV (postoperative nausea and vomiting) (Acute) WOOD (generalized anxiety disorder) (Acute) Hypothyroidism (Acute) Secondary to thyroidectomy due to cancer Thyroid cancer (Acute) Papillary Adverse drug effect (Acute) Thoracic outlet syndrome (Acute) Neck pain (Acute) Panic attacks (Acute) Depression (Chronic) Difficulty with speech (Acute) Bilateral arm weakness (Acute) Bilateral leg weakness (Acute) Difficulty with speech (Acute) Breast lump on left side at 3 o'clock position (Acute) Weakness (Acute) Anxiety (Chronic) Fatigue (Acute) Headache (Acute) Blurred vision (Acute) Chest pain (Acute) Near syncope (Acute) Atypical chest pain (Acute) Medical History Functional neurological symptom disorder with mixed symptoms (~01/15/21) Anxiety Fatigue Surgical History S/P laparoscopic cholecystectomy History of thyroidectomy H/O hand surgery cyst removal History of hysterectomy Family History Mother Hypertension Social History Smoking/Tobacco Use Status: Never Smoking risk assessment performed?: Yes Alcohol Intake: never Drug use: Never Substance use type: does not use Household members: spouse and children Number of Children: 4 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
[2025-07-27 08:09] VITALS: BP 151/82; PULSE 68; RESP 22; O2SAT 98
== END 2025-07-27 08:14 | disposition home or self-care (01) ==
PROVIDERS: Emergency Provider Emergency Medicine; PCP Physician Assistant
DX: R09.A2 Foreign body sensation, throat (principal)
CPT/HCPCS: 99281; 99282

== ENCOUNTER 2025-07-31 17:16 | Emergency (ER) | payer OTHER, SELFPAY ==
[2025-07-31] VITALS (42 sets, daily range): BP systolic 127–177; BP diastolic 66–93; PULSE 66–98; RESP 12–23; TEMP 36.8; O2SAT 96–100
--- NOTE | 2025-07-31 17:15 | RT.EKG_ITS ---
APPROVED REPORT Exam: Resting ECG Reason for Exam: Chest Pain Patient Location: E HR:93 bpm ECG Measurements Heart Rate 93 AXIS MT 150 P 72 QRSd 84 QRS 64 QT 357 T 53 QTc 445 Conclusion Sinus rhythm...normal P axis, V-rate 60- 99 Probable left atrial enlargement...P >50mS, <-0.10mV V1 Normal Reading/Intervals NS ST depression v3 - v4 There are no significant changes compared to prior EKG performed on 02/01/2025 at 19:13.
--- NOTE | 2025-07-31 17:19 | ED.GENADUL_ITS ---
Discharge Plan Disposition Patient Disposition: Home Condition: Good Discharge Details Clinical Impression: Chest pain Primary Care Provider: Abdon Muro ED Provider: Pranav Ibanez Home Meds and New Rx's Prescriptions: Continued albuterol sulfate [Proventil HFA] 90 mcg/actuation HFA aerosol inhaler 2 puff inhalation Q6H PRN (Reason: shortness of breath or wheezing) Qty: 8.5 0RF levothyroxine 88 mcg capsule 88 mcg PO DAILY levothyroxine 100 mcg tablet 100 mcg PO DAILY epinephrine 0.3 MG/SYR auto-injector 0.3 mg IJ PRN PRN (Reason: Allergy Symptoms) Qty: 1 0RF Discharge Instructions Instructions: Chest Pain, Adult ED Additional Instructions: You were seen for chest pain. Your exam, EKG, CXR and labs are reassuring. You should follow up with your PCP to discuss outpatient cardiac stress testing. You should return to ED for new/persistent chest pain, shortness of breath, syncope, neurological changes, other concerns. Stand Alone Forms: Portal Information HPI General Mode of arrival: ambulatory . Date/Time Provider Initiated Documentation: 07/31/25 17:19 . Limitations to Documentation: no limitations . Information obtained by: patient, RN notes reviewed and old records reviewed . HPI Narrative: Patient presents to ED with episode of sharp electrical shock sensation across her chest (right to left) about an hour ago. This happened twice close together. Now just has chest discomfort/pain, mostly right sided. She felt short of breath with the initial two episodes but not currently. Breathing does not change the pain. She had some diaphoresis with the episodes none currently. No nausea, vomiting or abdominal pain. Had some pain at base of neck, again with episode but not now. Last night woke up and was having burning in her chest and up into her arms, resolved on it's own after a few minutes. Has history of palpitations, anxiety and chest pain, but reports this is different. Recently had been started on Zoloft but now off due to adverse effects. Related Data Home Medications ?Medication ?Instructions ?Recorded ?Confirmed epinephrine 0.3 mg/0.3 mL 0.3 mg (0.3 mL) IJ PRN PRN A llergy 03/27/15 07/31/25 injection, auto-injector Symptoms ##1 albuterol sulfate 90 mcg/actuation 2 puff inhalation Q 6H PRN 03/13/21 07/31/25 aerosol inhaler (Proventil HFA) shortness of breath or wheezing #8.5 grams levothyroxine 100 mcg tablet 100 mcg PO DAILY 01/03/23 07/31/25 levothyroxine 88 mcg capsule 88 mcg PO DAILY 03/01/24 07/31/25 Previous Rx's ?Medication ?Instructions ?Recorded epinephrine 0.3 mg/0.3 mL 0.3 mg (0.3 mL) IJ PRN PRN A llergy 03/27/15 injection, auto-injector Symptoms ##1 albuterol sulfate 90 mcg/actuation 2 puff inhalation Q 6H PRN 03/13/21 aerosol inhaler (Proventil HFA) shortness of breath or wheezing #8.5 grams Allergies Allergy/AdvReac Type Severity Reaction Status Date / Time Gadolinium-Containing Allergy Severe Anaphylaxis Verified 07/31/25 17:24 Contrast Medi PER [facility] 2011 Penicillins Allergy Severe Anaphylaxsi Verified 07/31/25 17:24 s Sulfa (Sulfonamide Allergy Severe Anaphylaxsi Verified 07/31/25 17:24 Antibiotics) s venom-honey bee (bee venom Allergy Severe Anaphylaxsi Verified 07/31/25 17:24 (honey bee)) s citalopram Allergy Mild Hives Verified 07/31/25 17:24 ofloxacin (From Floxin) Allergy Mild Skin Rash Verified 07/31/25 17:24 naproxen (From Aleve) Allergy Anaphylaxis Verified 07/31/25 17:24 azithromycin (From Zithromax) AdvReac Severe Anaphylaxsi Verified 07/31/25 17:24 s Iodinated Contrast Media AdvReac Severe Anaphylaxsi Verified 07/31/25 17:24 (Iodinated Contrast Media - s IV Dye) ketorolac tromethamine (From AdvReac Severe Anaphylaxsi Verified 07/31/25 17:24 Toradol) s iodine AdvReac Intermediate Anaphylaxsi Verified 07/31/25 17:24 s lorazepam (From Ativan) AdvReac Intermediate Dizziness/L Verified 07/31/25 17:24 ightheade horse flies Allergy Severe Anaphylaxsi Uncoded 07/31/25 17:24 s General CLARI: 3 Exam Narrative Exam Narrative: Const: WDWN female in NAD. VS per triage. HEENT: NC/AT. Normal facial exam. Neck: Supple. Trachea midline. Lungs: Normal respiratory effort. Lungs are clear, mildly diminished on the right. No chest wall tenderness. Cor: RRR without murmur. Good radial pulses. GI: Soft/ND/NT. Neuro: A+O x 3. Normal speech, mentation, gait. Cranial nerves II - XII grossly intact. No gross motor or sensory deficit. Ext: No C/C/E. No calf tenderness. Medical Decision Making Patient presents to ED with two brief episodes of electric shock sensation across her chest with residual pain mostly on right side now. Also reports burning chest pain last night for about 5 minutes. Has history of chest pain, palpitations and anxiety. Pain is not pleuritic or reproducible. Abdomen is benign. Pulses in tact. Right lung maybe slightly diminished. EKG per my read with some NS ST depression in the v3-V4 not changed from previous. Will place IV and obtain labs. CXR due to possible diminished breath sounds but doubt PTX. Will obtain d-dimer but low risk for PE. Does not seem likely to be cardiac but will obtain delta troponins. Given IV Tylenol for residual pain. 19:00 - Patient's CXR per my read and radiology read without acute process. No PTX seen. Labs reassuring with normal CBC, unremarkable CMP, negative age adjusted d-dimer with a revised [place] score indicating low risk for PE and normal initial troponin. She is low risk for cardiac CP per HEART and per EDACS pathway. Will plan a one hour trop and three hour trop since she came in so early after her episode. She is due to come to lab for TSH with reflex T4 which I have added on to labs tonight so she does not have to return tomorrow. 21:45 - Patient's third troponin remains flat. Patient can be discharge home at this time. Clinically presentation not consistent with dissection, esophageal tear or pericarditis. There is no evidence of PTX or pneumonia on CXR. Low risk for PE by revised [place] and negative age adjusted d-dimer. Low risk for cardiac event by HEART and EDACS with flat troponins. I have encouraged patient to follow up with PCP for outpatient stress testing. Return precautions provided. Medical Records Medical records reviewed: Yes I reviewed the patient's medical records. Imaging Data Radiologic Study: Attestation: I personally reviewed and interpreted this imaging study as follows: Imaging: X-Ray My impression: see [facility] Lab Data Lab results reviewed: Yes I reviewed the patient's lab results. Lab results narrative: see [facility] ECG Data Attestation: I personally reviewed and interpreted this ECG (s) as follows: Prior ECG tracings: available for review Interpretation: see MDM/EKG [facility] All Active Problems (Updated 07/31/25 @ 21:49 by Pranav Ibanez MD) Globus sensation (Acute) Microscopic hematuria (Acute) B12 deficiency (Acute) Vaginal atrophy (Acute) Abdominal bloating (Acute) Gait difficulty (Acute) Well woman exam with routine gynecological exam (Acute) Abnormal CT of the abdomen (Acute) Colitis (Acute) Anxiety about health (Acute) PONV (postoperative nausea and vomiting) (Acute) WOOD (generalized anxiety disorder) (Acute) Hypothyroidism (Acute) Secondary to thyroidectomy due to cancer Thyroid cancer (Acute) Papillary Adverse drug effect (Acute) Thoracic outlet syndrome (Acute) Neck pain (Acute) Panic attacks (Acute) Depression (Chronic) Difficulty with speech (Acute) Bilateral arm weakness (Acute) Bilateral leg weakness (Acute) Difficulty with speech (Acute) Breast lump on left side at 3 o'clock position (Acute) Weakness (Acute) Anxiety (Chronic) Fatigue (Acute) Headache (Acute) Blurred vision (Acute) Chest pain (Acute) Near syncope (Acute) Atypical chest pain (Acute) Medical History Functional neurological symptom disorder with mixed symptoms (~01/15/21) Anxiety Fatigue Surgical History S/P laparoscopic cholecystectomy History of thyroidectomy H/O hand surgery cyst removal History of hysterectomy Family History Mother Hypertension Social History Smoking/Tobacco Use Status: Never Smoking risk assessment performed?: Yes Alcohol Intake: never Drug use: Never Substance use type: does not use Household members: spouse and children Number of Children: 4 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
--- NOTE | 2025-07-31 17:45 | DI.RAD_ITS ---
Exam(s) XR CHEST 2V PA LATERAL EXAM: XR CHEST 2V PA LATERAL CLINICAL HISTORY: CP TECHNIQUE: 2D digital imaging was performed of the chest. Two images were obtained. PA and lateral views were obtained. COMPARISON: CR XR PORTABLE CHEST AP from 05/25/2023 CR,XR XR CHEST 2V PA LATERAL from 02/10/2025 FINDINGS: MEDIASTINUM: Normal. HEART: Normal. PULMONARY VASCULATURE: Normal. LUNGS: Clear. PLEURAL SPACE: No pleural effusion or pneumothorax. BONE:Within normal limits for the patient's age. OTHER FINDINGS:Normal. IMPRESSION: No acute pulmonary findings. DATA REPOSITORY: RADIATION DOSE DELIVERED:
[2025-07-31 18:12] LABS: Abs Immature Grans 0.01 10^3/uL (0.0-0.06); HCT 38.7 % (36.0-46.0); HGB 12.8 g/dL (11.2-15.7); Immature Grans % 0.1 %; MCH 29.1 pg (27.0-33.0); MCHC 33.1 % (32.0-36.0); MCV 88 fL (80-95); MPV 10.0 fL (8.0-11.0); Platelet Count 329 10^3/uL (130-400); RBC 4.40 10^6/uL (3.93-5.22); RDW 12.3 % (11.7-14.6); RDW-SD 39.8 fL; WBC 7.97 10^3/uL (4.4-10.8)
[2025-07-31 18:29] LABS: Lipase 36 U/L (<53); Magnesium 2.0 mg/dL (1.6-2.6)
[2025-07-31 18:30] LABS: Troponin I 8 ng/L (<35)
[2025-07-31 18:31] LABS: ALT 10 U/L (10-49); AST 18 U/L (<34); Albumin 5.0 g/dL (3.2-5.0); Alkaline Phosphatase 119 U/L (46-116); Anion Gap 11.2 mmol/L (3-11); BUN 12 mg/dL (9-23); Bilirubin, Total 0.3 mg/dL (0.2-1.2); CO2 25.8 mmol/L (20.0-31.0); Calcium 9.9 mg/dL (8.3-10.6); Chloride 104 mmol/L (98-107); Glucose 89 mg/dL (74-106); Potassium 3.5 mmol/L (3.5-5.1); Sodium 141 mmol/L (136-145); Total Protein 8.5 g/dL (5.7-8.2)
[2025-07-31 18:42] LABS: D-Dimer 507 ng/mlFEU (<500)
[2025-07-31 19:10] LABS: Troponin I 7 ng/L (<35)
[2025-07-31 19:39] LABS: Lab Add On Test DONE
[2025-07-31 19:59] LABS: TSH (W/Ref FT4) 0.36 uIU/mL (0.55-4.78)
[2025-07-31 21:26] LABS: Troponin I 8 ng/L (<35)
== END 2025-07-31 22:13 | disposition home or self-care (01) ==
PROVIDERS: Emergency Provider Emergency Medicine; PCP Physician Assistant
DX: R07.9 Chest pain, unspecified (principal)
CPT/HCPCS: 36415; 80053; 83690; 93005; 99284; 71046; 83735; 84439; 84443; 84484; 85025; 85379; 93010; 99283